=== PATIENT | female | born 1940 | race Caucasian/White ===

== ENCOUNTER 2021-03-08 08:20 | Outpatient (REF) | payer MEDICARE, SELFPAY ==
--- NOTE | ~2021-03-08 | MM_ITS ---
EXAMINATION: MM SCREENING DIGITAL BREAST TOMOSYNTHESIS, BILATERAL CLINICAL INFORMATION: Screening. Asymptomatic. The lifetime risk of breast cancer based on the Tyrer-Cuzick Model is 3%. COMPARISON: Mammography: 12/21/2019, 01/15/2017 TECHNIQUE: Digital breast tomosynthesis is performed in both the craniocaudal and mediolateral oblique views along with computer-aided detection (CAD). Synthesized 2D images are generated from the tomosynthesis. FINDINGS: There are scattered areas of fibroglandular density (ACR BI-RADS breast composition Category b). There are no significant masses, abnormal calcifications, or other abnormalities. Parenchymal pattern is similar to prior studies. Intramammary node posterior 3:00 left breast is similar to 2017. The axilla and skin contours are unremarkable. MM/MM tomosynthesis screening BI IMPRESSION: No mammographic evidence of malignancy. ASSESSMENT: BI-RADS 2: Benign RECOMMENDATION: Routine annual mammography screening. This patient's information was entered into a reminder system with a target due date for their next mammogram.
== END 2021-03-08 08:21 | disposition home or self-care (01) ==
LOC: HO.MAMMO 08:20
PROVIDERS: PCP Internal Medicine; Visit Provider Internal Medicine
DX: Z12.31 Encounter for screening mammogram for malignant neoplasm of breast (principal)
CPT/HCPCS: 77063; 77067

== ENCOUNTER 2021-03-23 10:23 | Outpatient (REF) | payer MEDICARE, SELFPAY ==
[2021-03-23 10:26] LABS: MANUAL DIFF FLAG NO
[2021-03-23 10:30] LABS: Basophils Percent Auto 0.5 % (0-2); Eosinophils Absolute Auto 0.2 X10*3/uL (0.0-0.4); Hematocrit 44.4 % (37-47); Hemoglobin 13.8 g/dl (12.0-16.0); Imm Gran Abs Auto 0.02 X10*3/uL (0.00-0.03); Imm Gran Pct Auto 0.2 % (0.0-0.4); Lymphocytes Absolute Auto 3.3 X10*3/uL (1.2-4.9); Lymphocytes Percent Auto 40.2 % (20-40); Mean Corpuscular HGB Conc 31.1 g/dl (31.0-35.0); Mean Corpuscular Hemoglobin 29.4 pg (27.0-33.0); Mean Corpuscular Volume 94.7 fL (80-98); Mean Platelet Volume 10.3 fL (9.4-12.3); Monocytes Absolute Auto 0.8 X10*3/uL (0.1-1.2); Monocytes Percent Auto 9.9 % (2-11); Neutrophils Absolute Auto 3.7 X10*3/uL (2.0-8.3); Neutrophils Percent Auto 46.2 % (45-73); Platelet Count 323 X10*3/uL (160-400); Red Blood Count 4.69 X10*6/uL (4.20-5.50); Red Cell Distribution Width 14.1 % (11.0-16.0); White Blood Count 8.1 X10*3/uL (4.8-10.8)
[2021-03-23 11:08] LABS: Glucose Urine UA NEG (NEG); Leukocyte Esterase Urine TRACE (NEG); Nitrite Urine NEG (NEG); Specific Gravity - Urine 1.015 (1.005-1.025); Urine Blood NEG (NEG); Urine Ketones NEG (NEG); Urine Protein NEG (NEG-TRACE)
[2021-03-23 11:12] LABS: Alanine Aminotransferase 13 U/L (0-31); Albumin Level 4.3 g/dL (3.5-5.0); Alkaline Phosphatase 90 U/L (39-117); Anion Gap 14 (12-20); Aspartate Amino Transferase 19 U/L (5-31); Bilirubin Total 0.5 mg/dL (0.0-1.0); Blood Urea Nitrogen 22 mg/dL (9-16); Calcium 10.2 mg/dL (8.4-10.2); Carbon Dioxide 28 mmol/L (22-29); Chloride 109 mmol/L (96-108); Cholesterol 238 mg/dL; Estimated Glomerular Filt Rate 51; Glucose Fasting 82 mg/dL (60-99); HDL Cholesterol 60 mg/dL; LDL Cholesterol Calculated 150 mg/dl; Potassium 4.4 mmol/L (3.3-5.1); Sodium 147 mmol/L (135-145); Total Protein 6.7 g/dL (6.5-8.0); Triglycerides 142 mg/dL
[2021-03-23 11:16] LABS: Appearance Urine TURBID; Color Urine YELLOW
[2021-03-23 11:36] LABS: Amorphous Sediment Urine 2+ /LPF; Bacteria Urine TRACE /LPF; RBC Urine 0 /HPF (0); Squamous Epithelial Cell Urine TRACE /LPF
== END 2021-03-23 10:24 | disposition home or self-care (01) ==
LOC: HO.LNP 10:23
PROVIDERS: Visit Provider Internal Medicine
DX: Z00.00 Encounter for general adult medical examination without abnormal findings (principal); E78.00 Pure hypercholesterolemia, unspecified
CPT/HCPCS: 80053; 80061; 81001; 81003; 85025

== ENCOUNTER 2021-08-23 11:39 | Outpatient (REF) | payer MEDICARE, SELFPAY ==
--- NOTE | ~2021-08-23 | XR_ITS ---
EXAMINATION: XR LUMBOSACRAL SPINE WITH OBLIQUES CLINICAL INFORMATION: Back pain COMPARISON: None TECHNIQUE: AP, both oblique, and lateral views of the lumbar spine. Lateral view of the lumbosacral junction. FINDINGS: Mineralization is normal. There is no fracture or dislocation. The posterior elements appear intact. There is normal vertebral alignment through L4, and above this level the disc spaces are preserved. At L4-L5 there is moderate to severe disc space narrowing and there is severe degenerative facet arthropathy with grade 1 to grade 2 anterolisthesis of L4. There is moderate disc space narrowing with endplate degenerative change and degenerative facet arthropathy at L5-S1. There are surgical clips in the left paraspinal region. 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
--- NOTE | ~2021-08-23 | XR_ITS ---
EXAMINATION: XR ABDOMEN COMPLETE CLINICAL INDICATION: Back pain; history of left nephrectomy COMPARISON: None TECHNIQUE: 2 views of the abdomen. FINDINGS: The bowel gas pattern is normal with no evidence of ileus or obstruction. There is moderate stool throughout the colon and gas in the rectum. There is no free air. No mass or organomegaly is evident. Surgical clips are noted in the left paraspinal region. No unusual soft tissue calcifications are noted. The bones are unremarkable. XR/XR abdomen min 2V IMPRESSION: Constipated colon. No acute abnormality is evident.
== END 2021-08-23 11:40 | disposition home or self-care (01) ==
LOC: HO.XRAY 11:39
PROVIDERS: PCP Internal Medicine; Visit Provider Internal Medicine
DX: M54.50 Low back pain, unspecified (principal)
CPT/HCPCS: 72110; 74019

== ENCOUNTER 2021-09-10 16:18 | Inpatient (IN) | payer MEDICARE, SELFPAY ==
--- NOTE | ~2021-09-10 | CT_ITS ---
EXAMINATION: CT ABDOMEN AND PELVIS WITHOUT CONTRAST CLINICAL INFORMATION: Bacteremia COMPARISON: None TECHNIQUE: Multidetector volumetric imaging was performed from the superior aspect of the liver through the pubic symphysis. Sagittal and coronal reformatted images were obtained on the technologist's workstation. This CT examination was performed using dose optimization techniques as appropriate, variously including the following: *Automated exposure control *Adjustment of mA and/or kV according to patient size (this includes techniques or standardized protocols for targeted exams where dose is matched to indication/reason for exam; i.e. extremities or head) *Use of iterative reconstruction technique DLP: 472 mGy-cm FINDINGS: LUNG BASES: Small bilateral pleural effusions are present. Bibasilar atelectasis is present. A tiny pericardial effusion is seen. LIVER, GALLBLADDER, AND BILIARY TREE: The liver is normal in size, shape, and attenuation. No focal hepatic lesion or biliary ductal dilatation is present. The gallbladder is unremarkable with no evidence of radiopaque gallstones, gallbladder wall thickening, or obvious pericholecystic inflammatory changes. PANCREAS: Unremarkable. SPLEEN: Unremarkable. ADRENAL GLANDS: Unremarkable. KIDNEYS AND URETERS: Status post left nephrectomy. The right kidney is normal in size, shape, and attenuation. No hydronephrosis, hydroureter, or calculi seen. No perinephric stranding. BLADDER: Empty and not adequately evaluated. No bladder calculi are present. GASTROINTESTINAL TRACT: The small and large bowel are unremarkable. The appendix is not seen. ABDOMINAL WALL: No significant hernia is appreciated. A tiny periumbilical hernia seen containing only fat. LYMPH NODES: No retroperitoneal lymphadenopathy seen. VASCULAR: Calcific plaque present in the aorta and iliofemoral vessels without aneurysm. PELVIC VISCERA: An anteverted uterus is present. An abnormal adnexal mass or free intraperitoneal fluid is not seen. OSSEOUS STRUCTURES: Marked degenerative change is present at L4-L5 disc space narrowing and grade 1 spondylolisthesis. Milder degenerative changes present at L5-S1. CT/CT abdomen pelvis wo con IMPRESSION: 1. A source for the patient's bacteremia is not found. 2. Incidental note made of small bilateral pleural effusions, nephrectomy and degenerative changes in spine L4-S1. Fleischner guidelines were followed.
--- NOTE | ~2021-09-10 | XR_ITS ---
EXAMINATION: PORTABLE CHEST 1 VIEW CLINICAL INFORMATION: leukocytosis . COMPARISON: No recent pertinent prior studies are available for comparison. TECHNIQUE: Portable frontal view of the chest was obtained. FINDINGS: The lungs are well expanded. Mild chronic reticular markings seen with a subtle retrocardiac infiltrate partially obscuring the right left hemidiaphragm. No significant effusion, edema, or pneumothorax. Cardiac and mediastinal silhouettes are within normal limits for technique. No acute bony abnormality seen. XR/XR chest 1V IMPRESSION: Chronic appearing reticular markings seen. There is obscuration of the medial aspect of the left hemidiaphragm and a subtle retrocardiac left lower lobe infiltrate cannot be excluded with this appearance. Clinical correlation and follow-up would be recommended.
[2021-09-10 16:44] VITALS: BP 104/57; PULSE 89; RESP 20; TEMP 36.6; O2SAT 95; BMI 21.9
[2021-09-10 17:10] LABS: Basophils Percent Auto 0.1 % (0-2); Eosinophils Percent Auto 0.1 % (0-4); Hematocrit 35.5 % (37.0-47.0); Hemoglobin 11.6 g/dl (12.0-16.0); Imm Gran Abs Auto 0.19 X10*3/uL (0.00-0.03); Lymphocytes Percent Auto 5.5 % (20-40); MANUAL DIFF FLAG SCAN; Mean Corpuscular HGB Conc 32.7 g/dl (31.0-35.0); Mean Corpuscular Hemoglobin 28.9 pg (27.0-33.0); Mean Corpuscular Volume 88.3 fL (80.0-98.0); Mean Platelet Volume 10.2 fL (9.4-12.3); Monocytes Absolute Auto 1.9 X10*3/uL (0.1-1.2); Neutrophils Absolute Auto 15.5 x10*3/uL (2.0-8.3); Neutrophils Percent Auto 83.3 % (45-73); Platelet Count 282 X10*3/uL (160-400); Red Blood Count 4.02 X10*6/uL (4.20-5.50); Red Cell Distribution Width 14.4 % (11.0-16.0); SCAN SMEAR FLAG 1; White Blood Count 18.6 X10*3/uL (4.8-10.8)
[2021-09-10 17:28] LABS: SLIDE REVIEW VERIFIED
[2021-09-10 17:35] LABS: Alanine Aminotransferase 26 U/L (0-31); Albumin Level 3.3 g/dL (3.5-5.0); Alkaline Phosphatase 117 U/L (39-117); Anion Gap 16 (12-20); Aspartate Amino Transferase 26 U/L (5-31); Bilirubin Total 0.4 mg/dL (0.0-1.0); Blood Urea Nitrogen 39 mg/dL (9-16); Carbon Dioxide 23 mmol/L (22-29); Chloride 101 mmol/L (96-108); Creatinine Clr Calc Pharmacy 16.3; Estimated Glomerular Filt Rate 20; Glucose Random 238 mg/dL (60-115); Potassium 5.1 mmol/L (3.3-5.1); Sodium 135 mmol/L (135-145); Total Protein 5.7 g/dL (6.5-8.0)
--- NOTE | 2021-09-10 21:54 | ECG_ITS ---
Test Reason : WEAKNESS Blood Pressure : / mmHG Vent. Rate : 079 BPM Atrial Rate : 079 BPM P-R Int : 152 ms QRS Dur : 130 ms QT Int : 402 ms P-R-T Axes : 065 -23 070 degrees QTc Int : 460 ms Normal sinus rhythm Possible Left atrial enlargement Left bundle branch block Abnormal ECG No previous ECGs available Referred By: Alvina Cordero Electronically Signed By:Estuardo Hussein
--- NOTE | 2021-09-10 22:07 | ED_ITS ---
HPI - General Adult General Chief complaint: General Medical Stated complaint: Body shakes Time Seen by Provider: 09/10/21 21:51 Source: patient Mode of arrival: ambulatory Limitations: no limitations History of Present Illness HPI narrative: Patient comes to the emergency room complaining of shaking sensation/chills, states that at home her blood pressure has just above 100 when she usually has a blood pressure around 120 systolic. Patient states that 2 days ago he had syncopal/near syncopal episode. Patient was walking down the stairs and started feeling very lightheaded. Patient was able to lower herself to the ground, did on the floor for 20 minutes, patient is unsure if she actually out. Patient also reports dysuria. Related Data Allergies Allergy/AdvReac Type Severity Reaction Status Date / Time Percocet Allergy Unknown Uncoded 05/29/12 00:00 Review of Systems Review of Systems: Constitutional : No Weight loss, complaining of fever and chills, fatigue, generalized malaise ENT/Mouth : No Hearing loss, No Ear Pain, No Nasal Congestion, No Sinus Pain, No Hoarseness, No sore throat, No Rhinorrhea, No Swallowing Difficulty Eyes: No Eye Pain, No Swelling, No Redness, No Foreign Body, No Discharge, No Vision Changes Cardiovascular : No Chest Pain, No SOB, No Dyspnea on Exertion, No Orthopnea, No Edema, No Palpitations Respiratory : No Cough, No Sputum, No Wheezing, No Smoke Exposure, No Dyspnea Gastrointestinal : No Nausea, No Vomiting, No Diarrhea, No Constipation, No abdominal Pain, No Hematochezia, No Melena Genitourinary : no irregular bleeding, complaining of intermittent Dysuria, No Urinary Frequency, No Hematuria, No Urinary Incontinence, No Urgency, No Flank Pain, No Urinary Flow Changes, No Hesitancy Musculoskeletal : No joint pain, No Myalgias, No Joint Swelling Skin : No Skin Lesions, No rash Neuro : No Weakness, No Numbness, No Paresthesias, complaining of syncopal/near syncopal episode, no headache, no head trauma Psych : No Anxiety/Panic, No Depression, No SI/HI/AH/VH, No Social Issues, Heme/Lymph: No Bruising, No Bleeding,No Lymphadenopathy Endocrine : No Polyuria, No Polydipsia, No Temperature Intolerance [facility] Past Medical History Medical History (Updated 09/11/21 @ 00:31 by Alvina Cordero MD) Kidney malignant neoplasm Surgical History (Updated 09/10/21 @ 22:10 by Alvina Cordero MD) History of nephrectomy Social History Social History Patient Tobacco Use Status: Never used Tobacco Use of substances other than those prescribed or required for medical reasons: No Advance Directives: No Advance Directives Information Provided: No Physical Exam Vital Signs: Vital Signs: Last Vital Signs Temp 101.4 F H 09/10/21 22:36 Pulse 89 09/10/21 23:09 Resp 20 09/10/21 16:44 BP 141/71 H 09/10/21 23:09 Pulse Ox 95 09/10/21 16:44 BMI result Body Mass Index 21.9 Const: Other: Appearance: Alert. Oriented X3. No acute distress. anxious Eyes: Pupils equal, round and reactive to light. ENT: Pharynx normal. Neck: Normal inspection. Neck supple. No lymph nodes noted. No crepitus CVS: Normal heart rate and rhythm. Pulses normal. Normal S1 and S2 Respiratory: No respiratory distress. Breath sounds normal. No Wheezing. No rales Abdomen: Soft and nontender. No rigidity. No distention. Skin: Skin warm and dry. Normal skin color. Normal skin turgor. Extremities: No lower extremity edema. No lower extremity edema. No Lacerations. No Rash Neuro: Oriented X 3. No motor deficit. No sensory deficit. Moving all extermities. No slurred speech. Course Course Course Narrative: I discussed the labs and imaging with the patient, patient will be admitted for UTI, fever, FRAN. Patient agrees with plan. I discussed the patient with Dr. Jin. Patient being admitted Medical Decision Making Lab Data Result diagrams: 09/10/21 17:05 09/10/21 17:05 Labs: Lab Results 09/10/21 09/10/21 09/10/21 Range/Units 17:05 17:05 22:31 WBC 18.6 H (4.8-10.8) X10*3/uL RBC 4.02 L (4.20-5.50) X10*6/uL Hgb 11.6 L (12.0-16.0) g/dl Hct 35.5 L (37.0-47.0) % MCV 88.3 (80.0-98.0) fL MCH 28.9 (27.0-33.0) pg MCHC 32.7 (31.0-35.0) g/dl RDW 14.4 (11.0-16.0) % Plt Count 282 (160-400) X10*3/uL MPV 10.2 (9.4-12.3) fL Immature Gran % (Auto) 1.0 H (0.0-0.4) % Neut % (Auto) 83.3 H (45-73) % Lymph % (Auto) 5.5 L (20-40) % [place] % (Auto) 10.0 (2-11) % Eos % (Auto) 0.1 (0-4) % Baso % (Auto) 0.1 (0-2) % Lymph # (Auto) 1.0 L (1.2-4.9) X10*3/uL [place] # (Auto) 1.9 H (0.1-1.2) X10*3/uL Eos # (Auto) 0.0 (0.0-0.4) X10*3/uL Baso # (Auto) 0.0 (0.0-0.2) X10*3/uL Abs Immat Gran (auto) 0.19 H (0.00-0.03) X10*3/uL Absolute Neuts (auto) 15.5 H (2.0-8.3) x10*3/uL Absolute Nucleated RBC 0.000 (0.0-0.012) X10*3/uL Nucleated RBC % (auto) 0.0 (0.0-0.2) /100WBC Smear Tech's Comments VERIFIED Sodium 135 (135-145) mmol/L Potassium 5.1 (3.3-5.1) mmol/L Chloride 101 (96-108) mmol/L Carbon Dioxide 23 (22-29) mmol/L Anion Gap 16 (12-20) BUN 39 H (9-16) mg/dL Creatinine 2.35 H (0.5-1.4) mg/dL Estim Creat Clear Calc 16.3 Estimated GFR 20 Random Glucose 238 H (60-115) mg/dL Lactic Acid (0.5-2.0) mmol/L Calcium 9.0 D (8.4-10.2) mg/dL Total Bilirubin 0.4 (0.0-1.0) mg/dL AST 26 (5-31) U/L ALT 26 (0-31) U/L Alkaline Phosphatase 117 D (39-117) U/L Troponin I High Sens (<3.5-17.0) ng/L Total Protein 5.7 L (6.5-8.0) g/dL Albumin 3.3 L D (3.5-5.0) g/dL Lipase 25 (8-78) U/L Urine Color Urine Appearance Urine pH (5.0-8.0) Ur Specific [place] (1.005-1.025) Urine Protein (NEG-TRACE) MG/DL Urine Glucose (UA) (NEG) MG/DL Urine Ketones (NEG) MG/DL Urine Blood (NEG) Urine Nitrite (NEG) Ur Leukocyte Esterase (NEG) Urine RBC (0) /HPF Urine WBC (0-4) /HPF Ur Squamous Epith Cells /LPF Urine Bacteria /LPF Urine Mucus /LPF Stool Occult Blood (NEGATIVE) COVID-19 (CELE) (Negative) COVID-19 Clin Com 09/10/21 09/10/21 09/10/21 Range/Units 22:32 22:32 22:32 WBC (4.8-10.8) X10*3/uL RBC (4.20-5.50) X10*6/uL Hgb (12.0-16.0) g/dl Hct (37.0-47.0) % MCV (80.0-98.0) fL MCH (27.0-33.0) pg MCHC (31.0-35.0) g/dl RDW (11.0-16.0) % Plt Count (160-400) X10*3/uL MPV (9.4-12.3) fL Immature Gran % (Auto) (0.0-0.4) % Neut % (Auto) (45-73) % Lymph % (Auto) (20-40) % [place] % (Auto) (2-11) % Eos % (Auto) (0-4) % Baso % (Auto) (0-2) % Lymph # (Auto) (1.2-4.9) X10*3/uL [place] # (Auto) (0.1-1.2) X10*3/uL Eos # (Auto) (0.0-0.4) X10*3/uL Baso # (Auto) (0.0-0.2) X10*3/uL Abs Immat Gran (auto) (0.00-0.03) X10*3/uL Absolute Neuts (auto) (2.0-8.3) x10*3/uL Absolute Nucleated RBC (0.0-0.012) X10*3/uL Nucleated RBC % (auto) (0.0-0.2) /100WBC Smear Tech's Comments Sodium (135-145) mmol/L Potassium (3.3-5.1) mmol/L Chloride (96-108) mmol/L Carbon Dioxide (22-29) mmol/L Anion Gap (12-20) BUN (9-16) mg/dL Creatinine (0.5-1.4) mg/dL Estim Creat Clear Calc Estimated GFR Random Glucose (60-115) mg/dL Lactic Acid 1.7 (0.5-2.0) mmol/L Calcium (8.4-10.2) mg/dL Total Bilirubin (0.0-1.0) mg/dL AST (5-31) U/L ALT (0-31) U/L Alkaline Phosphatase (39-117) U/L Troponin I High Sens 7.1 (<3.5-17.0) ng/L Total Protein (6.5-8.0) g/dL Albumin (3.5-5.0) g/dL Lipase (8-78) U/L Urine Color Urine Appearance Urine pH (5.0-8.0) Ur Specific [place] (1.005-1.025) Urine Protein (NEG-TRACE) MG/DL Urine Glucose (UA) (NEG) MG/DL Urine Ketones (NEG) MG/DL Urine Blood (NEG) Urine Nitrite (NEG) Ur Leukocyte Esterase (NEG) Urine RBC (0) /HPF Urine WBC (0-4) /HPF Ur Squamous Epith Cells /LPF Urine Bacteria /LPF Urine Mucus /LPF Stool Occult Blood (NEGATIVE) COVID-19 (CELE) Negative (Negative) COVID-19 Clin Com See Note 09/10/21 09/10/21 Range/Units 22:41 23:23 WBC (4.8-10.8) X10*3/uL RBC (4.20-5.50) X10*6/uL Hgb (12.0-16.0) g/dl Hct (37.0-47.0) % MCV (80.0-98.0) fL MCH (27.0-33.0) pg MCHC (31.0-35.0) g/dl RDW (11.0-16.0) % Plt Count (160-400) X10*3/uL MPV (9.4-12.3) fL Immature Gran % (Auto) (0.0-0.4) % Neut % (Auto) (45-73) % Lymph % (Auto) (20-40) % [place] % (Auto) (2-11) % Eos % (Auto) (0-4) % Baso % (Auto) (0-2) % Lymph # (Auto) (1.2-4.9) X10*3/uL [place] # (Auto) (0.1-1.2) X10*3/uL Eos # (Auto) (0.0-0.4) X10*3/uL Baso # (Auto) (0.0-0.2) X10*3/uL Abs Immat Gran (auto) (0.00-0.03) X10*3/uL Absolute Neuts (auto) (2.0-8.3) x10*3/uL Absolute Nucleated RBC (0.0-0.012) X10*3/uL Nucleated RBC % (auto) (0.0-0.2) /100WBC Smear Tech's Comments Sodium (135-145) mmol/L Potassium (3.3-5.1) mmol/L Chloride (96-108) mmol/L Carbon Dioxide (22-29) mmol/L Anion Gap (12-20) BUN (9-16) mg/dL Creatinine (0.5-1.4) mg/dL Estim Creat Clear Calc Estimated GFR Random Glucose (60-115) mg/dL Lactic Acid (0.5-2.0) mmol/L Calcium (8.4-10.2) mg/dL Total Bilirubin (0.0-1.0) mg/dL AST (5-31) U/L ALT (0-31) U/L Alkaline Phosphatase (39-117) U/L Troponin I High Sens (<3.5-17.0) ng/L Total Protein (6.5-8.0) g/dL Albumin (3.5-5.0) g/dL Lipase (8-78) U/L Urine Color YELLOW Urine Appearance CLEAR Urine pH 7.0 (5.0-8.0) Ur Specific [place] <= 1.005 (1.005-1.025) Urine Protein 1+ H (NEG-TRACE) MG/DL Urine Glucose (UA) NEG (NEG) MG/DL Urine Ketones NEG (NEG) MG/DL Urine Blood 1+ H (NEG) Urine Nitrite NEG (NEG) Ur Leukocyte Esterase 2+ H (NEG) Urine RBC 5-9 H (0) /HPF Urine WBC 15-29 H (0-4) /HPF Ur Squamous Epith Cells 1+ /LPF Urine Bacteria 3+ /LPF Urine Mucus 2+ /LPF Stool Occult Blood NEGATIVE (NEGATIVE) COVID-19 (CELE) (Negative) COVID-19 Clin Com Imaging Data Chest x-ray: Radiologist's impression: FINDINGS: The lungs are well expanded. Mild chronic reticular markings seen with a subtle retrocardiac infiltrate partially obscuring the right left hemidiaphragm. No significant effusion, edema, or pneumothorax. Cardiac and mediastinal silhouettes are within normal limits for technique. No acute bony abnormality seen. XR/XR chest 1V IMPRESSION: Chronic appearing reticular markings seen. There is obscuration of the medial aspect of the left hemidiaphragm and a subtle retrocardiac left lower lobe infiltrate cannot be excluded with this appearance. Clinical correlation and follow-up would be recommended. Discharge Plan Discharge Clinical Impression: UTI (urinary tract infection), Syncope, FRAN (acute kidney injury) Patient Disposition: Admitted As Inpatient
[2021-09-10 22:36] VITALS: TEMP 38.6
[2021-09-10] MEDS: 0.9 % Sodium Chloride 1,000 ML 999 ML IVCONT (22:43)
[2021-09-10 22:54] LABS: OBS Int Ctl Valid YES; OBS1 NEGATIVE (NEGATIVE)
[2021-09-10 23:04] LABS: Lactic Acid 1.7 mmol/L (0.5-2.0)
[2021-09-10 23:06] VITALS: BP 126/59; PULSE 83
[2021-09-10 23:07] VITALS: BP 120/58; PULSE 83
[2021-09-10 23:08] LABS: Lipase 25 U/L (8-78)
[2021-09-10 23:09] VITALS: BP 141/71; PULSE 89
[2021-09-10 23:14] LABS: COVID-19 Test Negative (Negative); IDNOW Serial# 9DD0AD1C; Troponin-I High Sensitivity 7.1 ng/L (<3.5-17.0)
[2021-09-10 23:29] LABS: Appearance Urine CLEAR; Color Urine YELLOW; Glucose Urine UA NEG (NEG); Leukocyte Esterase Urine 2+ (NEG); Nitrite Urine NEG (NEG); Specific Gravity - Urine <= 1.005 (1.005-1.025); UACC Culture Trigger YES; Urine Blood 1+ (NEG); Urine Ketones NEG (NEG); Urine Protein 1+ MG/DL (NEG-TRACE)
[2021-09-10 23:39] LABS: Bacteria Urine 3+ /LPF; Mucus Urine 2+ /LPF; Squamous Epithelial Cell Urine 1+ /LPF
--- NOTE | 2021-09-10 23:40 | P.HPHOSP_ITS ---
History of Present Illness Date of Service: 09/10/21 Chief Complaint: Syncope 80-year-old female with a past medical history RCC status post nephrectomy presented to the hospital today with a chief complaint of syncope. Patient reports that over the past few days she has been having fever chills. Denies any headaches numbness tingling. Denies any cough or sputum production. Patient does complain of urinary frequency and dysuria for the past few days. Today she went to her PCP who probably thought she had a viral syndrome. patient denies any nausea vomiting. but had couple episodes of diarrhea. Reports she has poor oral intake over 2-3 weeks Denies any numbness tingling. Patient reports that when she was walking down the said she felt lightheaded and dizzy and subsequently she lowered herself to the ground and no LOC, mentioned that she has felt like she is going to faint but did not; woke up of 20 minutes; denies any seizure-like activity. Subsequently came to the ER for further evaluation. Review of all other systems is negative except mentioned above ER course: per ER team patient's EKG was nonischemic; blood was on the soft side on presentation; started on fluids. Blood pressure improved. Her syncope is presumed to be secondary to volume depletion / Vasovagal. Ort hostatics were negative. All laboratory noted to have FRAN with creatinine at 2.3 from baseline 1.0. Urinalysis was abnormal consistent with UTI. Given ceftriaxone. Admitted for further management. [facility] Medical History (Updated 09/11/21 @ 02:35 by Ankush Jin MD) Kidney malignant neoplasm Pertinent family history: reviewed Surgical History (Updated 09/10/21 @ 22:10 by Alvina Cordero MD) History of nephrectomy Social History Patient Tobacco Use Status: Never used Tobacco Use of substances other than those prescribed or required for medical reasons: No Advance Directives: No Advance Directives Information Provided: No Meds Allergies Allergy/AdvReac Type Severity Reaction Status Date / Time Percocet Allergy Unknown Uncoded 05/29/12 00:00 Active Medications: Current Medications Ceftriaxone Sodium 1 gm/ (Sodium Chloride) 50 mls @ 100 mls/hr IV ONCE ONE Stop: 09/11/21 00:03 Physical Exam Vital Signs and Narrative: Vital Signs: Last Vital Signs Temp 101.4 F H 09/10/21 22:36 Pulse 89 09/10/21 23:09 Resp 20 09/10/21 16:44 BP 141/71 H 09/10/21 23:09 Pulse Ox 95 09/10/21 16:44 BMI result Body Mass Index 21.9 Results Labs CBC and Chem 7: 09/10/21 17:05 09/10/21 17:05 Labs: Laboratory Results - last 24 hr 09/10/21 09/10/21 09/10/21 17:05 17:05 22:31 MCV 88.3 MCH 28.9 MCHC 32.7 RDW 14.4 Plt Count 282 MPV 10.2 Immature Gran % (Auto) 1.0 H Neut % (Auto) 83.3 H Lymph % (Auto) 5.5 L [place] % (Auto) 10.0 Eos % (Auto) 0.1 Baso % (Auto) 0.1 Lymph # (Auto) 1.0 L [place] # (Auto) 1.9 H Eos # (Auto) 0.0 Baso # (Auto) 0.0 Abs Immat Gran (auto) 0.19 H Absolute Neuts (auto) 15.5 H Absolute Nucleated RBC 0.000 Nucleated RBC % (auto) 0.0 Smear Tech's Comments VERIFIED Anion Gap 16 Estim Creat Clear Calc 16.3 Estimated GFR 20 Random Glucose 238 H Lactic Acid Calcium 9.0 D Total Bilirubin 0.4 AST 26 ALT 26 Alkaline Phosphatase 117 D Troponin I High Sens Total Protein 5.7 L Albumin 3.3 L D Lipase 25 Urine Color Urine Appearance Urine pH Ur Specific [place] Urine Protein Urine Glucose (UA) Urine Ketones Urine Blood Urine Nitrite Ur Leukocyte Esterase Stool Occult Blood COVID-19 (CELE) COVID-19 Clin Com 09/10/21 09/10/21 09/10/21 22:32 22:32 22:32 MCV MCH MCHC RDW Plt Count MPV Immature Gran % (Auto) Neut % (Auto) Lymph % (Auto) [place] % (Auto) Eos % (Auto) Baso % (Auto) Lymph # (Auto) [place] # (Auto) Eos # (Auto) Baso # (Auto) Abs Immat Gran (auto) Absolute Neuts (auto) Absolute Nucleated RBC Nucleated RBC % (auto) Smear Tech's Comments Anion Gap Estim Creat Clear Calc Estimated GFR Random Glucose Lactic Acid 1.7 Calcium Total Bilirubin AST ALT Alkaline Phosphatase Troponin I High Sens 7.1 Total Protein Albumin Lipase Urine Color Urine Appearance Urine pH Ur Specific [place] Urine Protein Urine Glucose (UA) Urine Ketones Urine Blood Urine Nitrite Ur Leukocyte Esterase Stool Occult Blood COVID-19 (CELE) Negative COVID-19 [employer] Com See Note 09/10/21 09/10/21 22:41 23:23 MCV MCH MCHC RDW Plt Count MPV Immature Gran % (Auto) Neut % (Auto) Lymph % (Auto) [place] % (Auto) Eos % (Auto) Baso % (Auto) Lymph # (Auto) [place] # (Auto) Eos # (Auto) Baso # (Auto) Abs Immat Gran (auto) Absolute Neuts (auto) Absolute Nucleated RBC Nucleated RBC % (auto) Smear Tech's Comments Anion Gap Estim Creat Clear Calc Estimated GFR Random Glucose Lactic Acid Calcium Total Bilirubin AST ALT Alkaline Phosphatase Troponin I High Sens Total Protein Albumin Lipase Urine Color YELLOW Urine Appearance CLEAR Urine pH 7.0 Ur Specific [place] <= 1.005 Urine Protein 1+ H Urine Glucose (UA) NEG Urine Ketones NEG Urine Blood 1+ H Urine Nitrite NEG Ur Leukocyte Esterase 2+ H Stool Occult Blood NEGATIVE COVID-19 (CELE) COVID-19 Clin Com Imaging Radiologist's Impressions: Impressions Chest X-Ray 09/10/21 22:10 IMPRESSION: Chronic appearing reticular markings seen. There is obscuration of the medial aspect of the left hemidiaphragm and a subtle retrocardiac left lower lobe infiltrate cannot be excluded with this appearance. Clinical correlation and follow-up would be recommended. Assessment and Plan (1) UTI (urinary tract infection): Status: Acute (2) Near syncope: Status: Acute (3) FRAN (acute kidney injury): Status: Acute 80-year-old female with a past medical history RCC status post nephrectomy presented to the hospital today with a chief complaint of syncope/ Frequency/ dysuria. Noted to have UTI. Admitted for further management. Near Syncope: Likely secondary to volume depletion in the setting of infection/Poor intake. Gentle IV fluids. EKG nonischemic. Telemetry. Troponin 7.1-> repeat pending. UTI: Continue ceftriaxone. Follow up cultures. FRAN: Patient's baseline creatinine 1.0. On presentation creatinine is 2.3. Avoid nephrotoxins. Likely prerenal. IV fluids. Nephrology follow-up. Patient has history of renal cell carcinoma status post nephrectomy. DVT prophylaxis: SCD boots Code status: Full code Quality Stroke Does the patient have a stroke diagnosis?: No VTE Prior VTE?: No VTE Risk Level:: Medical - moderate - high VTE Device Contraindication: N/A - Device Ordered VTE Drug Contraindication: Treatment Not Indicated
[2021-09-11] VITALS (11 sets, daily range): BP systolic 95–122; BP diastolic 44–74; PULSE 57–97; RESP 14–18; TEMP 36.8–39.2; O2SAT 95–98
[2021-09-11] MEDS: cefTRIAXone sodium 1 GM in 0.9 % Sodium Chloride 50 ML IV ×2 (00:34→22:00)
[2021-09-11] MEDS: Dextrose 5 % and 0.45 % NaCl 1,000 ML 100 ML IVCONT ×3 (00:40→21:59)
[2021-09-11] MEDS: Acetaminophen 325 MG TABLET 650 MG PO (00:57)
[2021-09-11] MEDS: 0.9 % Sodium Chloride 500 ML 250 ML IV (02:44)
[2021-09-11 03:26] LABS: Estimated Average Glucose 134 mg/dL; Hemoglobin A1c % 6.3 %
[2021-09-11 07:39] LABS: Basophils Percent Auto 0.2 % (0-2); Eosinophils Absolute Auto 0.1 X10*3/uL (0.0-0.4); Eosinophils Percent Auto 0.7 % (0-4); Hematocrit 31.8 % (37.0-47.0); Hemoglobin 10.1 g/dl (12.0-16.0); Imm Gran Abs Auto 0.18 X10*3/uL (0.00-0.03); Imm Gran Pct Auto 1.1 % (0.0-0.4); Lymphocytes Absolute Auto 1.7 X10*3/uL (1.2-4.9); Lymphocytes Percent Auto 10.9 % (20-40); MANUAL DIFF FLAG SCAN; Mean Corpuscular HGB Conc 31.8 g/dl (31.0-35.0); Mean Corpuscular Hemoglobin 28.8 pg (27.0-33.0); Mean Corpuscular Volume 90.6 fL (80.0-98.0); Mean Platelet Volume 10.1 fL (9.4-12.3); Monocytes Absolute Auto 1.6 X10*3/uL (0.1-1.2); Monocytes Percent Auto 10.1 % (2-11); Neutrophils Absolute Auto 12.3 x10*3/uL (2.0-8.3); Platelet Count 264 X10*3/uL (160-400); Red Blood Count 3.51 X10*6/uL (4.20-5.50); Red Cell Distribution Width 14.6 % (11.0-16.0); SCAN SMEAR FLAG 1; White Blood Count 15.9 X10*3/uL (4.8-10.8)
[2021-09-11 07:59] LABS: SLIDE REVIEW VERIFIED
[2021-09-11 08:03] LABS: Anion Gap 14 (12-20); Blood Urea Nitrogen 35 mg/dL (9-16); Calcium 8.6 mg/dL (8.4-10.2); Carbon Dioxide 24 mmol/L (22-29); Chloride 108 mmol/L (96-108); Creatinine Clr Calc Pharmacy 17.9; Estimated Glomerular Filt Rate 22; Glucose Random 164 mg/dL (60-115); Potassium 4.6 mmol/L (3.3-5.1); Sodium 141 mmol/L (135-145)
--- NOTE | 2021-09-11 09:30 | CA_ITS ---
Transthoracic Echocardiogram Patient (Last, First, Middle): Mayte Cole M Gender: Female Date of : 1940 Age: 80 Procedure Date: 09/11/2021 Procedure Type: Transthoracic Echocardiogram Location: S3W Height: 160.02 cm Weight: 56.25 kg BSA: 1.58 m2 Heart Rate: bpm BP: 101 / 52 mmHg Doping Supervisor: Referring MD: Ankush Jin MD Symptoms: syncope Study Quality: Good ECG Rhythm: Sinus Conclusions: - Normal left ventricular size and systolic function. - There is moderately increased left ventricular wall thickness. - E/E prime ratio is between 8 and 15 consistent with indeterminate filling pressures. - Normal right ventricular cavity size and systolic function. - No signifciant valvular or pericardial pathology. Findings Left Ventricle Normal left ventricular size and systolic function. There is moderately increased left ventricular wall thickness. The visually estimated ejection fraction is between 55-60%. There is no evidence of regional wall motion abnormalities. Abnormal diastolic function is noted. Spectral Doppler is indicative of an impaired relaxation filling pattern. E/E prime ratio is between 8 and 15 consistent with indeterminate filling pressures. Right Ventricle Normal right ventricular cavity size and systolic function. Atria The left atrium is mildly dilated. Aortic Valve Normal aortic valve structure and function. There is no aortic valve stenosis. There is no aortic valve regurgitation. Mitral Valve Normal mitral valve structure and function. There is mild mitral valve regurgitation. There is no mitral valve stenosis. Pulmonic Valve The pulmonic valve is likely normal. Tricuspid Valve Normal tricuspid valve structure and function. There is trace tricuspid valve regurgitation. Normal right atrial pressure. There is no evidence of pulmonary hypertension. Great Vessels All visible segments of the aorta are normal in size. The visualized portions of the pulmonary artery and branches are normal. Venous The inferior vena cava is normal in size and collapses greater than 50% with inspiration. Pericardium/Pleural There is no evidence of pericardial effusion. Prior Study Comparison No prior study available for comparison. Measurements 2D Linear Measurements IVSd: 1.22 0.6-0.9/0.6-1.0 cm LVIDd: 4.44 3.9-5.3/4.2-5.9 cm LVIDd Index: 2.81 2.4-3.2/2.2-3.1 cm/m2 LVIDs: 3.06 2.0-3.6 cm LVPWd: 1.24 0.7-1.1 cm Ao Root: 2.50 2.1-3.5 cm LA Diam: 3.70 2.7-3.8/3.0-4.0 cm LAIDs Index: 2.34 1.5-2.3 cm/m2 LV Mass: 250.62 67-162/88-224 g LV Mass Index: 158.62 43-95/49-115 g/m2 LVOT Diam: 1.90 3.0+(-)1.3 cm 2D Systolic Function EF 4C: 46.40 >55% EF 2C: 55.90 >55% Mitral Valve MV Pk E: 0.97 MV PK A: 1.13 MV Decel Time: 146.00 E/A: 0.90 E'Lateral: 8.38 E'Medial: 8.38 E/E' Med: 11.60 E/E' Lat: 11.60 PHT: 43.00 MVA PHT: 5.12 Decel Hale: 6.64 Aortic Valve AoV Pk Micky: 1.48 AoV Mn Micky: 1.05 AoV VTI: 0.35 AoV Pk Grad: 9.00 Aov Mn Grad: 5.00 ASHLEY Cont.VTI: 1.72 LVOT LVOT Pk Micky: 0.95 LVOT Mn Micky: 0.69 LVOT VTI: 0.21 LVOT Pk Grad: 4.00 LVOT Mn Grad: 2.00 LVOT Diam: 1.90 LVOT Area: 2.84 Diastolic Function MV Pk E: 0.97 MV Pk A: 1.13 E/A: 0.90 E'Medial: 8.38 E/E' Med: 11.60 E' Laterial: 8.38 E/E' Lat: 11.60 Tricuspid Valve TR Pk Micky: 2.49 TR Pk Grad: 25.00 RVSP: 28.00 Great Vessels Aorta Ao Root-2D: 2.50 2.0-3.7 cm Ao Asc: 3.10 2.1-3.4 cm Pulmonary Valve PV Pk Micky: 1.05 Peak PV Grad: 4.00 Updated in Other Vendor System with Status of Final Estuardo Hussein MD electronically signed on 09/11/2021 8:07:01 PM with status of Final
--- NOTE | 2021-09-11 09:49 | MHC.CM.PN ---
Attempted to meet with patient in regards to discharge planning. Patient not in room. No family present. Will attempt to meet again. Continue to monitor for d/c needs.
--- NOTE | 2021-09-11 10:11 | MHC.CM.PN ---
Met with patient in regards to discharge planning. Patient lives alone, ambulates independently and had no services prior to coming to the hospital. PCP verified. Copy of HCP verified to be on file. Patient only received 1 dose of Moderna vaccine. IMM explained and signed. Patient's friend/2nd HCP, Nancy will transport patient when medically stable. Continue to monitor for d/c needs.
--- NOTE | 2021-09-11 10:23 | P.PNNP_ITS ---
Subjective Subjective Date of Service: 09/13/21 Interval history: Events noted Physical Exam Vital Signs: Vital Signs: Last Vital Signs Temp 98.2 F 09/11/21 02:38 Pulse 57 09/11/21 05:59 Resp 18 09/11/21 05:59 BP 101/52 L 09/11/21 05:59 Pulse Ox 95 09/11/21 05:59 BMI result Body Mass Index 21.9 Const: Other: Appearance: Alert. Oriented X3. No acute distress. anxious Eyes: Pupils equal, round and reactive to light. ENT: Pharynx normal. Neck: Normal inspection. Neck supple. No lymph nodes noted. No crepitus CVS: Normal heart rate and rhythm. Pulses normal. Normal S1 and S2 Respiratory: No respiratory distress. Breath sounds normal. No Wheezing. No rales Abdomen: Soft and nontender. No rigidity. No distention. Skin: Skin warm and dry. Normal skin color. Normal skin turgor. Extremities: No lower extremity edema. No lower extremity edema. No Lacerations. No Rash Neuro: Oriented X 3. No motor deficit. No sensory deficit. Moving all exter mities. No slurred speech. Objective Data Labs CBC & Chem 7: 09/13/21 05:28 09/13/21 05:28 Labs: Laboratory Results - last 24 hr 09/10/21 09/10/21 09/10/21 17:05 17:05 17:05 WBC 18.6 H RBC 4.02 L Hgb 11.6 L Hct 35.5 L MCV 88.3 MCH 28.9 MCHC 32.7 RDW 14.4 Plt Count 282 MPV 10.2 Immature Gran % (Auto) 1.0 H Neut % (Auto) 83.3 H Lymph % (Auto) 5.5 L [place] % (Auto) 10.0 Eos % (Auto) 0.1 Baso % (Auto) 0.1 Lymph # (Auto) 1.0 L [place] # (Auto) 1.9 H Eos # (Auto) 0.0 Baso # (Auto) 0.0 Abs Immat Gran (auto) 0.19 H Absolute Neuts (auto) 15.5 H Absolute Nucleated RBC 0.000 Nucleated RBC % (auto) 0.0 Smear Tech's Comments VERIFIED Sodium 135 Potassium 5.1 Chloride 101 Carbon Dioxide 23 Anion Gap 16 BUN 39 H Creatinine 2.35 H Estim Creat Clear Calc 16.3 Estimated GFR 20 Random Glucose 238 H Estimat Average Glucose 134 Hemoglobin A1c % 6.3 Lactic Acid Calcium 9.0 D Total Bilirubin 0.4 AST 26 ALT 26 Alkaline Phosphatase 117 D Total Creatine Kinase 121 Troponin I High Sens Total Protein 5.7 L Albumin 3.3 L D Lipase Urine Color Urine Appearance Urine pH Ur Specific [place] Urine Protein Urine Glucose (UA) Urine Ketones Urine Blood Urine Nitrite Ur Leukocyte Esterase Urine RBC Urine WBC Ur Squamous Epith Cells Urine Bacteria Urine Mucus Stool Occult Blood COVID-19 (CELE) COVID-19 Clin Com 09/10/21 09/10/21 09/10/21 22:31 22:32 22:32 WBC RBC Hgb Hct MCV MCH MCHC RDW Plt Count MPV Immature Gran % (Auto) Neut % (Auto) Lymph % (Auto) [place] % (Auto) Eos % (Auto) Baso % (Auto) Lymph # (Auto) [place] # (Auto) Eos # (Auto) Baso # (Auto) Abs Immat Gran (auto) Absolute Neuts (auto) Absolute Nucleated RBC Nucleated RBC % (auto) Smear Tech's Comments Sodium Potassium Chloride Carbon Dioxide Anion Gap BUN Creatinine Estim Creat Clear Calc Estimated GFR Random Glucose Estimat Average Glucose Hemoglobin A1c % Lactic Acid Calcium Total Bilirubin AST ALT Alkaline Phosphatase Total Creatine Kinase Troponin I High Sens 7.1 Total Protein Albumin Lipase 25 Urine Color Urine Appearance Urine pH Ur Specific [place] Urine Protein Urine Glucose (UA) Urine Ketones Urine Blood Urine Nitrite Ur Leukocyte Esterase Urine RBC Urine WBC Ur Squamous Epith Cells Urine Bacteria Urine Mucus Stool Occult Blood COVID-19 (CELE) Negative COVID-19 [employer] Com See Note 09/10/21 09/10/21 09/10/21 22:32 22:41 23:23 WBC RBC Hgb Hct MCV MCH MCHC RDW Plt Count MPV Immature Gran % (Auto) Neut % (Auto) Lymph % (Auto) [place] % (Auto) Eos % (Auto) Baso % (Auto) Lymph # (Auto) [place] # (Auto) Eos # (Auto) Baso # (Auto) Abs Immat Gran (auto) Absolute Neuts (auto) Absolute Nucleated RBC Nucleated RBC % (auto) Smear Tech's Comments Sodium Potassium Chloride Carbon Dioxide Anion Gap BUN Creatinine Estim Creat Clear Calc Estimated GFR Random Glucose Estimat Average Glucose Hemoglobin A1c % Lactic Acid 1.7 Calcium Total Bilirubin AST ALT Alkaline Phosphatase Total Creatine Kinase Troponin I High Sens Total Protein Albumin Lipase Urine Color YELLOW Urine Appearance CLEAR Urine pH 7.0 Ur Specific [place] <= 1.005 Urine Protein 1+ H Urine Glucose (UA) NEG Urine Ketones NEG Urine Blood 1+ H Urine Nitrite NEG Ur Leukocyte Esterase 2+ H Urine RBC 5-9 H Urine WBC 15-29 H Ur Squamous Epith Cells 1+ Urine Bacteria 3+ Urine Mucus 2+ Stool Occult Blood NEGATIVE COVID-19 (CELE) COVID-19 [employer] 09/11/21 09/11/21 09/11/21 02:31 07:18 07:18 WBC 15.9 H RBC 3.51 L Hgb 10.1 L Hct 31.8 L MCV 90.6 MCH 28.8 MCHC 31.8 RDW 14.6 Plt Count 264 MPV 10.1 Immature Gran % (Auto) 1.1 H Neut % (Auto) 77.0 H Lymph % (Auto) 10.9 L [place] % (Auto) 10.1 Eos % (Auto) 0.7 Baso % (Auto) 0.2 Lymph # (Auto) 1.7 [place] # (Auto) 1.6 H Eos # (Auto) 0.1 Baso # (Auto) 0.0 Abs Immat Gran (auto) 0.18 H Absolute Neuts (auto) 12.3 H Absolute Nucleated RBC 0.000 Nucleated RBC % (auto) 0.0 Smear Tech's Comments VERIFIED Sodium 141 Potassium 4.6 Chloride 108 Carbon Dioxide 24 Anion Gap 14 BUN 35 H Creatinine 2.13 H Estim Creat Clear Calc 17.9 Estimated GFR 22 Random Glucose 164 H Estimat Average Glucose Hemoglobin A1c % Lactic Acid Calcium 8.6 Total Bilirubin AST ALT Alkaline Phosphatase Total Creatine Kinase Troponin I High Sens 8.0 Total Protein Albumin Lipase Urine Color Urine Appearance Urine pH Ur Specific [place] Urine Protein Urine Glucose (UA) Urine Ketones Urine Blood Urine Nitrite Ur Leukocyte Esterase Urine RBC Urine WBC Ur Squamous Epith Cells Urine Bacteria Urine Mucus Stool Occult Blood COVID-19 (CELE) COVID-19 [employer] Procedures Date of Service Date of Service: 09/12/21 Assessment & Plan Assessment and plan (1) Bacteremia: Status: Acute (2) Near syncope: Status: Acute (3) UTI (urinary tract infection): Status: Acute (4) FRAN (acute kidney injury): Status: Acute Assessment and Plan: RFAN due to hypoperfusion Cr is slowly improving Keep I >O Expect recovery Chck renal ultrasound due to slow recovery in a solitary kidney- ? obstructio Time Spent With Patient Time with patient: 15 - 24 minutes Progress Note: Quality Stroke Does the patient have a stroke diagnosis?: No
--- NOTE | 2021-09-11 13:20 | HO.PM.IMPN ---
Subjective Subjective Date of Service: 09/11/21 Review of Systems Follow up syncope/uti Feeling better no dizziness Denied chest pain, shortness of breath, nausea or vomiting all other systems are reviewed and are negative Physical Exam Vital Signs: Vital Signs: Last Vital Signs Temp 98.6 F 09/11/21 11:32 Pulse 76 09/11/21 11:32 Resp 18 09/11/21 11:32 BP 118/74 09/11/21 11:32 Pulse Ox 98 09/11/21 11:32 BMI result Body Mass Index 21.9 Appearing in no acute distress lung sounds are clear to auscultation heart regular rate rhythm, clear S1, S2 positive bowel sounds, abdomen is soft, nontender neuro patient is alert x3, no focal deficits Objective Data Active Medications Acetaminophen (Acetaminophen 325 Mg Tablet) 650 mg PO Q6H PRN PRN Reason: Pain, Mild (Pain Scale 1-3) Last Admin: 09/11/21 00:57 Dose: 650 mg Documented by: OZZY Ceftriaxone Sodium 1 gm/ (Sodium Chloride) 50 mls @ 100 mls/hr IV Q24H [facility] Dextrose/Sodium Chloride (D51/2ns) 1,000 mls @ 100 mls/hr IVCONT .Q10H [facility] Last Admin: 09/11/21 11:10 Dose: 100 mls/hr Documented by: ADRIENNE Melatonin (Melatonin 3 Mg Tablet) 6 mg PO BEDTIME PRN PRN Reason: Insomnia Pharmacy Consult (Consult Rx Perform Med Rec) 1 each MISCELLANE ONCE PRN PRN Reason: Consult order Senna (Sennosides 8.6 Mg Tablet) 17.2 mg PO BEDTIME PRN PRN Reason: Constipation Sodium Chloride (0.9 % Sodium Chloride Flush 3 Ml Syringe) 3 ml IVFLUSH QSHIFT [facility] Last Admin: 09/11/21 08:28 Dose: Not Given Documented by: ADRIENNE Non-Admin Reason: IV Running Labs CBC & Chem 7: 09/11/21 07:18 09/11/21 07:18 Labs: Laboratory Results - last 24 hr 09/10/21 09/10/21 09/10/21 17:05 17:05 17:05 MCV 88.3 MCH 28.9 MCHC 32.7 RDW 14.4 Plt Count 282 MPV 10.2 Immature Gran % (Auto) 1.0 H Neut % (Auto) 83.3 H Lymph % (Auto) 5.5 L [place] % (Auto) 10.0 Eos % (Auto) 0.1 Baso % (Auto) 0.1 Lymph # (Auto) 1.0 L [place] # (Auto) 1.9 H Eos # (Auto) 0.0 Baso # (Auto) 0.0 Abs Immat Gran (auto) 0.19 H Absolute Neuts (auto) 15.5 H Absolute Nucleated RBC 0.000 Nucleated RBC % (auto) 0.0 Smear Tech's Comments VERIFIED Anion Gap 16 Estim Creat Clear Calc 16.3 Estimated GFR 20 Random Glucose 238 H Estimat Average Glucose 134 Hemoglobin A1c % 6.3 Lactic Acid Calcium 9.0 D Total Bilirubin 0.4 AST 26 ALT 26 Alkaline Phosphatase 117 D Total Creatine Kinase 121 Troponin I High Sens Total Protein 5.7 L Albumin 3.3 L D Lipase Urine Color Urine Appearance Urine pH Ur Specific [place] Urine Protein Urine Glucose (UA) Urine Ketones Urine Blood Urine Nitrite Ur Leukocyte Esterase Urine RBC Urine WBC Ur Squamous Epith Cells Urine Bacteria Urine Mucus Stool Occult Blood COVID-19 (CELE) [employer] 09/10/21 09/10/21 09/10/21 22:31 22:32 22:32 MCV MCH MCHC RDW Plt Count MPV Immature Gran % (Auto) Neut % (Auto) Lymph % (Auto) [place] % (Auto) Eos % (Auto) Baso % (Auto) Lymph # (Auto) [place] # (Auto) Eos # (Auto) Baso # (Auto) Abs Immat Gran (auto) Absolute Neuts (auto) Absolute Nucleated RBC Nucleated RBC % (auto) Smear Tech's Comments Anion Gap Estim Creat Clear Calc Estimated GFR Random Glucose Estimat Average Glucose Hemoglobin A1c % Lactic Acid Calcium Total Bilirubin AST ALT Alkaline Phosphatase Total Creatine Kinase Troponin I High Sens 7.1 Total Protein Albumin Lipase 25 Urine Color Urine Appearance Urine pH Ur Specific [place] Urine Protein Urine Glucose (UA) Urine Ketones Urine Blood Urine Nitrite Ur Leukocyte Esterase Urine RBC Urine WBC Ur Squamous Epith Cells Urine Bacteria Urine Mucus Stool Occult Blood COVID-19 (CELE) Negative COVID[employer]CommHub See Note 09/10/21 09/10/21 09/10/21 22:32 22:41 23:23 MCV MCH MCHC RDW Plt Count MPV Immature Gran % (Auto) Neut % (Auto) Lymph % (Auto) [place] % (Auto) Eos % (Auto) Baso % (Auto) Lymph # (Auto) [place] # (Auto) Eos # (Auto) Baso # (Auto) Abs Immat Gran (auto) Absolute Neuts (auto) Absolute Nucleated RBC Nucleated RBC % (auto) Smear Tech's Comments Anion Gap Estim Creat Clear Calc Estimated GFR Random Glucose Estimat Average Glucose Hemoglobin A1c % Lactic Acid 1.7 Calcium Total Bilirubin AST ALT Alkaline Phosphatase Total Creatine Kinase Troponin I High Sens Total Protein Albumin Lipase Urine Color YELLOW Urine Appearance CLEAR Urine pH 7.0 Ur Specific [place] <= 1.005 Urine Protein 1+ H Urine Glucose (UA) NEG Urine Ketones NEG Urine Blood 1+ H Urine Nitrite NEG Ur Leukocyte Esterase 2+ H Urine RBC 5-9 H Urine WBC 15-29 H Ur Squamous Epith Cells 1+ Urine Bacteria 3+ Urine Mucus 2+ Stool Occult Blood NEGATIVE COVID-19 (CELE) COVID-19 [employer] Com 09/11/21 09/11/21 09/11/21 02:31 07:18 07:18 MCV 90.6 MCH 28.8 MCHC 31.8 RDW 14.6 Plt Count 264 MPV 10.1 Immature Gran % (Auto) 1.1 H Neut % (Auto) 77.0 H Lymph % (Auto) 10.9 L [place] % (Auto) 10.1 Eos % (Auto) 0.7 Baso % (Auto) 0.2 Lymph # (Auto) 1.7 [place] # (Auto) 1.6 H Eos # (Auto) 0.1 Baso # (Auto) 0.0 Abs Immat Gran (auto) 0.18 H Absolute Neuts (auto) 12.3 H Absolute Nucleated RBC 0.000 Nucleated RBC % (auto) 0.0 Smear Tech's Comments VERIFIED Anion Gap 14 Estim Creat Clear Calc 17.9 Estimated GFR 22 Random Glucose 164 H Estimat Average Glucose Hemoglobin A1c % Lactic Acid Calcium 8.6 Total Bilirubin AST ALT Alkaline Phosphatase Total Creatine Kinase Troponin I High Sens 8.0 Total Protein Albumin Lipase Urine Color Urine Appearance Urine pH Ur Specific [place] Urine Protein Urine Glucose (UA) Urine Ketones Urine Blood Urine Nitrite Ur Leukocyte Esterase Urine RBC Urine WBC Ur Squamous Epith Cells Urine Bacteria Urine Mucus Stool Occult Blood COVID-19 (CELE) COVID-19 Clin Com Microbiology Microbiology Results: Microbiology 09/10/21 22:31 Blood Culture - Preliminary Blood - Venous Prelim: GNR Gram Stain only Assessment and Plan (1) Bacteremia: Status: Acute (2) Near syncope: Status: Acute (3) UTI (urinary tract infection): Status: Acute (4) FRAN (acute kidney injury): Status: Acute Assessment and Plan: 80-year-old female with a past medical history RCC status post nephrectomy presented to the hospital today with a chief complaint of syncope/? Frequency/ dysuria.? Noted to have UTI.? Admitted for further management.? Bacteremia blood cx 2/2 GNR Continue Rocephin follow final cx Near Syncope. Likely secondary to volume depletion in the setting of infection/Poor intake/UTI .? Gentle IV fluids.? EKG nonischemic.? Troponin no delta Orthostatic BP UTI Rocephin follow urine cx FRAN. Patient's baseline creatinine 1.0.? On presentation creatinine is 2.3.? Avoid nephrotoxins.? Likely prerenal.? IV fluids.? Nephrology follow-up. ? history of renal cell carcinoma status post nephrectomy.? DVT prophylaxis:? SCD boots Code status:? Full code Attending Dr. Hayes Quality Stroke Does the patient have a stroke diagnosis?: No VTE Prior VTE?: No VTE Risk Level:: Medical - moderate - high VTE Device Contraindication: N/A - Device Ordered VTE Drug Contraindication: Treatment Not Indicated
--- NOTE | 2021-09-11 15:42 | CONS_ITS ---
DATE OF SERVICE: 09/11/2021 REASON FOR CONSULTATION: I was called to see this patient to assist in the management of acute kidney injury. HISTORY OF PRESENT ILLNESS: To summarize, Mayte is a 80-year-old woman with a history of solitary right kidney. She underwent the left nephrectomy about 20 years ago. Over the last 3 weeks, she has been having some dysuria, increased urinary frequency, and she is increasingly thirsty. She is also feeling lightheaded and weak. She gets significant back pain, which has been going on for a while and she was also taking ibuprofen. She comes to the hospital with a syncopal episode and she was found to have acute kidney injury with a creatinine of more than 2 with baseline is less than 1.0 and hence this consultation. Since admission, she has received IV ceftriaxone, she is on IV hydration and this consult has been requested. 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 SOCIAL HISTORY: No history of smoking or alcohol abuse. MEDICATIONS: All home medications reviewed. ALLERGIES: SHE IS ALLERGIC TO PERCOCET. REVIEW OF SYSTEMS: Positive for increased urinary frequency and dysuria. No fevers. She had chills. No abdominal pain. She had back pain, which is rather chronic. No shortness of breath or cough. No edema. No rash. All other systems were reviewed. PHYSICAL EXAMINATION: GENERAL: Mayte is an elderly woman. She is comfortable, not in distress. HEENT: Mucosa dry. LUNGS: Air entry equal. No rales. HEART: S1, S2 heard. No gallop or rub. ABDOMEN: Soft, nontender. EXTREMITIES: No edema. No rash. No clubbing. VITAL SIGNS: Blood pressure was 101/52, pulse 57, she is afebrile. LABORATORY DATA: Sodium , potassium 5.1, CO2 of 23, BUN , creatinine 2.35, blood sugar 238. Serum albumin 3.3. Hemoglobin was 10.1. Baseline hemoglobin was around 13.8 few months ago. WBC of 15.9, platelets 264,000. Urinalysis on admission showed 1+ protein, 1+ blood with plenty of leukocytes and wbc's. She had no protein or blood in the past. Urine culture is pending. Chest x-ray was unremarkable. Lumbar spine x-ray done in August showed degenerative disk disease. PROBLEMS: 1. Acute kidney injury in the setting of solitary right kidney. 2. Acute kidney injury is most likely due to hypoperfusion from the combination of dehydration and from the intake of NSAIDs. RECOMMENDATIONS: My recommendation would be to hold the NSAIDs. Agree with IV hydration, keep intake more than the output. Maintain systolic blood pressure more than 100 mmHg. I will follow urine cultures and continue with the antibiotics. In the meantime, we will recheck the urinalysis for protein and blood and check urine protein-creatinine ratio and if renal function does not improve in the next 24 to 48 hours, I would proceed with further serological workup along with a renal ultrasonogram. We will follow along with the team. Tito Hawley MD BPA/MODL / [id number]
[2021-09-12] VITALS (8 sets, daily range): BP systolic 101–136; BP diastolic 41–77; PULSE 58–88; RESP 14–17; TEMP 36.4–38.1; O2SAT 94–98
[2021-09-12 08:59] LABS: Anion Gap 12 (12-20); Blood Urea Nitrogen 37 mg/dL (9-16); Calcium 8.6 mg/dL (8.4-10.2); Carbon Dioxide 22 mmol/L (22-29); Chloride 111 mmol/L (96-108); Creatinine Clr Calc Pharmacy 18.7; Estimated Glomerular Filt Rate 23; Glucose Random 141 mg/dL (60-115); Potassium 4.2 mmol/L (3.3-5.1); Sodium 141 mmol/L (135-145)
[2021-09-12] MEDS: Lactated Ringers 1,000 ML 100 ML IVCONT ×2 (09:53→19:23)
[2021-09-12] MEDS: 0.9 % Sodium Chloride Flush 3 ML SYRINGE IVFLUSH ×2 (09:53→22:30)
--- NOTE | 2021-09-12 12:12 | MHC.CM.PN ---
PER MULTIDISCIPLINARY ROUNDS PT WILL BE READY FOR D/C TOMORROW 09/13, HOSPITALIST WILL ORDER PT EVAL TO DETERMINE IF PT QUALIFIES FOR HOME PT, NO OTHER SERVICE NEEDED. CM TO CONT TO FOLLOW D/C NEEDS.
--- NOTE | 2021-09-12 12:56 | P.CDIC_ITS ---
CDI Concurrent Query Documentation Clarification: PHYSICIAN'S DOCUMENTATION REQUEST Date of Query: 09/12/21 1256 Patient Name: Mayte Cole Admit Date: 09/10/21 Dear Doctor, A review of the medical record indicates additional documentation may be needed. Please review below and update the documentation accordingly. Risk Factors/Clinical Indicators/Treatments Temp: 102.5 WBC 18.6 BP 104/57 95/44 L Near syncope likely volume depletion in the setting of infection/poor intake/UTI. Micro: 09/10 - GNR Urine + for UTI. Ceftriaxone Bacteremia /2 GNR Based on the above, could you clarify in the Progress Notes the appropriate diagnosis, if significant, that supports the above abnormalities and additional evaluation, monitoring, and/or treatment rendered: * Urinary Tract Infection * Gram negative Sepsis due to UTI * Labs indicate a diagnosis of (please specify) * Other (please specify) * Unable to determine Use of terms such as suspected, likely, concern for, or probable (associated with a specific diagnosis that is being evaluated, monitored, or treated as if it exists) are acceptable and can be coded in the inpatient setting, when documented at the time of discharge. Thank you, Radha Valverde [facility], CDIS Extension: [phone] Please use your independent medical judgment in providing your response. THIS QUERY IS PART OF THE PERMANENT MEDICAL RECORD Provider Response: Other Other Diagnosis: Sepsis (present on admission) secondary to UTI + Gram Negative Bacteremia.
--- NOTE | 2021-09-12 12:59 | MHC.CLN ---
NUTRITION PATIENT REPORTS THAT HAS LOST WEIGHT BUT DID NOT QUANTIFY. STATED THAT SHE HADN'T FELT WELL AND DID NOT WANT TO COOK. DISCUSSED MEALS ON WHEELS SERVICE AND CM AWARE. ATE 100% AT LUNCH AND REPORTS THAT CURRENT APPETITE IS GOOD.
--- NOTE | 2021-09-12 13:59 | P.PNIM_ITS ---
Subjective Subjective Date of Service: 09/12/21 Review of Systems Follow up bacteremia Feels much better today OOB and washing her hair Denies chest pain, sob All other systems are reviewed and are negative Physical Exam Vital Signs: Vital Signs: Last Vital Signs Temp 97.7 F 09/12/21 11:53 Pulse 65 09/12/21 11:53 Resp 16 09/12/21 11:53 BP 106/50 L 09/12/21 11:53 Pulse Ox 98 09/12/21 11:53 BMI result Body Mass Index 21.9 Objective Data Active Medications Acetaminophen (Acetaminophen 325 Mg Tablet) 650 mg PO Q6H PRN PRN Reason: Pain, Mild (Pain Scale 1-3) Last Admin: 09/11/21 00:57 Dose: 650 mg Documented by: OZZY Ceftriaxone Sodium 1 gm/ (Sodium Chloride) 50 mls @ 100 mls/hr IV Q24H [facility] Last Infusion: 09/11/21 23:15 Dose: 0 mls/hr Documented by: SWATI Lactated Ringer's (Lr) 1,000 mls @ 100 mls/hr IVCONT .Q10H [facility] Last Admin: 09/12/21 09:53 Dose: 100 mls/hr Documented by: SHINE Melatonin (Melatonin 3 Mg Tablet) 6 mg PO BEDTIME PRN PRN Reason: Insomnia Pharmacy Consult (Consult Rx Perform Med Rec) 1 each MISCELLANE ONCE PRN PRN Reason: Consult order Senna (Sennosides 8.6 Mg Tablet) 17.2 mg PO BEDTIME PRN PRN Reason: Constipation Sodium Chloride (0.9 % Sodium Chloride Flush 3 Ml Syringe) 3 ml IVFLUSH QSHIFT [facility] Last Admin: 09/12/21 09:53 Dose: 3 ml Documented by: SHINE Labs CBC & Chem 7: 09/11/21 07:18 09/12/21 08:13 Labs: Laboratory Results - last 24 hr 09/12/21 08:13 Anion Gap 12 Estim Creat Clear Calc 18.7 Estimated GFR 23 Random Glucose 141 H Calcium 8.6 Microbiology Microbiology Results: Microbiology 09/10/21 Unknown Urine Culture - Preliminary Urine clean catch - Urine richards top Gram negative alison 09/10/21 23:23 Blood Culture - Preliminary Blood - Venous Gram negative alison 09/10/21 22:31 Blood Culture - Preliminary Blood - Venous Gram negative alison Assessment and Plan (1) Near syncope: Status: Acute (2) Bacteremia: Status: Acute (3) FRAN (acute kidney injury): Status: Acute (4) UTI (urinary tract infection): Status: Acute Assessment and Plan: 80-year-old female with a past medical history RCC status post nephrectomy presented to the hospital today with a chief complaint of syncope/? Frequency/ dysuria.? Noted to have UTI.? Admitted for further management.? Sepsis on admission fever, WBC Resolved Bacteremia blood cx 2/2 GNR Continue Rocephin follow final cx Near Syncope. Likely secondary to volume depletion in the setting of infection/Poor intake/UTI .? Gentle IV fluids.? EKG nonischemic.? Troponin no delta Orthostatic BP UTI Rocephin follow urine cx FRAN. Patient's baseline creatinine 1.0.? On presentation creatinine is 2.3.? Avoid nephrotoxins.? Likely prerenal Possibly atn .? IV fluids.? Nephrology follow-up. ? history of renal cell carcinoma status post nephrectomy.? DVT prophylaxis:? SCD boots Code status:? Full code Attending Dr. Hayes Quality Stroke Does the patient have a stroke diagnosis?: No VTE Prior VTE?: No VTE Risk Level:: Medical - moderate - high VTE Device Contraindication: N/A - Device Ordered VTE Drug Contraindication: Treatment Not Indicated
[2021-09-12] MEDS: cefTRIAXone sodium 1 GM in 0.9 % Sodium Chloride 50 ML IV (22:30)
[2021-09-13] VITALS (13 sets, daily range): BP systolic 111–142; BP diastolic 50–71; PULSE 70–95; RESP 16–18; TEMP 36.2–37.1; O2SAT 94–98
[2021-09-13] MEDS: Acetaminophen 325 MG TABLET 650 MG PO ×3 (00:31→22:55)
[2021-09-13] MEDS: Lactated Ringers 1,000 ML 100 ML IVCONT ×2 (05:37→15:53)
[2021-09-13 05:42] LABS: Hematocrit 30.3 % (37.0-47.0); Hemoglobin 9.7 g/dl (12.0-16.0); Mean Corpuscular Hemoglobin 28.8 pg (27.0-33.0); Mean Corpuscular Volume 89.9 fL (80.0-98.0); Platelet Count 344 X10*3/uL (160-400); Red Blood Count 3.37 X10*6/uL (4.20-5.50); Red Cell Distribution Width 14.6 % (11.0-16.0); White Blood Count 13.3 X10*3/uL (4.8-10.8)
[2021-09-13 06:00] LABS: Anion Gap 12 (12-20); Blood Urea Nitrogen 33 mg/dL (9-16); Calcium 8.5 mg/dL (8.4-10.2); Carbon Dioxide 23 mmol/L (22-29); Chloride 112 mmol/L (96-108); Creatinine Clr Calc Pharmacy 21.8; Estimated Glomerular Filt Rate 28; Glucose Random 122 mg/dL (60-115); Potassium 4.1 mmol/L (3.3-5.1); Sodium 143 mmol/L (135-145)
--- NOTE | 2021-09-13 11:49 | PM.PNNEP ---
Subjective Subjective Date of Service: 09/14/21 Interval history: Events noted Feeling better Physical Exam Vital Signs: Vital Signs: Last Vital Signs Temp 98.6 F 09/13/21 11:27 Pulse 70 09/13/21 11:27 Resp 18 09/13/21 11:27 BP 111/50 L 09/13/21 11:27 Pulse Ox 98 09/13/21 11:27 BMI result Body Mass Index 21.9 Const: Other: Appearance: Alert. Oriented X3. No acute distress. anxious Eyes: Pupils equal, round and reactive to light. ENT: Pharynx normal. Neck: Normal inspection. Neck supple. No lymph nodes noted. No crepitus CVS: Normal heart rate and rhythm. Pulses normal. Normal S1 and S2 Respiratory: No respiratory distress. Breath sounds normal. No Wheezing. No rales Abdomen: Soft and nontender. No rigidity. No distention. Skin: Skin warm and dry. Normal skin color. Normal skin turgor. Extremities: No lower extremity edema. No lower extremity edema. No Lacerations. No Rash Neuro: Oriented X 3. No motor deficit. No sensory deficit. Moving all extermities. No slurred speech. Objective Data Labs CBC & Chem 7: 09/14/21 05:21 09/14/21 05:21 Labs: Laboratory Results - last 24 hr 09/13/21 09/13/21 05:28 05:28 WBC 13.3 H RBC 3.37 L Hgb 9.7 L Hct 30.3 L MCV 89.9 MCH 28.8 MCHC 32.0 RDW 14.6 Plt Count 344 D MPV 10.0 Absolute Nucleated RBC 0.000 Nucleated RBC % (auto) 0.0 Sodium 143 Potassium 4.1 Chloride 112 H Carbon Dioxide 23 Anion Gap 12 BUN 33 H Creatinine 1.76 H Estim Creat Clear Calc 21.8 Estimated GFR 28 Random Glucose 122 H Calcium 8.5 Microbiology Microbiology Results: Microbiology 09/10/21 Unknown Urine clean catch - Urine richards top Urine Culture - Final Escherichia coli 09/10/21 23:23 Blood - Venous Blood Culture - Final Escherichia coli 09/10/21 22:31 Blood - Venous Blood Culture - Final Escherichia coli Procedures Date of Service Date of Service: 09/13/21 Assessment & Plan Assessment and plan (1) Bacteremia: Status: Acute (2) Near syncope: Status: Acute (3) UTI (urinary tract infection): Status: Acute (4) FRAN (acute kidney injury): Status: Acute Assessment and Plan: FRAN due to hypoperfusion Cr is slowly improving Keep I >O Expect recovery Check Ultrasound Time Spent With Patient Time: Total time spent is greater than 50% in coordination of care (as documented) at patient's floor/unit and/or counseling patient: Time with patient: 15 - 24 minutes Progress Note: Quality Stroke Does the patient have a stroke diagnosis?: No
--- NOTE | 2021-09-13 15:22 | P.PNIM_ITS ---
Subjective Subjective Date of Service: 09/13/21 Interval History: improving no acute distress Review of Systems denies chest pain Denies shortness of breath Denies nausea vomiting diarrhea Physical Exam Vital Signs: Vital Signs: Last Vital Signs Temp 98.6 F 09/13/21 11:27 Pulse 70 09/13/21 11:27 Resp 18 09/13/21 11:27 BP 111/50 L 09/13/21 11:27 Pulse Ox 98 09/13/21 11:27 BMI result Body Mass Index 21.9 Const: Other: no acute distress Resp: Other: clear to auscultation bilaterally Cardio: Other: no S4; positive S1-S2; no S3 murmurs, rubs, gallops GI: Other: soft nontender nondistended normoactive bowel sounds x4 quadrants Extrem: Other: no edema bilaterally Objective Data Active Medications Acetaminophen (Acetaminophen 325 Mg Tablet) 650 mg PO Q6H PRN PRN Reason: Pain, Mild (Pain Scale 1-3) Last Admin: 09/13/21 00:31 Dose: 650 mg Documented by: SONIA Ceftriaxone Sodium 1 gm/ (Sodium Chloride) 50 mls @ 100 mls/hr IV Q24H [facility]PLACED BY [facility] Last Infusion: 09/12/21 23:06 Dose: 0 mls/hr Documented by: SONIA Lactated Ringer's (Lr) 1,000 mls @ 100 mls/hr IVCONT .Q10H REPLACED BY [facility] Last Admin: 09/13/21 05:37 Dose: 100 mls/hr Documented by: SONIA Melatonin (Melatonin 3 Mg Tablet) 6 mg PO BEDTIME PRN PRN Reason: Insomnia Pharmacy Consult (Consult Rx Perform Med Rec) 1 each MISCELLANE ONCE PRN PRN Reason: Consult order Senna (Sennosides 8.6 Mg Tablet) 17.2 mg PO BEDTIME PRN PRN Reason: Constipation Sodium Chloride (0.9 % Sodium Chloride Flush 3 Ml Syringe) 3 ml IVFLUSH QSHIFT REPLACED BY [facility] Last Admin: 09/13/21 07:04 Dose: Not Given Documented by: DEYVI Non-Admin Reason: IV Running Labs CBC & Chem 7: 09/13/21 05:28 09/13/21 05:28 Labs: Laboratory Results - last 24 hr 09/13/21 09/13/21 05:28 05:28 MCV 89.9 MCH 28.8 MCHC 32.0 RDW 14.6 Plt Count 344 D MPV 10.0 Absolute Nucleated RBC 0.000 Nucleated RBC % (auto) 0.0 Anion Gap 12 Estim Creat Clear Calc 21.8 Estimated GFR 28 Random Glucose 122 H Calcium 8.5 Microbiology Microbiology Results: Microbiology 09/10/21 Unknown Urine Culture - Final Urine clean catch - Urine richards top Escherichia coli 09/10/21 23:23 Blood Culture - Final Blood - Venous Escherichia coli 09/10/21 22:31 Blood Culture - Final Blood - Venous Escherichia coli Assessment and Plan (1) Bacteremia: Status: Acute (2) UTI (urinary tract infection): Status: Acute Assessment and Plan: 80-year-old female with a past medical history RCC status post nephrectomy presented with a chief complaint of syncope/Frequency/ dysuria.? urine with active sediment 1.Bacteremia... E coli sensitive to ceftriaxone CTX 1 g IV. . . Day 3 Complete 5 days IV CTX, follow-up WBC 2.Near Syncope. Likely secondary to volume depletion in the setting of infection/Poor intake/UTI .? Resolved 3.FRAN.... resolved Continue IVF's.Creat back to baseline Follow divalents and creatinine ? DVT prophylaxis:? SCD boots Code status:? Full code Quality Stroke Does the patient have a stroke diagnosis?: No VTE Prior VTE?: No VTE Risk Level:: Medical - moderate - high VTE Device Contraindication: N/A - Device Ordered VTE Drug Contraindication: Treatment Not Indicated
[2021-09-13] MEDS: 0.9 % Sodium Chloride Flush 3 ML SYRINGE IVFLUSH (22:50)
[2021-09-13] MEDS: cefTRIAXone sodium 1 GM in 0.9 % Sodium Chloride 50 ML IV (22:50)
[2021-09-14] VITALS (7 sets, daily range): BP systolic 112–145; BP diastolic 51–73; PULSE 66–80; RESP 16–18; TEMP 36.7–37.9; O2SAT 94–98
[2021-09-14] MEDS: Lactated Ringers 1,000 ML 100 ML IVCONT ×3 (01:48→21:49)
[2021-09-14 05:45] LABS: Hematocrit 30.3 % (37.0-47.0); Hemoglobin 9.9 g/dl (12.0-16.0); Mean Corpuscular HGB Conc 32.7 g/dl (31.0-35.0); Mean Corpuscular Hemoglobin 29.2 pg (27.0-33.0); Mean Corpuscular Volume 89.4 fL (80.0-98.0); Mean Platelet Volume 9.9 fL (9.4-12.3); Platelet Count 370 X10*3/uL (160-400); Red Blood Count 3.39 X10*6/uL (4.20-5.50); Red Cell Distribution Width 14.6 % (11.0-16.0); White Blood Count 16.4 X10*3/uL (4.8-10.8)
[2021-09-14 06:23] LABS: Band Neutrophils Percent 4 % (3-5); Basophils Abs Manual 0.2 X10*3/uL (0.0-0.2); Basophils Percent Manual 1 % (0-2); Eosinophils Absolute Manual 0.2 X10*3/uL (0.0-0.4); Eosinophils Percent Manual 1 % (0-4); Lymphocytes Absolute Manual 1.6 X10*3/uL (1.2-4.9); Lymphocytes Percent Manual 10 % (20-40); Metamyelocytes Absolute 0.3 X10*3/uL; Metamyelocytes Percent 2 %; Monocytes Absolute Manual 1.1 X10*3/uL (0.1-1.2); Monocytes Percent Manual 7 % (2-11); Neutrophils Percent Manual 75 % (45-73)
[2021-09-14 06:24] LABS: Platelet Estimate NORMAL (NORMAL); Platelet Morphology Comment NOTED; RBC Morphology NORMAL
[2021-09-14 06:25] LABS: Large Platelet PRESENT
[2021-09-14 06:31] LABS: Alanine Aminotransferase 30 U/L (0-31); Albumin Level 2.7 g/dL (3.5-5.0); Alkaline Phosphatase 108 U/L (39-117); Anion Gap 14 (12-20); Aspartate Amino Transferase 18 U/L (5-31); Bilirubin Total 0.4 mg/dL (0.0-1.0); Blood Urea Nitrogen 29 mg/dL (9-16); Calcium 8.7 mg/dL (8.4-10.2); Carbon Dioxide 23 mmol/L (22-29); Chloride 112 mmol/L (96-108); Creatinine Clr Calc Pharmacy 23.5; Estimated Glomerular Filt Rate 31; Glucose Fasting 121 mg/dL (60-99); Potassium 4.5 mmol/L (3.3-5.1); Sodium 144 mmol/L (135-145); Total Protein 5.1 g/dL (6.5-8.0)
--- NOTE | 2021-09-14 10:58 | PM.PNNEP ---
Subjective Subjective Date of Service: 10/06/21 Interval history: Events noted Persistent leukocytosis Cr is trending down Physical Exam Vital Signs: Vital Signs: Last Vital Signs Temp 98.8 F 09/14/21 07:48 Pulse 80 09/14/21 09:04 Resp 16 09/14/21 07:48 BP 123/60 09/14/21 09:04 Pulse Ox 96 09/14/21 07:48 BMI result Body Mass Index 21.9 Const: Other: Appearance: Alert. Oriented X3. No acute distress. anxious Eyes: Pupils equal, round and reactive to light. ENT: Pharynx normal. Neck: Normal inspection. Neck supple. No lymph nodes noted. No crepitus CVS: Normal heart rate and rhythm. Pulses normal. Normal S1 and S2 Respiratory: No respiratory distress. Breath sounds normal. No Wheezing. No rales Abdomen: Soft and nontender. No rigidity. No distention. Skin: Skin warm and dry. Normal skin color. Normal skin turgor. Extremities: No lower extremity edema. No lower extremity edema. No Lacerations. No Rash Neuro: Oriented X 3. No motor deficit. No sensory deficit. Moving all extermities. No slurred speech. Objective Data Labs CBC & Chem 7: 09/17/21 05:33 09/17/21 05:33 Labs: Laboratory Results - last 24 hr 09/14/21 09/14/21 05:21 05:21 WBC 16.4 H RBC 3.39 L Hgb 9.9 L Hct 30.3 L MCV 89.4 MCH 29.2 MCHC 32.7 RDW 14.6 Plt Count 370 MPV 9.9 Immature Gran % (Auto) Cancelled Neut % (Auto) Cancelled Lymph % (Auto) Cancelled [place] % (Auto) Cancelled Eos % (Auto) Cancelled Baso % (Auto) Cancelled Lymph # (Auto) Cancelled [place] # (Auto) Cancelled Eos # (Auto) Cancelled Baso # (Auto) Cancelled Abs Immat Gran (auto) Cancelled Absolute Neuts (auto) Cancelled Absolute Nucleated RBC 0.000 Nucleated RBC % (auto) 0.0 Neutrophils % (Manual) 75 H Band Neutrophils % 4 Lymphocytes % (Manual) 10 L Monocytes % (Manual) 7 Eosinophils % (Manual) 1 Basophils % (Manual) 1 Metamyelocytes % 2 Abs Neuts (Manual) 13.0 H Lymphocytes # (Manual) 1.6 Monocytes # (Manual) 1.1 Eosinophils # (Manual) 0.2 Basophils # (Manual) 0.2 Metamyelocytes # 0.3 Platelet Estimate NORMAL Large Platelets PRESENT Plt Morphology Comment NOTED RBC Morphology NORMAL Sodium 144 Potassium 4.5 Chloride 112 H Carbon Dioxide 23 Anion Gap 14 BUN 29 H Creatinine 1.63 H Estim Creat Clear Calc 23.5 Estimated GFR 31 Fasting Glucose 121 H Calcium 8.7 Total Bilirubin 0.4 AST 18 ALT 30 Alkaline Phosphatase 108 Total Protein 5.1 L Albumin 2.7 L Microbiology Microbiology Results: Microbiology 09/10/21 Unknown Urine clean catch - Urine richards top Urine Culture - Final Escherichia coli 09/10/21 23:23 Blood - Venous Blood Culture - Final Escherichia coli 09/10/21 22:31 Blood - Venous Blood Culture - Final Escherichia coli Procedures Date of Service Date of Service: 09/14/21 Assessment & Plan Assessment and plan (1) Bacteremia: Status: Resolved (2) Near syncope: Status: Resolved (3) UTI (urinary tract infection): Status: Resolved (4) FRAN (acute kidney injury): Status: Resolved Assessment and Plan: FRAN due to hypoperfusion Cr is slowly improving Keep I >O Expect recovery Check Ultrasound Time Spent With Patient Time: Total time spent is greater than 50% in coordination of care (as documented) at patient's floor/unit and/or counseling patient: Time with patient: 15 - 24 minutes Progress Note: Quality Stroke Does the patient have a stroke diagnosis?: No
[2021-09-14] MEDS: levoFLOXacin/D5W 500 MG/100 ML PIGGYBACK 100 MG IV (11:24)
--- NOTE | 2021-09-14 11:52 | MHC.CM.PN ---
EMR REVIEWED, PT REMAINS BACTEREMIC, ABX CHANGED TO [place], NO PLAN FOR D/C OVER W/E, CM WILL CONT TO FOLLOW D/C NEEDS.
--- NOTE | 2021-09-14 16:04 | W.PM.IDCN ---
History of Present Illness Data of Consult Service Date: 09/14/21 Requesting physician: Mohinder Bazan Primary Care Provider: Cezar Steinberg MD [facility] Reason for consult: bacteremia She presents to hospital with dysuria for three days She has acute shaking chills and E coli bacteremia. She has not had antibiotics before admission Review of Systems Review of Systems: Yes all other systems are reviewed and are negative PMFSH Past Medical History Medical History Kidney malignant neoplasm Surgical History Surgical History History of nephrectomy Social History Social History Household Members: None Housing: House Do you presently have visiting nurse or other home services: No Patient Tobacco Use Status: Never used Tobacco Use of substances other than those prescribed or required for medical reasons: No Currently Displaying Signs/Symptoms of Drug Intoxication Withdrawal: No Have you been hit, kicked, punched, or otherwise hurt by someone within the past year? If so, by whom?: No Do you feel safe in your current relationship?: No Current Relationship Is there a partner from a previous relationship who is making you feel unsafe now?: No Are you made to feel afraid or neglected: No Advance Directives: Yes Advance Directives Information Provided: No Advance Directives on File: Yes Advance Directives Date on File: 09/11/21 Do you have thoughts of harming others: None Do you have a plan to hurt others: No Plan Recently lost weight without trying: Yes How much weight loss: 2-13 pounds Eating poorly because of decreased appetite: Yes Nutrition screen score: 4 service: No Current occupational status: retired Meds Allergies Allergy/AdvReac Type Severity Reaction Status Date / Time Percocet Allergy Unknown Uncoded 05/29/12 00:00 Active Medications: Current Medications Acetaminophen (Acetaminophen 325 Mg Tablet) 650 mg PO Q6H PRN PRN Reason: Pain, Mild (Pain Scale 1-3) Last Admin: 09/13/21 22:55 Dose: 650 mg Documented by: Lactated Ringer's (Lr) 1,000 mls @ 100 mls/hr IVCONT .Q10H [facility] Last Admin: 09/14/21 11:24 Dose: 100 mls/hr Documented by: Melatonin (Melatonin 3 Mg Tablet) 6 mg PO BEDTIME PRN PRN Reason: Insomnia Pharmacy Consult (Consult Rx Perform Med Rec) 1 each MISCELLANE ONCE PRN PRN Reason: Consult order Senna (Sennosides 8.6 Mg Tablet) 17.2 mg PO BEDTIME PRN PRN Reason: Constipation Sodium Chloride (0.9 % Sodium Chloride Flush 3 Ml Syringe) 3 ml IVFLUSH QSHIFT [facility] Last Admin: 09/14/21 15:44 Dose: Not Given Documented by: Home Medications Medication Instructions Recorded Confirmed Last Taken Type No Known Home Meds 09/11/21 09/11/21 Unknown History Physical Exam Vital Signs: Vital Signs: Last Vital Signs Temp 100.2 F 09/14/21 15:54 Pulse 72 09/14/21 15:54 Resp 18 09/14/21 15:54 BP 138/55 L 09/14/21 15:54 Pulse Ox 98 09/14/21 15:54 BMI result Body Mass Index 21.9 Const: General: cooperative Eyes: General: appearance normal, both eyes and all related structures Resp: Effort & Inspection: normal respiratory effort Cardio: Rate: regular rate Rhythm: regular rhythm GI: Palpation (GI): Soft to palpation and nontender Extrem: General: Yes normal to inspection Results Labs CBC & Chem 7: 09/14/21 05:21 09/14/21 05:21 Labs: Short CBC 09/14/21 Range/Units 05:21 WBC 16.4 H (4.8-10.8) X10*3/uL Hgb 9.9 L (12.0-16.0) g/dl Hct 30.3 L (37.0-47.0) % Plt Count 370 (160-400) X10*3/uL BMP 09/14/21 05:21 Sodium 144 Potassium 4.5 Chloride 112 H Carbon Dioxide 23 BUN 29 H Creatinine 1.63 H Calcium 8.7 Liver Function 09/14/21 Range/Units 05:21 Total Bilirubin 0.4 (0.0-1.0) mg/dL AST 18 (5-31) U/L ALT 30 (0-31) U/L Alkaline Phosphatase 108 (39-117) U/L Albumin 2.7 L (3.5-5.0) g/dL Microbiology Microbiology Results: Microbiology 09/10/21 Unknown Urine clean catch - Urine richards top Urine Culture - Final Escherichia coli 09/10/21 23:23 Blood - Venous Blood Culture - Final Escherichia coli 09/10/21 22:31 Blood - Venous Blood Culture - Final Escherichia coli Assessment and Plan (1) Bacteremia: Status: Acute She has E coli UTI Likely pyelonephritis (2) FRAN (acute kidney injury): Status: Acute Continue Ceftriaxone Ceftin probable po for [address] abdomen evaluate any obstruction
--- NOTE | 2021-09-14 16:08 | HO.PM.IMPN ---
Subjective Subjective Date of Service: 09/14/21 Interval History: Feels better...back bothersome secondary to bed. Review of Systems Denies chest pain Denies SOB Denies N/V/D Physical Exam Vital Signs: Vital Signs: Last Vital Signs Temp 100.2 F 09/14/21 15:54 Pulse 72 09/14/21 15:54 Resp 18 09/14/21 15:54 BP 138/55 L 09/14/21 15:54 Pulse Ox 98 09/14/21 15:54 BMI result Body Mass Index 21.9 Const: Other: no acute distress Resp: Other: clear to auscultation bilaterally Cardio: Other: no S4; positive S1-S2; no S3 murmurs, rubs, gallops GI: Other: soft nontender nondistended normoactive bowel sounds x4 quadrants Extrem: Other: no edema bilaterally Objective Data Active Medications Acetaminophen (Acetaminophen 325 Mg Tablet) 650 mg PO Q6H PRN PRN Reason: Pain, Mild (Pain Scale 1-3) Last Admin: 09/13/21 22:55 Dose: 650 mg Documented by: SONIA Lactated Ringer's (Lr) 1,000 mls @ 100 mls/hr IVCONT .Q10H [facility] Last Admin: 09/14/21 11:24 Dose: 100 mls/hr Documented by: TOÑO Melatonin (Melatonin 3 Mg Tablet) 6 mg PO BEDTIME PRN PRN Reason: Insomnia Pharmacy Consult (Consult Rx Perform Med Rec) 1 each MISCELLANE ONCE PRN PRN Reason: Consult order Senna (Sennosides 8.6 Mg Tablet) 17.2 mg PO BEDTIME PRN PRN Reason: Constipation Sodium Chloride (0.9 % Sodium Chloride Flush 3 Ml Syringe) 3 ml IVFLUSH QSHIFT [facility] Last Admin: 09/14/21 15:44 Dose: Not Given Documented by: SANDRA Non-Admin Reason: IV Running Labs CBC & Chem 7: 09/14/21 05:21 09/14/21 05:21 Labs: Laboratory Results - last 24 hr 09/14/21 09/14/21 05:21 05:21 MCV 89.4 MCH 29.2 MCHC 32.7 RDW 14.6 Plt Count 370 MPV 9.9 Immature Gran % (Auto) Cancelled Neut % (Auto) Cancelled Lymph % (Auto) Cancelled [place] % (Auto) Cancelled Eos % (Auto) Cancelled Baso % (Auto) Cancelled Lymph # (Auto) Cancelled [place] # (Auto) Cancelled Eos # (Auto) Cancelled Baso # (Auto) Cancelled Abs Immat Gran (auto) Cancelled Absolute Neuts (auto) Cancelled Absolute Nucleated RBC 0.000 Nucleated RBC % (auto) 0.0 Neutrophils % (Manual) 75 H Band Neutrophils % 4 Lymphocytes % (Manual) 10 L Monocytes % (Manual) 7 Eosinophils % (Manual) 1 Basophils % (Manual) 1 Metamyelocytes % 2 Abs Neuts (Manual) 13.0 H Lymphocytes # (Manual) 1.6 Monocytes # (Manual) 1.1 Eosinophils # (Manual) 0.2 Basophils # (Manual) 0.2 Metamyelocytes # 0.3 Platelet Estimate NORMAL Large Platelets PRESENT Plt Morphology Comment NOTED RBC Morphology NORMAL Anion Gap 14 Estim Creat Clear Calc 23.5 Estimated GFR 31 Fasting Glucose 121 H Calcium 8.7 Total Bilirubin 0.4 AST 18 ALT 30 Alkaline Phosphatase 108 Total Protein 5.1 L Albumin 2.7 L Assessment and Plan (1) Pyelonephritis: Status: Acute (2) Bacteremia: Status: Acute Assessment and Plan: 80-year-old female with a past medical history RCC status post nephrectomy presented with a chief complaint of syncope/Frequency/ dysuria.? urine with active sediment.WBC minimally elevated. 1.Bacteremia... E coli sensitive to ceftriaxone CTX 1 g IV. . . Day 4 Complete [address] abd/pelvis to r/out obstruction 2.Near Syncope. Likely secondary to volume depletion in the setting of infection/Poor intake/UTI .? Resolved 3.FRAN.... resolved Continue IVF's.Creat back to baseline Follow divalents and creatinine ? DVT prophylaxis:? SCD boots Code status:? Full code Quality Stroke Does the patient have a stroke diagnosis?: No VTE Prior VTE?: No VTE Risk Level:: Medical - moderate - high VTE Device Contraindication: N/A - Device Ordered VTE Drug Contraindication: Treatment Not Indicated
[2021-09-14] MEDS: Acetaminophen 325 MG TABLET 650 MG PO (19:34)
[2021-09-14] MEDS: Melatonin 3 MG TABLET 6 MG PO (22:01)
[2021-09-15] VITALS (8 sets, daily range): BP systolic 110–148; BP diastolic 52–67; PULSE 60–78; RESP 17–18; TEMP 36–37.8; O2SAT 93–98
[2021-09-15 05:52] LABS: Hematocrit 29.3 % (37.0-47.0); Hemoglobin 9.3 g/dl (12.0-16.0); Mean Corpuscular HGB Conc 31.7 g/dl (31.0-35.0); Mean Corpuscular Hemoglobin 28.2 pg (27.0-33.0); Mean Corpuscular Volume 88.8 fL (80.0-98.0); Mean Platelet Volume 10.3 fL (9.4-12.3); Platelet Count 413 X10*3/uL (160-400); Red Cell Distribution Width 14.6 % (11.0-16.0); White Blood Count 13.7 X10*3/uL (4.8-10.8)
[2021-09-15 06:11] LABS: Alanine Aminotransferase 35 U/L (0-31); Albumin Level 2.6 g/dL (3.5-5.0); Alkaline Phosphatase 108 U/L (39-117); Anion Gap 12 (12-20); Aspartate Amino Transferase 23 U/L (5-31); Bilirubin Total < 0.2 mg/dL (0.0-1.0); Blood Urea Nitrogen 25 mg/dL (9-16); Calcium 8.4 mg/dL (8.4-10.2); Carbon Dioxide 24 mmol/L (22-29); Chloride 112 mmol/L (96-108); Creatinine Clr Calc Pharmacy 27.7; Estimated Glomerular Filt Rate 37; Glucose Fasting 124 mg/dL (60-99); Potassium 4.2 mmol/L (3.3-5.1); Sodium 144 mmol/L (135-145); Total Protein 4.9 g/dL (6.5-8.0)
[2021-09-15 06:24] LABS: Band Neutrophils Percent 2 % (3-5); Eosinophils Absolute Manual 0.3 X10*3/uL (0.0-0.4); Eosinophils Percent Manual 2 % (0-4); Lymphocytes Absolute Manual 1.6 X10*3/uL (1.2-4.9); Lymphocytes Percent Manual 12 % (20-40); Metamyelocytes Absolute 0.1 X10*3/uL; Metamyelocytes Percent 1 %; Monocytes Absolute Manual 1.2 X10*3/uL (0.1-1.2); Monocytes Percent Manual 9 % (2-11); Myelocytes Absolute 0.1 X10*/uL; Myelocytes Percent 1 %; Neutrophils Absolute Manual 10.3 X10*3/uL (2.0-8.3); Neutrophils Percent Manual 73 % (45-73); RBC Morphology NORMAL
[2021-09-15 06:25] LABS: Large Platelet PRESENT; Platelet Estimate NORMAL (NORMAL)
[2021-09-15 06:26] LABS: Platelet Morphology Comment NOTED
[2021-09-15] MEDS: Lactated Ringers 1,000 ML 100 ML IVCONT (08:45)
--- NOTE | 2021-09-15 10:51 | PM.PNNEP ---
Subjective Subjective Date of Service: 10/09/21 Interval history: Events noted CT noted Cr s down Physical Exam Vital Signs: Vital Signs: Last Vital Signs Temp 100.1 F 09/15/21 07:34 Pulse 60 09/15/21 08:00 Resp 18 09/15/21 07:34 BP 114/52 L 09/15/21 08:00 Pulse Ox 94 09/15/21 07:34 BMI result Body Mass Index 21.9 Const: Other: Appearance: Alert. Oriented X3. No acute distress. anxious Eyes: Pupils equal, round and reactive to light. ENT: Pharynx normal. Neck: Normal inspection. Neck supple. No lymph nodes noted. No crepitus CVS: Normal heart rate and rhythm. Pulses normal. Normal S1 and S2 Respiratory: No respiratory distress. Breath sounds normal. No Wheezing. No rales Abdomen: Soft and nontender. No rigidity. No distention. Skin: Skin warm and dry. Normal skin color. Normal skin turgor. Extremities: No lower extremity edema. No lower extremity edema. No Lacerations. No Rash Neuro: Oriented X 3. No motor deficit. No sensory deficit. Moving all extermities. No slurred speech. Objective Data Labs CBC & Chem 7: 09/17/21 05:33 09/17/21 05:33 Labs: Laboratory Results - last 24 hr 09/15/21 09/15/21 05:16 05:16 WBC 13.7 H RBC 3.30 L Hgb 9.3 L Hct 29.3 L MCV 88.8 MCH 28.2 MCHC 31.7 RDW 14.6 Plt Count 413 H MPV 10.3 Immature Gran % (Auto) Cancelled Neut % (Auto) Cancelled Lymph % (Auto) Cancelled [place] % (Auto) Cancelled Eos % (Auto) Cancelled Baso % (Auto) Cancelled Lymph # (Auto) Cancelled [place] # (Auto) Cancelled Eos # (Auto) Cancelled Baso # (Auto) Cancelled Abs Immat Gran (auto) Cancelled Absolute Neuts (auto) Cancelled Absolute Nucleated RBC 0.000 Nucleated RBC % (auto) 0.0 Neutrophils % (Manual) 73 Band Neutrophils % 2 L Lymphocytes % (Manual) 12 L Monocytes % (Manual) 9 Eosinophils % (Manual) 2 Metamyelocytes % 1 Myelocytes % 1 Abs Neuts (Manual) 10.3 H Lymphocytes # (Manual) 1.6 Monocytes # (Manual) 1.2 Eosinophils # (Manual) 0.3 Metamyelocytes # 0.1 Myelocytes # 0.1 Platelet Estimate NORMAL Large Platelets PRESENT Plt Morphology Comment NOTED RBC Morphology NORMAL Sodium 144 Potassium 4.2 Chloride 112 H Carbon Dioxide 24 Anion Gap 12 BUN 25 H Creatinine 1.38 Estim Creat Clear Calc 27.7 Estimated GFR 37 Fasting Glucose 124 H Calcium 8.4 Total Bilirubin < 0.2 AST 23 ALT 35 H Alkaline Phosphatase 108 Total Protein 4.9 L Albumin 2.6 L Microbiology Microbiology Results: Microbiology 09/10/21 Unknown Urine clean catch - Urine richards top Urine Culture - Final Escherichia coli 09/10/21 23:23 Blood - Venous Blood Culture - Final Escherichia coli 09/10/21 22:31 Blood - Venous Blood Culture - Final Escherichia coli Procedures Date of Service Date of Service: 09/15/21 Assessment & Plan Assessment and plan (1) Bacteremia: Status: Resolved (2) Near syncope: Status: Resolved (3) UTI (urinary tract infection): Status: Resolved (4) FRAN (acute kidney injury): Status: Resolved Assessment and Plan: FRAN due to hypoperfusion No obstruction by CT /Solitary kidney Cr is slowly improving Keep I >O Expect recovery Time Spent With Patient Time: Total time spent is greater than 50% in coordination of care (as documented) at patient's floor/unit and/or counseling patient: Time with patient: 15 - 24 minutes Progress Note: Quality Stroke Does the patient have a stroke diagnosis?: No
--- NOTE | 2021-09-15 12:04 | MHC.CM.PN ---
PER CONVERSATION WITH HOSPITALIST, NO PLAN FOR DISCHARGE TODAY. WBC IS STILL ELEVATED AND PATIENT IS FEBRILE.
--- NOTE | 2021-09-15 12:09 | HO.PM.IMPN ---
Subjective Subjective Date of Service: 09/15/21 Interval History: continues to feel well however still with low-grade temp and persistent white count Review of Systems denies chest pain Denies shortness of breath Denies nausea vomiting diarrhea Physical Exam Vital Signs: Vital Signs: Last Vital Signs Temp 98.4 F 09/15/21 11:56 Pulse 64 09/15/21 11:56 Resp 18 09/15/21 11:56 BP 110/53 L 09/15/21 11:56 Pulse Ox 97 09/15/21 11:56 BMI result Body Mass Index 21.9 Const: Other: no acute distress Resp: Other: clear to auscultation bilaterally Cardio: Other: no S4; positive S1-S2; no S3 murmurs, rubs, gallops GI: Other: soft nontender nondistended normoactive bowel sounds x4 quadrants Extrem: Other: no edema bilaterally Objective Data Active Medications Acetaminophen (Acetaminophen 325 Mg Tablet) 650 mg PO Q6H PRN PRN Reason: Pain, Mild (Pain Scale 1-3) Last Admin: 09/14/21 19:34 Dose: 650 mg Documented by: SANDRA Melatonin (Melatonin 3 Mg Tablet) 6 mg PO BEDTIME PRN PRN Reason: Insomnia Last Admin: 09/14/21 22:01 Dose: 3 mg Documented by: SANDRA Comments: patient requested 3 mg only Pharmacy Consult (Consult Rx Perform Med Rec) 1 each MISCELLANE ONCE PRN PRN Reason: Consult order Senna (Sennosides 8.6 Mg Tablet) 17.2 mg PO BEDTIME PRN PRN Reason: Constipation Sodium Chloride (0.9 % Sodium Chloride Flush 3 Ml Syringe) 3 ml IVFLUSH QSHIFT [facility] Last Admin: 09/15/21 08:46 Dose: Not Given Documented by: ISABEL Non-Admin Reason: IV Running Labs CBC & Chem 7: 09/15/21 05:16 09/15/21 05:16 Labs: Laboratory Results - last 24 hr 09/15/21 09/15/21 05:16 05:16 MCV 88.8 MCH 28.2 MCHC 31.7 RDW 14.6 Plt Count 413 H MPV 10.3 Immature Gran % (Auto) Cancelled Neut % (Auto) Cancelled Lymph % (Auto) Cancelled [place] % (Auto) Cancelled Eos % (Auto) Cancelled Baso % (Auto) Cancelled Lymph # (Auto) Cancelled [place] # (Auto) Cancelled Eos # (Auto) Cancelled Baso # (Auto) Cancelled Abs Immat Gran (auto) Cancelled Absolute Neuts (auto) Cancelled Absolute Nucleated RBC 0.000 Nucleated RBC % (auto) 0.0 Neutrophils % (Manual) 73 Band Neutrophils % 2 L Lymphocytes % (Manual) 12 L Monocytes % (Manual) 9 Eosinophils % (Manual) 2 Metamyelocytes % 1 Myelocytes % 1 Abs Neuts (Manual) 10.3 H Lymphocytes # (Manual) 1.6 Monocytes # (Manual) 1.2 Eosinophils # (Manual) 0.3 Metamyelocytes # 0.1 Myelocytes # 0.1 Platelet Estimate NORMAL Large Platelets PRESENT Plt Morphology Comment NOTED RBC Morphology NORMAL Anion Gap 12 Estim Creat Clear Calc 27.7 Estimated GFR 37 Fasting Glucose 124 H Calcium 8.4 Total Bilirubin < 0.2 AST 23 ALT 35 H Alkaline Phosphatase 108 Total Protein 4.9 L Albumin 2.6 L Assessment and Plan (1) Pyelonephritis: Status: Acute Assessment and Plan: 80-year-old female with a past medical history RCC status post nephrectomy presented with a chief complaint of syncope/Frequency/ dysuria.? urine with active sediment.WBC minimally elevated. 1.Bacteremia... E coli sensitive to ceftriaxone CTX 1 g IV. . . Day 5..still with persistant WBC/low grade tem. COntinue IV until afebrile/WBC normalizes. CT abd/pelvis to r/out obstruction 2.Near Syncope. Likely secondary to volume depletion in the setting of infection/Poor intake/UTI .? Resolved 3.FRAN.... resolved Continue IVF's.Creat back to baseline Follow divalents and creatinine ? DVT prophylaxis:? SCD boots Code status:? Full code Quality Stroke Does the patient have a stroke diagnosis?: No VTE Prior VTE?: No VTE Risk Level:: Medical - moderate - high VTE Device Contraindication: N/A - Device Ordered VTE Drug Contraindication: Treatment Not Indicated
[2021-09-15] MEDS: cefTRIAXone sodium 1 GM in 0.9 % Sodium Chloride 50 ML IV (13:03)
[2021-09-15] MEDS: Acetaminophen 325 MG TABLET 650 MG PO (19:51)
[2021-09-16] VITALS (8 sets, daily range): BP systolic 121–155; BP diastolic 56–72; PULSE 67–80; RESP 16–18; TEMP 36.3–36.6; O2SAT 94–98
[2021-09-16] MEDS: 0.9 % Sodium Chloride Flush 3 ML SYRINGE IVFLUSH ×4 (00:33→19:31)
[2021-09-16 05:07] LABS: MANUAL DIFF FLAG NO
[2021-09-16 05:17] LABS: Basophils Percent Auto 0.3 % (0-2); Eosinophils Absolute Auto 0.2 X10*3/uL (0.0-0.4); Hemoglobin 9.6 g/dl (12.0-16.0); Imm Gran Abs Auto 0.54 X10*3/uL (0.00-0.03); Imm Gran Pct Auto 4.9 % (0.0-0.4); Lymphocytes Absolute Auto 1.9 X10*3/uL (1.2-4.9); Lymphocytes Percent Auto 17.7 % (20-40); Mean Corpuscular Hemoglobin 28.5 pg (27.0-33.0); Monocytes Absolute Auto 0.8 X10*3/uL (0.1-1.2); Neutrophils Absolute Auto 7.4 x10*3/uL (2.0-8.3); Neutrophils Percent Auto 68.1 % (45-73); Platelet Count 482 X10*3/uL (160-400); Red Blood Count 3.37 X10*6/uL (4.20-5.50); Red Cell Distribution Width 14.6 % (11.0-16.0); White Blood Count 10.9 X10*3/uL (4.8-10.8)
[2021-09-16 05:49] LABS: Alanine Aminotransferase 51 U/L (0-31); Albumin Level 2.7 g/dL (3.5-5.0); Alkaline Phosphatase 112 U/L (39-117); Anion Gap 14 (12-20); Aspartate Amino Transferase 32 U/L (5-31); Bilirubin Total < 0.2 mg/dL (0.0-1.0); Blood Urea Nitrogen 24 mg/dL (9-16); Calcium 8.6 mg/dL (8.4-10.2); Carbon Dioxide 23 mmol/L (22-29); Chloride 113 mmol/L (96-108); Creatinine Clr Calc Pharmacy 28.4; Estimated Glomerular Filt Rate 38; Glucose Fasting 110 mg/dL (60-99); Potassium 4.3 mmol/L (3.3-5.1); Sodium 146 mmol/L (135-145); Total Protein 5.1 g/dL (6.5-8.0)
--- NOTE | 2021-09-16 10:50 | HO.PM.IMPN ---
Subjective Subjective Date of Service: 09/16/21 Interval History: feels better overall; fatigue but improved Review of Systems denies chest pain Denies shortness of breah Denies nausea vomiting diarrhea Physical Exam Vital Signs: Vital Signs: Last Vital Signs Temp 97.7 F 09/16/21 08:00 Pulse 80 09/16/21 08:27 Resp 18 09/16/21 08:00 BP 155/72 H 09/16/21 08:27 Pulse Ox 94 09/16/21 08:00 BMI result Body Mass Index 21.9 Const: Other: no acute distress Resp: Other: clear to auscultation bilaterally Cardio: Other: no S4; positive S1-S2; no S3 murmurs, rubs, gallops GI: Other: soft nontender nondistended normoactive bowel sounds x4 quadrants Extrem: Other: no edema bilaterally Objective Data Active Medications Acetaminophen (Acetaminophen 325 Mg Tablet) 650 mg PO Q6H PRN PRN Reason: Pain, Mild (Pain Scale 1-3) Last Admin: 09/15/21 19:51 Dose: 650 mg Documented by: LEESA Ceftriaxone Sodium 1 gm/ (Sodium Chloride) 50 mls @ 100 mls/hr IV Q24H [facility] Last Infusion: 09/15/21 14:32 Dose: 0 mls/hr Documented by: ISABEL Melatonin (Melatonin 3 Mg Tablet) 6 mg PO BEDTIME PRN PRN Reason: Insomnia Last Admin: 09/14/21 22:01 Dose: 3 mg Documented by: SANDRA Comments: patient requested 3 mg only Pharmacy Consult (Consult Rx Perform Med Rec) 1 each MISCELLANE ONCE PRN PRN Reason: Consult order Senna (Sennosides 8.6 Mg Tablet) 17.2 mg PO BEDTIME PRN PRN Reason: Constipation Sodium Chloride (0.9 % Sodium Chloride Flush 3 Ml Syringe) 3 ml IVFLUSH QSHIFT [facility] Last Admin: 09/16/21 08:17 Dose: 3 ml Documented by: ISABEL Labs CBC & Chem 7: 09/16/21 04:34 09/16/21 04:34 Labs: Laboratory Results - last 24 hr 09/16/21 09/16/21 04:34 04:34 MCV 89.0 MCH 28.5 MCHC 32.0 RDW 14.6 Plt Count 482 H MPV 10.0 Immature Gran % (Auto) 4.9 H Neut % (Auto) 68.1 Lymph % (Auto) 17.7 L [place] % (Auto) 7.0 Eos % (Auto) 2.0 Baso % (Auto) 0.3 Lymph # (Auto) 1.9 [place] # (Auto) 0.8 Eos # (Auto) 0.2 Baso # (Auto) 0.0 Abs Immat Gran (auto) 0.54 H Absolute Neuts (auto) 7.4 Absolute Nucleated RBC 0.000 Nucleated RBC % (auto) 0.0 Anion Gap 14 Estim Creat Clear Calc 28.4 Estimated GFR 38 Fasting Glucose 110 H Calcium 8.6 Total Bilirubin < 0.2 AST 32 H ALT 51 H Alkaline Phosphatase 112 Total Protein 5.1 L Albumin 2.7 L Assessment and Plan (1) Pyelonephritis: Status: Acute (2) Bacteremia: Status: Acute (3) UTI (urinary tract infection): Status: Acute Assessment and Plan: 80-year-old female with a past medical history RCC status post nephrectomy presented with a chief complaint of syncope/Frequency/ dysuria.? urine with active sediment.WBC minimally elevated. 1.Bacteremia... E coli sensitive to ceftriaxone CTX 1 g IV. . . Day 6. Afebrile x 24hrs. CT abd/pelvis without acute findings/obstruction If remains afebrile over next 24hrs...? D/C on orals in am. 2..FRAN.... resolved Continue IVF's.Creat back to baseline Follow divalents and creatinine ? DVT prophylaxis:? SCD boots Code status:? Full code Quality Stroke Does the patient have a stroke diagnosis?: No VTE Prior VTE?: No VTE Risk Level:: Medical - moderate - high VTE Device Contraindication: N/A - Device Ordered VTE Drug Contraindication: Treatment Not Indicated
--- NOTE | 2021-09-16 11:42 | PM.PNNEP ---
Subjective Subjective Date of Service: 10/09/21 Interval history: events noted Physical Exam Vital Signs: Vital Signs: Last Vital Signs Temp 97.7 F 09/16/21 08:00 Pulse 80 09/16/21 08:27 Resp 18 09/16/21 08:00 BP 155/72 H 09/16/21 08:27 Pulse Ox 94 09/16/21 08:00 BMI result Body Mass Index 21.9 Const: Other: Appearance: Alert. Oriented X3. No acute distress. anxious Eyes: Pupils equal, round and reactive to light. ENT: Pharynx normal. Neck: Normal inspection. Neck supple. No lymph nodes noted. No crepitus CVS: Normal heart rate and rhythm. Pulses normal. Normal S1 and S2 Respiratory: No respiratory distress. Breath sounds normal. No Wheezing. No rales Abdomen: Soft and nontender. No rigidity. No distention. Skin: Skin warm and dry. Normal skin color. Normal skin turgor. Extremities: No lower extremity edema. No lower extremity edema. No Lacerations. No Rash Neuro: Oriented X 3. No motor deficit. No sensory deficit. Moving all extermities. No slurred speech. Objective Data Labs CBC & Chem 7: 09/17/21 05:33 09/17/21 05:33 Labs: Laboratory Results - last 24 hr 09/16/21 09/16/21 04:34 04:34 WBC 10.9 H RBC 3.37 L Hgb 9.6 L Hct 30.0 L MCV 89.0 MCH 28.5 MCHC 32.0 RDW 14.6 Plt Count 482 H MPV 10.0 Immature Gran % (Auto) 4.9 H Neut % (Auto) 68.1 Lymph % (Auto) 17.7 L [place] % (Auto) 7.0 Eos % (Auto) 2.0 Baso % (Auto) 0.3 Lymph # (Auto) 1.9 [place] # (Auto) 0.8 Eos # (Auto) 0.2 Baso # (Auto) 0.0 Abs Immat Gran (auto) 0.54 H Absolute Neuts (auto) 7.4 Absolute Nucleated RBC 0.000 Nucleated RBC % (auto) 0.0 Sodium 146 H Potassium 4.3 Chloride 113 H Carbon Dioxide 23 Anion Gap 14 BUN 24 H Creatinine 1.35 Estim Creat Clear Calc 28.4 Estimated GFR 38 Fasting Glucose 110 H Calcium 8.6 Total Bilirubin < 0.2 AST 32 H ALT 51 H Alkaline Phosphatase 112 Total Protein 5.1 L Albumin 2.7 L Microbiology Microbiology Results: Microbiology 09/10/21 Unknown Urine clean catch - Urine richards top Urine Culture - Final Escherichia coli 09/10/21 23:23 Blood - Venous Blood Culture - Final Escherichia coli 09/10/21 22:31 Blood - Venous Blood Culture - Final Escherichia coli Procedures Date of Service Date of Service: 09/16/21 Assessment & Plan Assessment and plan (1) Bacteremia: Status: Resolved (2) Near syncope: Status: Resolved (3) UTI (urinary tract infection): Status: Resolved (4) FRAN (acute kidney injury): Status: Resolved Assessment and Plan: FRAN due to hypoperfusion No obstruction by CT /Solitary kidney Cr is slowly improving Keep I >O Expect recovery Time Spent With Patient Time: Total time spent is greater than 50% in coordination of care (as documented) at patient's floor/unit and/or counseling patient: Time with patient: 15 - 24 minutes Progress Note: Quality Stroke Does the patient have a stroke diagnosis?: No
[2021-09-16] MEDS: cefTRIAXone sodium 1 GM in 0.9 % Sodium Chloride 50 ML IV (12:33)
[2021-09-16] MEDS: Acetaminophen 325 MG TABLET 650 MG PO (19:37)
[2021-09-17] VITALS: BP 122/58; BP 126/58; PULSE 65; RESP 17; TEMP 36.1; O2SAT 94
[2021-09-17 03:29] VITALS: BP 121/58; PULSE 69; RESP 16; TEMP 36.6; O2SAT 96
[2021-09-17 05:40] LABS: MANUAL DIFF FLAG NO
[2021-09-17 05:45] LABS: Basophils Percent Auto 0.3 % (0-2); Eosinophils Absolute Auto 0.2 X10*3/uL (0.0-0.4); Imm Gran Abs Auto 0.46 X10*3/uL (0.00-0.03); Imm Gran Pct Auto 3.8 % (0.0-0.4); Lymphocytes Percent Auto 16.7 % (20-40); Mean Corpuscular HGB Conc 31.3 g/dl (31.0-35.0); Mean Corpuscular Hemoglobin 28.1 pg (27.0-33.0); Mean Corpuscular Volume 89.9 fL (80.0-98.0); Mean Platelet Volume 9.6 fL (9.4-12.3); Monocytes Absolute Auto 0.9 X10*3/uL (0.1-1.2); Monocytes Percent Auto 7.8 % (2-11); Neutrophils Absolute Auto 8.3 x10*3/uL (2.0-8.3); Neutrophils Percent Auto 69.4 % (45-73); Platelet Count 530 X10*3/uL (160-400); Red Blood Count 3.56 X10*6/uL (4.20-5.50); Red Cell Distribution Width 14.6 % (11.0-16.0)
[2021-09-17 06:02] LABS: Alanine Aminotransferase 54 U/L (0-31); Albumin Level 2.9 g/dL (3.5-5.0); Alkaline Phosphatase 117 U/L (39-117); Anion Gap 13 (12-20); Aspartate Amino Transferase 32 U/L (5-31); Bilirubin Total 0.3 mg/dL (0.0-1.0); Blood Urea Nitrogen 23 mg/dL (9-16); Calcium 9.2 mg/dL (8.4-10.2); Carbon Dioxide 26 mmol/L (22-29); Chloride 111 mmol/L (96-108); Creatinine Clr Calc Pharmacy 28.8; Estimated Glomerular Filt Rate 39; Glucose Fasting 103 mg/dL (60-99); Potassium 4.5 mmol/L (3.3-5.1); Sodium 145 mmol/L (135-145); Total Protein 5.4 g/dL (6.5-8.0)
[2021-09-17 07:27] VITALS: BP 126/60; PULSE 72; RESP 17; TEMP 36.9; O2SAT 97
[2021-09-17] MEDS: 0.9 % Sodium Chloride Flush 3 ML SYRINGE IVFLUSH (09:21)
[2021-09-17 11:36] VITALS: BP 111/58; PULSE 68; RESP 19; TEMP 36.1; O2SAT 98
[2021-09-17 11:43] VITALS: BP 136/63; PULSE 77
[2021-09-17] MEDS: cefTRIAXone sodium 1 GM in 0.9 % Sodium Chloride 50 ML IV (12:55)
--- NOTE | 2021-09-17 14:28 | MHC.CM.PN ---
IMM 09/17/21, PT DISCHARGING HOME TODAY, PT CONT'S TO DECLINE SERVICES, PT HAS CALLED [facility] FOR TRANSPORT AND RIDE WILL ARRIVE AT 3:30PM
--- NOTE | 2021-09-17 14:30 | P.DS_ITS ---
DS: Providers Provider Date of Service: 09/17/21 Date of admission: 09/10/21 23:38 Primary care physician: Cezar Steinberg MD Consults: 09/10/21 23:37 Consult to Nephrology Routine Consulting Provider: Theo Shen Reason for consultation: FRAN; hx Nephrectomy 09/14/21 08:50 Consult to Infectious Diseases Routine Consulting Provider: Daksha Smith Reason for consultation: bacteremia DS: Diagnosis Discharge Diagnosis (1) Bacteremia: Status: Acute (2) Near syncope: Status: Acute (3) UTI (urinary tract infection): Status: Acute (4) FRAN (acute kidney injury): Status: Acute DS: Summary Hospital Course Hospital Course: ?80-year-old female with a past medical history RCC status post nephrectomy presented to the hospital today with a chief complaint of syncope.? Patient reports that over the past few days she has been having fever chills.? Denies any headaches numbness tingling.? Denies any cough or sputum production.? Patient does complain of urinary frequency and dysuria for the past few days. Patient denies any nausea vomiting.? but had couple episodes of diarrhea.? Reports she has poor oral intake over 2-3 weeks Denies any numbness tingling.? Patient reports that when she was walking down the said she felt lightheaded and dizzy and subsequently she lowered herself to the ground and no LOC, mentioned that she has felt like she is going to faint but did not; woke up of 20 minutes; denies any seizure-like activity.? Subsequently came to the ER for further evaluation.? Hospital Course initial workup in the emergency room demonstrated essentially normal labs save creatinine that jonathan to 2.3 from 1.0 at baseline. Urine had active sediment was sent for culture and she was started on ceftriaxone. She was admitted to [facility] and continued on ceftriaxone along with IV fluids. Urine culture grew out E coli sensitive to ceftriaxone. She was seen in consultation by Infectious Disease recommend CT scan of the abdomen pelvis which failed to demonstrate any acute issues/ obstruction. She continued on a course of IV ceftriaxone on on the day of discharge she is afebrile ambulating in the hallway without issue. She will be discharged home to complete a 7 day course of Ceftin. She will follow-up with her PCP 2 weeks. Time Spent with Patient Time attestation: Total time spent providing and/or coordinating discharge services: Discharge coordination time: Greater than 30 minutes Quality: Stroke Does the patient have a stroke diagnosis?: No Physical Exam Vital Signs: Vital Signs: Last Vital Signs Temp 97.0 F 09/17/21 11:36 Pulse 77 09/17/21 11:43 Resp 19 09/17/21 11:36 BP 136/63 09/17/21 11:43 Pulse Ox 98 09/17/21 11:36 BMI result Body Mass Index 21.9 Const: Other: no acute distress Resp: Other: clear to auscultation bilaterally Cardio: Other: no S4; positive S1-S2; no S3 murmurs, rubs, gallops GI: Other: soft nontender nondistended normoactive bowel sounds x4 quadrants Extrem: Other: no edema bilaterally DS: Data Data Completed and Pending Labs on day of discharge: Laboratory Results - last 24 hr 09/17/21 09/17/21 05:33 05:33 WBC 12.0 H RBC 3.56 L Hgb 10.0 L Hct 32.0 L MCV 89.9 MCH 28.1 MCHC 31.3 RDW 14.6 Plt Count 530 H MPV 9.6 Immature Gran % (Auto) 3.8 H Neut % (Auto) 69.4 Lymph % (Auto) 16.7 L [place] % (Auto) 7.8 Eos % (Auto) 2.0 Baso % (Auto) 0.3 Lymph # (Auto) 2.0 [place] # (Auto) 0.9 Eos # (Auto) 0.2 Baso # (Auto) 0.0 Abs Immat Gran (auto) 0.46 H Absolute Neuts (auto) 8.3 Absolute Nucleated RBC 0.000 Nucleated RBC % (auto) 0.0 Sodium 145 Potassium 4.5 Chloride 111 H Carbon Dioxide 26 Anion Gap 13 BUN 23 H Creatinine 1.33 Estim Creat Clear Calc 28.8 Estimated GFR 39 Fasting Glucose 103 H Calcium 9.2 D Total Bilirubin 0.3 AST 32 H ALT 54 H Alkaline Phosphatase 117 Total Protein 5.4 L Albumin 2.9 L Discharge Plan Discharge Patient Disposition: Home, Self-Care Discharge Diagnosis: acute pyelonephritis; E coli bacteremia Referrals: Cezar Steinberg MD [Primary Care Provider] - 1 Week Discharge Medications: New cefuroxime axetil 250 mg tablet 250 mg PO BID 7 Days Qty: 14 RF: 0 Discharge Orders: Discharge Order (Routine); Ordered 09/17/21 Ordered By: Mohinder Bazan Diet: advance to usual diet Activity on Discharge: As tolerated Stand Alone Forms: Patient Portal Discharge page Care Plan Goals: complete course of antibiotics Health Concerns: return if fever chills Plan of Treatment: Ceftin 250 b.i.d. for 7 days Assessment: as above
--- NOTE | 2021-09-21 09:10 | P.CDIR_ITS ---
Documented by User: Radha Valverde CCS, CDIS 09/21/21 09:16 Retrospective Query PHYSICIAN'S DOCUMENTATION REQUEST Date of Query: 09/21/21909 Patient Name: Mayte Cole Admit Date: 09/10/21 Dear Doctor, A review of the medical record indicates additional documentation may be needed. Please review below and update the documentation accordingly. Clinical Indicators: Risk Factors/Clinical Indicators/Treatments Query response: 09/12/21 - Sepsis POA secondary to UTI + Gram Negative Bacteremia. Temp: 102.5 WBC 18.6 BP 104/57 95/44 L Near syncope likely volume depletion in the setting of infection/poor intake/UTI. Micro: 09/10 - GNR Urine positive for UTI. Ceftriaxone Bacteremia 2/2 GNR Based on the above, could you clarify in the Progress Notes the appropriate diagnosis, if significant, that supports the above abnormalities and additional evaluation, monitoring, and/or treatment rendered: * Sepsis secondary to UTI with Gram Negative Bacteremia POA * Gram negative Bacteremia * Other (please specify) * Unable to determine Use of terms such as suspected, likely, concern for, or probable (associated with a specific diagnosis that is being evaluated, monitored, or treated as if it exists) are acceptable and can be coded in the inpatient setting, when documented at the time of discharge. Thank you, Radha Valverde CCS, CDIS Extension: [phone] Please use your independent medical judgment in providing your response. THIS QUERY IS PART OF THE PERMANENT MEDICAL RECORD Documented by User: Mohinder Bazan DO 09/24/21 16:29 Retrospective Query Provider Response: Other ( sepsis secondary to UTI with Gram-negative bacteremia p.o. a)
== END 2021-09-17 15:12 | disposition home or self-care (01) | DRG 872 ==
LOC: HO.ED 22:08 → HO.EDOVER 09-11 00:08 → HO.S3 09-11 09:47
PROVIDERS: Nurse Practitioner Acute Care; Admitting Provider Hospitalist; Emergency Provider Emergency Medicine; PCP Internal Medicine; Visit Provider Hospitalist
DX: A41.51 Sepsis due to Escherichia coli [E. coli] (principal); N12 Tubulo-interstitial nephritis, not specified as acute or chronic; N10 Acute pyelonephritis; E86.0 Dehydration; B96.20 Unspecified Escherichia coli [E. coli] as the cause of diseases classified elsewhere; T39.395A Adverse effect of other nonsteroidal anti-inflammatory drugs [NSAID], initial encounter; R65.20 Severe sepsis without septic shock; Y92.9 Unspecified place or not applicable; E86.9 Volume depletion, unspecified; Z90.5 Acquired absence of kidney; Z20.822 Contact with and (suspected) exposure to COVID-19; Z85.528 Personal history of other malignant neoplasm of kidney; Z88.5 Allergy status to narcotic agent; Z79.899 Other long term (current) drug therapy
CPT/HCPCS: 36415; 71045; 74176; 80048; 80053; 81001; 82272; 82550; 83036; 83605; 83690; 84484; 85007; 85025; 85027; 87040; 87077; 87086; 87088; 87186; 87205; 87635; 93005; 93306; 96361; 96365; 97162; 99285; J0696; J1956

== ENCOUNTER 2021-09-23 15:15 | Inpatient (IN) | payer MEDICARE, SELFPAY ==
--- NOTE | ~2021-09-23 | CT_ITS ---
EXAMINATION: CT FACIAL BONES WITHOUT CONTRAST CLINICAL INFORMATION: Left temporomandibular joint swelling. History of gram-negative bacteremia. COMPARISON: None TECHNIQUE: Multidetector volumetric imaging of the maxillofacial bones is performed without IV contrast. Coronal and sagittal reformatted images are obtained and reviewed. This CT examination was performed using dose optimization techniques as appropriate, variously including the following: *Automated exposure control *Adjustment of mA and/or kV according to patient size (this includes techniques or standardized protocols for targeted exams where dose is matched to indication/reason for exam; i.e. extremities or head) *Use of iterative reconstruction technique DLP: 268 mGy-cm FINDINGS: There is asymmetric edema in the region of the left temporomandibular joint. This results in widening of the joint space. Degenerative changes are seen here. No definite osseous erosion. There is mild asymmetry of the overlying soft tissues as well, with some superficial edema seen. No fluid collection. There is no acute maxillofacial fracture. The pterygoid plates are intact. The zygomatic arches are intact. The lamina papyracea are intact. The orbital rims are intact. The paranasal sinuses are well-aerated. No air-fluid levels are seen. There is rightward deviation of the nasal septum. The ostiomeatal complexes are clear. The lamina papyracea are intact. The ethmoid roofs are symmetric. The carotid canals are normally covered by bone. No maxillary periapical disease is seen. The mastoid air cells and visualized middle ear cavities are well-aerated. The orbits are normal. The imaged portions of the brain demonstrate no acute abnormality. CT/CT facial bones wo con IMPRESSION: Edema surrounding the left temporomandibular joint with asymmetric widening of the joint space. This could be secondary to an effusion at the joint. No fluid collection seen. There are degenerative changes at the left temporomandibular joint. No mastoid air cell effusion.
[2021-09-23 18:40] VITALS: BP 158/76; PULSE 110; RESP 18; TEMP 37.2; O2SAT 95
[2021-09-23 21:08] VITALS: BP 164/87; PULSE 108; RESP 20; TEMP 36.6; O2SAT 96; BMI 21.9
--- NOTE | 2021-09-23 23:44 | ED_ITS ---
HPI - General Adult General Chief complaint: General Medical Stated complaint: Jaw pain/Earache Time Seen by Provider: 09/23/21 23:23 Source: patient Mode of arrival: ambulatory Limitations: no limitations History of Present Illness HPI narrative: Patient just had history of E coli bacteremia 09/10 from pyelonephritis treated with cefuroxime which she finished today complaining of left TMJ joint pain for last 3 days no fever never had any history of TMJ problems in the past pain gets worse when she chew or open her mouth no fever , had chills today, no toothache no significant headache she does have some mild earache Related Data Previous Rx's Medication Instructions Recorded cefuroxime axetil 250 mg tablet 250 mg PO BID 7 Days #14 tab 09/17/21 Allergies Allergy/AdvReac Type Severity Reaction Status Date / Time Percocet Allergy Unknown Uncoded 05/29/12 00:00 Review of Systems Review of Systems: Yes all other systems are reviewed and are negative PMFSH Past Medical History Medical History Kidney malignant neoplasm Surgical History History of nephrectomy Social History Social History Household Members: None Housing: House Do you presently have visiting nurse or other home services: No Alcohol intake: current Alcohol intake frequency: holidays/special occasions only Patient Tobacco Use Status: Never used Tobacco Use of substances other than those prescribed or required for medical reasons: No Advance Directives: Yes Advance Directives on File: Yes Advance Directives Date on File: 09/23/21 service: No Current occupational status: retired Physical Exam Vital Signs: Vital Signs: Last Vital Signs Temp 97.9 F 09/24/21 02:57 Pulse 79 09/24/21 04:55 Resp 16 09/24/21 04:55 BP 143/70 H 09/24/21 04:55 Pulse Ox 96 09/24/21 04:55 BMI result Body Mass Index 21.9 Appearance: Alert. Oriented X3. No acute distress. HEENT: Pharynx normal. Oral Mucosa moist normal dentition, tenderness at left TMJ joint with slight swelling , able to open the mouth with significant pain tympanic membrane normal on the right side left obscured by wax mastoid nontender Neck: Normal inspection. Neck supple. Diffuse paraspinal muscle tenderness no midline tenderness CVS: Normal heart rate and rhythm. Pulses normal. Respiratory: No respiratory distress. Clear bilateral Abdomen: Soft and nontender. Skin: Skin warm and dry. Normal skin color. Normal skin turgor. Extremities: No lower extremity edema. Neuro: Oriented X 3. 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 Result diagrams: 09/24/21 00:41 09/24/21 00:41 Labs: Lab Results 09/24/21 09/24/21 09/24/21 Range/Units 00:41 00:41 00:41 WBC 17.1 H (4.8-10.8) X10*3/uL RBC 3.67 L (4.20-5.50) X10*6/uL Hgb 10.5 L (12.0-16.0) g/dl Hct 32.5 L (37.0-47.0) % MCV 88.6 (80.0-98.0) fL MCH 28.6 (27.0-33.0) pg MCHC 32.3 (31.0-35.0) g/dl RDW 14.1 (11.0-16.0) % Plt Count 719 H D (160-400) X10*3/uL MPV 9.1 L (9.4-12.3) fL Immature Gran % (Auto) 0.7 H (0.0-0.4) % Neut % (Auto) 72.3 (45-73) % Lymph % (Auto) 17.2 L (20-40) % [place] % (Auto) 9.2 (2-11) % Eos % (Auto) 0.4 (0-4) % Baso % (Auto) 0.2 (0-2) % Lymph # (Auto) 2.9 (1.2-4.9) X10*3/uL [place] # (Auto) 1.6 H (0.1-1.2) X10*3/uL Eos # (Auto) 0.1 (0.0-0.4) X10*3/uL Baso # (Auto) 0.0 (0.0-0.2) X10*3/uL Abs Immat Gran (auto) 0.12 H (0.00-0.03) X10*3/uL Absolute Neuts (auto) 12.4 H (2.0-8.3) x10*3/uL Absolute Nucleated RBC 0.000 (0.0-0.012) X10*3/uL Nucleated RBC % (auto) 0.0 (0.0-0.2) /100WBC Smear Tech's Comments VERIFIED ESR 98 H (0-20) MM/HR Sodium 140 (135-145) mmol/L Potassium 4.4 (3.3-5.1) mmol/L Chloride 107 (96-108) mmol/L Carbon Dioxide 23 (22-29) mmol/L Anion Gap 14 (12-20) BUN 18 H (9-16) mg/dL Creatinine 1.11 (0.5-1.4) mg/dL Estim Creat Clear Calc 34.5 Estimated GFR 48 Random Glucose 144 H (60-115) mg/dL Lactic Acid (0.5-2.0) mmol/L Calcium 9.3 (8.4-10.2) mg/dL C-Reactive Protein 14.47 H (< or = 0.50) mg/dL Urine Color Urine Appearance Urine pH (5.0-8.0) Ur Specific [place] (1.005-1.025) Urine Protein (NEG-TRACE) MG/DL Urine Glucose (UA) (NEG) MG/DL Urine Ketones (NEG) MG/DL Urine Blood (NEG) Urine Nitrite (NEG) Ur Leukocyte Esterase (NEG) Urine RBC (0) /HPF Urine WBC (0-4) /HPF Ur Squamous Epith Cells /LPF Urine Bacteria /LPF 09/24/21 09/24/21 Range/Units 02:21 02:21 WBC (4.8-10.8) X10*3/uL RBC (4.20-5.50) X10*6/uL Hgb (12.0-16.0) g/dl Hct (37.0-47.0) % MCV (80.0-98.0) fL MCH (27.0-33.0) pg MCHC (31.0-35.0) g/dl RDW (11.0-16.0) % Plt Count (160-400) X10*3/uL MPV (9.4-12.3) fL Immature Gran % (Auto) (0.0-0.4) % Neut % (Auto) (45-73) % Lymph % (Auto) (20-40) % [place] % (Auto) (2-11) % Eos % (Auto) (0-4) % Baso % (Auto) (0-2) % Lymph # (Auto) (1.2-4.9) X10*3/uL [place] # (Auto) (0.1-1.2) X10*3/uL Eos # (Auto) (0.0-0.4) X10*3/uL Baso # (Auto) (0.0-0.2) X10*3/uL Abs Immat Gran (auto) (0.00-0.03) X10*3/uL Absolute Neuts (auto) (2.0-8.3) x10*3/uL Absolute Nucleated RBC (0.0-0.012) X10*3/uL Nucleated RBC % (auto) (0.0-0.2) /100WBC Smear Tech's Comments ESR (0-20) MM/HR Sodium (135-145) mmol/L Potassium (3.3-5.1) mmol/L Chloride (96-108) mmol/L Carbon Dioxide (22-29) mmol/L Anion Gap (12-20) BUN (9-16) mg/dL Creatinine (0.5-1.4) mg/dL Estim Creat Clear Calc Estimated GFR Random Glucose (60-115) mg/dL Lactic Acid 0.6 (0.5-2.0) mmol/L Calcium (8.4-10.2) mg/dL C-Reactive Protein (< or = 0.50) mg/dL Urine Color YELLOW Urine Appearance CLEAR Urine pH 7.5 (5.0-8.0) Ur Specific [place] 1.010 (1.005-1.025) Urine Protein NEG (NEG-TRACE) MG/DL Urine Glucose (UA) NEG (NEG) MG/DL Urine Ketones NEG (NEG) MG/DL Urine Blood NEG (NEG) Urine Nitrite NEG (NEG) Ur Leukocyte Esterase 1+ H (NEG) Urine RBC 1-4 (0) /HPF Urine WBC 5-9 H (0-4) /HPF Ur Squamous Epith Cells 1+ /LPF Urine Bacteria 1+ /LPF Imaging Data facial ct scan: Radiologist's impression: RDER #: [id number] CT/CT facial bones wo con IMPRESSION: Edema surrounding the left temporomandibular joint with asymmetric widening of the joint space. This could be secondary to an effusion at the joint. No fluid collection seen. There are degenerative changes at the left temporomandibular joint. No mastoid air cell effusion. 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
[2021-09-24] VITALS (8 sets, daily range): BP systolic 128–159; BP diastolic 59–74; PULSE 79–96; RESP 14–20; TEMP 35.8–36.6; O2SAT 94–98
[2021-09-24] MEDS: Ketorolac Tromethamine 30 MG/ML VIAL IM (00:23)
[2021-09-24 00:49] LABS: Basophils Percent Auto 0.2 % (0-2); Eosinophils Absolute Auto 0.1 X10*3/uL (0.0-0.4); Eosinophils Percent Auto 0.4 % (0-4); Hematocrit 32.5 % (37.0-47.0); Hemoglobin 10.5 g/dl (12.0-16.0); Imm Gran Abs Auto 0.12 X10*3/uL (0.00-0.03); Imm Gran Pct Auto 0.7 % (0.0-0.4); Lymphocytes Absolute Auto 2.9 X10*3/uL (1.2-4.9); Lymphocytes Percent Auto 17.2 % (20-40); Mean Corpuscular HGB Conc 32.3 g/dl (31.0-35.0); Mean Corpuscular Hemoglobin 28.6 pg (27.0-33.0); Mean Corpuscular Volume 88.6 fL (80.0-98.0); Mean Platelet Volume 9.1 fL (9.4-12.3); Monocytes Absolute Auto 1.6 X10*3/uL (0.1-1.2); Monocytes Percent Auto 9.2 % (2-11); Neutrophils Absolute Auto 12.4 x10*3/uL (2.0-8.3); Neutrophils Percent Auto 72.3 % (45-73); Platelet Count 719 X10*3/uL (160-400); Red Blood Count 3.67 X10*6/uL (4.20-5.50); Red Cell Distribution Width 14.1 % (11.0-16.0); SCAN SMEAR FLAG 1; White Blood Count 17.1 X10*3/uL (4.8-10.8)
[2021-09-24 01:03] LABS: MANUAL DIFF FLAG SCAN
[2021-09-24 01:05] LABS: SLIDE REVIEW VERIFIED
[2021-09-24 01:08] LABS: Anion Gap 14 (12-20); Blood Urea Nitrogen 18 mg/dL (9-16); C Reactive Protein 14.47 mg/dL (< or = 0.50); Calcium 9.3 mg/dL (8.4-10.2); Carbon Dioxide 23 mmol/L (22-29); Chloride 107 mmol/L (96-108); Creatinine Clr Calc Pharmacy 34.5; Estimated Glomerular Filt Rate 48; Glucose Random 144 mg/dL (60-115); Potassium 4.4 mmol/L (3.3-5.1); Sodium 140 mmol/L (135-145)
[2021-09-24 01:30] LABS: Erythrocyte Sedimentation Rate 98 MM/HR (0-20)
[2021-09-24 02:29] LABS: Appearance Urine CLEAR; Color Urine YELLOW; Glucose Urine UA NEG (NEG); Leukocyte Esterase Urine 1+ (NEG); Nitrite Urine NEG (NEG); PH 7.5 (5.0-8.0); UACC Culture Trigger YES; Urine Blood NEG (NEG); Urine Ketones NEG (NEG); Urine Protein NEG (NEG-TRACE)
[2021-09-24 02:38] LABS: Lactic Acid 0.6 mmol/L (0.5-2.0)
[2021-09-24 02:42] LABS: Bacteria Urine 1+ /LPF; Squamous Epithelial Cell Urine 1+ /LPF
[2021-09-24] MEDS: cefTRIAXone sodium 2 GM in 0.9 % Sodium Chloride 50 ML IV (02:53)
--- NOTE | 2021-09-24 03:01 | PC.NURSE ---
pt a&o, no sob or chest pain, pt able to speak in full sentence, pt oob to bathroom with a steady gait. labs collected and sent. Iv placed and pt medicated per Dec. Call xiong within reach. Will continue to monitor.
[2021-09-24] MEDS: 0.9 % Sodium Chloride 1,000 ML 999 ML IVCONT (04:10)
--- NOTE | 2021-09-24 04:11 | PC.NURSE ---
pt sleeping at this time, no sign of distress. Medicated per Mar. Will continue to monitor.l
[2021-09-24 05:26] LABS: COVID-19 Test Negative (Negative)
--- NOTE | 2021-09-24 05:34 | PC.NURSE ---
A complete bed change and peric care. pt repositioned for comfort . Urine out put was 300 for my shift.
--- NOTE | 2021-09-24 09:01 | P.HPHOSP_ITS ---
History of Present Illness Date of Service: 09/24/21 Chief Complaint: Left jaw pain 72-year-old female recently discharged from [facility] after treatment for pyelonephritis. She completed a course of oral Ceftin at home and was slowly returning to baseline. over the last 48 hours, she states she developed worsening left-sided jaw pain to the point where she could not open her mouth to even eat a banana. She denies trauma. She states she was feverish at home with subjective shaking. She presented to the emergency room where white count was elevated to 17.[address] demonstrated edema surrounding the left TMJ with asymmetrical joint effusion. She was giving Toradol in the ER with good affect. She was also given empiric ceftriaxone. This morning she notes improvement in; will admit recheck white count and consult ID. Review of Systems Review of Systems: Denies chest pain Denies shortness of breath Denies nausea vomiting diarrhea PMFSH Medical History Kidney malignant neoplasm Surgical History History of nephrectomy Social History Household Members: None Housing: House Do you presently have visiting nurse or other home services: No Alcohol intake: current Alcohol intake frequency: holidays/special occasions only Patient Tobacco Use Status: Never used Tobacco Use of substances other than those prescribed or required for medical reasons: No Advance Directives: Yes Advance Directives on File: Yes Advance Directives Date on File: 09/23/21 service: No Current occupational status: retired Meds Allergies Allergy/AdvReac Type Severity Reaction Status Date / Time Percocet Allergy Unknown Unknown Uncoded 09/24/21 05:37 Active Medications: Current Medications Acetaminophen (Acetaminophen 325 Mg Tablet) 650 mg PO Q6H PRN PRN Reason: Pain, Mild (Pain Scale 1-3) Enoxaparin Sodium (Enoxaparin Sodium 40 Mg/0.4 Ml Syringe) 40 mg SUBCUT Q24H GENESIS Ceftriaxone Sodium 1 gm/ (Sodium Chloride) 50 mls @ 100 mls/hr IV DAILY GENESIS Methylprednisolone Sodium Succinate (Methylprednisolone Sod Succ 125 Mg/2 Ml Vial) 60 mg IVPUSH RQ6H ONE Stop: 09/24/21 08:56 Sodium Chloride (0.9 % Sodium Chloride Flush 3 Ml Syringe) 3 ml IVFLUSH QSHIFT GENESIS Physical Exam Vital Signs and Narrative: Vital Signs: Last Vital Signs Temp 97.9 F 09/24/21 02:57 Pulse 81 09/24/21 07:47 Resp 16 09/24/21 07:47 BP 138/62 09/24/21 07:47 Pulse Ox 96 09/24/21 07:47 BMI result Body Mass Index 21.9 Const: Other: awake alert no acute distress HENMT: Other: mild tenderness to touch over left TMJ; able to speak normally without pain. Resp: Other: Clear to auscultation bilaterally. No rales rhonchi or wheezes Cardio: Other: no S4; positive S1-S2; no S3 murmurs rubs or gallops GI: Other: soft nontender nondistended with normoactive bowel sounds Neuro: Other: cranial nerves 2-12 grossly intact as tested. Motor is 5/5. Sensation intact cognition appropriate Extrem: Other: no edema bilateral Results Labs CBC and Chem 7: 09/24/21 00:41 09/24/21 00:41 Labs: Laboratory Results - last 24 hr 09/24/21 09/24/21 09/24/21 00:41 00:41 00:41 MCV 88.6 MCH 28.6 MCHC 32.3 RDW 14.1 Plt Count 719 H D MPV 9.1 L Immature Gran % (Auto) 0.7 H Neut % (Auto) 72.3 Lymph % (Auto) 17.2 L [place] % (Auto) 9.2 Eos % (Auto) 0.4 Baso % (Auto) 0.2 Lymph # (Auto) 2.9 [place] # (Auto) 1.6 H Eos # (Auto) 0.1 Baso # (Auto) 0.0 Abs Immat Gran (auto) 0.12 H Absolute Neuts (auto) 12.4 H Absolute Nucleated RBC 0.000 Nucleated RBC % (auto) 0.0 Smear Tech's Comments VERIFIED ESR 98 H Anion Gap 14 Estim Creat Clear Calc 34.5 Estimated GFR 48 Random Glucose 144 H Lactic Acid Calcium 9.3 C-Reactive Protein 14.47 H Urine Color Urine Appearance Urine pH Ur Specific [place] Urine Protein Urine Glucose (UA) Urine Ketones Urine Blood Urine Nitrite Ur Leukocyte Esterase Urine RBC Urine WBC Ur Squamous Epith Cells Urine Bacteria COVID-19 (CELE) COVID-19 Clin Com 09/24/21 09/24/21 09/24/21 02:21 02:21 04:52 MCV MCH MCHC RDW Plt Count MPV Immature Gran % (Auto) Neut % (Auto) Lymph % (Auto) [place] % (Auto) Eos % (Auto) Baso % (Auto) Lymph # (Auto) [place] # (Auto) Eos # (Auto) Baso # (Auto) Abs Immat Gran (auto) Absolute Neuts (auto) Absolute Nucleated RBC Nucleated RBC % (auto) Smear Tech's Comments ESR Anion Gap Estim Creat Clear Calc Estimated GFR Random Glucose Lactic Acid 0.6 Calcium C-Reactive Protein Urine Color YELLOW Urine Appearance CLEAR Urine pH 7.5 Ur Specific [place] 1.010 Urine Protein NEG Urine Glucose (UA) NEG Urine Ketones NEG Urine Blood NEG Urine Nitrite NEG Ur Leukocyte Esterase 1+ H Urine RBC 1-4 Urine WBC 5-9 H Ur Squamous Epith Cells 1+ Urine Bacteria 1+ COVID-19 (CELE) Negative COVID-19 Clin Com See Note Imaging Radiologist's Impressions: Impressions Face CT 09/24/21 03:25 IMPRESSION: Edema surrounding the left temporomandibular joint with asymmetric widening of the joint space. This could be secondary to an effusion at the joint. No fluid collection seen. There are degenerative changes at the left temporomandibular joint. No mastoid air cell effusion. 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 CT scan demonstrates asymmetrical widening of the TMJ on the left without fluid collection. She has responded well to IV Toradol. 1.? TMJ effusion Unclear significance of CT scan. At this point patient is improved with Toradol; will order IV Solu-Medrol x4 doses and follow clinical response. Will continue ceftriaxone and repeat white count Consult infectious disease DVT prophylaxis Lovenox Full code Quality Stroke Does the patient have a stroke diagnosis?: No VTE Prior VTE?: No VTE Risk Level:: Medical - moderate - high VTE Device Contraindication: Treatment Not Indicated VTE Drug Contraindication: N/A - Med Ordered
[2021-09-24 09:10] LABS: MANUAL DIFF FLAG NO
[2021-09-24 09:32] LABS: Alanine Aminotransferase 22 U/L (0-31); Albumin Level 3.1 g/dL (3.5-5.0); Alkaline Phosphatase 88 U/L (39-117); Anion Gap 13 (12-20); Aspartate Amino Transferase 12 U/L (5-31); Bilirubin Total 0.3 mg/dL (0.0-1.0); Blood Urea Nitrogen 17 mg/dL (9-16); Calcium 8.9 mg/dL (8.4-10.2); Carbon Dioxide 25 mmol/L (22-29); Chloride 111 mmol/L (96-108); Creatinine Clr Calc Pharmacy 35.4; Estimated Glomerular Filt Rate 49; Glucose Fasting 107 mg/dL (60-99); Potassium 4.5 mmol/L (3.3-5.1); Sodium 144 mmol/L (135-145); Total Protein 5.9 g/dL (6.5-8.0)
[2021-09-24 09:39] LABS: Basophils Percent Auto 0.4 % (0-2); Eosinophils Absolute Auto 0.1 X10*3/uL (0.0-0.4); Eosinophils Percent Auto 1.1 % (0-4); Hemoglobin 10.1 g/dl (12.0-16.0); Imm Gran Abs Auto 0.09 X10*3/uL (0.00-0.03); Imm Gran Pct Auto 0.8 % (0.0-0.4); Lymphocytes Absolute Auto 2.2 X10*3/uL (1.2-4.9); Lymphocytes Percent Auto 20.1 % (20-40); Mean Corpuscular HGB Conc 31.6 g/dl (31.0-35.0); Mean Corpuscular Hemoglobin 28.1 pg (27.0-33.0); Mean Corpuscular Volume 88.9 fL (80.0-98.0); Mean Platelet Volume 9.4 fL (9.4-12.3); Monocytes Absolute Auto 1.1 X10*3/uL (0.1-1.2); Monocytes Percent Auto 10.1 % (2-11); Neutrophils Absolute Auto 7.3 x10*3/uL (2.0-8.3); Neutrophils Percent Auto 67.5 % (45-73); Platelet Count 718 X10*3/uL (160-400); Red Cell Distribution Width 14.4 % (11.0-16.0); White Blood Count 10.9 X10*3/uL (4.8-10.8)
[2021-09-24] MEDS: methylPREDNISolone Sod Succ 125 MG/2 ML VIAL 60 MG IVPUSH ×3 (10:55→21:35)
[2021-09-24] MEDS: Enoxaparin Sodium 40 MG/0.4 ML SYRINGE SUBCUT (10:59)
--- NOTE | 2021-09-24 11:44 | PHA.MEDREC ---
Pharmacy Consult ? Medication Reconciliation Pharmacy has completed the medication reconciliation. Patient only takes OTC medications and supplements. She does not know the dose of each of the supplements. Mira Cortez, PharmD
--- NOTE | 2021-09-24 12:49 | PC.NURSE ---
Received pt from main ED, pt A&Ox3, LCA, minimal swelling to L TMJ at this time, pt states she is able to open and close mouth fully at this time. Results, specifically white count went over with patient. Pt offers no complaints at this time. Call xiong within reach, will continue to monitor.
--- NOTE | 2021-09-24 15:00 | PC.NURSE ---
Pt A&Ox3 when awake, sleeping at this time, Call xiong within reach, no signs of distress noted, awaiting bed assignment, will continue to monitor.
[2021-09-25] MEDS: 0.9 % Sodium Chloride Flush 3 ML SYRINGE IVFLUSH (02:32)
[2021-09-25] MEDS: cefTRIAXone sodium 1 GM in 0.9 % Sodium Chloride 50 ML IV (02:33)
[2021-09-25] MEDS: methylPREDNISolone Sod Succ 125 MG/2 ML VIAL 60 MG IVPUSH ×2 (03:06→10:00)
[2021-09-25 06:27] VITALS: BP 116/63; PULSE 96; RESP 18; TEMP 36.7; O2SAT 96
[2021-09-25 07:26] LABS: MANUAL DIFF FLAG NO
[2021-09-25 07:38] LABS: Basophils Percent Auto 0.1 % (0-2); Eosinophils Percent Auto 0.2 % (0-4); Hematocrit 32.4 % (37.0-47.0); Hemoglobin 10.1 g/dl (12.0-16.0); Imm Gran Abs Auto 0.17 X10*3/uL (0.00-0.03); Lymphocytes Absolute Auto 1.3 X10*3/uL (1.2-4.9); Lymphocytes Percent Auto 7.2 % (20-40); Mean Corpuscular HGB Conc 31.2 g/dl (31.0-35.0); Mean Corpuscular Hemoglobin 27.7 pg (27.0-33.0); Mean Corpuscular Volume 88.8 fL (80.0-98.0); Mean Platelet Volume 9.5 fL (9.4-12.3); Monocytes Absolute Auto 0.3 X10*3/uL (0.1-1.2); Monocytes Percent Auto 1.5 % (2-11); Neutrophils Absolute Auto 16.1 x10*3/uL (2.0-8.3); Platelet Count 764 X10*3/uL (160-400); Red Blood Count 3.65 X10*6/uL (4.20-5.50); Red Cell Distribution Width 14.3 % (11.0-16.0); White Blood Count 17.9 X10*3/uL (4.8-10.8)
[2021-09-25 08:11] LABS: Alanine Aminotransferase 25 U/L (0-31); Albumin Level 3.4 g/dL (3.5-5.0); Alkaline Phosphatase 98 U/L (39-117); Anion Gap 14 (12-20); Aspartate Amino Transferase 12 U/L (5-31); Bilirubin Total 0.2 mg/dL (0.0-1.0); Blood Urea Nitrogen 21 mg/dL (9-16); Calcium 9.5 mg/dL (8.4-10.2); Carbon Dioxide 22 mmol/L (22-29); Chloride 111 mmol/L (96-108); Creatinine Clr Calc Pharmacy 32.5; Estimated Glomerular Filt Rate 44; Glucose Fasting 282 mg/dL (60-99); Potassium 4.3 mmol/L (3.3-5.1); Sodium 143 mmol/L (135-145); Total Protein 6.3 g/dL (6.5-8.0)
--- NOTE | 2021-09-25 11:22 | MHC.CM.PN ---
Met with patient in regards to discharge planning. Patient lives alone, ambulates independently and had no services prior to coming to the hospital. PCP verified. Copy of HCP is invalid because it is not dated. New HCP completed, signed and witnessed. Original given to patient. Copy placed in chart. IMM explained and signed. Services not anticipated to be needed because patient is not home bound. Patient received 1 Moderna vaccine. Patient's friend will transport her home when medically stable. Continue to monitor for d/c needs.
--- NOTE | 2021-09-25 11:24 | P.DS_ITS ---
DS: Providers Provider Date of Service: 09/25/21 Date of admission: 09/24/21 08:53 Date of discharge: 09/25/21 Primary care physician: Cezar Steinberg MD Consults: 09/24/21 08:57 Consult to Infectious Diseases Routine Consulting Provider: Daksha Smith Reason for consultation: TMJ ?infected joint Has provider been notified: No DS: Diagnosis Discharge Diagnosis (1) TMJ arthritis: Status: Acute DS: Summary Hospital Course Hospital Course: 72-year-old female admitted with severe left jaw pain that was 24:48 hours in duration. She also complained of some subjective weakness. She arrived in the ER where CT face demonstrated an asymmetrical TMJ joint space. She was given 1 dose of Toradol with significant relief. She was empirically dosed with ceftriaxone. 24 hours blood cultures are negative and she is essentially symptom-free. She would discharge to home to complete a prednisone taper Time Spent with Patient Time attestation: Total time spent providing and/or coordinating discharge services: Discharge coordination time: Greater than 30 minutes Quality: Stroke Does the patient have a stroke diagnosis?: No Physical Exam Vital Signs: Vital Signs: Last Vital Signs Temp 98.0 F 09/25/21 06:27 Pulse 96 09/25/21 06:27 Resp 18 09/25/21 06:27 BP 116/63 09/25/21 06:27 Pulse Ox 96 09/25/21 06:27 BMI result Body Mass Index 21.9 Const: Other: awake alert no acute distress HENMT: Other: mild tenderness to touch over left TMJ; able to speak normally without pain. Resp: Other: Clear to auscultation bilaterally. No rales rhonchi or wheezes Cardio: Other: no S4; positive S1-S2; no S3 murmurs rubs or gallops GI: Other: soft nontender nondistended with normoactive bowel sounds Neuro: Other: cranial nerves 2-12 grossly intact as tested. Motor is 5/5. Sensation intact cognition appropriate Extrem: Other: no edema bilateral DS: Data Data Completed and Pending Labs on day of discharge: Laboratory Results - last 24 hr 09/25/21 09/25/21 07:04 07:04 WBC 17.9 H RBC 3.65 L Hgb 10.1 L Hct 32.4 L MCV 88.8 MCH 27.7 MCHC 31.2 RDW 14.3 Plt Count 764 H MPV 9.5 Immature Gran % (Auto) 1.0 H Neut % (Auto) 90.0 H Lymph % (Auto) 7.2 L [place] % (Auto) 1.5 L Eos % (Auto) 0.2 Baso % (Auto) 0.1 Lymph # (Auto) 1.3 [place] # (Auto) 0.3 Eos # (Auto) 0.0 Baso # (Auto) 0.0 Abs Immat Gran (auto) 0.17 H Absolute Neuts (auto) 16.1 H Absolute Nucleated RBC 0.000 Nucleated RBC % (auto) 0.0 Sodium 143 Potassium 4.3 Chloride 111 H Carbon Dioxide 22 Anion Gap 14 BUN 21 H Creatinine 1.18 Estim Creat Clear Calc 32.5 Estimated GFR 44 Fasting Glucose 282 H Calcium 9.5 D Total Bilirubin 0.2 AST 12 ALT 25 Alkaline Phosphatase 98 Total Protein 6.3 L Albumin 3.4 L Preliminary micro results at discharge 09/24/21 02:21 Blood Culture - Preliminary Blood - Venous No growth after 24 hours. 09/24/21 02:21 Blood Culture - Preliminary Blood - Venous No growth after 24 hours. Discharge Plan Discharge Patient Disposition: Home, Self-Care Discharge Diagnosis: TMJ arthritis Referrals: Cezar Steinberg MD [Primary Care Provider] - 1 Week Discharge Medications: New prednisone 20 mg tablet See Rx Instructions .ROUTE .COMPLEX Qty: 18 RF: 0 Continued acetaminophen [Tylenol] 325 mg Tablet 650 mg PO Q6H PRN (Reason: Pain) RF: 0 glucosamine sulfate [Glucosamine] 500 mg Tablet 500 mg PO DAILY RF: 0 bilberry Capsule 1 cap PO DAILY RF: 0 cholecalciferol (vitamin D3) [Vitamin D3] 25 mcg (1,000 unit) Tablet 25 mcg PO DAILY RF: 0 beta carotene 1 cap PO DAILY RF: 0 calcium 1 tab PO DAILY RF: 0 cranberry 1 tab PO DAILY RF: 0 potassium chloride 1 tab PO DAILY RF: 0 vitamin A 1 tab PO DAILY RF: 0 vitamin E 1 tab PO DAILY RF: 0 Discontinued ibuprofen 200 mg Capsule 400 mg PO Q6H PRN (Reason: Pain) RF: 0 Discharge Orders: Discharge Order (Routine); Ordered 09/25/21 Ordered By: Mohinder Bazan Diet: advance to usual diet Activity on Discharge: As tolerated Stand Alone Forms: Patient Portal Discharge page Care Plan Goals: follow-up with PCP as scheduled Health Concerns: complete prednisone taper; always take meds with full stomach Plan of Treatment: plan is ordered Assessment: see above
== END 2021-09-25 13:05 | disposition home or self-care (01) | DRG 159 ==
LOC: HO.ED 09-24 04:06 → HO.EDOVER 09-24 08:58
PROVIDERS: Admitting Provider Hospitalist; Emergency Provider Internal Medicine; PCP Internal Medicine; Visit Provider Hospitalist
DX: M26.642 Arthritis of left temporomandibular joint (principal); Z20.822 Contact with and (suspected) exposure to COVID-19; Z90.5 Acquired absence of kidney; Z85.528 Personal history of other malignant neoplasm of kidney; Z88.5 Allergy status to narcotic agent; Z79.899 Other long term (current) drug therapy
CPT/HCPCS: 36415; 70486; 80048; 80053; 81001; 83605; 85025; 85652; 86140; 87040; 87086; 87635; 96361; 96365; 96372; 99218; 99285; J0696; J1650; J1885; J2930

== ENCOUNTER 2021-10-09 09:50 | Outpatient (REF) | payer MEDICARE, SELFPAY ==
--- NOTE | ~2021-10-09 | XR_ITS ---
EXAMINATION: XR CHEST CLINICAL INFORMATION: Abnormal chest x-ray COMPARISON: Chest x-ray 09/10/2021 TECHNIQUE: 2 views of the chest were obtained. FINDINGS: Cardiac silhouette is normal in size. The lungs are well aerated. There is no lobar consolidation. No pleural effusion or pneumothorax. No acute osseous abnormality. Surgical clips project over the upper abdomen in the region of the GE junction. XR/XR chest 2V IMPRESSION: No acute pulmonary pathology.
== END 2021-10-09 09:51 | disposition home or self-care (01) ==
LOC: HO.XRAY 09:50
PROVIDERS: PCP Internal Medicine; Visit Provider Internal Medicine
DX: R93.89 Abnormal findings on diagnostic imaging of other specified body structures (principal)
CPT/HCPCS: 71046

== ENCOUNTER 2021-10-15 10:40 | Outpatient (REF) | payer MEDICARE, SELFPAY ==
[2021-10-15 10:42] LABS: MANUAL DIFF FLAG NO
[2021-10-15 11:17] LABS: Basophils Percent Auto 0.3 % (0-2); Eosinophils Absolute Auto 0.2 X10*3/uL (0.0-0.4); Eosinophils Percent Auto 2.2 % (0-4); Hematocrit 36.6 % (37.0-47.0); Hemoglobin 11.4 g/dl (12.0-16.0); Imm Gran Abs Auto 0.05 X10*3/uL (0.00-0.03); Imm Gran Pct Auto 0.5 % (0.0-0.4); Lymphocytes Absolute Auto 2.2 X10*3/uL (1.2-4.9); Lymphocytes Percent Auto 23.9 % (20-40); Mean Corpuscular HGB Conc 31.1 g/dl (31.0-35.0); Mean Corpuscular Hemoglobin 28.2 pg (27.0-33.0); Mean Corpuscular Volume 90.6 fL (80.0-98.0); Mean Platelet Volume 9.8 fL (9.4-12.3); Monocytes Absolute Auto 0.8 X10*3/uL (0.1-1.2); Monocytes Percent Auto 8.7 % (2-11); Neutrophils Percent Auto 64.4 % (45-73); Platelet Count 431 X10*3/uL (160-400); Red Blood Count 4.04 X10*6/uL (4.20-5.50); Red Cell Distribution Width 15.9 % (11.0-16.0); White Blood Count 9.3 X10*3/uL (4.8-10.8)
== END 2021-10-15 10:41 | disposition home or self-care (01) ==
LOC: HO.LNP 10:40
PROVIDERS: Visit Provider Internal Medicine
DX: D72.829 Elevated white blood cell count, unspecified (principal)
CPT/HCPCS: 85025

== ENCOUNTER 2021-10-18 15:00 | Outpatient (REF) | payer MEDICARE, SELFPAY | END 2021-10-18 15:01 | disposition home or self-care (01) | LOC: HO.LNP 15:00 | PROVIDERS: Visit Provider Internal Medicine | DX: N39.0 Urinary tract infection, site not specified (principal) | CPT/HCPCS: 87086 ==

== ENCOUNTER 2022-02-07 07:04 | Outpatient (REF) | payer MEDICARE, SELFPAY ==
[2022-02-07 07:47] LABS: Anion Gap 12 (12-20); Blood Urea Nitrogen 18 mg/dL (9-16); Calcium 9.7 mg/dL (8.4-10.2); Carbon Dioxide 27 mmol/L (22-29); Chloride 107 mmol/L (96-108); Estimated Glomerular Filt Rate 46; Glucose Random 87 mg/dL (60-115); Sodium 142 mmol/L (135-145)
[2022-02-07 09:02] LABS: Creatinine Urine 77.65 mg/dL; Microalbumin Urine < 5.0 mg/L
== END 2022-02-07 07:05 | disposition home or self-care (01) ==
LOC: HO.LAB 07:04
PROVIDERS: PCP Internal Medicine; Visit Provider Internal Medicine Hypertension Specialist
DX: N17.9 Acute kidney failure, unspecified (principal)
CPT/HCPCS: 36415; 80048; 82043

== ENCOUNTER 2022-03-12 08:08 | Outpatient (REF) | payer MEDICARE, SELFPAY ==
--- NOTE | ~2022-03-12 | MM_ITS ---
EXAMINATION: MM SCREENING DIGITAL BREAST TOMOSYNTHESIS, BILATERAL CLINICAL INFORMATION: Screening. Asymptomatic. The lifetime risk of breast cancer based on the Tyrer-Cuzick Model is 2%. COMPARISON: Mammography: March 08, 2021 and studies dating back to October 18, 2011 TECHNIQUE: Digital breast tomosynthesis is performed in both the craniocaudal and mediolateral oblique views along with computer-aided detection (CAD). Synthesized 2D images are generated from the tomosynthesis. FINDINGS: There are scattered areas of fibroglandular density (ACR BI-RADS breast composition Category b). There are no new significant masses, abnormal calcifications, or other abnormalities. About the right axilla there is a small lymph node which appears to contain calcifications and appears stable. The calcifications may be related to previous injections for rheumatoid arthritis or pigmented from tattoos. MM/MM tomosynthesis screening BI IMPRESSION: There are no significant changes from prior study. ASSESSMENT: BI-RADS 2: Benign RECOMMENDATION: Routine annual mammography screening. This patient's information was entered into a reminder system with a target due date for their next mammogram.
== END 2022-03-12 08:09 | disposition home or self-care (01) ==
LOC: HO.MAMMO 08:08
PROVIDERS: Visit Provider Internal Medicine
DX: Z12.31 Encounter for screening mammogram for malignant neoplasm of breast (principal)
CPT/HCPCS: 77063; 77067

== ENCOUNTER 2022-03-26 10:48 | Outpatient (REF) | payer MEDICARE, SELFPAY ==
[2022-03-26 10:51] LABS: MANUAL DIFF FLAG NO
[2022-03-26 11:28] LABS: Basophils Absolute Auto 0.1 X10*3/uL (0.0-0.2); Basophils Percent Auto 0.6 % (0-2); Eosinophils Absolute Auto 0.3 X10*3/uL (0.0-0.4); Eosinophils Percent Auto 3.5 % (0-4); Hematocrit 43.1 % (37.0-47.0); Hemoglobin 13.5 g/dl (12.0-16.0); Imm Gran Abs Auto 0.02 X10*3/uL (0.00-0.03); Imm Gran Pct Auto 0.3 % (0.0-0.4); Lymphocytes Absolute Auto 2.5 X10*3/uL (1.2-4.9); Lymphocytes Percent Auto 32.2 % (20-40); Mean Corpuscular HGB Conc 31.3 g/dl (31.0-35.0); Mean Corpuscular Hemoglobin 28.4 pg (27.0-33.0); Mean Corpuscular Volume 90.7 fL (80.0-98.0); Mean Platelet Volume 10.6 fL (9.4-12.3); Monocytes Absolute Auto 0.8 X10*3/uL (0.1-1.2); Monocytes Percent Auto 10.4 % (2-11); Neutrophils Absolute Auto 4.1 x10*3/uL (2.0-8.3); Platelet Count 327 X10*3/uL (160-400); Red Blood Count 4.75 X10*6/uL (4.20-5.50); Red Cell Distribution Width 16.2 % (11.0-16.0); White Blood Count 7.7 X10*3/uL (4.8-10.8)
[2022-03-26 11:39] LABS: Alanine Aminotransferase 18 U/L (0-31); Albumin Level 4.3 g/dL (3.5-5.0); Alkaline Phosphatase 83 U/L (39-117); Anion Gap 12 (12-20); Aspartate Amino Transferase 19 U/L (5-31); Bilirubin Total 0.5 mg/dL (0.0-1.0); Blood Urea Nitrogen 24 mg/dL (9-16); Calcium 9.4 mg/dL (8.4-10.2); Carbon Dioxide 27 mmol/L (22-29); Chloride 108 mmol/L (96-108); Cholesterol 204 mg/dL; Estimated Glomerular Filt Rate 41; Glucose Fasting 92 mg/dL (60-99); HDL Cholesterol 56 mg/dL; LDL Cholesterol Calculated 125 mg/dl; Potassium 4.3 mmol/L (3.3-5.1); Sodium 143 mmol/L (135-145); Total Protein 6.7 g/dL (6.5-8.0); Triglycerides 116 mg/dL
[2022-03-26 11:46] LABS: Appearance Urine CLEAR; Color Urine STRAW; Glucose Urine UA NEG (NEG); Leukocyte Esterase Urine 1+ (NEG); Nitrite Urine NEG (NEG); PH 7.5 (5.0-8.0); Urine Blood NEG (NEG); Urine Ketones NEG (NEG); Urine Protein NEG (NEG-TRACE)
[2022-03-26 12:15] LABS: RBC Urine 0-2 /HPF (0); Squamous Epithelial Cell Urine TRACE /LPF; WBC Urine 0-2 /HPF (0-4)
== END 2022-03-26 10:49 | disposition home or self-care (01) ==
LOC: HO.LNP 10:48
PROVIDERS: Visit Provider Internal Medicine
DX: Z00.00 Encounter for general adult medical examination without abnormal findings (principal); E78.2 Mixed hyperlipidemia; D72.829 Elevated white blood cell count, unspecified; Z85.528 Personal history of other malignant neoplasm of kidney
CPT/HCPCS: 80053; 80061; 81001; 85025

== ENCOUNTER 2022-07-23 07:05 | Outpatient (REF) | payer MEDICARE, SELFPAY ==
[2022-07-23 07:17] LABS: MANUAL DIFF FLAG NO
[2022-07-23 07:29] LABS: Basophils Percent Auto 0.5 % (0-2); Eosinophils Absolute Auto 0.4 X10*3/uL (0.0-0.4); Eosinophils Percent Auto 5.1 % (0-4); Hematocrit 41.1 % (37.0-47.0); Hemoglobin 13.3 g/dl (12.0-16.0); Imm Gran Abs Auto 0.02 X10*3/uL (0.00-0.03); Imm Gran Pct Auto 0.3 % (0.0-0.4); Lymphocytes Absolute Auto 2.6 X10*3/uL (1.2-4.9); Lymphocytes Percent Auto 35.2 % (20-40); Mean Corpuscular HGB Conc 32.4 g/dl (31.0-35.0); Mean Corpuscular Volume 89.5 fL (80.0-98.0); Mean Platelet Volume 9.6 fL (9.4-12.3); Monocytes Absolute Auto 0.7 X10*3/uL (0.1-1.2); Monocytes Percent Auto 8.9 % (2-11); Neutrophils Absolute Auto 3.7 x10*3/uL (2.0-8.3); Platelet Count 301 X10*3/uL (160-400); Red Blood Count 4.59 X10*6/uL (4.20-5.50); Red Cell Distribution Width 14.2 % (11.0-16.0); White Blood Count 7.5 X10*3/uL (4.8-10.8)
[2022-07-23 08:21] LABS: Alanine Aminotransferase 15 U/L (0-31); Albumin Level 4.1 g/dL (3.5-5.0); Alkaline Phosphatase 85 U/L (39-117); Anion Gap 15 (12-20); Aspartate Amino Transferase 21 U/L (5-31); Bilirubin Total 0.5 mg/dL (0.0-1.0); Blood Urea Nitrogen 19 mg/dL (9-16); Calcium 9.2 mg/dL (8.4-10.2); Carbon Dioxide 26 mmol/L (22-29); Chloride 108 mmol/L (96-108); Estimated Glomerular Filt Rate 49; Glucose Random 91 mg/dL (60-115); Potassium 4.2 mmol/L (3.3-5.1); Sodium 145 mmol/L (135-145); Total Protein 6.4 g/dL (6.5-8.0)
[2022-07-23 10:26] LABS: Total Protein Urine Random < 7 mg/dL (<12)
== END 2022-07-23 07:06 | disposition home or self-care (01) ==
LOC: HO.LAB 07:05
PROVIDERS: Absent Provider Internal Medicine Hypertension Specialist; PCP Internal Medicine; Visit Provider Nurse Practitioner Family
DX: N18.31 Chronic kidney disease, stage 3a (principal); Z85.528 Personal history of other malignant neoplasm of kidney
CPT/HCPCS: 36415; 80053; 84156; 85025

== ENCOUNTER 2023-03-21 07:18 | Outpatient (REF) | payer MEDICARE, SELFPAY ==
--- NOTE | ~2023-03-21 | MM_ITS ---
EXAMINATION: MM SCREENING DIGITAL BREAST TOMOSYNTHESIS, BILATERAL CLINICAL INFORMATION: Screening. Asymptomatic. The lifetime risk of breast cancer based on the Tyrer-Cuzick Model is under 3%. COMPARISON: Mammography: 03/12/2022, 03/08/2021, 12/21/2019 TECHNIQUE: Digital breast tomosynthesis is performed in both the craniocaudal and mediolateral oblique views along with computer-aided detection (CAD). Synthesized 2D images are generated from the tomosynthesis. FINDINGS: There are scattered areas of fibroglandular density (ACR BI-RADS breast composition Category b). There are no significant masses, abnormal calcifications, or other abnormalities. Parenchymal pattern is similar to prior studies and there is no developing density or architectural abnormality. Incidental low left axillary tail node is stable. The skin contours are smooth. MM/MM tomosynthesis screening BI IMPRESSION: No mammographic evidence of malignancy. ASSESSMENT: BI-RADS 2: Benign RECOMMENDATION: Routine annual mammography screening. This patient's information was entered into a reminder system with a target due date for their next mammogram.
== END 2023-03-21 07:19 | disposition home or self-care (01) ==
LOC: HO.MAMMO 07:18
PROVIDERS: PCP Internal Medicine; Visit Provider Internal Medicine
DX: Z12.31 Encounter for screening mammogram for malignant neoplasm of breast (principal)
CPT/HCPCS: 77063; 77067

== ENCOUNTER 2023-04-07 11:20 | Outpatient (REF) | payer MEDICARE, SELFPAY | END 2023-04-07 11:21 | disposition home or self-care (01) | LOC: HO.LNP 11:20 | PROVIDERS: Visit Provider Internal Medicine | DX: Z00.00 Encounter for general adult medical examination without abnormal findings (principal); E78.00 Pure hypercholesterolemia, unspecified; D72.829 Elevated white blood cell count, unspecified; R82.90 Unspecified abnormal findings in urine | CPT/HCPCS: 80053; 80061; 81001; 85025; 87086 ==

== ENCOUNTER 2023-05-13 10:49 | Outpatient (REF) | payer MEDICARE, SELFPAY ==
[2023-05-13 11:50] LABS: Blood Urea Nitrogen 25 mg/dL (9-16); Estimated Glomerular Filt Rate 52
== END 2023-05-13 10:50 | disposition home or self-care (01) ==
LOC: HO.LNP 10:49
PROVIDERS: Visit Provider Internal Medicine
DX: R79.9 Abnormal finding of blood chemistry, unspecified (principal)
CPT/HCPCS: 82565; 84520

== ENCOUNTER 2023-08-28 08:06 | Emergency (ER) | payer MEDICARE, SELFPAY ==
[2023-08-28 08:07] VITALS: BP 163/73; PULSE 77; RESP 18; TEMP 36; O2SAT 98; BMI 22.5
--- NOTE | 2023-08-28 08:21 | ED.GENADULT ---
HPI - General Adult General Chief complaint: Eye Problems Stated complaint: infected eye ? Time Seen by Provider: 08/28/23 08:09 Source: patient Mode of arrival: ambulatory Limitations: no limitations History of Present Illness HPI narrative: Patient is an 82 year old assigned female at with no reported medical history presenting to the emergency department today with left eye pain. Patient states that a few days ago she was working in her garden when a hasta leaf hit her in the left eye. Patient states that she was using salt water rinses in the eye but it was not getting better. Patient denies any dizziness, lightheadedness, abdominal pain, nausea, vomiting, fever, chills, blurry vision, double vision, loss of vision, chest pain, difficulty breathing, shortness of breath, back pain, night sweats, pain with urination, increased urinary frequency, increased urinary urgency, blood in her urine or stool, syncope or a near syncopal episode, recent trauma or falls, bowel incontinence, bladder incontinence, bowel retention, bladder retention, or any other complaints at this time. Onset (ago): day(s) Location: eyes and left Radiation: non-radiation Severity: mild Severity scale (1-10): 3 Quality: aching and dull Pain Consistency: constant Relieving factors: none Exacerbating factors: none Associated symptoms: denies other symptoms Treatments prior to arrival: other (salt water rinses) Related Data Home Medications Medication Instructions Recorded Confirmed acetaminophen 325 mg tablet 650 mg PO Q6H PRN Pain 09/24/21 09/24/21 (Tylenol) beta carotene 1 cap PO DAILY 09/24/21 09/24/21 bilberry 1 cap PO DAILY 09/24/21 09/24/21 calcium 1 tab PO DAILY 09/24/21 09/24/21 cholecalciferol (vitamin D3) 25 25 mcg PO DAILY 09/24/21 09/24/21 mcg (1,000 unit) tablet (Vitamin D3) cranberry 1 tab PO DAILY 09/24/21 09/24/21 glucosamine sulfate 500 mg tablet 500 mg PO DAILY 09/24/21 09/24/21 (Glucosamine) potassium chloride 1 tab PO DAILY 09/24/21 09/24/21 vitamin A 1 tab PO DAILY 09/24/21 09/24/21 vitamin E 1 tab PO DAILY 09/24/21 09/24/21 Previous Rx's Medication Instructions Recorded prednisone 20 mg tablet See Rx Instructions .Route 09/25/21 .COMPLEX #18 tabs erythromycin 5 mg/gram (0.5 %) eye 0.5 inch ophthalmic (eye) Q4H 5 08/28/23 ointment days #3.5 grams Allergies Allergy/AdvReac Type Severity Reaction Status Date / Time Percocet Allergy Unknown Unknown Uncoded 08/28/23 08:11 Review of Systems Constitutional: Constitutional: Reports no additional constitutional complaints, Denies chills, Denies fever(s) and Denies night sweats Eyes: Eyes: Reports no additional eye complaints, Denies blurry vision, Denies change in vision, Denies diplopia, Denies eye discharge, Denies loss of vision and Reports eye pain (left eye) ENT: Denies dizziness Cardiovascular: Cardiovascular: Reports no additional cardiovascular complaints, Denies chest pain, Denies lightheadedness, Denies Loss of Consciousness and Denies dyspnea Respiratory: Respiratory: Reports no additional respiratory complaints and Denies dyspnea Gastrointestinal: Gastrointestinal: Reports no additional gastrointestinal complaints, Denies abdominal pain, Denies melena, Denies hematochezia, Denies change in bowel habits and Denies change in stool character Genitourinary: Genitourinary: Denies hematuria, Denies urinary frequency, Denies dysuria, Denies urinary incontinence, Denies urinary hesitancy and Denies urinary urgency Musculoskeletal: Musculoskeletal: Reports no additional musculoskeletal complaints, Denies numbness and Denies tingling Neurologic: Denies dizziness, Denies loss of vision, Denies numbness and Denies tingling Psychiatric: Psychiatric: Reports no additional psychiatric complaints Endocrine: Endocrine: Reports no additional endocrine complaints Hematologic/Lymphatic: Hematologic/Lymphatic: Reports no additional hematologic/lymphatic complaints Allergic/Immunologic: Allergic/Immunologic: Reports no additional allergic/immunologic complaints PMFSH Past Medical History Attestation statement: The following information was validated with the patient. Source: old records reviewed and nursing notes reviewed Medical History Kidney malignant neoplasm Surgical History History of nephrectomy Social History Household Members: None Housing: House Do you presently have visiting nurse or other home services: No Alcohol intake: current Alcohol intake frequency: holidays/special occasions only Patient Tobacco Use Status: Never used Tobacco Advance Directives: Yes Advance Directives on File: Yes Advance Directives Date on File: 09/23/21 service: No Current occupational status: retired Physical Exam ED Vital Signs: Vital Signs - 24 hr 08/28/23 08:07 Temperature 96.8 F Pulse Rate 77 Respiratory Rate 18 Blood Pressure 163/73 H Pulse Oximetry 98 Oxygen Delivery Method Room Air BMI result Body Mass Index 22.5 Const General: cooperative, no acute distress, alert and awake Nutritional Appearance: well nourished Orientation/consciousness: patient oriented x3 Limitations: no limitations HENMT Head: Yes normal to inspection and Yes atraumatic Ears: hearing grossly normal bilaterally and external ears normal General nose exam: Normal external nose present, no nasal discharge noted and no epistaxis Face and sinus: Yes normal facial exam, No abrasion and No laceration Mouth: Normal oral and palatal mucosa present, no drooling and no muffled voice Eyes Periorbital: periorbital findings normal Eyelids: Yes eyelids normal Corneas: corneas abnormal on the left fluorescein used and abrasion linear Pupils: Equal, round and reactive pupils present EOM: EOMs intact bilaterally Neck Neck: Yes normal visual inspection, Yes full ROM and Yes no lymphadenopathy Chest Chest palpation & inspection: normal inspection of the chest Resp Effort & Inspection: normal respiratory effort and able to speak in complete sentences GI Inspection: Yes normal to inspection Neuro General: patient oriented x3 and moves all extremities Cranial nerves: Yes Equal, round and reactive pupils present Cognition (Neuro): normal cognition Motor exam (neuro): 5/5 motor strength present throughout Sensory Exam: Normal double simultaneous stimulation for sensation Coordination: [id number] test normal Extrem General: Yes normal to inspection, Yes full ROM and Yes capillary refill normal Psych Appearance: grossly normal Mental Status: mental status grossly normal Affect: normal affect Attitude: cooperative Thought process: Normal thought process present Thought content: Normal thought content present Insight: Good insight present (Psych) Medical Decision Making Medical Decision Making MDM Narrative: Patient is a 82 year old assigned female at with no reported medical history presenting to the emergency department today with left eye pain. Patient's physical exam showed a corneal abrasion of the left eye. I explained my physical exam findings to the patient. I answered all questions asked by the patient. I stressed the importance of the patient taking her medication as prescribed. I stressed the importance of the patient following up with her primary care provider and an contract administration specialist. I stressed the importance of the patient returning to the emergency department immediately if her symptoms were to worsen or if she were to develop any dizziness, shortness of breath, difficulty breathing, chest pain, blurry vision, loss of vision, nausea, vomiting, abdominal pain, fever, chills, back pain, or any other complaints. Patient verbalized agreement and understanding with this treatment plan and discharge. Differential Diagnosis Differential Diagnoses: The differential diagnosis associated with the presentation includes Corneal abrasion Eye irritation Prescription Management I considered prescription management with: Antibiotic (patient prescribed an antibiotic ointment for her left corneal abrasion) Discharge Plan Discharge Clinical Impression: Corneal abrasion Patient Disposition: Home, Self-Care Instructions: Corneal Abrasion (DC) Additional Instructions: Follow up with your primary care provider and an contract administration specialist. Return to the emergency department immediately if your symptoms worsen or if you develop any dizziness, shortness of breath, difficulty breathing, chest pain, blurry vision, loss of vision, nausea, vomiting, abdominal pain, fever, chills, back pain, or any other complaints. Prescriptions: New erythromycin 5 mg/gram (0.5 %) ointment 0.5 inch ophthalmic (eye) Q4H 5 Days Qty: 3.5 0RF No Action acetaminophen [Tylenol] 325 mg Tablet 650 mg PO Q6H PRN (Reason: Pain) glucosamine sulfate [Glucosamine] 500 mg Tablet 500 mg PO DAILY bilberry Capsule 1 cap PO DAILY cholecalciferol (vitamin D3) [Vitamin D3] 25 mcg (1,000 unit) Tablet 25 mcg PO DAILY beta carotene 1 cap PO DAILY calcium 1 tab PO DAILY cranberry 1 tab PO DAILY potassium chloride 1 tab PO DAILY vitamin A 1 tab PO DAILY vitamin E 1 tab PO DAILY prednisone 20 mg tablet See Rx Instructions .ROUTE .COMPLEX Qty: 18 0RF Rx Instructions: 20 mg orally: 3 tabs daily for 3 days, 2 tabs daily for 3 days, 1 tab daily for 3 days Referrals: [facility] [place] [facility] [place] Group] (Call to establish and follow up with a primary care provider. If you already have a primary care provider, please follow up with them.) [facility] [place] [facility] [[facility]] (Call to establish and follow up with a primary care provider. If you already have a primary care provider, please follow up with them.) [facility] [Provider Group] (Call to establish and follow up with a primary care provider. If you already have a primary care provider, please follow up with them.) Mohinder Dao [Physician] - (Call to establish and follow up with an contract administration specialist.) Print Language: Haitian
[2023-08-28] MEDS: Erythromycin Base 0.5% Oph Oin 1 GM TUBE 1 CM EYE-LEFT (08:42)
--- NOTE | 2023-08-28 08:47 | PC.NURSE ---
pt medicated per MAR.
== END 2023-08-28 08:52 | disposition home or self-care (01) ==
PROVIDERS: Emergency Provider Emergency Medicine; PCP Internal Medicine
DX: S05.02XA Injury of conjunctiva and corneal abrasion without foreign body, left eye, initial encounter (principal); W20.8XXA Other cause of strike by thrown, projected or falling object, initial encounter; Y93.H2 Activity, gardening and landscaping; Y92.017 Garden or yard in single-family (private) house as the place of occurrence of the external cause; Y99.9 Unspecified external cause status
CPT/HCPCS: 99282; 99283

== ENCOUNTER 2023-11-09 12:38 | Emergency (ER) | payer MEDICARE, SELFPAY ==
--- NOTE | ~2023-11-09 | CT_ITS ---
EXAMINATION: CT ABDOMEN AND PELVIS WITHOUT CONTRAST CLINICAL INFORMATION: periumbilical pain, hx of SBO. COMPARISON: 09/14/2021. TECHNIQUE: Multidetector volumetric imaging was performed from the superior aspect of the liver through the pubic symphysis without contrast per request. Sagittal and coronal reformatted images were obtained on the technologist workstation. This CT examination was performed using dose optimization techniques as appropriate, variously including the following: *Automated exposure control *Adjustment of mA and/or kV according to patient size (this includes techniques or standardized protocols for targeted exams where dose is matched to indication/reason for exam; i.e. extremities or head) *Use of iterative reconstruction technique DLP: 413 mGy-cm. FINDINGS: LUNG BASES: Linear scarring or atelectasis at the lateral left base. LIVER, GALLBLADDER, BILIARY TREE: The non-contrast liver is normal in size, shape, and attenuation. No focal hepatic lesion or biliary ductal dilatation is present. The gallbladder is unremarkable with no evidence of radiopaque gallstones, gallbladder wall thickening, or obvious pericholecystic inflammatory changes. PANCREAS: Unremarkable. SPLEEN: Unremarkable. ADRENAL GLANDS: Unremarkable. KIDNEYS AND URETERS: The left kidney is surgically absent. The contralateral right kidney is unremarkable with no obstructive changes or calculi. BLADDER: Unremarkable. GASTROINTESTINAL TRACT: Scattered colonic diverticulosis but no colonic wall thickening or pericolonic inflammatory change within the redundant colon to suggest acute diverticulitis. There are some scattered air-filled loops of small bowel seen no obvious discrete transition point. Stomach is distended with food. ABDOMINAL WALL: No significant hernia is appreciated. LYMPHOVASCULAR STRUCTURES: Vascular calcification within the aorta iliac system. PELVIC VISCERA: Unremarkable. OSSEUS STRUCTURES: Degenerative and chronic appearing changes in the spine CT/CT abdomen pelvis wo IV con IMPRESSION: Chronic appearing and postoperative changes as described. There are scattered air-filled loops of small bowel but no discrete transition point. No obstructive changes to the bowel. Stomach is distended with food.
[2023-11-09 12:41] VITALS: BP 162/62; PULSE 82; RESP 19; TEMP 36.3; O2SAT 98; BMI 23.7
--- NOTE | 2023-11-09 12:44 | ECG_ITS ---
Test Reason : abd pain Blood Pressure : / mmHG Vent. Rate : 076 BPM Atrial Rate : 076 BPM P-R Int : 168 ms QRS Dur : 124 ms QT Int : 428 ms P-R-T Axes : 063 -34 080 degrees QTc Int : 481 ms Normal sinus rhythm Possible Left atrial enlargement Left axis deviation Left bundle branch block Abnormal ECG When compared with ECG of 10-SEP-2021 22:25, No significant change was found Referred By: Brendan Bartholomew Electronically Signed By:JAMILA POE
--- NOTE | 2023-11-09 12:49 | ED.GENADULT ---
HPI - General Adult General Chief complaint: General Medical Stated complaint: Not Feeling Well Bloated Stomach Time Seen by Provider: 11/09/23 21:02 Source: patient Mode of arrival: ambulatory Limitations: no limitations History of Present Illness HPI narrative: 83 yo female with remote hx of renal cancer s/p nephrectomy in remission, remote SBO 20 years ago here with c/o not feeling well since yesterday - fatigue, near syncope, weakness, hot flashes and now today felt overwhelming fatigue, malaise, poor appetite and periumbilical pain. She denies CP/SOB. Her abdominal pain is persistent. She had a BM yesterday and thinks she passed gas today. MD complaint: fatigue, near syncope, abdominal pain Onset (ago): day(s) (1) Location: abdomen Radiation: non-radiation Severity: mild Quality: dull and constant Pain Consistency: constant Relieving factors: none Exacerbating factors: none Associated symptoms: loss of appetite, malaise and weakness Related Data Home Medications Medication Instructions Recorded Confirmed acetaminophen 325 mg tablet 650 mg PO Q6H PRN Pain 09/24/21 09/24/21 (Tylenol) beta carotene 1 cap PO DAILY 09/24/21 09/24/21 bilberry 1 cap PO DAILY 09/24/21 09/24/21 calcium 1 tab PO DAILY 09/24/21 09/24/21 cholecalciferol (vitamin D3) 25 25 mcg PO DAILY 09/24/21 09/24/21 mcg (1,000 unit) tablet (Vitamin D3) cranberry 1 tab PO DAILY 09/24/21 09/24/21 glucosamine sulfate 500 mg tablet 500 mg PO DAILY 09/24/21 09/24/21 (Glucosamine) potassium chloride 1 tab PO DAILY 09/24/21 09/24/21 vitamin A 1 tab PO DAILY 09/24/21 09/24/21 vitamin E 1 tab PO DAILY 09/24/21 09/24/21 Previous Rx's Medication Instructions Recorded prednisone 20 mg tablet See Rx Instructions .Route 09/25/21 .COMPLEX #18 tabs erythromycin 5 mg/gram (0.5 %) eye 0.5 inch ophthalmic (eye) Q4H 5 08/28/23 ointment days #3.5 grams ondansetron 4 mg disintegrating 4 mg PO Q8H PRN nausea and 11/09/23 tablet vomiting #20 tabs Allergies Allergy/AdvReac Type Severity Reaction Status Date / Time Percocet Allergy Unknown Unknown Uncoded 08/28/23 08:11 Review of Systems Review of Systems: Constitutional : No Fever, No Chills, No Fatigue ENT/Mouth : No sore throat, No Rhinorrhea Eyes: No Eye Pain, No Swelling, No Redness Cardiovascular : No Chest Pain, No SOB, No Dyspnea on Exertion Respiratory : No Cough, No Sputum Gastrointestinal : pos Nausea, No Vomiting, No Diarrhea, pos abdominal Pain Genitourinary : No Dysuria, No Urinary Frequency, No Hematuria, Musculoskeletal : No joint pain, No Myalgias, No Joint Swelling Skin : No Skin Lesions, No rash Neuro : pos Weakness, No Numbness, No Dizziness, no Headache Psych : No Anxiety/Panic, No Depression Heme/Lymph: No Bruising, No Bleeding,No Lymphadenopathy Endocrine : No Polyuria, No Polydipsia All other systems reviewed and are negative PMFSH Past Medical History Attestation statement: The following information was validated with the patient. Source: old records reviewed Medical History Kidney malignant neoplasm Surgical History History of nephrectomy Social History Social History Household Members: None Housing: House Do you presently have visiting nurse or other home services: No Alcohol intake: current Alcohol intake frequency: holidays/special occasions only Patient Tobacco Use Status: Never used Tobacco Smoked in Last 30 Days: No Use of substances other than those prescribed or required for medical reasons: No Advance Directives: Yes Advance Directives on File: Yes Advance Directives Date on File: 09/23/21 service: No Current occupational status: retired Physical Exam ED Vital Signs: Vital Signs - 24 hr 11/09/23 12:41 11/09/23 19:31 11/09/23 22:02 Temperature 97.3 F 97.7 F 99.2 F Pulse Rate 82 82 76 Respiratory Rate 19 17 18 Blood Pressure 162/62 H 167/78 H 155/70 H Pulse Oximetry 98 98 100 Oxygen Delivery Method Room Air Room Air Room Air BMI result Body Mass Index 23.7 Appearance: Alert. Oriented X3. No acute distress. Eyes: Pupils equal, round and reactive to light. ENT: Pharynx normal. Neck: Normal inspection. Neck supple. CVS: Normal heart rate and rhythm. Pulses normal. Respiratory: No respiratory distress. Breath sounds normal. Abdomen: Soft but with mild distention and ttp in periumbilical area no rebound Skin: Skin warm and dry. Normal skin color. Normal skin turgor. Extremities: No lower extremity edema. No calf ttp Neuro: Oriented X 3. No motor deficit. No sensory deficit. Course Course Course Narrative: RME: 83 yold female presents to the ED for abdominal pain, dizziness, lightneadedness, cold sweat that occurred yesterday. Labs and EKG ordered. last bowel movement yesterday afternoon Reevaluation(s) Reevaluation #1: due to one kidney patient does not want to use contrast Medications Administered Discontinued Medications Generic Name Dose Route Start Last Admin Trade Name Freq PRN Reason Stop Dose Admin Sodium Chloride 500 mls @ 500 mls/hr 11/09/23 21:15 11/09/23 21:53 Ns IV 11/09/23 22:14 500 mls/hr .Q1H GENESIS Administration Ondansetron HCl 4 mg 11/09/23 21:11 11/09/23 21:53 Ondansetron Hcl 4 Mg/2 Ml Vial IVPUSH 11/09/23 21:12 4 mg ONCE ONE Administration Medical Decision Making Medical Decision Making [facility] Narrative: 83 yo female with PMH of renal cancer s/p nephrectomy in remission, SBO here with c/o abdominal pain, fatigue, malaise general weakness and near syncope yesterday 4am no chest pain /sob at this time will obtain EKG, trop x 1, labs, UA, viral panel, CT scan for mass/SBO, hydrate and zofran ordered. SBO less likely as she is passing gas. Differential Diagnosis Differential Diagnoses: The differential diagnosis associated with the presentation includes SBO, viral syndrome, dehydration Admission/Observation Consideration of admission/observation: Escalation of care including admission/observation considered labs stable no SBO on CT scan - clinically passing gas labs reassuring EKG unchanged no UTI no need for IV pain medications Lab Data [facility] Lab Attestation statement: I reviewed the patient's lab results. 11/09/23 13:49 11/09/23 13:49 Labs: Lab Results 11/09/23 11/09/23 11/09/23 Range/Units 13:49 20:22 22:02 WBC 9.0 (4.8-10.8) X10*3/uL RBC 4.92 (4.20-5.50) X10*6/uL Hgb 14.4 (12.0-16.0) g/dl Hct 43.8 (37.0-47.0) % MCV 89.0 (80.0-98.0) fL MCH 29.3 (27.0-33.0) pg MCHC 32.9 (31.0-35.0) g/dl RDW 14.3 (11.0-16.0) % Plt Count 270 (160-400) X10*3/uL MPV 9.5 (9.4-12.3) fL Immature Gran % (Auto) 0.4 (0.0-0.4) % Neut % (Auto) 81.0 H (45-73) % Lymph % (Auto) 9.2 L (20-40) % Colbert % (Auto) 9.0 (2-11) % Eos % (Auto) 0.3 (0-4) % Baso % (Auto) 0.1 (0-2) % Lymph # (Auto) 0.8 L (1.2-4.9) X10*3/uL [place]bert # (Auto) 0.8 (0.1-1.2) X10*3/uL Eos # (Auto) 0.0 (0.0-0.4) X10*3/uL Baso # (Auto) 0.0 (0.0-0.2) X10*3/uL Abs Immat Gran (auto) 0.04 H (0.00-0.03) X10*3/uL Absolute Neuts (auto) 7.3 (2.0-8.3) x10*3/uL Absolute Nucleated RBC 0.000 (0.0-0.012) X10*3/uL Nucleated RBC % (auto) 0.0 (0.0-0.2) /100WBC PT 11.9 (11.1-13.3) SEC INR 1.0 (0.9-1.1) Sodium 140 (135-145) mmol/L Potassium 3.6 (3.3-5.1) mmol/L Chloride 105 (96-108) mmol/L Carbon Dioxide 26 (22-29) mmol/L Anion Gap 13 (12-20) BUN 21 H (9-16) mg/dL Creatinine 1.03 (0.5-1.4) mg/dL Estim Creat Clear Calc 35.4 Estimated GFR 51 Random Glucose 126 H (60-115) mg/dL Calcium 8.6 D (8.4-10.2) mg/dL Total Bilirubin 0.3 (0.0-1.0) mg/dL AST 23 (5-31) U/L ALT 24 (0-31) U/L Alkaline Phosphatase 72 (39-117) U/L Troponin I High Sens 3.8 (<3.5-17.0) ng/L Total Protein 6.5 (6.5-8.0) g/dL Albumin 3.8 (3.5-5.0) g/dL Lipase 13 (8-78) U/L Urine Color Yellow Urine Appearance Clear Urine pH 7.5 (5.0-9.0) Ur Specific [place] <= 1.005 (1.005-1.025) Urine Protein Negative (Neg-Trace) mg/dL Urine Glucose (UA) Negative (Negative) mg/dL Urine Ketones Negative (Negative) mg/dL Urine Blood Negative (Negative) Urine Nitrite Negative (Negative) Ur Leukocyte Esterase Small (1+) H (Negative) Urine RBC 0-2 (0-2) /HPF Urine WBC 0-5 (0-5) /HPF Ur Squamous Epith Cells 0-2 (0-2) /HPF Urine Bacteria None Seen (None Seen) Hyaline Casts 0-2 (0-2) /LPF COVID-19 (CELE) Negative (Negative) COVID-19 Clin Com See Note Influenza Type A (DAWIT) Negative (Negative) Influenza Type B (DAWIT) Negative (Negative) Influenza A & B Note See Note Independent Interpretation I performed an independent interpretation of an: EKG and CT Scan (no SBO) Interpretation: Rate: 76 Rhythm: NSR [place]: left Normal P waves. Normal SOHA. LBBB ST T wave : no JOSE qTC: 481 prior studies: old LBBB 2020 The study has been interpreted contemporaneously by me. . Radiology Impression Discussion of test interpretation with radiology: I have reviewed the radiologist's reading. External Record Review External record reviewed: Office record Discharge Plan Discharge Clinical Impression: Weakness, Abdominal pain Patient Disposition: Home, Self-Care Instructions: Weakness (ED), Abdominal Pain (ED) Additional Instructions: labs, electrocardiogram, covid and flu tests all reassuring. no small bowel obstruction on CT scan , urine shows no infection at this time would do a clear liquid diet for 24 hours then advance slowly for 48 hours. return for worsening pain, inability to pass gas or stool, dizziness or any other concerns. Prescriptions: New ondansetron 4 mg tablet,disintegrating 4 mg PO Q8H PRN (Reason: nausea and vomiting) Qty: 20 0RF No Action acetaminophen [Tylenol] 325 mg Tablet 650 mg PO Q6H PRN (Reason: Pain) glucosamine sulfate [Glucosamine] 500 mg Tablet 500 mg PO DAILY bilberry Capsule 1 cap PO DAILY cholecalciferol (vitamin D3) [Vitamin D3] 25 mcg (1,000 unit) Tablet 25 mcg PO DAILY beta carotene 1 cap PO DAILY calcium 1 tab PO DAILY cranberry 1 tab PO DAILY potassium chloride 1 tab PO DAILY vitamin A 1 tab PO DAILY vitamin E 1 tab PO DAILY prednisone 20 mg tablet See Rx Instructions .ROUTE .COMPLEX Qty: 18 0RF Rx Instructions: 20 mg orally: 3 tabs daily for 3 days, 2 tabs daily for 3 days, 1 tab daily for 3 days erythromycin 5 mg/gram (0.5 %) ointment 0.5 inch ophthalmic (eye) Q4H 5 Days Qty: 3.5 0RF Interventions: ED Discharge Assessment Last Done: 11/09/23 23:19 Discharge Date/Time: 11/09/23 23:20
[2023-11-09 13:56] LABS: MANUAL DIFF FLAG NO
[2023-11-09 13:57] LABS: Basophils Percent Auto 0.1 % (0-2); Eosinophils Percent Auto 0.3 % (0-4); Hematocrit 43.8 % (37.0-47.0); Hemoglobin 14.4 g/dl (12.0-16.0); Imm Gran Abs Auto 0.04 X10*3/uL (0.00-0.03); Imm Gran Pct Auto 0.4 % (0.0-0.4); Lymphocytes Absolute Auto 0.8 X10*3/uL (1.2-4.9); Lymphocytes Percent Auto 9.2 % (20-40); Mean Corpuscular HGB Conc 32.9 g/dl (31.0-35.0); Mean Corpuscular Hemoglobin 29.3 pg (27.0-33.0); Mean Platelet Volume 9.5 fL (9.4-12.3); Monocytes Absolute Auto 0.8 X10*3/uL (0.1-1.2); Neutrophils Absolute Auto 7.3 x10*3/uL (2.0-8.3); Platelet Count 270 X10*3/uL (160-400); Red Blood Count 4.92 X10*6/uL (4.20-5.50); Red Cell Distribution Width 14.3 % (11.0-16.0)
[2023-11-09 14:02] LABS: Prothrombin Time 11.9 SEC (11.1-13.3)
[2023-11-09 14:11] LABS: Alanine Aminotransferase 24 U/L (0-31); Albumin Level 3.8 g/dL (3.5-5.0); Alkaline Phosphatase 72 U/L (39-117); Anion Gap 13 (12-20); Aspartate Amino Transferase 23 U/L (5-31); Bilirubin Total 0.3 mg/dL (0.0-1.0); Blood Urea Nitrogen 21 mg/dL (9-16); Calcium 8.6 mg/dL (8.4-10.2); Carbon Dioxide 26 mmol/L (22-29); Chloride 105 mmol/L (96-108); Creatinine Clr Calc Pharmacy 35.4; Estimated Glomerular Filt Rate 51; Glucose Random 126 mg/dL (60-115); Lipase 13 U/L (8-78); Potassium 3.6 mmol/L (3.3-5.1); Sodium 140 mmol/L (135-145); Total Protein 6.5 g/dL (6.5-8.0)
[2023-11-09 14:19] LABS: Troponin-I High Sensitivity 3.8 ng/L (<3.5-17.0)
[2023-11-09 19:31] VITALS: BP 167/78; PULSE 82; RESP 17; TEMP 36.5; O2SAT 98
[2023-11-09 20:30] LABS: Appearance Urine Clear; Color Urine Yellow; Glucose Urine UA Negative (Negative); Leukocyte Esterase Urine Small (1+) (Negative); Nitrite Urine Negative (Negative); PH 7.5 (5.0-9.0); Specific Gravity - Urine <= 1.005 (1.005-1.025); UMIC TRIGGER UACC YES; Urine Blood Negative (Negative); Urine Ketones Negative (Negative); Urine Protein Negative (Neg-Trace)
[2023-11-09 20:45] LABS: Bacteria Urine None Seen (None Seen); Hyaline Casts Urine 0-2 /LPF (0-2); RBC Urine 0-2 /HPF (0-2); Squamous Epithelial Cell Urine 0-2 /HPF (0-2); UACC Culture Trigger YES; WBC Urine 0-5 /HPF (0-5)
[2023-11-09] MEDS: ondansetron HCL 4 MG/2 ML VIAL IVPUSH (21:53)
[2023-11-09] MEDS: 0.9 % Sodium Chloride 500 ML IV (21:53)
[2023-11-09 22:02] VITALS: BP 155/70; PULSE 76; RESP 18; TEMP 37.3; O2SAT 100
--- NOTE | 2023-11-09 22:06 | MHC.EDTECH ---
This tech took over care at this time, hourly rounds and vitals completed, Covid and Flu swabs obtained and sent to lab. family at bedside and call xiong in reach
[2023-11-09 22:35] LABS: IDNOW Serial# 152EDE1D; Influenza A Negative (Negative); Influenza B2 Negative (Negative)
[2023-11-09 22:36] LABS: COVID-19 Test Negative (Negative); IDNOW Serial# 08D9AD1C
== END 2023-11-09 23:20 | disposition home or self-care (01) ==
PROVIDERS: Physician Assistant; Emergency Provider Emergency Medicine; PCP Internal Medicine
DX: R53.1 Weakness (principal); R10.9 Unspecified abdominal pain; R14.0 Abdominal distension (gaseous); I44.7 Left bundle-branch block, unspecified; R94.31 Abnormal electrocardiogram [ECG] [EKG]; Z11.52 Encounter for screening for COVID-19; Z79.899 Other long term (current) drug therapy
CPT/HCPCS: 36415; 74176; 80053; 81001; 83690; 84484; 85025; 85610; 87086; 87502; 87635; 93005; 96374; 99284; 99285; J2405

== ENCOUNTER → 2023-11-09 12:44 | Outpatient (BNV) | payer MEDICARE, SELFPAY | PROVIDERS: Emergency Provider Emergency Medicine; PCP Internal Medicine; Visit Provider Internal Medicine | DX: R94.31 Abnormal electrocardiogram [ECG] [EKG] (principal) | CPT/HCPCS: 93010 ==

== ENCOUNTER 2024-01-12 09:09 | Day surgery (SDC) | payer MEDICARE, SELFPAY ==
[2024-01-06 11:19] VITALS: BMI 22.5
--- NOTE | 2024-01-08 14:03 | HO.ANESPROP2 ---
Documented by User: Sandra Roa NP 01/08/24 14:03 HPI - Anesthesia Eval Consult details Narrative: 83yo F for Right Cataract Extraction IOL Insertion Optimized per PCP No previous cataract on record PMFSH Active Problems Active Problems: All Active Problems TMJ arthritis (Acute) Past Medical History Medical History Hx of sinusitis Cataract Kidney malignant neoplasm Surgical History Surgical History History of nephrectomy Social History Social History Household Members: None Housing: House Do you presently have visiting nurse or other home services: No Alcohol intake: current Alcohol intake frequency: holidays/special occasions only Patient Tobacco Use Status: Never used Tobacco Advance Directives: No Advance Directives Information Provided: Yes Advance Directives Date on File: 09/23/21 service: No Current occupational status: retired Meds Allergies Allergy/AdvReac Type Severity Reaction Status Date / Time Percocet Allergy Unknown Unknown Uncoded 08/28/23 08:11 Home Medications ?Medication ?Instructions ?Recorded ?Confirmed ?Last Taken ?Type acetaminophen 325 mg tablet 650 mg PO Q6H PRN Pain 09/24/21 09/24/21 Unknown History (Tylenol) beta carotene 1 cap PO DAILY 09/24/21 09/24/21 09/23/21 History bilberry 1 cap PO DAILY 09/24/21 09/24/21 09/23/21 History calcium 1 tab PO DAILY 09/24/21 09/24/21 09/23/21 History cholecalciferol (vitamin D3) 25 25 mcg PO DAILY 09/24/21 09/24/21 09/23/21 History mcg (1,000 unit) tablet (Vitamin D3) cranberry 1 tab PO DAILY 09/24/21 09/24/21 09/23/21 History glucosamine sulfate 500 mg tablet 500 mg PO DAILY 09/24/21 09/24/21 09/23/21 History (Glucosamine) potassium chloride 1 tab PO DAILY 09/24/21 09/24/21 09/23/21 History vitamin A 1 tab PO DAILY 09/24/21 09/24/21 09/23/21 History vitamin E 1 tab PO DAILY 09/24/21 09/24/21 09/23/21 History Exam Height,Weight and Vital Signs: Height 5 ft 4 in Weight 59.421 kg Assessment and Plan Assessment Anesthesia Assessment: Chart Reviewed Documented by User: Amanda Gore MD 01/12/24 11:40 PMFSH Past Medical History Medical History Hx of sinusitis Cataract Kidney malignant neoplasm Family History Family history of problems with anesthesia: No Surgical History Surgical History History of nephrectomy History of Problems with Anesthesia: No Social History Social History Household Members: None Housing: House Do you presently have visiting nurse or other home services: No Alcohol intake: current Alcohol intake frequency: holidays/special occasions only Patient Tobacco Use Status: Never used Tobacco Advance Directives: No Advance Directives Information Provided: Yes Advance Directives Date on File: 09/23/21 service: No Current occupational status: retired Meds Allergies Allergy/AdvReac Type Severity Reaction Status Date / Time Percocet Allergy Unknown Unknown Uncoded 08/28/23 08:11 Home Medications ?Medication ?Instructions ?Recorded ?Confirmed ?Last Taken ?Type acetaminophen 325 mg tablet 650 mg PO Q6H PRN Pain 09/24/21 09/24/21 Unknown History (Tylenol) beta carotene 1 cap PO DAILY 09/24/21 09/24/21 09/23/21 History bilberry 1 cap PO DAILY 09/24/21 09/24/21 09/23/21 History calcium 1 tab PO DAILY 09/24/21 09/24/21 09/23/21 History cholecalciferol (vitamin D3) 25 25 mcg PO DAILY 09/24/21 09/24/21 09/23/21 History mcg (1,000 unit) tablet (Vitamin D3) cranberry 1 tab PO DAILY 09/24/21 09/24/21 09/23/21 History glucosamine sulfate 500 mg tablet 500 mg PO DAILY 09/24/21 09/24/21 09/23/21 History (Glucosamine) potassium chloride 1 tab PO DAILY 09/24/21 09/24/21 09/23/21 History vitamin A 1 tab PO DAILY 09/24/21 09/24/21 09/23/21 History vitamin E 1 tab PO DAILY 09/24/21 09/24/21 09/23/21 History Exam Airway Mallampati Class: II TM Dist: <=3cm Neck ROM: Full Heart: rrr Lungs: cta Assessment and Plan Assessment Anesthesia Assessment: Anesthesia Plan Discussed Final Anesthetic Review Family History of Problems with Anesthesia: No History of Problems with Anesthesia: No NPO: Yes ASA Class: III Final Preanesthetic Review: No Changes in Pt Med Stat, Meds/Allgs Chart Reviewed, Consent Obtained/Reviewed and Anes Risks/Benef Reviewed Patient Risk: Intermediate Procedure Risk: Low Anesthetic Plan Anesthetic Plan: MAC: Disposition: Standard PACU
[2024-01-12] MEDS: Lactated Ringers 500 ML 50 ML IV (12:58)
[2024-01-12] MEDS: Ketorolac Tromethamine 0.5% Op 5 ML DROPS 1 DROP EYE-RIGHT ×3 (12:59→13:08)
[2024-01-12] MEDS: Tropicamide 1 % Ophth Sol 3 ML BTL 1 DROP EYE-RIGHT ×3 (12:59→13:08)
[2024-01-12] MEDS: Phenylephrine HCL 2.5% Oph SoL 2 ML BOTTLE 1 DROP EYE-RIGHT ×3 (12:59→13:08)
[2024-01-12] MEDS: Tetracaine HCl/PF 0.5% Oph Sol 4 ML DROPS 1 DROP EYE-RIGHT (12:59)
[2024-01-12 13:14] VITALS: BMI 22.5
[2024-01-12 13:24] VITALS: BP 156/67; PULSE 67; RESP 18; TEMP 36.7; O2SAT 100
--- NOTE | 2024-01-12 14:12 | MHC.SHP ---
Pre-Procedural Eval Section A - 24 Hr Update-Section A only Date of Service: 01/12/24 The patient is an INPATIENT: No Changes since office visit: No Cold of Flu in the past 2 weeks, No New Medical Problems, No Changes in Medication and No Patient answered all questions The patient has been examined within 24 hours of the surgical procedure. The History & Physical has been completed within 30 days and I have reviewed it.: Yes Section B - Complete if H&P > 30 days Chief Complaint: Age-related nuclear cataract, right eye Allergies: Allergies Allergy/AdvReac Type Severity Reaction Status Date / Time Percocet Allergy Intermediate Vomiting Uncoded 01/12/24 13:25 Plan Diagnosis/Plan: Unchanged I have reviewed the history and physical and performed a pertinent physical examination on my patient. No changes have occurred unless specified. Time Spent With Patient Time: Total time managing care of this patient today ____ minutes.
--- NOTE | 2024-01-12 14:13 | P.PCNO_ITS ---
Ophthalmology Procedure Procedure Date of Service: 01/12/24 Ophthalmology Viscoelastic: Healon Duet Dual Pack Pro Ophthalmology Lenses: IOL Acrysof MP - MA60AC (17) Procedure Notes: PREOPERATIVE DIAGNOSIS: Decreased visual acuity right eye secondary to cataract POSTOPERATIVE DIAGNOSIS: Same PROCEDURE: Right cataract extraction with intraocular lens insertion SURGEON: Mohinder Dao M.D. ANESTHESIA: Topical/MAC ESTIMATED BLOOD LOSS: None COMPLICATIONS: None After obtaining informed consent, the patient was brought to the operating room suite and placed in the supine position. After adequate sedation per anesthesia, topical drops of Tetracaine were given to the right eye. The eye was then prepped and draped in the usual sterile fashion. The operating room microscope was then positioned over the operative eye and a lid speculum placed. A paracentesis was created. Viscoelastic was then instilled into the anterior chamber. A three plane incision was then created temporally, utilizing a 2.85 mm keratome. Capsulotomy forceps were then utilized to create a circular tear capsulotomy. Hydrodissection and hydrodelineation were carried out until adequate mobilization of the nucleus occurred. Phacoemulsification was then utilized to remove the dense central nucl eus followed by removal of the cortical material utilizing the automated aspiration irrigation unit. Viscoelastic was instilled into the posterior capsular bag followed by placement of a posterior chamber intraocular lens without difficulty. The residual Viscoelastic was then removed utilizing the automated IA machine. The wound was checked and found to be watertight. The patient tolerated the procedure well and the lid speculum was removed. Intracameral injection of Vigamox 0.1 mL followed by a subtenon injection of Kenalog-40 0.2 mL were administered. The patient will be seen in the a.m.
[2024-01-12 14:49] VITALS: BP 168/70; PULSE 68; RESP 17; TEMP 36.9; O2SAT 97
== END 2024-01-12 14:52 | disposition home or self-care (01) ==
PROVIDERS: PCP Internal Medicine; Visit Provider Ophthalmology
PROC: (CPT 66985; principal; 2024-01-12 15:40)
DX: H25.11 Age-related nuclear cataract, right eye (principal); H52.4 Presbyopia; H18.413 Arcus senilis, bilateral; Z90.5 Acquired absence of kidney; Z88.5 Allergy status to narcotic agent
CPT/HCPCS: 66984; J2250; J3010; J3301; V2630

== ENCOUNTER 2024-01-26 08:23 | Day surgery (SDC) | payer MEDICARE, SELFPAY ==
[2024-01-06 11:20] VITALS: BMI 22.5
[2024-01-26 10:15] VITALS: BP 154/63; PULSE 63; RESP 15; TEMP 36.2; O2SAT 99
--- NOTE | 2024-01-26 10:15 | HO.ANESPROP2 ---
HPI - Anesthesia Eval Consult details Narrative: 83 yo F presenting for Left Cataract Extraction IOL Insertion. Reported dizziness with sedation for right cataract surgery a few weeks ago. PMFSH Active Problems Active Problems: All Active Problems TMJ arthritis (Acute) Past Medical History Medical History Hx of sinusitis Cataract Kidney malignant neoplasm Family History Family history of problems with anesthesia: No Surgical History Surgical History Hx of right cataract extraction History of nephrectomy History of Problems with Anesthesia: No Social History Social History Household Members: None Housing: House Do you presently have visiting nurse or other home services: No Alcohol intake: current Alcohol intake frequency: holidays/special occasions only Patient Tobacco Use Status: Never used Tobacco Advance Directives: No Advance Directives Information Provided: Yes Advance Directives Date on File: 09/23/21 service: No Current occupational status: retired Meds Allergies Allergy/AdvReac Type Severity Reaction Status Date / Time Percocet Allergy Intermediate Vomiting Uncoded 01/26/24 10:01 Active Medications: Current Medications Povidone Iodine (Povidone Iodine 5 % Ophth Soln 30 Ml Bottle) 1 appl EYE-LEFT PREOP PRN PRN Reason: Pre-Op Surgical Implant Prophy Home Medications ?Medication ?Instructions ?Recorded ?Confirmed ?Last Taken ?Type acetaminophen 325 mg tablet 650 mg PO Q6H PRN Pain 09/24/21 09/24/21 Unknown History (Tylenol) beta carotene 1 cap PO DAILY 09/24/21 09/24/21 09/23/21 History bilberry 1 cap PO DAILY 09/24/21 09/24/21 09/23/21 History calcium 1 tab PO DAILY 09/24/21 09/24/21 09/23/21 History cholecalciferol (vitamin D3) 25 25 mcg PO DAILY 09/24/21 09/24/21 09/23/21 History mcg (1,000 unit) tablet (Vitamin D3) cranberry 1 tab PO DAILY 09/24/21 09/24/21 09/23/21 History glucosamine sulfate 500 mg tablet 500 mg PO DAILY 09/24/21 09/24/21 09/23/21 History (Glucosamine) potassium chloride 1 tab PO DAILY 09/24/21 09/24/21 09/23/21 History vitamin A 1 tab PO DAILY 09/24/21 09/24/21 09/23/21 History vitamin E 1 tab PO DAILY 09/24/21 09/24/21 09/23/21 History Exam Exam Date and Time: January 26, 2024 1015 Height,Weight and Vital Signs: Height 5 ft 4 in Weight 59.421 kg Airway Mallampati Class: II TM Dist: >3cm Neck ROM: Full Loose/Missing/Broken Teeth: No (patient denies any loose or broken teeth) Heart: S1S2 Lungs: CTAB Assessment and Plan Assessment Anesthesia Assessment: Anesthesia Plan Discussed and Chart Reviewed Final Anesthetic Review Family History of Problems with Anesthesia: No History of Problems with Anesthesia: No NPO: Yes ASA Class: II Final Preanesthetic Review: No Changes in Pt Med Stat, Meds/Allgs Chart Reviewed, Consent Obtained/Reviewed and Anes Risks/Benef Reviewed Patient Risk: Low Procedure Risk: Low Anesthetic Plan Anesthetic Plan: MAC: and Agree w/ Assess. and Plan Disposition: Standard PACU
[2024-01-26] MEDS: Tetracaine HCl/PF 0.5% Oph Sol 4 ML DROPS 1 DROP EYE-LEFT (10:16)
[2024-01-26] MEDS: Tropicamide 1 % Ophth Sol 3 ML BTL 1 DROP EYE-LEFT ×3 (10:19→10:31)
[2024-01-26] MEDS: Ketorolac Tromethamine 0.5% Op 5 ML DROPS 1 DROP EYE-LEFT ×3 (10:21→10:32)
[2024-01-26] MEDS: Phenylephrine HCL 2.5% Oph SoL 2 ML BOTTLE 1 DROP EYE-LEFT ×3 (10:22→10:33)
--- NOTE | 2024-01-26 10:46 | MHC.SHP ---
Pre-Procedural Eval Section A - 24 Hr Update-Section A only Date of Service: 01/26/24 The patient is an INPATIENT: No Changes since office visit: No Cold of Flu in the past 2 weeks, No New Medical Problems, No Changes in Medication and No Patient answered all questions The patient has been examined within 24 hours of the surgical procedure. The History & Physical has been completed within 30 days and I have reviewed it.: Yes Section B - Complete if H&P > 30 days Chief Complaint: Age-related nuclear cataract, left eye Allergies: Allergies Allergy/AdvReac Type Severity Reaction Status Date / Time Percocet Allergy Intermediate Vomiting Uncoded 01/26/24 10:01 Plan Diagnosis/Plan: Unchanged I have reviewed the history and physical and performed a pertinent physical examination on my patient. No changes have occurred unless specified. Time Spent With Patient Time: Total time managing care of this patient today ____ minutes.
--- NOTE | 2024-01-26 10:47 | HO.PNOPHT ---
Ophthalmology Procedure Procedure Date of Service: 01/26/24 Ophthalmology Viscoelastic: Healon Duet Dual Pack Pro Ophthalmology Lenses: IOL Acrysof MP - MA60AC (17.5) Procedure Notes: PREOPERATIVE DIAGNOSIS: Decreased visual acuity left eye secondary to cataract POSTOPERATIVE DIAGNOSIS: Same PROCEDURE: Left cataract extraction with intraocular lens insertion SURGEON: Mohinder Dao M.D. ANESTHESIA: Topical/MAC ESTIMATED BLOOD LOSS: None COMPLICATIONS: None After obtaining informed consent, the patient was brought to the operation room suite and placed in the supine position. After adequate sedation per anesthesia, topical drops of Tetracaine were given to the left eye. The eye was then prepped and draped in the usual sterile fashion. The operating room microscope was then positioned over the operative eye and a lid speculum placed. A paracentesis was created. Viscoelastic was then instilled into the anterior chamber. A three plane incision was then created temporally, utilizing a 2.85 mm keratome. Capsulotomy forceps were then utilized to create a circular tear capsulotomy. Hydrodissection and hydrodelineation were carried out until adequate mobilization of the nucleus occurred. Phacoemulsification was then utilized to remove the dense central nucleus followed by removal of the cortical material utilizing the automated aspiration irrigation unit. Viscoat elastic was instilled into the posterior capsular bag followed by placement of a posterior chamber intraocular lens without difficulty. The residual Viscoat elastic was then removed utilizing the automated IA machine. The wound was check and found to be watertight. The patient tolerated the procedure well and the lid speculum was removed. Intracameral injection of Vigamox 0.1 mL followed by a subtenon injection of Kenalog-40 0.2 mL were administered. The patient will be seen in the a.m.
[2024-01-26 11:16] VITALS: BP 170/72; PULSE 73; RESP 16; TEMP 36.6; O2SAT 99
== END 2024-01-26 11:28 | disposition home or self-care (01) ==
PROVIDERS: PCP Internal Medicine; Visit Provider Ophthalmology
PROC: (CPT 66985; principal; 2024-01-26 10:00)
DX: H25.12 Age-related nuclear cataract, left eye (principal); H52.4 Presbyopia; H18.413 Arcus senilis, bilateral; L98.9 Disorder of the skin and subcutaneous tissue, unspecified; Z90.5 Acquired absence of kidney; Z88.5 Allergy status to narcotic agent; Z79.899 Other long term (current) drug therapy
CPT/HCPCS: 66984; J3301; V2630

== ENCOUNTER 2024-03-23 08:02 | Outpatient (REF) | payer MEDICARE, SELFPAY | END 2024-03-23 08:03 | disposition home or self-care (01) | LOC: HO.MAMMO 08:02 | PROVIDERS: PCP Internal Medicine; Visit Provider Internal Medicine | DX: Z12.31 Encounter for screening mammogram for malignant neoplasm of breast (principal) | CPT/HCPCS: 77063; 77067 ==

== ENCOUNTER → 2024-03-23 08:15 | Outpatient (BNV) | payer MEDICARE, SELFPAY | PROVIDERS: PCP Internal Medicine; Visit Provider Radiology Diagnostic Radiology | DX: Z12.31 Encounter for screening mammogram for malignant neoplasm of breast (principal) | CPT/HCPCS: 77063; 77067 ==

== ENCOUNTER 2024-04-12 11:29 | Outpatient (REF) | payer MEDICARE, SELFPAY ==
[2024-04-12 11:31] LABS: MANUAL DIFF FLAG NO
[2024-04-12 11:55] LABS: Basophils Absolute Auto 0.1 X10*3/uL (0.0-0.2); Basophils Percent Auto 0.9 % (0-2); Eosinophils Absolute Auto 0.2 X10*3/uL (0.0-0.4); Eosinophils Percent Auto 2.7 % (0-4); Hematocrit 43.9 % (37.0-47.0); Hemoglobin 13.8 g/dl (12.0-16.0); Imm Gran Abs Auto 0.02 X10*3/uL (0.00-0.03); Imm Gran Pct Auto 0.2 % (0.0-0.4); Lymphocytes Absolute Auto 2.7 X10*3/uL (1.2-4.9); Lymphocytes Percent Auto 33.6 % (20-40); Mean Corpuscular HGB Conc 31.4 g/dl (31.0-35.0); Mean Corpuscular Hemoglobin 29.2 pg (27.0-33.0); Mean Corpuscular Volume 92.8 fL (80.0-98.0); Mean Platelet Volume 10.1 fL (9.4-12.3); Monocytes Absolute Auto 0.9 X10*3/uL (0.1-1.2); Monocytes Percent Auto 10.9 % (2-11); Neutrophils Absolute Auto 4.2 x10*3/uL (2.0-8.3); Neutrophils Percent Auto 51.7 % (45-73); Platelet Count 361 X10*3/uL (160-400); Red Blood Count 4.73 X10*6/uL (4.20-5.50); Red Cell Distribution Width 14.3 % (11.0-16.0); White Blood Count 8.1 X10*3/uL (4.8-10.8)
[2024-04-12 11:56] LABS: Appearance Urine Clear; Color Urine Yellow; Glucose Urine UA Negative (Negative); Leukocyte Esterase Urine Small (1+) (Negative); Nitrite Urine Negative (Negative); UMIC TRIGGER UACC YES; Urine Blood Negative (Negative); Urine Ketones Negative (Negative); Urine Protein Negative (Neg-Trace)
[2024-04-12 12:15] LABS: Alanine Aminotransferase 19 U/L (0-31); Albumin Level 4.2 g/dL (3.5-5.0); Alkaline Phosphatase 80 U/L (39-117); Anion Gap 16 (12-20); Aspartate Amino Transferase 24 U/L (5-31); Bilirubin Total 0.4 mg/dL (0.0-1.0); Blood Urea Nitrogen 25 mg/dL (9-16); Calcium 9.7 mg/dL (8.4-10.2); Carbon Dioxide 23 mmol/L (22-29); Chloride 109 mmol/L (96-108); Cholesterol 222 mg/dL (<200); Estimated Glomerular Filt Rate 48; Glucose Fasting 87 mg/dL (60-99); HDL Cholesterol 53 mg/dL (>40); LDL Cholesterol Calculated 143 mg/dL (<100); Potassium 4.1 mmol/L (3.3-5.1); Sodium 144 mmol/L (135-145); Total Protein 7.1 g/dL (6.5-8.0); Triglycerides 131 mg/dL (<150)
[2024-04-12 12:21] LABS: Bacteria Urine None Seen (None Seen); Hyaline Casts Urine 0-2 /LPF (0-2); RBC Urine 0-2 /HPF (0-2); Squamous Epithelial Cell Urine 0-2 /HPF (0-2); UACC Culture Trigger YES; WBC Urine 0-5 /HPF (0-5)
== END 2024-04-12 11:30 | disposition home or self-care (01) ==
LOC: HO.LNP 11:29
PROVIDERS: Visit Provider Internal Medicine
DX: Z00.00 Encounter for general adult medical examination without abnormal findings (principal); E78.00 Pure hypercholesterolemia, unspecified; R82.90 Unspecified abnormal findings in urine
CPT/HCPCS: 80053; 80061; 81001; 85025; 87086

== ENCOUNTER 2024-05-17 10:30 | Outpatient (REF) | payer MEDICARE, SELFPAY ==
[2024-05-17 11:00] LABS: Blood Urea Nitrogen 25 mg/dL (9-16)
== END 2024-05-17 10:31 | disposition home or self-care (01) ==
LOC: HO.LNP 10:30
PROVIDERS: Visit Provider Internal Medicine
DX: R79.9 Abnormal finding of blood chemistry, unspecified (principal)
CPT/HCPCS: 84520

== ENCOUNTER 2025-04-11 07:35 | Outpatient (REF) | payer MEDICARE, SELFPAY ==
--- OUTSIDE RECORDS SUMMARY | 2024-04-19 05:30 | XMS_ITS ---
Author Organization Cezar Steinberg MD Address [address] [place], [place] [phone] Care Team Providers Care Ladies Underwear Operator Name Role Phone Cezar Steinberg Primary Care [...] Problem Status W/U Status Risk Notes Problem [id number] Skin cancer (C44.90) Active confirmed Vital Signs Blood pressure systolic 118 mm Hg 04/19/20 24 Blood pressure diastolic 64 mm Hg 024 Height 64 in 04/19/2024 Weight 129 lbs 04/19/2024 BMI 22.14 kg/m2 04/19/2024 weight is down 2 pounds critical [facility] 7[facility]24 Encounters Encounter Location Date Provider Diagnosis Cezar Steinberg MD [address] [place] [address] [place] [phone] 04/19/2024 Cezar Steinberg Elevated BUN R79.9 ; [...] to mildred/DOLLY BRYANMAKE HER OWN APPT WITH [facility], ALL INFO GIVEN TO MAYTE AND [...] to mildred/JOHNNY BROOKE HER OWN APPT WITH [facility], ALL INFO GIVEN TO MAYTE AND SHE WILL CALL US WITH APPT DATE/ patient has an appt with [facility] 10-22-24 at 10:15am Colon cancer screening guaiac negatve Encounter for screening for depression n egative screen Next Appt Details Follow Up: 6 Months, Reason: Provider Name:Cezar tariq, 04/14/2025 07:15:00 AM, [address] [place] [address], Suite [facility], [place], [place], [phone], Provider Name:Cezar tariq, 04/21/2025 09:30:00 AM, [address] [place] [address], Suite [facility], [place], [place], [phone], Progress Notes * Mayte MAIER MDOB:[birth year] (83 yo F)Acc No.[id number]:04/19/2024 Progress Notes Patient: Mayte Menjivar Provider: Selvin Steinberg MD :1940 A ge:83 Y S ex:Female Date:04/19/2024 Address:[address] [place] [address] Subjective: * Chief Complaints: * A nnual [...] after slipping on water at store. [employer]. * ROS: G eneral/Constitutional: Patient denies f [...] 1 cat. no Travel outside of the [place]. * Medications: N ot-Taking/PRNCyclobenzaprine HCl 5 [...] Auto 0.000 0.0-0.012 - X10*3/uL L ab:Comprehensive [place]. Panel Fast (Order Date - 04/12/2024) (Collection [...] to derm/SHE WILLMAKE HER OWN APPT WITH ALDEN MILDRED, ALL INFO GIVEN TO MAYTE AND SHE WILL CALL US WITH APPT DATE/ patient has an appt with SUNI Olivares 10-22-24 at 10:15am. 4. C olon cancer screening L AB: Occult Blood, Stool, Guaiac N egative Value Reference Range O ccult Blood, Stool, Guaiac Neg Notes: guaiac negatve.??5.?Encounter for screening for depression? Notes: negative screen.?? * Procedure Codes: 8 2270 TEST FOR BLOOD, FECES * Follow Up: 6 Months * * Sign off status: Completed true * Provider: Selvin Steinberg MD Date: 04/19/2024 Generated for Selina petersen/Candelario/Rabia on: 04/11/2025 07:37 AM EDT History and Physical Notes * HPI (History of Present Illness) Category Sub-Category Detail Notes Category Not es Symptom(s) patient is a 83 yo female here for annual visit with review of recent labs and here for follow up of chronic issues/ and complete. had a fall and is all better since started swimming. fell after slipping on water at store. [employer]. Depression Screening PHQ-9 Little inte rest or [...]
--- NOTE | ~2025-04-11 | MM_ITS ---
EXAMINATION: MM SCREENING DIGITAL BREAST TOMOSYNTHESIS, BILATERAL CLINICAL INFORMATION: Screening. Asymptomatic. COMPARISON: Mammography: Comparison is made with available priors TECHNIQUE: Digital breast mammography with tomosynthesis is performed in both the craniocaudal and mediolateral oblique views along with computer-aided detection (CAD). FINDINGS: There are scattered areas of fibroglandular density (ACR BI-RADS breast composition Category b). There are no significant masses, abnormal calcifications, or other abnormalities. MM/MM tomosynthesis screening BI IMPRESSION: No mammographic evidence of malignancy. ASSESSMENT: BI-RADS BI-RADS 1 - Negative RECOMMENDATION: Routine annual mammography screening. 1 year F/U This examination should not preclude the clinical evaluation of a suspicious palpable abnormality. This patient's information was entered into a reminder system with a target due date for their next mammogram. Electronically signed by: Gardenia Agustin DO 04/19/2025 05:03 PM EDT
--- OUTSIDE RECORDS SUMMARY | 2025-04-11 07:37 | XMS_ITS | Clinical Summary ---
Author Organization [facility] Address [address] [facility] [place] [address] Phone Care Team Providers Care Green Energy Marketing Analyst Name Role Phone Cezar Steinberg MD Primary Care Provider [phone] Allergies Active Allergy Reactions Criticality Noted Date Comments Oxycodone-Acetaminophen 10/15/2021 Medications No known medications Active Problems Problem Noted Date Diagnosed Date S/P nephrectomy 02/25/2022 History of malignant neoplasm of kidney 10/15/19 22 Acute nontraumatic kidney injury 10/15/2021 Family History Medical History Relation Comments Diabetes Father Heart disease Father Heart disease Mother Relation Status Comments Father Mother Social History Tobacco Use Types Packs/Day Years Used Date Smoking Tobacco: Never Smokeless Tobacco: Never Tobacco Cessation:Counseling Given: Not Answered Alcohol Use Standard Drinks/Week Comments Never 0 (1 standard drink = 0.6 oz pur e alcohol) Comments Unknown Sex and Gender Information Value Date Recorded Sex Assigned at Not on file Legal Sex Female 8:40 AM EST Gender Identity Not on file Sexual Orientation Not on file Last Filed Vital Signs Vital Sign Reading Time Taken Comments Blood Pressure 122/60 08/12/2022 1:03 PM EST Pulse 79 08/12/2022 1:03 PM EST Temperature - - Respiratory Rate - - Oxygen Saturation 95% 08/12/2022 1:03 PM EST Inhaled Oxygen Concentration - - Weight 59 kg (130 lb) 08/12/2022 1:03 PM EST Height - - Body Mass Index - - Plan of Treatment Health Maintenance Due Date Last Done Comments Influenza Vaccine (#1) 2025 Pneumococcal Vaccine: 50+ Years Completed 09/07/2018, 09/07/2018, 07/25/2014, Additional history exists Hepatitis B Vaccine Aged Out No longe r eligible based on patient's age to complete this topic Insurance [facility] Care Teams Green Energy Marketing Analyst Relationship Specialty Start Date End Date Cezar Steinberg MD [address] [place] [address] [id number] [place], [place] PCP - General Internal Medicine 09/12/21
--- OUTSIDE RECORDS SUMMARY | 2025-04-11 07:37 | XMS_ITS | Patient Health Record ---
Author Organization [facility] Address [address] [place] [address] Care Team Providers Care Coverage Specialist Name Role Phone Cezar Steinberg MD Primary Care Provider Isma Allison Unavailable [phone] Allergies Allergen (clinical drug ingredient) Drug/Non Drug Allergy documented on EMR Reaction Allergy Type Onset Date Status acetaminophen / oxycodone Percocet Unknown Drug Allergy Active Reason For Referral No Information Social History Tobacco use other than smoking: Question Answer Notes Are you an other tobacco user? No Problems Problem Type SNOMED Code ICD Code Onset Dates Problem Status W/U Status Risk Notes Problem Tinea unguium (B35.1) Active confirmed Problem Plantar wart (63817304) Plantar wart (B07.0) Active confirmed Plan Of Treatment Pending Test Test Name Order Date X ray : Foot, left 3V 07/26/2013 [id number] NAIL, 6 OR MORE 11/09/2019 [id number] Destruction, 1-14 11/09/2019 Next Appt Details Provider Name:Isma Ceron , 05/17/2025 09:30:00 AM, [address] [facility], [place], [phone], Insurance Providers Payer Name Payer Address Payer Phone Subscriber Number Group Number Insured Name Patient Relationship to Insured Coverage Start Date Coverage End Date [facility] [address] [place] [id number] Mayte Cole Self - patient is the insured Medical (General) History Medical History History ICD Code kidney cancer Surgical History Surgery Date(Month/Year) Kidney removal 2000
== END 2025-04-11 07:36 | disposition home or self-care (01) ==
LOC: HO.MAMMO 07:35
PROVIDERS: PCP Internal Medicine; Visit Provider Internal Medicine
DX: Z12.31 Encounter for screening mammogram for malignant neoplasm of breast (principal)
CPT/HCPCS: 77063; 77067

== ENCOUNTER → 2025-04-11 07:45 | Outpatient (BNV) | payer MEDICARE, SELFPAY | PROVIDERS: PCP Internal Medicine; Visit Provider Internal Medicine | DX: Z12.31 Encounter for screening mammogram for malignant neoplasm of breast (principal) | CPT/HCPCS: 77063; 77067 ==

== ENCOUNTER 2025-04-14 07:15 | Outpatient (REF) | payer MEDICARE, SELFPAY ==
--- OUTSIDE RECORDS SUMMARY | 2024-10-21 06:00 | XMS_ITS ---
Author Organization Cezar Steinberg MD Address [address] [place] [phone] Care Team Providers Care Bobbin Drier Name Role Phone Cezar Steinberg Primary Care [...] Date Provider Diagnosis Cezar Steinberg MD [address] [place] [phone] 10/21/2024 Cezar Steinberg Skin cancer C44.90 and [...] monitor Next Appt Details Provider Name:Cezar tariq, 04/21/2025 09:30:00 AM, [address], [address], [place], [place], [phone], Progress Notes * Mayte MAIER MDOB:[birth year] (84 yo F)Acc No.[id number]:10/21/2024 Progress Notes Patient: Mayte MCNULTY Provider: Selvin Steinberg MD :1940 A ge:84 Y S ex:Female Date:10/21/2024 Address:[address] [place], [place] [phone] Subjective: * Chief Complaints: * 6 MO [...] 0 10/21/2024 Generated for Selina petersen/Candelario/eTransmitting on: 0 04/14/2025 11:20 AM EDT History and Physical Notes * [...]
[2025-04-14 10:44] LABS: MANUAL DIFF FLAG NO
--- OUTSIDE RECORDS SUMMARY | 2025-04-14 11:21 | XMS_ITS | Clinical Summary ---
Author Organization [facility] Address [address] [place] [phone] Phone Care Team Providers Care Government Documents Librarian Name Role Phone Cezar Steinberg MD Primary Care Provider Allergies Active Allergy Reactions Criticality Noted Date [...] patient's age to complete this topic Insurance [facility] Care Teams Government Documents Librarian Relationship Specialty Start Date End Date Cezar Steinberg MD [address] [place] [address] [address] [place], [place] PCP - General Internal Medicine 09/12/21
--- OUTSIDE RECORDS SUMMARY | 2025-04-14 11:21 | XMS_ITS | Patient Health Record ---
Author Organization [facility] Address [address] [place] [address] Care Team Providers Care Corporate Account Executive Name Role Phone Cezar Steinberg MD Primary Care Provider Isma Allison Unavailable [phone] Allergies Allergen (clinical drug ingredient) Drug/Non Drug [...] W/U Status Risk Notes Problem Tinea unguium (019582413) Tinea unguium (B35.1) Active confirmed Problem Plantar wart (70029766) Plantar wart (B07.0) Active confirmed Plan Of Treatment Pending Test Test Name Order Date X ray : Foot, left 3V 07/26/2013 [id number] NAIL, 6 OR MORE 11/09/2019 [id number] Destruction, 1-14 11/09/2019 Next Appt Details Provider Name:Isma Ceron , 05/17/2025 09:30:00 AM, [address] [facility], [place], [phone], Insurance Providers Payer Name Payer Address Payer Phone Subscriber Number Group Number Insured Name Patient Relationship to Insured Coverage Start Date Coverage End Date [facility] [address] [id number] Mayte Cole Self - patient is the insured Medical (General) History Medical History History ICD Code kidney cancer Surgical History Surgery Date(Month/Year) Kidney removal 2000
[2025-04-14 11:33] LABS: Hematocrit 42.9 % (37.0-47.0); Hemoglobin 13.8 g/dl (12.0-16.0); Imm Gran Abs Auto 0.04 X10*3/uL (0.00-0.03); Imm Gran Pct Auto 0.5 % (0.0-0.4); Lymphocytes Absolute Auto 3.3 X10*3/uL (1.2-4.9); Mean Corpuscular HGB Conc 32.2 g/dl (31.0-35.0); Mean Corpuscular Hemoglobin 29.4 pg (27.0-33.0); Mean Corpuscular Volume 91.3 fL (80.0-98.0); NRBC Abs Auto 0.000 X10*3/uL (0.0-0.012); NRBC Pct Auto 0.0 /100WBC (0.0-0.2); Platelet Count 326 X10*3/uL (160-400); Red Blood Count 4.70 X10*6/uL (4.20-5.50); White Blood Count 8.8 X10*3/uL (4.8-10.8)
[2025-04-14 11:34] LABS: Appearance Urine Clear; Glucose Urine UA Negative (Negative); PH 8.0 (5.0-9.0); Specific Gravity - Urine 1.010 (1.005-1.025)
[2025-04-14 11:46] LABS: Alanine Aminotransferase 19 U/L (0-31); Albumin Level 4.3 g/dL (3.5-5.0); Alkaline Phosphatase 86 U/L (39-117); Anion Gap 11 (12-20); Aspartate Amino Transferase 25 U/L (5-31); Blood Urea Nitrogen 30 mg/dL (9-16); Calcium 10.2 mg/dL (8.4-10.2); Carbon Dioxide 24 mmol/L (22-29); Chloride 111 mmol/L (96-108); Cholesterol 203 mg/dL (<200); Estimated Glomerular Filt Rate 40; HDL Cholesterol 57 mg/dL (>40); Potassium 4.3 mmol/L (3.3-5.1); Sodium 142 mmol/L (135-145); Total Protein 6.8 g/dL (6.5-8.0); Triglycerides 126 mg/dL (<150)
== END 2025-04-14 07:16 | disposition home or self-care (01) ==
LOC: HO.LNP 07:15
PROVIDERS: Visit Provider Internal Medicine
DX: Z00.00 Encounter for general adult medical examination without abnormal findings (principal); E78.00 Pure hypercholesterolemia, unspecified
CPT/HCPCS: 80053; 80061; 81001; 85025

== ENCOUNTER 2025-05-16 15:02 | Outpatient (AMB) | payer MEDICARE, SELFPAY ==
--- OUTSIDE RECORDS SUMMARY | 2025-04-21 05:30 | XMS_ITS ---
Author Organization Cezar Steinberg MD Address [address] [place] [phone] Care Team Providers Care Mechanical Planner Name Role Phone Cezar Steinberg Primary Care [...] Cezar Steinberg MD [address] [place] [address] [phone] 04/21/2025 Cezar Steinberg Annual physical exam Z00.00 [...] Reason: Provider Name:Cezar tariq, 10/18/2025 10:00:00 AM, [address] [place] [address], [phone], Provider Name:Cezar tariq, 04/18/2026 07:00:00 AM, [address] [place] [address], [phone], Provider Name:Cezar tariq, 04/25/2026 10:30:00 AM, [address] [place] [address], [phone], Progress Notes * Mayte MAIER MDOB:[birth year] (84 yo F)Acc No.[id number]:04/21/2025 Progress Notes Patient: Mayte MCNULTY Provider: Selvin Steinberg MD :1940 A ge:84 Y S ex:Female Date:04/21/2025 Address:[address] [place], [place] [phone] Subjective: * Chief Complaints: * A NNUAL [...] Auto 0.000 0.0-0.012 - X10*3/uL L ab:Comprehensive [place]. Panel Fast (Order Date - 04/14/2025) (Collection [...] mg/dL Urine Blood Negative Negative - Specific [place] - Urine 1.010 1.005-1.025 - Urine Protein [...] masses palpable. RECTAL EXAM: d one by bricklayer sewer. FEMALE GENITOURINARY: d one by bricklayer sewer. EXTREMITIES: n o clubbing, cyanosis, or edema, [...] MD Date: 0 04/21/2025 Generated for Selina petersen/Candelario/Raiba on: 0 05/16/2025 03:23 PM EDT History and Physical Notes * [...] mass, no lump RECTAL EXAM: done by bricklayer sewer FEMALE GENITOURINARY: done by bricklayer sewer ORAL CAVITY: mucosa moist
--- NOTE | 2025-05-16 15:07 | HO.NEPHOV ---
Vital Signs 05/16/25 15:09 Height 5 ft 3 in Weight 135 lb BMI 23.9 BP 124/60 Blood Pressure Location Lt brachial Position Sitting Pulse 75 Pulse Source Pulse Oximeter Pulse Oximetry (%) 96 Oxygen Delivery Method Room Air Intake Visit Reasons: ENP: History Kidney Cancer-Conf Crime Investigator Special Agent Required: No Accompanied by: Self / Same As Patient Allergies Percocet Allergy (Intermediate, Uncoded 01/26/24 10:01) Vomiting HPI Comments Details: The patient is an 84-year-old female presenting with chronic kidney disease. Her kidney function has decreased from 50% to 40% over the past year, prompting concern from her PCP. 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 Subsequently she had intestinal obstruction, which required emergency surgery. Baseline serum creatinine is around 1.2 mg/dL. Recently creatinine bumped up to 1.29 with a EGFR of 43 mL/minute. She admits to not drinking adequate fluids. She had not on any significant prescription medications. She does not take any NSAIDs. Additionally, she reports a toenail fungus and has been seeing a icu staff nurse for treatment. She engages in regular swimming exercises, which she plans to replace with walking once the pool closes. [facility] Medical History (Updated 05/16/25 @ 15:28 by Tito Hawley MD) Hx of sinusitis Cataract Kidney malignant neoplasm Surgical History Hx of right cataract extraction History of nephrectomy Social History Household Members: None Housing: House Do you presently have visiting nurse or other home services: No Alcohol intake: current Alcohol intake frequency: holidays/special occasions only Patient Tobacco Use Status: Never used Tobacco Advance Directives Date on File: 09/23/21 service: No Current occupational status: retired Review of Systems Const Denies anorexia, Denies fever(s) and Denies weakness Eyes Denies blurry vision Card Denies no additional complaints and Denies dyspnea Resp Reports no additional complaints, Reports cough and Denies dyspnea GI Denies melena and Denies diarrhea Denies hematuria Musc Denies tingling Skin/Breast Denies rash Neuro Denies focal weakness, Denies tingling, Denies tremor(s) and Denies weakness Physical Exam Vital Signs: Last Vital Signs Pulse 75 05/16/25 15:09 BP 124/60 05/16/25 15:09 Pulse Ox 96 05/16/25 15:09 Oxygen Delivery Method Room Air 05/16/25 15:09 BMI result Body Mass Index 23.9 Const General: comfortable Nutritional Appearance: well nourished Orientation/consciousness: patient oriented x3 HEENT Head: No normal to inspection Mouth: moist mucous membranes Neck Neck: Yes supple and Yes no JVD Resp Auscultation: clear to auscultation bilaterally and no rales Cardio Jugular venous distension: no JVD Palpation: no palpable S3 and no palpable S4 Heart sounds: no rubs GI Palpation (GI): Soft to palpation and nontender Percussion: No Fluid wave present General: Yes no CVA tenderness Back/Spine/Pelvis Back: no CVA tenderness Skin General skin exam: no rashes or lesions noted Neuro General: patient oriented x3 Extrem General: Yes no pedal edema and No clubbing Results Reviewed Results Reviewed: CT Scan: Kidney AND URETERS: The left kidney is surgically absent. The contralateral right kidney is unremarkable with no obstructive changes or calculi. Nephrology Results: Hgb, (12.0-16.0) 13.8 g/dl 04/14/25 WBC, (4.8-10.8) 8.8 X10*3/uL 04/14/25 Plt Count, (160-400) 326 X10*3/uL 04/14/25 Sodium, (135-145) 142 mmol/L 04/14/25 Potassium, (3.3-5.1) 4.3 mmol/L 04/14/25 Chloride, (96-108) 111 mmol/L H 04/14/25 Carbon Dioxide, (22-29) 24 mmol/L 04/14/25 BUN, (9-16) 30 mg/dL H 04/14/25 Creatinine, (0.5-1.4) 1.29 mg/dL 04/14/25 Calcium, (8.4-10.2) 10.2 mg/dL 04/14/25 Urine Protein, (Neg-Trace) Negative mg/dL 04/14/25 Assessment & Plan Assessment & Plan (1) CKD (chronic kidney disease): Code(s): N18.9 - Chronic kidney disease, unspecified Category: Medical Plan 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 Baseline serum creatinine is around 1.0-1.1 mg/dL. She probably has age-related decline in EGFR in the setting of solitary kidney. The recent bump in serum creatinine up to 1.2 9 May be related to hypoperfusion per off from poor p.o. intake. Based on recent imaging and urine studies I do not believe she has any active glomerulo nephritis or obstruction. Plan Basic workup ordered as outlined. Increase p.o. fluid intake. Check BMP after a week. Further workup will be based on the outcome of the baseline investigations. All her questions were answered and reassured her. Orders: Orders Vitamin D 25-OH Total 1 Week N18.9 - Chronic kidney disease, unspecified Complete Blood Count no Diff 1 Week N18.9 - Chronic kidney disease, unspecified Comprehensive Met. Panel 1 Week N18.9 - Chronic kidney disease, unspecified UA and rflx microscopic 1 Week N18.9 - Chronic kidney disease, unspecified Parathyroid Hormone Intact 1 Week N18.9 - Chronic kidney disease, unspecified Medications: Discontinued prednisone Discontinued Reason: Patient no longer taking 20 mg orally: 3 tabs daily for 3 days, 2 tabs daily for 3 days, 1 tab daily for 3 days 18 tabs 0RF ondansetron Discontinued Reason: Patient no longer taking 4 mg PO Q8H PRN 20 tabs 0RF nausea and vomiting erythromycin Discontinued Reason: Patient no longer taking 0.5 inches ophthalmic (eye) Q4H 5 days 3.5 grams 0RF Coding Level of Care Code New Pt Level 4 (61213) Diagnoses CKD (chronic kidney disease) N18.9
[2025-05-16 15:09] VITALS: BP 124/60; PULSE 75; O2SAT 96; BMI 23.9
--- OUTSIDE RECORDS SUMMARY | 2025-05-16 15:24 | XMS_ITS | Patient Health Record ---
Author Organization [facility] [place] Address [address] [place] [address] Care Team Providers Care Fur Matcher Name Role Phone Cezar Steinberg MD Primary Care Provider Isma Allison Unavailable [phone] Sarah Beth Hong Unavailable [phone] Allergies Allergen (clinical drug ingredient) Drug/Non Drug Allergy documented on EMR Reaction Allergy Type Onset Date Status acetaminophen / oxycodone Percocet Unknown Drug Allergy Active Reason For Referral No Information Social History Tobacco use other than smoking: Question Answer Notes Are you an other tobacco user? No AUDIT-C (Standard) Question Answer Notes Did you have a drink containing alcohol in the p ast year? No Points 0 Interpretation Negative Problems Problem Type SNOMED Code ICD Code Onset Dates Problem Status W/U Status Risk Notes Problem Tinea unguium (951563177) Tinea unguium (B35.1) Active confirmed Problem Plantar wart (B07.0) Active confirmed Vital Signs Blood pressure diastolic 65 mm Hg 04/27/2025 Height 5 ft 3 in in 04/27/2025 Blood pressure systolic 128 mm Hg 04/27/2025 Weight 126 lbs 04/27/2025 BMI 22.32 kg/m2 04/27/2025 Procedures Procedure Date Ordered Date Performed Result Body Sit e 00172-Uflg Destruction, 1-14 04/27/2025 N/A Encounters Encounter Location Date Provider Diagnosis [facility] [address] [place] [address] 04/27/2025 Sarah Beth Hong Left foot pain M79.672 and Plantar wart B07.0 [facility] [address] [place] [address] 04/25/2025 Isma Ceron Assessments Encounter Date Diagnosis (ICD Code) Assessment Notes Treatment Notes Treatment Clinical Notes Section Notes 04/27/2025 Left foot pain (ICD-10 - M79.672) 04/27/2025 Plantar wart (ICD-10 - B07.0) Plan Of Treatment Pending Test Test Name Order Date X ray : Foot, left 3V 07/26/2013 79615-[id number] NAIL, 6 OR MORE 11/09/2019 44676-Zrjt Destruction, 1-14 11/09/2019 71017-Lssn Destruction, 1-14 04/27/2025 Next Appt Details Provider Name:Sarah Beth Love clay, 05/26/2025 09:30:00 AM, [address] [place], [address], Insurance Providers Payer Name Payer Address Payer Phone Subscriber Number Group Number Insured Name Patient Relationship to Insured Coverage Start Date Coverage End Date [employer] [place] [employer] Advantage [facility] [address] [place] [address] [id number] Mayte Cole Self - patient is the insured 4 Medical (General) History Medical History History ICD Code kidney cancer cataracts Surgical History Surgery Date(Month/Year) Kidney removal 2000
--- OUTSIDE RECORDS SUMMARY | 2025-05-16 15:24 | XMS_ITS | Clinical Summary ---
Author Organization [facility] Address [address] [place] [address] Phone Care Team Providers Care Buttonhole Facer Name Role Phone Cezar Steinberg MD Primary Care Provider [phone] Allergies Active Allergy Reactions Criticality Noted Date [...] Health Maintenance Due Date Last Done Comments Pneumococcal Vaccine: 50+ Ye ars (1 of 2 - PCV) 1961 Influenza Vaccine (#1) 2025 Hepatitis B Vaccine Aged Out No longe r eligible based on patient's age to complete this topic Insurance [facility] Care Teams Buttonhole Facer Relationship Specialty Start Date End Date Cezar Steinberg MD [address] [place] [address] [id number] [place], [place] PCP - General Internal Medicine 09/12/21
== END 2025-05-16 15:34 | disposition home or self-care (01) ==
LOC: HO.HKA 15:03
PROVIDERS: PCP Internal Medicine; Referring Provider Internal Medicine; Visit Provider Internal Medicine Hypertension Specialist
DX: N18.9 Chronic kidney disease, unspecified (principal)
CPT/HCPCS: 99204

== ENCOUNTER → 2025-05-16 15:02 | Outpatient (BNVA) | payer MEDICARE, SELFPAY | PROVIDERS: PCP Internal Medicine; Referring Provider Internal Medicine; Visit Provider Internal Medicine Hypertension Specialist | DX: N18.32 Chronic kidney disease, stage 3b (principal) | CPT/HCPCS: 99202 ==

== ENCOUNTER 2025-05-23 06:45 | Outpatient (REF) | payer MEDICARE, SELFPAY ==
[2025-05-23 07:18] LABS: Hematocrit 42.0 % (37.0-47.0); Hemoglobin 13.5 g/dl (12.0-16.0); Mean Corpuscular HGB Conc 32.1 g/dl (31.0-35.0); Mean Corpuscular Hemoglobin 29.3 pg (27.0-33.0); Mean Corpuscular Volume 91.1 fL (80.0-98.0); NRBC Abs Auto 0.000 X10*3/uL (0.0-0.012); NRBC Pct Auto 0.0 /100WBC (0.0-0.2); Platelet Count 283 X10*3/uL (160-400); Red Blood Count 4.61 X10*6/uL (4.20-5.50); White Blood Count 7.8 X10*3/uL (4.8-10.8)
[2025-05-23 07:40] LABS: Appearance Urine Clear; Glucose Urine UA Negative (Negative); PH >= 9.0 (5.0-9.0); Specific Gravity - Urine 1.010 (1.005-1.025); UMIC TRIGGER UA YES
[2025-05-23 08:02] LABS: Parathyroid Hormone Intact 70.3 pg/mL (8.7-77.1)
[2025-05-23 08:10] LABS: Alanine Aminotransferase 21 U/L (0-31); Albumin Level 4.3 g/dL (3.5-5.0); Alkaline Phosphatase 84 U/L (39-117); Anion Gap 11 (12-20); Aspartate Amino Transferase 25 U/L (5-31); Blood Urea Nitrogen 24 mg/dL (9-16); Calcium 9.4 mg/dL (8.4-10.2); Carbon Dioxide 27 mmol/L (22-29); Chloride 110 mmol/L (96-108); Estimated Glomerular Filt Rate 45; Potassium 4.1 mmol/L (3.3-5.1); Sodium 144 mmol/L (135-145); Total Protein 6.6 g/dL (6.5-8.0)
== END 2025-05-23 06:46 | disposition home or self-care (01) ==
LOC: HO.LAB 06:45
PROVIDERS: PCP Internal Medicine; Visit Provider Internal Medicine Hypertension Specialist
DX: N18.9 Chronic kidney disease, unspecified (principal)
CPT/HCPCS: 36415; 80053; 81001; 82306; 83970; 85027

== ENCOUNTER 2025-06-20 11:37 | Outpatient (AMB) | payer MEDICARE, SELFPAY ==
--- OUTSIDE RECORDS SUMMARY | 2024-05-17 03:45 | XMS_ITS ---
Author Organization Cezar Steinberg MD Address 10 [facility] [address] [place] [phone] Care Team Providers Care Speeder Frame Tender Name Role Phone Cezar Steinberg Primary Care Provider Results Component Value Reference Range Notes Blood Urea Nitrogen Reviewed date:05/17/2024 12:40:36 PM Interpretation: Performing Lab:[facility] [place], [address] [place] [phone] Notes/Report: Blood Urea Nitrogen 25 9-16 mg/dL REASON FOR VISIT BUN Encounters Encounter Location Date Provider Diagnosis Cezar Steinberg MD [address] [place] [address] [place] [phone] 05/17/2024 Cezar Steinberg Elevated BUN R79.9 Assessments Encounter Date Diagnosis (ICD Code) Assessment Notes Treatment Notes Treatment Clinical Notes Section Notes 05/17/2024 Elevated BUN (ICD-10 - R79.9) Plan Of Treatment Next Appt Details Provider Name:Cezar tariq, 10/18/2025 10:00:00 AM, [address] [place] [address], [address], [phone], Provider Name:Cezar tariq, 04/18/2026 07:00:00 AM, [address] [place] [address], [address], [phone], Provider Name:Cezar tariq, 04/25/2026 10:30:00 AM, [address] [place] [address], [address], [phone], Progress Notes * Mayte MAIER MDOB:[birth year] (84 yo F)Acc No.[id number]:05/17/2024 Progress Note Patient: Mayte MCNULTY Provider: Selvin Steinberg MD :1940 A ge:83 Y S ex:Female Date:05/17/2024 Address:[address] [place] [address] Subjective: * Chief Complaints: * 1 . [...] 0 05/17/2024 Generated for Selina petersen/Candelario/Pebblesitting on: 0 06/20/2025 04:01 PM EDT
--- OUTSIDE RECORDS SUMMARY | 2024-10-21 06:00 | XMS_ITS ---
Author Organization Cezar Steinberg MD Address [address] [facility] [address] [place] [phone] Care Team Providers Care Solar Development Engineer Name Role Phone Cezar Steinberg Primary Care Provider [phone] Allergies Allergen (clinical drug ingredient) Drug/Non Drug [...] Date Provider Diagnosis Cezar Steinberg MD [address] [facility] [place] [phone] 10/21/2024 Cezar Steinberg Skin cancer C44.90 and [...] to monitor Next Appt Details Provider Name:Cezar tariq, 10/18/2025 10:00:00 AM, [address] [facility], [address], [place], [place], [phone], Provider Name:Cezar Love ier, 04/18/2026 07:00:00 AM, [address] [facility], Suite [facility], [place], [place], [phone], Provider Name:Cezar Love ier, 04/25/2026 10:30:00 AM, [address] [facility], Suite [facility], [place], [place], [phone], Progress Notes * Mayte MAIER MDOB:[birth year] (84 yo F)Acc No.[id number]:10/21/2024 Progress Notes Patient: Ainsley MAURO Mayte Alessandro Provider: Selvin Steinberg MD :1940 A ge:84 Y S ex:Female Date:10/21/2024 Address:[address] [place], [place] [phone] Subjective: * Chief Complaints: * 6 MO [...] true * Provider: Selvin Steinberg MD Date: 10/21/2024 Generated for Selina petersen/Candelario/Rabia on: 0 06/20/2025 04:00 PM EDT History and Physical Notes * HPI [...]
--- OUTSIDE RECORDS SUMMARY | 2025-04-14 03:15 | XMS_ITS ---
Author Organization Cezar Steinberg MD Address [address] [place], [place] [phone] Care Team Providers Care Retirement Village Manager Name Role Phone Cezar Steinberg Primary Care Provider Results Component Value Reference Range Notes Complete Blood Count Auto Di ff Reviewed date:04/14/2025 05:14:46 PM Interpretation: Performing Lab:[facility], [address] [place] [phone] Notes/Report: White Blood Count 8.8 4.8-10.8 X10*3/uL [...] NRBC Abs Auto 0.000 0.0-0.012 X10*3/uL Comprehensive [place]. Panel Fa st Reviewed date:04/14/2025 05:19:06 PM Interpretation: Performing Lab:[facility], [address] [place] [phone] Notes/Report: Sodium 142 135-145 mmol/L Potassium 4.3 [...] Panel Reviewed date:04/14/2025 04:16:43 PM Interpretation: Performing Lab:[facility], [address] [place] [phone] Notes/Report: Triglycerides 126 <150 mg/dL Desirable Triglyceride: [...] t Reviewed date:04/14/2025 05:19:46 PM Interpretation: Performing Lab:[facility], [address] [place] [phone] Notes/Report: Urine, Clean Catch Color Urine Yellow Appearance Urine Clear PH 8.0 5.0-9.0 Glucose Urine UA Negative Negative mg/dL Urine Blood Negative Negative Specific [place] - Urine 1.010 1.005-1.025 Urine Protein Negative [...] Location Date Provider Diagnosis Cezar Steinberg MD [address] [place] [address] [address] [place], [place] [phone] 04/14/2025 Cezar Steinberg Blood tests for rout ine general physical examination Z00.00 and Pure hypercholesterolemia E78.00 Assessments Encounter Date Diagnosis (ICD Code) Assessment Notes Treatment Notes Treatment Clinical Notes Section Notes 04/14/2025 Blood tests for rout ine general physical examination (ICD-10 - Z00.00) 04/14/2025 Pure hypercholesterolemia (ICD-10 - E78.00) Plan Of Treatment Next Appt Details Provider Name:Cezar tariq, 10/18/2025 10:00:00 AM, [address] [place] [address], [address], [place], [place], [phone], Provider Name:Cezar tariq, 04/18/2026 07:00:00 AM, [address] [place] [address], [address], [place], [place], [phone], Provider Name:Cezar Love ier, 04/25/2026 10:30:00 AM, [address] [facility], [address], [place], [place], [phone], Progress Notes * Mayte MAIER MDOB:[birth year] (84 yo F)Acc No.[id number]:04/14/2025 Progress Note Patient: Mayte MCNULTY Provider: Selvin Steinberg MD :1940 A ge:84 Y S ex:Female Date:04/14/2025 Address:[address] [place], [place] [phone] Subjective: * Chief Complaints: * 1 . FASTING LABS. * Medical History: Objective: * Vitals: Assessment: * Assessment: 1. B lood tests for routine general physical examination - Z00.00 (Primary) 2 .?Pure hypercholesterolemia - E78.00 Plan: * Treatment: 2. P ure hypercholesterolemia L AB: Complete Blood Count Auto Diff (Collection Date & Time - 04/14/2025 07:15 AM) L AB: Comprehensive [place]. Panel Fast (Collection Date & Time - [...] Pending * Provider: Selvin Steinberg MD Date: 04/14/2025 Generated for Selina petersen/Candelario/eTransmitting on: 06/20/2025 04:00 PM EDT
--- OUTSIDE RECORDS SUMMARY | 2025-04-21 05:30 | XMS_ITS ---
Author Organization Cezar Steinberg MD Address [address] [place] [phone] Care Team Providers Care Aircraft Machinist Helper Name Role Phone Cezar Steinberg Primary Care Provider [phone] Allergies Allergen (clinical drug ingredient) Drug/Non Drug [...] Cezar Steinberg MD [address] [place] [address] [phone] 04/21/2025 Cezar Steinberg Annual physical exam Z00.00 [...] Up: 6 Months, Reason: Provider Name:Cezar tariq, 10/18/2025 10:00:00 AM, [address] [place] [address], [phone], Provider Name:Cezar tariq, 04/18/2026 07:00:00 AM, [address] [place] [address], [phone], Provider Name:Cezar tariq, 04/25/2026 10:30:00 AM, [address] [place] [address], [phone], Progress Notes * Mayte MAIER MDOB:[birth year] (84 yo F)Acc No.[id number]:04/21/2025 Progress Notes Patient: Mayte MCNULTY Provider: Selvin Steinberg MD :1940 A ge:84 Y S ex:Female Date:04/21/2025 Address:[address] [place], [place] [phone] Subjective: * Chief Complaints: * A NNUAL [...] Auto 0.000 0.0-0.012 - X10*3/uL L ab:Comprehensive [place]. Panel Fast (Order Date - 04/14/2025) (Collection [...] mg/dL Urine Blood Negative Negative - Specific [place] - Urine 1.010 1.005-1.025 - Urine Protein [...] masses palpable. RECTAL EXAM: d one by insurance verifier. FEMALE GENITOURINARY: d one by insurance verifier. EXTREMITIES: n o clubbing, cyanosis, or edema, [...] MD Date: 0 04/21/2025 Generated for Selina petersen/Candelario/Pebblesitting on: 0 06/20/2025 03:59 PM EDT History and Physical Notes * [...] mass, no lump RECTAL EXAM: done by insurance verifier FEMALE GENITOURINARY: done by insurance verifier ORAL CAVITY: mucosa moist
--- OUTSIDE RECORDS SUMMARY | 2025-04-21 06:20 | XMS_ITS ---
Author Organization Cezar Steinberg MD Address 10 [facility] [address] [place] [address] [phone] Care Team Providers Care Devil Tender Name Role Phone Cezar Steinberg Primary Care Provider Reason For Referral Reason history of kidney [...] Location Date Provider Diagnosis Cezar Steinberg MD [address] [place] [address] [place] [address] [phone] 04/21/2025 Cezar Steinberg Plan Of Treatment Referrals Referral Date Details 04/21/2025 04/21/2025, history of kidney cancer, Tito Hawley Next Appt Details Provider Name:Cezar tariq, 10/18/2025 10:00:00 AM, [address] [place] [address], [address] [place] [address], [phone], Provider Name:Cezar tariq, 04/18/2026 07:00:00 AM, [address] [place] [address], [address] [place] [address], [phone], Provider Name:Cezar tariq, 04/25/2026 10:30:00 AM, [address] [facility], [address], [place], [place], [phone], Progress Notes * Mayte MAIER MDOB:[birth year] (84 yo F)Acc No.[id number]:04/21/2025 Patient: Mayte MCNULTY :1940 A ge:84 Y S ex:Female Address:[address] [place] [address] Subjective: * Chief Complaints: * F UKRAINIAN Dr. Hawley note * Medical History: * Surgical History: * Hospitalization/Major Diagno stic Procedure: * Medications: Objective: * Vitals: * Physical Examination: Assessment: Plan: * Treatment: * Procedure Codes: * true * Date: Generated for Printi ng/Faallag/eTransmitting on: 0 06/20/2025 04:01 PM EDT Consultation Request Notes Referral Date Referring Provider Referred Provider Not ismael 04/21/2025 Cezar Steinberg Balaji history of kidney cancer
--- OUTSIDE RECORDS SUMMARY | 2025-05-17 05:30 | XMS_ITS ---
Author Organization [facility] Address [address] [place] [address] Care Team Providers Care Labor Commissioner Name Role Phone Idris GRIGGS, Cezar Primary Care Provider Isma Allison Unavailable [phone] REASON FOR VISIT r/s for sooner apt Encounters Encounter Location Date Provider Diagnosis [facility] [address] [place] [address] 05/17/2025 Isma Ceron Plan Of Treatment No Information Progress Notes * Mayte COLE MDOB:[birth year] (84 yo F)Acc No.[id number]:05/17/2025 Progress Notes Patient: Ainsley Mayte MAURO Provider: Estefania Ceron DPM :1940 A ge:84 Y S ex:Female Date:05/17/2025 Address: [address] [id number] Pcp:Cezar Steinberg MD Subjective: * Chief Complaints: [...] Pending * Provider: Estefania Ceron DPM Date: 05/17/2025 Generated for Printi ng/Faxing/eTransmitting on: 06/20/2025 04:01 PM EDT
--- NOTE | 2025-06-20 11:41 | HO.NEPHOV ---
Vital Signs 06/20/25 11:42 Height 5 ft 3 in Weight 134 lb BMI 23.7 BP 112/62 Blood Pressure Location Lt brachial Position Sitting Pulse 81 Pulse Source Pulse Oximeter Pulse Oximetry (%) 97 Oxygen Delivery Method Room Air Intake Visit Reasons: 6wk f/u-Conf Motorcoach Driver Required: No Accompanied by: Self / Same As Patient Allergies Percocet Allergy (Intermediate, Uncoded 01/26/24 10:01) Vomiting Medication List - Last Reconciled 06/20/25 by Tito Hawley MD acetaminophen (Tylenol) 650 mg PO Q6H PRN [calcium 1 tab PO DAILY] cholecalciferol (vitamin D3) (Vitamin D3) 25 mcg PO DAILY [cranberry 1 tab PO DAILY] glucosamine sulfate (Glucosamine) 500 mg PO DAILY [potassium chloride 1 tab PO DAILY] HPI Comments Details: The patient is an 84-year-old female presenting with chronic kidney disease. Her kidney function has decreased from 50% to 40% over the past year, prompting concern from her PCP. 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 Subsequently she had intestinal obstruction, which required emergency surgery. Baseline serum creatinine is around 1.2 mg/dL. Recently creatinine bumped up to 1.29 with a EGFR of 43 mL/minute. She admits to not drinking adequate fluids. She had not on any significant prescription medications. She does not take any NSAIDs. Additionally, she reports a toenail fungus and has been seeing a indirect fire infantryman for treatment. She engages in regular swimming exercises, which she plans to replace with walking once the pool closes. 06/20/25 The patient is an 84-year-old female presenting with a follow-up for Chronic Kidney Disease management. Her creatinine level is stable at 1.15 mg/dL, returning to baseline after a previous increase to 1.29 mg/dL. Fluid intake adjustment has improved her kidney function to 45%, consistent with her baseline. She reports an allergic reaction affecting her kidneys and recent diarrhea after drinking water before bed. The patient engages in regular walking and maintains a diet rich in vegetables and fruits, avoiding junk food. She has a history of sinus infections from swimming, which she has stopped. Medical History: - Chronic Kidney Disease - Allergic reaction affecting kidneys - Sinus infections related to swimming Social History: - Exercise: Regular walking - Diet: Consumes vegetables and fruits, avoids junk food Diagnostic Results: - Labs: Creatinine level at 1.15 mg/dL, kidney function at 45% [facility] Medical History (Updated 05/16/25 @ 15:28 by Tito Hawley MD) Hx of sinusitis Cataract Kidney malignant neoplasm Surgical History Hx of right cataract extraction History of nephrectomy Social History Household Members: None Housing: House Do you presently have visiting nurse or other home services: No Alcohol intake: current Alcohol intake frequency: holidays/special occasions only Patient Tobacco Use Status: Never used Tobacco Advance Directives Date on File: 09/23/21 service: No Current occupational status: retired Physical Exam Const General: comfortable Nutritional Appearance: well nourished Orientation/consciousness: patient oriented x3 HEENT Head: No normal to inspection Mouth: moist mucous membranes Neck Neck: Yes supple and Yes no JVD Resp Auscultation: clear to auscultation bilaterally and no rales Cardio Jugular venous distension: no JVD Palpation: no palpable S3 and no palpable S4 Heart sounds: no rubs GI Palpation (GI): Soft to palpation and nontender Percussion: No Fluid wave present General: Yes no CVA tenderness Back/Spine/Pelvis Back: no CVA tenderness Skin General skin exam: no rashes or lesions noted Neuro General: patient oriented x3 Extrem General: Yes no pedal edema and No clubbing Results Reviewed Nephrology Results: Hgb, (12.0-16.0) 13.5 g/dl 05/23/25 WBC, (4.8-10.8) 7.8 X10*3/uL 05/23/25 Plt Count, (160-400) 283 X10*3/uL 05/23/25 Sodium, (135-145) 144 mmol/L 05/23/25 Potassium, (3.3-5.1) 4.1 mmol/L 05/23/25 Chloride, (96-108) 110 mmol/L H 05/23/25 Carbon Dioxide, (22-29) 27 mmol/L 05/23/25 BUN, (9-16) 24 mg/dL H 05/23/25 Creatinine, (0.5-1.4) 1.15 mg/dL 05/23/25 Calcium, (8.4-10.2) 9.4 mg/dL Δ 05/23/25 PTH Intact, (8.7-77.1) 70.3 pg/mL 05/23/25 Urine Protein, (Neg-Trace) Negative mg/dL 05/23/25 Assessment & Plan Assessment & Plan (1) CKD (chronic kidney disease): Code(s): N18.9 - Chronic kidney disease, unspecified Category: Medical Plan 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 Baseline serum creatinine is around 1.0-1.1 mg/dL. She probably has age-related decline in EGFR in the setting of solitary kidney. The recent bump in serum creatinine up to 1.29 - most likely from hypoperfusion per off from poor p.o. intake. Cr is back to baseline of 1.1 with hydration Based on recent imaging and urine studies I do not believe she has any active glomerulo nephritis or obstruction. No further work up is needed at this time Encouraged to increase po fluid intake Monitor serum creatinine twice a year Follow up in 1 yr She will call if needed Orders: Orders Basic Metabolic Panel 6 Months N18.9 - Chronic kidney disease, unspecified Basic Metabolic Panel 12 Months N18.9 - Chronic kidney disease, unspecified Coding Level of Care Code Est Pt Level 4 (31554) Diagnoses CKD (chronic kidney disease) N18.9
[2025-06-20 11:42] VITALS: BP 112/62; PULSE 81; O2SAT 97; BMI 23.7
--- OUTSIDE RECORDS SUMMARY | 2025-06-20 16:00 | XMS_ITS | Patient Health Record ---
Author Organization [facility] Address [address] [place] [address] Care Team Providers Care Secretary Name Role Phone Cezar Steinberg MD Primary Care Provider Isma Allison Unavailable [phone] Sarah Beth Hong Unavailable [phone] Allergies Allergen (clinical drug ingredient) Drug/Non Drug Allergy documented on EMR Reaction Allergy Type Onset Date Status acetaminophen / oxycodone Percocet Unknown Drug Allergy Active Reason For Referral No Information Social History Tobacco Use: Social History Observation Description Date Details (start date - stop date) Never Smoker NA - NA Tobacco use other than smoking: Question Answer Notes Are you an other tobacco user? No Tobacco Control (Standard) Question Answer Notes Tobacco use: Nonsmoker AUDIT-C (Standard) Question Answer Notes Did you have a drink containing alcohol in the p ast year? No Points 0 Interpretation Negative Problems Problem Type SNOMED Code ICD Code Onset Dates Problem Status W/U Status Risk Notes Problem Tinea unguium (368944592) Tinea unguium (B35.1) Active confirmed Problem Plantar wart (20660316) Plantar wart (B07.0) Active confirmed Vital Signs Blood pressure diastolic 65 mm Hg 05/26/2025 Height 5 ft 3 in in 05/26/2025 Blood pressure systolic 128 mm Hg 05/26/2025 Weight 126 lbs 05/26/2025 BMI 22.32 kg/m2 05/26/2025 Procedures Procedure Date Ordered Date Performed Result Body Sit e 25461-Wber Destruction, 1-04/27/2025 N/A 68210-Qite Destruction, -05/26/2025 N/A Encounters Encounter Location Date Provider Diagnosis [facility] [address] [place] [address] 04/27/2025 Sarah Beth Hong Left foot pain M79.672 and Plantar wart B07.[address] [address] 05/26/2025 Sarah Beth Hong Left foot pain M79.672 and Plantar wart B07.[address] [address] 04/25/2025 Isma Ceron Assessments Encounter Date Diagnosis (ICD Code) Assessment Notes Treatment Notes Treatment Clinical Notes Section Notes 04/27/2025 Left foot pain (ICD-10 - M79.672) 05/26/2025 Left foot pain (ICD-10 - M79.672) 04/27/2025 Plantar wart (ICD-10 - B07.0) 05/26/2025 Plantar wart (ICD-10 - B07.0) Plan Of Treatment Pending Test Test Name Order Date X ray : Foot, left 3V 07/26/2013 [id number] NAIL, 6 OR MORE 11/09/2019 44221-Ihxo Destruction, 1-14 11/09/2019 32082-Zrth Destruction, 1-14 04/27/2025 87324-Tfri Destruction, 1-14 05/26/2025 Insurance Providers Payer Name Payer Address Payer Phone Subscriber Number Group Number Insured Name Patient Relationship to Insured Coverage Start Date Coverage End Date [employer] [place] [employer]age One [facility] [address] [place] [address] [id number] Mayte Cole Self - patient is the insured 4 Medical (General) History Medical History History ICD Code kidney cancer cataracts Surgical History Surgery Date(Month/Year) Kidney removal 2000
--- OUTSIDE RECORDS SUMMARY | 2025-06-20 16:01 | XMS_ITS | Patient Health Record ---
Author Organization Cezar Steinberg MD Address [address] [place], [place] [id number] Care Team Providers Care In Flight Refueling Craftsman Name Role Phone Cezar Steinberg Primary Care Provider Allergies Allergen (clinical drug ingredient) Drug/Non Drug Allergy documented on EMR Reaction Allergy Type Onset Date Status Information temporarily unavailable Percocet nauseau vomiting Drug Allergy Active Results Component Value Reference Range Notes Complete Blood Count Auto Di ff Reviewed date:04/14/2025 05:14:46 PM Interpretation: Performing Lab:[facility], [address] [place] [phone] Notes/Report: White Blood Count 8.8 4.8-10.8 X10*3/uL [...] 0.0-0.2 /100WBC Neutrophils Absolute Auto 4.2 2.0-8.3 x10*3/uL Imm Gran Abs Auto 0.04 0.00-0.03 X10*3/uL Lymphocytes Absolute Auto 3.3 1.2-4.9 X10*3/uL Monocytes Absolute Auto 0.8 0.1-1.2 X10*3/uL Eosinophils Absolute Auto 0.3 0.0-0.4 X10*3/uL Basophils Absolute Auto 0.1 0.0-0.2 X10*3/uL NRBC Abs Auto 0.000 0.0-0.012 X10*3/uL Comprehensive [place]. Panel Fa st Reviewed date:04/14/2025 05:19:06 PM Interpretation: Performing Lab:[address] [phone] Notes/Report: Sodium 142 135-145 mmol/L Potassium 4.3 [...] Panel Reviewed date:04/14/2025 04:16:43 PM Interpretation: Performing Lab:[address] [phone] Notes/Report: Triglycerides 126 <150 mg/dL Desirable Triglyceride: [...] t Reviewed date:04/14/2025 05:19:46 PM Interpretation: Performing Lab:[facility], [address] [place] [phone] Notes/Report: Urine, Clean Catch Color Urine Yellow Appearance Urine Clear PH 8.0 5.0-9.0 Glucose Urine UA Negative Negative mg/dL Urine Blood Negative Negative Specific [place] - Urine 1.010 1.005-1.025 Urine Protein Negative Neg-Trace mg/dL Urine Ketones Negative Negative mg/dL Nitrite Urine Negative Negative Leukocyte Esterase Urine Negative Negative RBC Urine 0-2 0-2 /HPF WBC Urine 0-5 0-5 /HPF Squamous Epithelial Cell Urine 0-2 0-2 /HPF Bacteria Urine Trace None Seen Hyaline Casts Urine 0-2 0-2 /LPF MM tomosynthesis screening B I Reviewed date:04/19/2025 05:18:11 PM Interpretation: Performing Lab: Notes/Report: [facility]'s [address] [place] [address] Mammography Report Signed Patient: Mayte Cole MR#: [id number] 651 : 1940 Acct:[id number] Age/Sex: 84 / F ADM Date: 04/11/25 Loc: CLARICE Attending Dr: Cezar Steinberg MD Ordering Physician: Cezar Steinberg MD Results: 1Ne gative Date of Service: 04/11/25 Follow Up: 1 Year From Orig inal Mammogram Procedure(s): MM tomosynthesis screening BI Accession Number(s): [id number] cc: Cezar Steinberg MD EXAMINATION: MM SCREENING DIGITAL BREAST TOMOSYNTHESIS, BILATERAL CLINICAL INFORMATION: Screening. Asymptomatic. COMPARISON: Mammography: Comparison is made with available priors TECHNIQUE: Digital breast mammography with tomosynthesis is performed in both the craniocaudal and mediolateral oblique views along with computer-aided detection (CAD). FINDINGS: There are scattered areas of fibroglandular density (ACR BI-RADS breast composition Category b). There are no significant masses, abnormal calcifications, or other abnormalities. MM/MM tomosynthesis screening BI IMPRESSION: No mammographic evidence of malignancy. ASSESSMENT: BI-RADS BI-RADS 1 - Negative RECOMMENDATION: Routine annual mammography screening. 1 year F/U This examination should not preclude the clinical evaluation of a suspicious palpable abnormality. This patient's information was entered into a reminder system with a target due date for their next mammogram. Electronically signed by: Gardenia Agustin DO 04/19/2025 05:03 PM EDT Dictated By: Gardenia Agustin DO Signed By: <Electronically signed by Gardenia Agustin DO in OV> 04/19/25 1703 DD/ 0745 TD/TT: 04/11/25 0800 Dock Clerk: [facility] [address] [place] [address] Mammography Report Signed Patient: Heidi Cole MR#: [id number] 651 : 1940 Acct:[id number] Age/Sex: 84 / F ADM Date: 04/11/25 Loc: HO.MAMMO Attending Dr: Cezar Steinberg MD Ordering Physician: Cezar Steinberg MD Results: 1Ne gative Date of Service: 04/11/25 Follow Up: 1 Year From Orig inal Mammogram Procedure(s): MM tomosynthesis screening BI Accession Number(s): [id number] cc: Cezar Steinberg MD EXAMINATION: MM SCREENING DIGITAL BREAST TOMOSYNTHESIS, BILATERAL CLINICAL INFORMATION: Screening. Asymptomatic. COMPARISON: Mammography: Comparison is made with available priors TECHNIQUE: Digital breast mammography with tomosynthesis is performed in both the craniocaudal and mediolateral oblique views along with computer-aided detection (CAD). FINDINGS: There are scattered areas of fibroglandular density (ACR BI-RADS breast composition Category b). There are no significant masses, abnormal calcifications, or other abnormalities. MM/MM tomosynthesis screening BI IMPRESSION: No mammographic evidence of malignancy. ASSESSMENT: BI-RADS BI-RADS 1 - Negative RECOMMENDATION: Routine annual mammography screening. 1 year F/U This examination should not preclude the clinical evaluation of a suspicious palpable abnormality. This patient's information was entered into a reminder system with a target due date for their next mammogram. Electronically prieto d by: Gardenia Agustin DO 04/19/2025 05:03 PM EDT Dictated By: Gardenia Agustin DO Signed By: <Electronically signed by Gardenia Agustin DO in OV> 04/19/25 1703 DD/ 0745 TD/TT: 04/11/25 0800 Dock Clerk: Sacha Olivas Reviewed date:04/14/2025 05:07:37 PM Interpretation: Performing Lab:[facility], [address] [place] [phone] Notes/Report: Sacha Olivas See Note Specimen held untested for 24 hours; Call to request Chemistry testing. Complete Blood Count no Diff Reviewed date:05/23/2025 04:40:28 PM Interpretation: Performing Lab:[facility], [address] [place] [phone] Notes/Report: White Blood Count 7.8 4.8-10.8 X10*3/uL Red Blood Count 4.61 4.20-5.50 X10*6/uL Hemoglobin 13.5 12.0-16.0 g/dl Hematocrit 42.0 37.0-47.0 % Mean Corpuscular Volume 91.1 80.0-98.0 fL Mean Corpuscular Hemoglobin 29.3 27.0-33.0 pg Mean Corpuscular HGB Conc 32.1 31.0-35.0 g/dl Red Cell Distribution Width 14.6 11.0-16.0 % Platelet Count 283 160-400 X10*3/uL Mean Platelet Volume 9.5 9.4-12.3 fL NRBC Pct Auto 0.0 0.0-0.2 /100WBC NRBC Abs Auto 0.000 0.0-0.012 X10*3/uL Urinalysis and Microscopic Reviewed date:05/23/2025 04:42:39 PM Interpretation: Performing Lab:[facility], [address] [place] [phone] Notes/Report: Color Urine Yellow Appearance Urine Clear PH >= 9.0 5.0-9.0 Glucose Urine UA Negative Negative mg/dL Urine Blood Negative Negative Specific [place] - Urine 1.010 1.005-1.025 Urine Protein Negative Neg-Trace mg/dL Urine Ketones Negative Negative mg/dL Nitrite Urine Negative Negative Leukocyte Esterase Urine Small (1+) Negative RBC Urine 0-2 0-2 /HPF WBC Urine 6-10 0-5 /HPF Squamous Epithelial Cell Urine 0-2 0-2 /HPF Bacteria Urine None Seen None Seen Hyaline Casts Urine 0-2 0-2 /LPF Comprehensive Met. Panel Reviewed date:05/23/2025 12:38:05 PM Interpretation: Performing Lab:[facility], [address] [place] [phone] Notes/Report: Sodium 144 135-145 mmol/L Potassium 4.1 3.3-5.1 mmol/L Chloride 110 96-108 mmol/L Carbon Dioxide 27 22-29 mmol/L Anion Gap 11 12-20 Blood Urea Nitrogen 24 9-16 mg/dL Creatinine 1.15 0.5-1.4 mg/dL Estimated Glomerular Filt Rate 45 Chronic Kidney Disease: Estimated GFR < 60 mL/min/1.73m2 Severe Kidney Disease: Estimated GFR < 15 mL/min/1.73m2 Glucose Random 93 60-115 mg/dL Calcium 9.4 8.4-10.2 mg/dL Bilirubin Total 0.5 0.0-1.0 mg/dL Aspartate Amino Transferase 25 5-31 U/L Alanine Aminotransferase 21 0-31 U/L Total Protein 6.6 6.5-8.0 g/dL Albumin Level 4.3 3.5-5.0 g/dL Alkaline Phosphatase 84 39-117 U/L Vitamin D 25-OH Total Reviewed date:05/23/2025 12:22:58 PM Interpretation: Performing Lab:[facility], [address] [place] [phone] Notes/Report: Vitamin D 25-OH Total 62.5 >30 ng/mL Health Based Reference Values* < 20 ng/mL Deficient 20-30 ng/mL Insufficient > 30 ng/mL Sufficient *Ivory FERRELL. N Engl J Med. 2007;357:266-280 There is no well-established upper level of normal vitamin D levels. Some laboratories use 50 ng/mL as an upper limit of normal. However, toxicity is patient-dependent and may occur at any level. Careful correlation with the patient's presentation is necessary and, if there is concern for vitamin D toxicity, treatment should be considered irrespective of the serum level. Care must be taken in interpreting Vitamin D results from different laboratories and methodologies. Published data demonstrated that results from patients undergoing hemodialysis may show a negative bias when tested with various automated 25-OH vitamin D assays when compared to LC-MS/MS. When testing samples from patients whose predominant form of Vitamin D is Vitamin D2, such as patients receiving Vitamin D2 supplementation, results that are subtherapeutic should be confirmed with another method such as LC-MS/MS. Parathyroid Hormone Intact Reviewed date:05/23/2025 12:24:17 PM Interpretation: Performing Lab:[facility], [address] [place] [phone] Notes/Report: Parathyroid Hormone Intact 70.3 8.7-77.1 pg/mL Reason For Referral Reason history of kidney ca ncer Diagnosis 1 History of kidney ca ncer (Z85.528) Referral Organization Cezar Steinberg MD Referring Provider First Name Cezar Referring Provider Last Name Idris Referring Provider Speciality Internal M edicine Referred Provider Tito Marte Referred Provider Specialty Nephrology General Notes Sheila Farley 0 04/21/2025 12:26:14 PM >info faxedMiguelito Annette 05/09/2025 08:39:09 AM >called patient with info and mailed Referral Priority Routine Referral Appointment Date 05/16/2025 Medications Medication SIG (Take, Route, Frequency, Duration) Notes Start Date End Date Status Cyclobenzaprine HCl 5 MG 1 tablet at bed time as needed Orally Once a day for 10 days 04/05/2024 Not-Taking Immunizations Vaccine Route Administration Date Status Comme nts PPSV23 (Pnemovax) IM Intramuscular 03/05/2013 Administered DECLINED, FLU Unknown 06/14/2013 Administered Prevnar 13 IM Intramuscular 07/25/2014 Administered PPSV23 (Pnemovax) IM Intramuscular 09/07/2018 Administered SARS-COV-2 Moderna Unknown 07/03/2021 Administered [facility] SARS-COV-2 Moderna Unknown 07/03/2021 Administered DECLINED, FLU Unknown 07/25/2014 Refused Fluarix Quadrivalent Unknown 09/01/2017 Refused Fluarix Quadrivalent Unknown 07/06/2018 Refused Shingrix Unknown 09/14/2018 Refused TDaP Unknown 09/14/2018 Refused Fluarix Quadrivalent Unknown 09/13/2019 Refused Fluarix Quadrivalent Unknown 07/27/2020 Refused Covid Vaccine Unknown 03/30/2021 Refused Fluarix Quadrivalent Unknown 08/23/2021 Refused Social History Tobacco Use: Social History Observation [...] Problem Status W/U Status Risk Notes Problem Sinusitis (90784363) Sinusitis (J32.9) Active confirmed Problem 079551016 Mixed hyperlipid emia (E78.2) Active confirmed Problem 648730579 Chronic sinusiti s, unspecified (J32.9) Active confirmed Problem 51253685 Slow transit constipation (K59.01) Active confirmed Problem Anosmia (88535786) Anosmia (R43.0) Active confirmed Problem 921414640 History of kidne y cancer (Z85.528) Active confirmed Problem 21777900 Dysthymia (F34.1) Active confirmed Problem 17753473 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) Active confirmed Problem 075610001 Skin cancer (C44.90) Active confirmed Problem 578132694 Pure hypercholesterolemia (E78.00) Active confirmed Problem Leukocytosis (099003752) Elevated white blood cell count (D72.829) Active confirmed Problem Plain X-ray of chest abnormal (finding) (9702010023) Abnormal chest xray (R93.89) Active confirmed Vital Signs Blood pressure diastolic 64 mm Hg 04/21/2025 stanley ght is up 3 pounds since 10-21-24 Height 64 in 04/21/2025 weight is up 3 pounds since 10-21-24 Blood pressure systolic 126 mm Hg 04/21/2025 weig ht is up 3 pounds since 10-21-24 Weight 134 lbs 04/21/2025 weight is up 3 pounds since 10-21-24 BMI 23 kg/m2 04/21/2025 weight is up 3 pounds since 10-21-24 Encounters Encounter Location Date Provider Diagnosis Cezar Steinberg MD [address] [place] [address] Drive [address] [place] [id number] 04/14/2025 Cezar Steinberg Blood tests for rout ine general physical examination Z00.00 and Pure hypercholesterolemia E78.00 Cezar Steinberg MD [address] [place] [address] Drive [address] [place] [id number] 10/21/2024 Cezar Steinberg Skin cancer C44.90 a nd Elevated BUN R79.9 Cezar Steinberg MD [address] [place] [address] Drive [address] [place] [id number] 04/21/2025 Cezar Steinberg Annual physical exam Z00.00 ; Elevated BUN R79.9 ; Fungal infection B49 ; Pure hypercholesterolemia E78.00 and Depression screening Z13.31 Cezar Steinberg MD [address] [place] [address] [place] [id number] 04/21/2025 Cezar Steinberg Assessments Encounter Date Diagnosis (ICD Code) Assessment Notes Treatment Notes Treatment Clinical Notes Section Notes 04/14/2025 Blood tests for rout ine general physical examination (ICD-10 - Z00.00) 10/21/2024 Skin cancer (ICD-10 - C44.90) going for [facility] 10/21/2024 Elevated BUN (ICD-10 - R79.9) is stable, will continue to monitor 04/21/2025 Annual physical exam (ICD-10 - Z00.00) labs reviewed and discussed with patient 04/21/2025 Elevated BUN (ICD-10 - R79.9) need notes from dr marte from this year 04/14/2025 Pure hypercholesterolemia (ICD-10 - E78.00) 04/21/2025 Fungal infection (ICD-10 - B49) to try lamisil, patient verbalized understanding of medication and directions for use 04/21/2025 Pure hypercholesterolemia (ICD-10 - E78.00) stable, will continue current regiment 04/21/2025 Depression screening (ICD-10 - Z13.31) negative screen Plan Of Treatment Pending Test Test Name Order Date Electrocardiogram (EKG) 09/04/2017 XR CHEST 2 VIEW PA & LAT 10/02/2021 Urinalysis 03/23/2021 Next Appt Details Provider Name:Cezar Love ier, 10/18/2025 10:00:00 AM, [address] [place] [address], [place] [address], [place], [place], [phone], Provider Name:Cezar Love ier, 04/18/2026 07:00:00 AM, [address] [place] [address], [address], [phone], Provider Name:Cezar Love ier, 04/25/2026 10:30:00 AM, [address] [place] [address], [address], [phone], Insurance Providers Payer Name Payer Address Payer Phone Subscriber Number Group Number Insured Name Patient Relationship to Insured Coverage Start Date Coverage End Date [employer] [facility] [address] [place] [phone] [id number] Mayte Cole Self - patient is the insured [employer] [facility] [address] [place] [phone] [id number] Mayte Cole Self - patient is the insured Medical (General) History Medical History History ICD Code refuses colonoscopy 2011 and 2012 (don't ask again) Surgical History Surgery Date(Month/Year) kidney cancer 2000
--- OUTSIDE RECORDS SUMMARY | 2025-06-20 16:01 | XMS_ITS | Clinical Summary ---
Author Organization [facility] Address [address] [place] [address] Phone Care Team Providers Care Microfiche Camera Operator Name Role Phone Cezar Steinberg MD Primary [...] patient's age to complete this topic Insurance [facility] Care Teams Microfiche Camera Operator Relationship Specialty Start Date End Date Cezar Steinberg MD [address] [place] [address] [id number] [place], [place] PCP - General Internal Medicine 09/12/21
== END 2025-06-20 11:59 | disposition home or self-care (01) ==
PROVIDERS: PCP Internal Medicine; Visit Provider Internal Medicine Hypertension Specialist
DX: N18.9 Chronic kidney disease, unspecified (principal)
CPT/HCPCS: 99214

== ENCOUNTER → 2025-06-20 11:37 | Outpatient (BNVA) | payer MEDICARE, SELFPAY | PROVIDERS: PCP Internal Medicine; Visit Provider Internal Medicine Hypertension Specialist | DX: Z90.5 Acquired absence of kidney (principal); N18.9 Chronic kidney disease, unspecified | CPT/HCPCS: 99212 ==

== ENCOUNTER 2025-06-27 11:02 | Outpatient (REF) | payer MEDICARE, SELFPAY ==
--- OUTSIDE RECORDS SUMMARY | 2024-05-17 03:45 | XMS_ITS ---
Author Organization Cezar Steinberg MD Address 10 [facility] [address] [place] [phone] Care Team Providers Care Cisco Certified Network Associate Name Role Phone Cezar Steinberg Primary Care Provider [phone] Results Component Value Reference Range Notes Blood Urea Nitrogen Reviewed date:05/17/2024 12:40:36 PM Interpretation: Performing Lab:[facility], [address] [place] [phone] Notes/Report: Blood Urea Nitrogen 25 9-16 mg/dL REASON FOR VISIT BUN Encounters Encounter Location Date Provider Diagnosis Cezar Steinberg MD [address] [place] [address] [place] [phone] 05/17/2024 Cezar Steinberg Elevated BUN R79.9 Assessments Encounter Date Diagnosis (ICD Code) Assessment Notes Treatment Notes Treatment Clinical Notes Section Notes 05/17/2024 Elevated BUN (ICD-10 - R79.9) Plan Of Treatment Next Appt Details Provider Name:Cezar tariq, 10/18/2025 10:00:00 AM, [address] [place] [address], [address], [phone], Provider Name:Cezar tariq, 04/18/2026 07:00:00 AM, [address] [place] [address], [address], [phone], Provider Name:Cezar tariq, 04/25/2026 10:30:00 AM, [address] [place] [address], [address], [phone], Progress Notes * Mayte MAIER MDOB:[birth year] (84 yo F)Acc No.[id number]:05/17/2024 Progress Note Patient: Mayte MCNULTY Provider: Selvin Steinberg MD :1940 A ge:83 Y S ex:Female Date:05/17/2024 Address:[address] [place] [address] Subjective: * Chief Complaints: * 1 . [...] MD Date: 0 05/17/2024 Generated for Selina petersen/Candelario/Toriesmitting on: 0 06/27/2025 01:42 PM EDT
--- OUTSIDE RECORDS SUMMARY | 2024-10-21 06:00 | XMS_ITS ---
Author Organization Cezar Steinberg MD Address [address] [facility] [address] [facility] [address] [place] [phone] Care Team Providers Care Sheet Metal Duct Installer Helper Name Role Phone Cezar Steinberg Primary Care [...] Date Provider Diagnosis Cezar Steinberg MD [address] [place] [phone] 10/21/2024 Cezar Steinberg Skin cancer C44.90 and [...] Provider Name:Cezar tariq, 10/18/2025 10:00:00 AM, [address] [facility], [address], [place], [place], [phone], Provider Name:Cezar Love ier, 04/18/2026 07:00:00 AM, [address] [facility], Suite [facility], [place], [place], [phone], Provider Name:Cezar Love ier, 04/25/2026 10:30:00 AM, [address] [facility], [address] [facility], [place], [place], [phone], Progress Notes * Mayte MAIER MDOB:[birth year] (84 yo F)Acc No.[id number]:10/21/2024 Progress Notes Patient: Ainsley MAURO Mayte Alessandro Provider: Selvin Steinberg MD :1940 A ge:84 Y S ex:Female Date:10/21/2024 Address:[address] [place], [place] [phone] Subjective: * Chief Complaints: * 6 MO [...] MD Date: 0 10/21/2024 Generated for Selina petersen/Candelario/Rabia on: 0 06/27/2025 01:42 PM EDT History and Physical Notes * [...]
--- OUTSIDE RECORDS SUMMARY | 2025-04-14 03:15 | XMS_ITS ---
Author Organization Cezar Steinberg MD Address [address] [place], [place] [phone] Care Team Providers Care Addiction Specialist Name Role Phone Cezar Steinberg Primary Care Provider [phone] Results Component Value Reference Range Notes Complete Blood Count Auto Di ff Reviewed date:04/14/2025 05:14:46 PM Interpretation: Performing Lab:[facility], [address] [place] [phone] Notes/Report: White Blood Count 8.8 4.8-10.8 X10*3/uL [...] NRBC Abs Auto 0.000 0.0-0.012 X10*3/uL Comprehensive [place]. Panel Fa st Reviewed date:04/14/2025 05:19:06 PM Interpretation: Performing Lab:[facility], [address] [place] [phone] Notes/Report: Sodium 142 135-145 mmol/L Potassium 4.3 [...] Panel Reviewed date:04/14/2025 04:16:43 PM Interpretation: Performing Lab:[facility], [address] [place] [phone] Notes/Report: Triglycerides 126 <150 mg/dL Desirable Triglyceride: [...] t Reviewed date:04/14/2025 05:19:46 PM Interpretation: Performing Lab:[facility], [address] [place] [phone] Notes/Report: Urine, Clean Catch Color Urine Yellow Appearance Urine Clear PH 8.0 5.0-9.0 Glucose Urine UA Negative Negative mg/dL Urine Blood Negative Negative Specific [place] - Urine 1.010 1.005-1.025 Urine Protein Negative [...] Location Date Provider Diagnosis Cezar Steinberg MD [address] [place] [address] [address] [place], [place] [phone] 04/14/2025 Cezar Steinberg Blood tests for rout ine general physical examination Z00.00 and Pure hypercholesterolemia E78.00 Assessments Encounter Date Diagnosis (ICD Code) Assessment Notes Treatment Notes Treatment Clinical Notes Section Notes 04/14/2025 Blood tests for rout ine general physical examination (ICD-10 - Z00.00) 04/14/2025 Pure hypercholesterolemia (ICD-10 - E78.00) Plan Of Treatment Next Appt Details Provider Name:Cezar tariq, 10/18/2025 10:00:00 AM, [address] [place] [address], [address], [place], [place], [phone], Provider Name:Cezar tariq, 04/18/2026 07:00:00 AM, [address] [place] [address], [address], [place], [place], [phone], Provider Name:Cezar Love ier, 04/25/2026 10:30:00 AM, [address] [facility], [address], [place], [place], [phone], Progress Notes * Mayte MAIER MDOB:[birth year] (84 yo F)Acc No.[id number]:04/14/2025 Progress Note Patient: Mayte MCNULTY Provider: Selvin Steinberg MD :1940 A ge:84 Y S ex:Female Date:04/14/2025 Address:[address] [place], [place] [phone] Subjective: * Chief Complaints: * 1 . FASTING LABS. * Medical History: Objective: * Vitals: Assessment: * Assessment: 1. B lood tests for routine general physical examination - Z00.00 (Primary) 2 .?Pure hypercholesterolemia - E78.00 Plan: * Treatment: 2. P ure hypercholesterolemia L AB: Complete Blood Count Auto Diff (Collection Date & Time - 04/14/2025 07:15 AM) L AB: Comprehensive [place]. Panel Fast (Collection Date & Time - [...] 0 04/14/2025 Generated for Selina petersen/Candelario/eTrainersmitting on: 06/27/2025 01:42 PM EDT
--- OUTSIDE RECORDS SUMMARY | 2025-04-21 05:30 | XMS_ITS ---
Author Organization Cezar Steinberg MD Address [address] [place] [phone] Care Team Providers Care Molder Hand Name Role Phone Cezar Steinberg Primary Care [...] Cezar Steinberg MD [address] [place] [phone] 04/21/2025 Cezar Steinberg Annual physical exam Z00.00 [...] Details Follow Up: 6 Months, Reason: Provider Name:Ceazr tariq, 10/18/2025 10:00:00 AM, [address] [place] [address], [phone], Provider Name:Cezar tariq, 04/18/2026 07:00:00 AM, [address] [place] [address], [phone], Provider Name:Cezar tariq, 04/25/2026 10:30:00 AM, [address] [place] [address], [phone], Progress Notes * Mayte MAIER MDOB:[birth year] (84 yo F)Acc No.[id number]:04/21/2025 Progress Notes Patient: Mayte MCNULTY Provider: Selvin Steinberg MD :1940 A ge:84 Y S ex:Female Date:04/21/2025 Address:[address] [place], [place] [phone] Subjective: * Chief Complaints: * A NNUAL [...] Auto 0.000 0.0-0.012 - X10*3/uL L ab:Comprehensive [place]. Panel Fast (Order Date - 04/14/2025) (Collection [...] mg/dL Urine Blood Negative Negative - Specific [place] - Urine 1.010 1.005-1.025 - Urine Protein [...] masses palpable. RECTAL EXAM: d one by ob/gyn physician. FEMALE GENITOURINARY: d one by ob/gyn physician. EXTREMITIES: n o clubbing, cyanosis, or edema, [...] 0 04/21/2025 Generated for Selina petersen/Candelario/Rabia on: 0 06/27/2025 01:41 PM EDT History and Physical Notes * [...] had two or more falls in the st year?: No Communication Needs Communication Needs Does [...] mass, no lump RECTAL EXAM: done by ob/gyn physician FEMALE GENITOURINARY: done by ob/gyn physician ORAL CAVITY: mucosa moist
--- OUTSIDE RECORDS SUMMARY | 2025-04-21 06:20 | XMS_ITS ---
Author Organization Cezar Steinberg MD Address [address] [facility] [address] [place] [phone] Care Team Providers Care Street Cleaning Equipment Operator Name Role Phone Cezar Steinberg Primary Care Provider [phone] Reason For Referral Reason history of kidney [...] Location Date Provider Diagnosis Cezar Steinberg MD [address] [place] [address] [address] [place] [address] [phone] 04/21/2025 Cezar Steinberg Plan Of Treatment Referrals Referral Date Details 04/21/2025 04/21/2025, history of kidney cancer, Tito Hawley Next Appt Details Provider Name:Cezar tariq, 10/18/2025 10:00:00 AM, [address] [place] [address], [address] [place] [address], [phone], Provider Name:Cezar tariq, 04/18/2026 07:00:00 AM, [address] [place] [address], [address] [place] [address], [phone], Provider Name:Cezar tariq, 04/25/2026 10:30:00 AM, [address] [facility], [address], [place], [place], [phone], Progress Notes * Mayte MAIER MDOB:[birth year] (84 yo F)Acc No.[id number]:04/21/2025 Patient: Mayte MCNULTY :1940 A ge:84 Y S ex:Female Address:[address] [place] [phone] Subjective: * Chief Complaints: * F LUXEMBOURGISH Dr. Hawley note * Medical History: * Surgical History: * Hospitalization/Major Diagno stic Procedure: * Medications: Objective: * Vitals: * Physical Examination: Assessment: Plan: * Treatment: * Procedure Codes: * true * Date: Generated for Printi ng/Faallag/eTransmitting on: 0 06/27/2025 01:43 PM EDT Consultation Request Notes Referral Date Referring Provider Referred Provider Not ismael 04/21/2025 Cezar Steinberg Balaji history of kidney cancer
--- OUTSIDE RECORDS SUMMARY | 2025-05-17 05:30 | XMS_ITS ---
Author Organization [facility] Address [address] [place] [address] Care Team Providers Care Compositor Apprentice Name Role Phone Idris GRIGGS, Cezar Primary Care Provider Isma Allison Unavailable [phone] REASON FOR VISIT r/s for sooner apt Encounters Encounter Location Date Provider Diagnosis [facility] [address] [place] [address] 05/17/2025 Isma Ceron Plan Of Treatment No Information Progress Notes * Mayte COLE MDOB:[birth year] (84 yo F)Acc No.[id number]:05/17/2025 Progress Notes Patient: Ainsley Mayte MAURO Provider: Estefania Ceron DPM :1940 A ge:84 Y S ex:Female Date:05/17/2025 Address: [address] [id number] Pcp:Cezar Steinberg MD Subjective: * Chief Complaints: [...] Date: 05/17/2025 Generated for Printi ng/Faxing/eTransmitting on: 06/27/2025 01:42 PM EDT
[2025-06-27 11:14] VITALS: BP 140/63; PULSE 75; RESP 18; O2SAT 98; BMI 22.5
--- OUTSIDE RECORDS SUMMARY | 2025-06-27 13:42 | XMS_ITS | Patient Health Record ---
Author Organization Cezar Steinberg MD Address [address] [place], [place] [id number] Care Team Providers Care Conservation Technician Name Role Phone Cezar Steinberg Primary Care Provider [phone] Allergies Allergen (clinical drug ingredient) Drug/Non Drug Allergy documented on EMR Reaction Allergy Type Onset Date Status Information temporarily unavailable Percocet nauseau vomiting Drug Allergy Active Results Component Value Reference Range Notes Complete Blood Count Auto Di ff Reviewed date:04/14/2025 05:14:46 PM Interpretation: Performing Lab:[facility], [address] [place] [phone] Notes/Report: White Blood Count 8.8 4.8-10.8 X10*3/uL [...] NRBC Abs Auto 0.000 0.0-0.012 X10*3/uL Comprehensive [place]. Panel Fa st Reviewed date:04/14/2025 05:19:06 PM Interpretation: Performing Lab:[address] [phone] Notes/Report: Sodium 142 135-145 mmol/L Potassium 4.3 [...] Panel Reviewed date:04/14/2025 04:16:43 PM Interpretation: Performing Lab:[address] [phone] Notes/Report: Triglycerides 126 <150 mg/dL Desirable Triglyceride: [...] t Reviewed date:04/14/2025 05:19:46 PM Interpretation: Performing Lab:[facility], [address] [place] [phone] Notes/Report: Urine, Clean Catch Color Urine Yellow Appearance Urine Clear PH 8.0 5.0-9.0 Glucose Urine UA Negative Negative mg/dL Urine Blood Negative Negative Specific [place] - Urine 1.010 1.005-1.025 Urine Protein Negative [...] date:04/19/2025 05:18:11 PM Interpretation: Performing Lab: Notes/Report: [facility] [address] [place] [address] Mammography Report Signed Patient: Mayte Cole MR#: [id number] 651 : 1940 Acct:[id number] Age/Sex: 84 / F ADM Date: 04/11/25 Loc: CLARICE Attending Dr: Cezar Steinberg MD Ordering Physician: Cezar Steinberg MD Results: 1Ne gative Date of Service: 04/11/25 Follow Up: 1 Year From Orig inal Mammogram Procedure(s): MM tomosynthesis screening BI Accession Number(s): [id number] cc: Cezar Steinberg MD EXAMINATION: MM SCREENING [...] 04/19/25 1703 DD/ 0745 TD/TT: 04/11/25 0800 Resawyer: [facility] [address] [place] [address] Mammography Report Signed Patient: Heidi Cole MR#: [id number] 651 : 1940 Acct:[id number] Age/Sex: 84 / F ADM Date: 04/11/25 Loc: HO.MAMMO Attending Dr: Cezar Steinberg MD Ordering Physician: Cezar Steinberg MD Results: 1Ne gative Date of Service: 04/11/25 Follow Up: 1 Year From Orig inal Mammogram Procedure(s): MM tomosynthesis screening BI Accession Number(s): [id number] cc: Cezar Steinberg MD EXAMINATION: MM SCREENING [...] 04/19/25 1703 DD/ 0745 TD/TT: 04/11/25 0800 Resawyer: Sacha Olivas Reviewed date:04/14/2025 05:07:37 PM Interpretation: Performing Lab:[facility], [address] [place] [phone] Notes/Report: Sacha Olivas See Note Specimen held untested for 24 hours; Call to request Chemistry testing. Complete Blood Count no Diff Reviewed date:05/23/2025 04:40:28 PM Interpretation: Performing Lab:[facility], [address] [place] [phone] Notes/Report: White Blood Count 7.8 4.8-10.8 X10*3/uL [...] Microscopic Reviewed date:05/23/2025 04:42:39 PM Interpretation: Performing Lab:[facility], [address] [place] [phone] Notes/Report: Color Urine Yellow Appearance Urine Clear PH >= 9.0 5.0-9.0 Glucose Urine UA Negative Negative mg/dL Urine Blood Negative Negative Specific [place] - Urine 1.010 1.005-1.025 Urine Protein Negative Neg-Trace mg/dL Urine Ketones Negative Negative mg/dL Nitrite Urine Negative Negative Leukocyte Esterase Urine Small (1+) Negative RBC Urine 0-2 0-2 /HPF WBC Urine 6-10 0-5 /HPF Squamous Epithelial Cell Urine 0-2 0-2 /HPF Bacteria Urine None Seen None Seen Hyaline Casts Urine 0-2 0-2 /LPF Comprehensive Met. Panel Reviewed date:05/23/2025 12:38:05 PM Interpretation: Performing Lab:[facility], [address] [place] [phone] Notes/Report: Sodium 144 135-145 mmol/L Potassium 4.1 [...] Total Reviewed date:05/23/2025 12:22:58 PM Interpretation: Performing Lab:[facility], [address] [place] [phone] Notes/Report: Vitamin D 25-OH Total 62.5 >30 [...] Intact Reviewed date:05/23/2025 12:24:17 PM Interpretation: Performing Lab:[facility], [address] [place] [phone] Notes/Report: Parathyroid Hormone Intact 70.3 8.7-77.1 pg/mL [...] Status W/U Status Risk Notes Problem Sinusitis (49423109) Sinusitis (J32.9) Active confirmed Problem 947439102 Mixed hyperlipid emia (E78.2) Active confirmed Problem 912522976 Chronic sinusiti s, unspecified (J32.9) Active confirmed Problem 51699118 Slow transit constipation (K59.01) Active confirmed Problem Anosmia (21217117) Anosmia (R43.0) Active confirmed Problem 182395651 History of kidne y cancer (Z85.528) Active confirmed Problem 68311265 Dysthymia (F34.1) Active confirmed Problem 61043125 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) Active confirmed Problem 873875009 Skin cancer (C44.90) Active confirmed Problem 243668784 Pure hypercholesterolemia (E78.00) Active confirmed Problem Leukocytosis (167017671) Elevated white blood cell count (D72.829) Active confirmed Problem Plain X-ray of chest abnormal (finding) (3431426894) Abnormal chest xray (R93.89) Active confirmed Vital [...] Date Provider Diagnosis Cezar Steinberg MD [address] [place] [address] Drive [address] [place] [id number] 04/14/2025 Cezar Steinberg Blood tests for rout ine general physical examination Z00.00 and Pure hypercholesterolemia E78.00 Cezar Steinberg MD [address] [place] [address] Drive [address] [place] [id number] 10/21/2024 Cezar Steinberg Skin cancer C44.90 a nd Elevated BUN R79.9 Cezar Steinberg MD [address] [place] [address] Drive [address] [place] [id number] 04/21/2025 Cezar Steinberg Annual physical exam Z00.00 ; Elevated BUN R79.9 ; Fungal infection B49 ; Pure hypercholesterolemia E78.00 and Depression screening Z13.31 Cezar Steinberg MD [address] [place] [address] [place] [id number] 04/21/2025 Cezar Steinberg Assessments Encounter Date Diagnosis (ICD Code) Assessment Notes Treatment Notes Treatment Clinical Notes Section Notes 04/14/2025 [address] tests for [address] ine general physical examination (ICD-10 - Z00.00) 10/21/2024 Skin cancer (ICD-10 - C44.90) going for [facility] 10/21/2024 Elevated BUN (ICD-10 - R79.9) [...] Provider Name:Cezar Love ier, 10/18/2025 10:00:00 AM, [address] [place] [address], [place] [address], [place], [place], [phone], Provider Name:Cezar Love ier, 04/18/2026 07:00:00 AM, [address] [place] [address], [address], [phone], Provider Name:Cezar Love ier, 04/25/2026 10:30:00 AM, [address] [place] [address], [address], [phone], Insurance Providers Payer Name Payer Address Payer Phone Subscriber Number Group Number Insured Name Patient Relationship to Insured Coverage Start Date Coverage End Date [employer] [facility] [address] [place] [phone] [id number] Mayte Cole Self - patient is the insured [employer] [facility] [address] [place] [phone] [id number] Mayte Cole Self - patient is the insured Medical (General) History Medical History History ICD Code refuses colonoscopy 2011 and 2012 (don't ask again) Surgical History Surgery Date(Month/Year) kidney cancer 2000
--- OUTSIDE RECORDS SUMMARY | 2025-06-27 13:42 | XMS_ITS | Patient Health Record ---
Author Organization [facility]ri [facility] Address [address] [place] [address] Care Team Providers Care Refrigerated Cargo Clerk Name Role Phone Cezar Steinberg MD Primary Care Provider Isma Allison Unavailable [phone] Sarah Beth Hong Unavailable [phone] Allergies Allergen (clinical drug ingredient) Drug/Non Drug [...] W/U Status Risk Notes Problem Tinea unguium (599739478) Tinea unguium (B35.1) Active confirmed Problem Plantar wart (33751706) Plantar wart (B07.0) Active confirmed Vital Signs Blood pressure diastolic 65 mm Hg 05/26/2025 Height 5 ft 3 in in 05/26/2025 Blood pressure systolic 128 mm Hg 05/26/2025 Weight 126 lbs 05/26/2025 BMI 22.32 kg/m2 05/26/2025 Procedures Procedure Date Ordered Date Performed Result Body Sit e 79452-Honq Destruction, 1-04/27/2025 N/A 17120-Afrd Destruction, -05/26/2025 N/A Encounters Encounter Location Date Provider Diagnosis [facility] [address] [place] [address] 04/27/2025 Sarah Beth Hong Left foot pain M79.672 and Plantar wart B07.[address] [address] 05/26/2025 Sarah Beth Hong Left foot pain M79.672 and Plantar wart B07.[address] [address] 04/25/2025 Isma Ceron Assessments Encounter Date Diagnosis (ICD Code) Assessment Notes Treatment Notes Treatment Clinical Notes Section Notes 04/27/2025 Left foot pain (ICD-10 - M79.672) 05/26/2025 Left foot pain (ICD-10 - M79.672) 04/27/2025 Plantar wart (ICD-10 - B07.0) 05/26/2025 Plantar wart (ICD-10 - B07.0) Plan Of Treatment Pending Test Test Name Order Date X ray : Foot, left 3V 07/26/2013 85457-[id number] NAIL, 6 OR MORE 11/09/2019 91100-Qsse Destruction, 1-14 11/09/2019 58806-Monc Destruction, 1-14 04/27/2025 09047-Gitx Destruction, 1-14 05/26/2025 Insurance Providers Payer Name Payer Address Payer Phone Subscriber Number Group Number Insured Name Patient Relationship to Insured Coverage Start Date Coverage End Date [employer] [place] [employer] Advantage [facility] [address] [place] [address] [id number] Mayte Cole Self - patient is the insured 4 Medical (General) History Medical History History ICD Code kidney cancer cataracts Surgical History Surgery Date(Month/Year) Kidney removal 2000
--- OUTSIDE RECORDS SUMMARY | 2025-06-27 13:43 | XMS_ITS | Clinical Summary ---
Author Organization [facility] Address [address] [place] [address] Phone Care Team Providers Care Interventional Nurse Name Role Phone Cezar Steinberg MD Primary [...] patient's age to complete this topic Insurance [facility] Care Teams Interventional Nurse Relationship Specialty Start Date End Date Cezar Steinberg MD [address] [place] [address] [address] [place], [place] PCP - General Internal Medicine 09/12/21
== END 2025-06-27 11:03 | disposition home or self-care (01) ==
LOC: HO.MS 11:02
PROVIDERS: PCP Internal Medicine; Visit Provider Ophthalmology
PROC: (CPT 66821; principal; 2025-06-27 13:30)
DX: H26.491 Other secondary cataract, right eye (principal)
CPT/HCPCS: 66821

== ENCOUNTER 2025-08-18 11:21 | Outpatient (REF) | payer MEDICARE, SELFPAY ==
--- OUTSIDE RECORDS SUMMARY | 2024-04-05 09:15 | XMS_ITS ---
Author Organization Cezar Steinberg MD Address [address] [place] [phone] Care Team Providers Care Property Utilization Officer Name Role Phone Cezar Steinberg Primary Care Provider [phone] Allergies Allergen (clinical drug ingredient) Drug/Non Drug Allergy documented on EMR Reaction Allergy Type Onset Date Status Information temporarily unavailable Percocet nauseau vomiting Drug Allergy Active REASON FOR VISIT FELL AND HURT LEFT LEG at [facility] 2 12:30 today slipped on water at the self check out Medications Medication SIG (Take, Route, Frequency, Duration) Notes Start Date End Date Status Cyclobenzaprine HCl 5 MG 1 tablet at bed time as needed Orally Once a day for 10 days 04/05/2024 Active Vital Signs Blood pressure systolic 132 mm Hg 04/05/20 24 Blood pressure diastolic 70 mm Hg 024 Height 64 in 04/05/2024 Weight 131 lbs 04/05/2024 BMI 22.48 kg/m2 04/05/2024 Encounters Encounter Location Date Provider Diagnosis Cezar Steinberg MD [address] [place] [address] [phone] 04/05/2024 Cezar Steinberg Status post fall Z91.81 and Pulled muscle T14.8XXA Assessments Encounter Date Diagnosis (ICD Code) Assessment Notes Treatment Notes Treatment Clinical Notes Section Notes 04/05/2024 Status post fall (ICD-10 - Z91.81) patient verbalized understanding of medicationand directions for use, at this point no need for any further evaluation. will observe and recheck in 2 weeks. 04/05/2024 Pulled muscle (ICD-10 - T14.8XXA) Plan Of Treatment Medication Medication Name Sig Start Date Stop Date Notes Cyclobenzaprine HCl 5 MG 1 tablet at bed time as needed Orally Once a day for 10 days 04/05/2024 Treatment Notes Assessment Notes Status post fall patient verbalized u nderstanding of medicationand directions for use, at this point no need for any further evaluation. will observe and recheck in 2 weeks. Next Appt Details Provider Name:Cezar Monroy Ivan tariq, 08/30/2025 11:30:00 AM, [address] [place] [address], [address], [phone], Provider Name:Cezar P Ivan tariq, 10/18/2025 10:00:00 AM, [address] [place] [address], [address], [phone], Provider Name:Cezar P Ivan tariq, 04/18/2026 07:00:00 AM, [address] [place] [address], [address], [phone], Provider Name:Cezar Eliana Ivan tariq, 04/25/2026 10:30:00 AM, [address] [place] [address], [address], [phone], Progress Notes * Mayte MAIER MDOB:[birth year] (84 yo F)Acc No.[id number]:04/05/2024 Progress Notes Patient: Mayte MCNULTY Provider: Selvin Steinberg MD :1940 A ge:83 Y S ex:Female Date:04/05/2024 Address:[address] [place], [place] [id number] Subjective: * Chief Complaints: * 1 . FELL AND HURT LEFT LEG at [facility] 2 12:30 today slipped on water at the self check out. * HPI: F all Risk: History H ave you had any falls with injury in the past year? Y es at [facility] 12;30PM today slipped on water at the self check out fell on her left knee, feels pain in her left thigh. Did not go to the ER. S ymptom(s): patient is a 83 yo female twisted her leg when she fell on water at the self check out at [facility] today. pulled from knee up her thigh. someone helped her up and back was sore. * ROS: G eneral/Constitutional: Denies C hills. D enies F atigue. D enies F ever. D enies H eadache. E NT: Patient denies d ecreased sense of smell , any loss of taste , sore throat. R espiratory: Denies C ough. D enies S hortness of breath at rest. D enies S hortness of breath with exertion. G astrointestinal: Denies D iarrhea. D enies N ausea. M usculoskeletal: Patient denies m uscle aches. P atient complaining of?pain in the rt knee and up the thigh. P eripheral Vascular: Patient denies r ed and blue toes. * Medical History: R efuses colonoscopy 2011 and 2012 2013 2016 2018 (don't ask again). * Medications: N one * Allergies: P ercocet: nauseau vomiting. Objective: * Vitals: H t: 64, Wt:131, BMI:22.48, BP:132/70. * Examination: G eneral Examination: GENERAL APPEARANCE: alert, well hydrated, in no distress . HEAD: normocephalic. MUSCULOSKELETAL: abnormal with area from knee to groin but no pain to palpation. normal dtr's and normal strength. . Assessment: * Assessment: 1. S tatus post fall - Z91.81 (Primary) 2 . P ulled muscle - T14.8XXA ? Plan: * Treatment: * * The named appointment provid er may or may not be the originator of this progress note, and it is not deemed complete until electronically signed by the appointment provider. Sign off status: Pending * Provider: Selvin Steinberg MD Date: 0 04/05/2024 Generated for Selina petersen/Candelario/Rabia on: 10/18/2024 02:32 PM EST History and Physical Notes * HPI (History of Present Illness) Category Sub-Category Detail Notes Category Not es Symptom(s) patient is a 83 yo female twisted her leg when she fell on water at the self check out at [facility] today. pulled from knee up her thigh. someone helped her up and back was sore. Fall Risk History Have you had any falls with injury in the past year?: Yes at [facility] 12;30PM today slipped on water at the self check out fell on her left knee, feels pain in her left thigh. Did not go to the ER Examination Category Sub-Category Detail Notes Category Not es General Examination GENERAL APPEARANCE: alert, w ell hydrated, in no distress HEAD: normocephalic MUSCULOSKELETAL: abnormal with area f rom knee to groin but no pain to palpation. normal dtr's and normal strength.
--- OUTSIDE RECORDS SUMMARY | 2024-04-05 09:26 | XMS_ITS ---
Author Organization Cezar Steinberg MD Address [address] [facility] [address] [place] [phone] Care Team Providers Care Licensing Representative Name Role Phone Cezar Steinberg Primary Care Provider REASON FOR VISIT W/C issue Encounters Encounter Location Date Provider Diagnosis Cezar Steinberg MD [address] [facility] [address] [place] [phone] 04/05/2024 Cezar Steinberg Plan Of Treatment Next Appt Details Provider Name:Cezar tariq, 08/30/2025 11:30:00 AM, [address] [place] [address], [address] [place] [address], [phone], Provider Name:Cezar tariq, 10/18/2025 10:00:00 AM, [address] [place] [address], [address], [phone], Provider Name:Cezar tariq, 04/18/2026 07:00:00 AM, [address] [place] [address], [address], [phone], Provider Name:Cezar tariq, 04/25/2026 10:30:00 AM, [address] [place] [address], [address], [phone], Progress Notes * Mayte MAIER MDOB:[birth year] (83 yo F)Acc No.[id number]:04/05/2024 Patient: Mayte Menjivar :1940 A ge:83 Y S ex:Female Address:[address] [place] [id number] * true * Date: Generated for Selina petersen/Candelario/Rabia on: 10/18/2024 02:32 PM EST
--- OUTSIDE RECORDS SUMMARY | 2024-04-12 02:45 | XMS_ITS ---
Author Organization Cezar Steinberg MD Address [address] [place], [place] [id number] Care Team Providers Care Manager Paper Name Role Phone Cezar Steinberg Primary Care Provider Results Component Value Reference Range Notes Complete Blood Count Auto Di ff Reviewed date:04/12/2024 12:31:31 PM Interpretation: Performing Lab:[facility], [address] [place] [phone] Notes/Report: White Blood Count 8.1 4.8-10.8 X10*3/uL Red Blood Count 4.73 4.20-5.50 X10*6/uL Hemoglobin 13.8 12.0-16.0 g/dl Hematocrit 43.9 37.0-47.0 % Mean Corpuscular Volume 92.8 80.0-98.0 fL Mean Corpuscular Hemoglobin 29.2 27.0-33.0 pg Mean Corpuscular HGB Conc 31.4 31.0-35.0 g/dl Red Cell Distribution Width 14.3 11.0-16.0 % Platelet Count 361 160-400 X10*3/uL Mean Platelet Volume 10.1 9.4-12.3 fL Neutrophils Percent Auto 51.7 45-73 % Imm Gran Pct Auto 0.2 0.0-0.4 % Lymphocytes Percent Auto 33.6 20-40 % Monocytes Percent Auto 10.9 2-11 % Eosinophils Percent Auto 2.7 0-4 % Basophils Percent Auto 0.9 0-2 % NRBC Pct Auto 0.0 0.0-0.2 /100WBC Neutrophils Absolute Auto 4.2 2.0-8.3 x10*3/u L Imm Gran Abs Auto 0.02 0.00-0.03 X10*3/uL Lymphocytes Absolute Auto 2.7 1.2-4.9 X10*3/u L Monocytes Absolute Auto 0.9 0.1-1.2 X10*3/uL Eosinophils Absolute Auto 0.2 0.0-0.4 X10*3/u L Basophils Absolute Auto 0.1 0.0-0.2 X10*3/uL NRBC Abs Auto 0.000 0.0-0.012 X10*3/uL Comprehensive [place]. Panel Fa Reviewed date:04/12/2024 12:32:07 PM Interpretation: Performing Lab:[facility], [address] [place] [phone] Notes/Report: Sodium 144 135-145 mmol/L Potassium 4.1 3.3-5.1 mmol/L Chloride 109 96-108 mmol/L Carbon Dioxide 23 22-29 mmol/L Anion Gap 16 12-20 Blood Urea Nitrogen 25 9-16 mg/dL Creatinine 1.10 0.5-1.4 mg/dL Estimated Glomerular Filt Rate 48 NOTE: For -[place] individuals, multiply the result by 1.210. Chronic Kidney Disease: Estimated GFR < 60 mL/min/1.73m2 Severe Kidney Disease: Estimated GFR < 15 mL/min/1.73m2 Glucose Fasting 87 60-99 mg/dL Calcium 9.7 8.4-10.2 mg/dL Bilirubin Total 0.4 0.0-1.0 mg/dL Aspartate Amino Transferase 24 5-31 U/L Alanine Aminotransferase 19 0-31 U/L Total Protein 7.1 6.5-8.0 g/dL Albumin Level 4.2 3.5-5.0 g/dL Alkaline Phosphatase 80 39-117 U/L Lipid Panel Reviewed date:04/12/2024 12:22:25 PM Interpretation: Performing Lab:[facility], [address] [place] [phone] Notes/Report: Triglycerides 131 <150 mg/dL Desirable Triglyceride: less than 150 mg/dL Borderline High Triglyceride 150-199 mg/dL High Triglyceride: 200-499 mg/dL Very High Triglyceride: greater than or equal to 5OO mg/dL Cholesterol 222 <200 mg/dL Desirable Cholesterol: less than 200 mg/dL Borderline High Cholesterol: 200-239 mg/dL High Cholesterol: greater than 239 mg/dL LDL Cholesterol Calculated 143 <100 mg/dL Desirable LDL: less than 100 mg/dL Near Optimal/Above Optimal LDL: 110-129 mg/dL Borderline High LDL: 130-159 mg/dL High LDL: 160-189 mg/dL Very High LDL: greater than or equal to 190 mg/dL HDL Cholesterol 53 >40 mg/dL Desirable HDL: greater than 40 mg/dL Note: This HDL assay may give artificially low results in patients with liver disease. UA ClnCatch+Micro w/rflx Cul t Reviewed date:04/12/2024 04:52:06 PM Interpretation: Performing Lab:[facility], [address] [place] [phone] Notes/Report: Urine, Clean Catch Color Urine Yellow Appearance Urine Clear PH 6.0 5.0-9.0 Glucose Urine UA Negative Negative mg/dL Urine Blood Negative Negative Specific [place] - Urine 1.010 1.005-1.025 Urine Protein Negative Neg-Trace mg/dL Urine Ketones Negative Negative mg/dL Nitrite Urine Negative Negative Leukocyte Esterase Urine Small (1+) Negative RBC Urine 0-2 0-2 /HPF WBC Urine 0-5 0-5 /HPF Squamous Epithelial Cell Urine 0-2 0-2 /HPF Bacteria Urine None Seen None Seen Hyaline Casts Urine 0-2 0-2 /LPF REASON FOR VISIT yearly labs Encounters Encounter Location Date Provider Diagnosis Cezar Steinberg MD [address] [place], [place] [id number] 04/12/2024 Cezar Steinberg Blood tests for rout ine general physical examination Z00.00 and Pure hypercholesterolemia E78.00 Assessments Encounter Date Diagnosis (ICD Code) Assessment Notes Treatment Notes Treatment Clinical Notes Section Notes 04/12/2024 Blood tests for rout ine general physical examination (ICD-10 - Z00.00) 04/12/2024 Pure hypercholesterolemia (ICD-10 - E78.00) Plan Of Treatment Next Appt Details Provider Name:Cezar tariq, 08/30/2025 11:30:00 AM, [address], [address], [place], [place], [phone], Provider Name:Cezar tariq, 10/18/2025 10:00:00 AM, [address] [facility], [address], [place], [place], [phone], Provider Name:Cezar Love ier, 04/18/2026 07:00:00 AM, [address] [facility], Suite [facility], [place], [place], [phone], Provider Name:Cezar Love ier, 04/25/2026 10:30:00 AM, [address] [facility], Suite [facility], [place], [place], [phone], Progress Notes * Mayte MAIER MDOB:[birth year] (84 yo F)Acc No.[id number]:04/12/2024 Progress Note Patient: Mayte MCNULTY Provider: Selvin Steinberg MD :1940 A ge:83 Y S ex:Female Date:04/12/2024 Address:[address] [place], [place] [phone] Subjective: * Chief Complaints: * 1 . Yearly labs. * Medical History: Objective: * Vitals: Assessment: * Assessment: 1. B lood tests for routine general physical examination - Z00.00 (Primary) 2 .?Pure hypercholesterolemia - E78.00 Plan: * Treatment: 2. P ure hypercholesterolemia L AB: Complete Blood Count Auto Diff (Collection Date & Time - 04/12/2024 07:45 AM) L AB: Comprehensive [place]. Panel Fast (Collection Date & Time - 04/12/2024 07:45 AM) L AB: Lipid Panel (Collection Date & Time - 04/12/2024 07:45 AM) L AB: UA ClnCatch+Micro w/rflx Cult (Collection Date & Time - 04/12/2024 07:45 AM) * Procedure Codes: 3 6415 VENIPUNCT, ROUTINE* * * The named appointment provid er may or may not be the originator of this progress note, and it is not deemed complete until electronically signed by the appointment provider. Sign off status: Pending * Provider: Selvin Steinberg MD Date: 0 04/12/2024 Generated for Selina petersen/Candelario/eTrainersmitting on: 1 10/18/2024 02:33 PM EST
--- OUTSIDE RECORDS SUMMARY | 2024-04-19 04:30 | XMS_ITS ---
Author Organization Cezar Steinberg MD Address [address] [place], [place] [phone] Care Team Providers Care Clinical Project Coordinator Name Role Phone Cezar Steinberg Primary Care Provider Allergies Allergen (clinical drug ingredient) Drug/Non Drug Allergy documented on EMR Reaction Allergy Type Onset Date Status Information temporarily unavailable Percocet nauseau vomiting Drug Allergy Active Results Component Value Reference Range Notes Occult Blood, Stool, Guaiac Reviewed date:04/19/2024 03:15:31 PM Interpretation:Negative Performing Lab: Notes/Report: Negative Occult Blood, Stool, Guaiac Neg REASON FOR VISIT annual visit Medications Medication SIG (Take, Route, Frequency, Duration) Notes Start Date End Date Status Cyclobenzaprine HCl 5 MG 1 tablet at bed time as needed Orally Once a day for 10 days 04/05/2024 Not-Taking Social History Tobacco Use: Social History Observation Description Date Details (start date - stop date) Never Smoker NA - NA Tobacco Use/Smoking Question Answer Notes Patient is a nonsmoker Additional Findings: Tobacco Non-User Cu rrent non-smoker, currently using no form of tobacco Alcohol Screen Question Answer Notes Did you have a drink containing alcohol in the p ast year? No Points 0 Interpretation Negative Problems Problem Type SNOMED Code ICD Code Onset Dates Problem Status W/U Status Risk Notes Problem 528857121 Skin cancer (C44.90) Active confirmed Vital Signs Blood pressure systolic 118 mm Hg 04/19/20 24 Blood pressure diastolic 64 mm Hg 024 Height 64 in 04/19/2024 Weight 129 lbs 04/19/2024 BMI 22.14 kg/m2 04/19/2024 weight is down 2 pounds [facility] 7-1-24 Encounters Encounter Location Date Provider Diagnosis Cezar Steinberg MD [address] [place] [address] [place] [phone] 04/19/2024 Cezar Steinberg Elevated BUN R79.9 ; Mixed hyperlipidemia E78.2 ; Skin cancer C44.90 ; Colon cancer screening Z12.11 and Encounter for screening for depression Z13.31 Assessments Encounter Date Diagnosis (ICD Code) Assessment Notes Treatment Notes Treatment Clinical Notes Section Notes 04/19/2024 Elevated BUN (ICD-10 - R79.9) has been high in past, pending labs, will continue to monitor 04/19/2024 Mixed hyperlipidemia (ICD-10 - E78.2) doing well/ not high enough to treat, will contiue to monitor 04/19/2024 Skin cancer (ICD-10 - C44.90) will send to mildred/DOLLY BRYANMAKE HER OWN APPT WITH [facility], ALL INFO GIVEN TO MAYTE AND SHE WILL CALL US WITH APPT DATE/ patient has an appt with [facility] 10-22-24 at 10:15am 04/19/2024 Colon cancer screening (ICD-10 - Z12.11) guaiac negatve 04/19/2024 Encounter for screening for depression (ICD-10 - Z13.31) negative screen Plan Of Treatment Treatment Notes Assessment Notes Elevated BUN has been high in pas t, pending labs, will continue to monitor Mixed hyperlipidemia doing well/ not hig h enough to treat, will contiue to monitor Skin cancer will send to mildred/JOHNNY BROOKE [facility], ALL INFO GIVEN TO MAYTE AND SHE WILL CALL US WITH APPT DATE/ patient has an appt with [facility] 10-22-24 at 10:15am Colon cancer screening guaiac negatve Encounter for screening for depression n egative screen Next Appt Details Follow Up: 6 Months, Reason: Provider Name:Cezar tariq, 08/30/2025 11:30:00 AM, [address] [place] [address], Suite [facility], [place], [place], [phone], Provider Name:Cezar tariq, 10/18/2025 10:00:00 AM, [address] [place] [address], Suite [facility], [place], [place], [phone], Provider Name:Cezar Love ier, 04/18/2026 07:00:00 AM, [address], [address], [place], [place], [phone], Provider Name:Cezar Love ier, 04/25/2026 10:30:00 AM, [address], [address], [place], [place], [phone], Progress Notes * Mayte MAIER MDOB:[birth year] (83 yo F)Acc No.[id number]:04/19/2024 Progress Notes Patient: Mayte Menjivar Provider: Selvin Steinberg MD :1940 A ge:83 Y S ex:Female Date:04/19/2024 Address:[address] [place], [place] [phone] Subjective: * Chief Complaints: * A nnual visit * HPI: D epression Screening: PHQ-9 L ittle interest or pleasure in doing things N ot at all, F eeling down, depressed, or hopeless N ot at all, T rouble falling or staying asleep, or sleeping too much N ot at all, F eeling tired or having little energy N ot at all, P oor appetite or overeating N ot at all, F eeling bad about yourself or that you are a failure, or have let yourself or your family down N ot at all, T rouble concentrating on things, such as reading the newspaper or watching television N ot at all, M oving or speaking so slowly that other people could have noticed; or the opposite, being so fidgety or restless that you have been moving around a lot more than usual N ot at all, T houghts that you would be better off or of hurting yourself in some way N ot at all, T otal Score 0 . I nterpretation and Intervention D epression Screening Findings N egative, F ollow-Up for Depression : review of PHQ-9 found negative result, no follow-up needed. C ommunication Needs: Communication Needs D oes the patient have a hearing impairment N o, D oes the patient have a vision impairment? Y es, I f yes, what is the vision impairment? G lasses, D oes the patient have a cognition impairment? N o. F all Risk: History H ave you had any falls with injury in the past year? Y es 04-05-24 slipped on water at [employer] fell onto right knee and hit her lower back . Did not go to the Er came here the next day., H ave you had two or more falls in the past year? N o. S [place] Questions: SDOH Questions I n the past year have you been worried about losing housing? N o, I n the past year have you or any family members you live with been unable to get any of the following when it was really needed? Check all that apply: N one. S ymptom(s): patient is a 83 yo female here for annual visit with review of recent labs and here for follow up of chronic issues/ and complete. had a fall and is all better since started swimming. fell after slipping on water at [facility]. * ROS: G eneral/Constitutional: Patient denies f atigue , headache. C hange in appetite?denies. C hills d enies. F ever d enies. O phthalmologic: Blurred vision d enies. D ischarge d enies. P ain d enies. E NT: Patient denies d ecreased sense of smell , any loss of taste , sore throat. D ecreased hearing d enies. S ore throat d enies. S wollen glands d enies. E ndocrine: Cold intolerance d enies. E xcessive thirst d enies. H eat intolerance d enies. W eight loss d enies. R espiratory: Cough d enies. S hortness of breath at rest d enies. S hortness of breath with exertion d enies. W heezing d enies. C ardiovascular: Chest pain at rest d enies. C hest pain with exertion?denies. I rregular heartbeat d enies. S hortness of breath d enies. ? G astrointestinal: Abdominal pain d enies. C hange in bowel habits d enies. D iarrhea d enies. N ausea d enies. R ectal bleeding d enies. V omiting d enies . G enitourinary: Blood in urine d enies. D ifficulty urinating d enies. F requent urination d enies. U rinary incontinence D enies. M usculoskeletal: Patient denies m uscle aches. P ainful joints d enies. W eakness d enies. P eripheral Vascular: Patient denies r ed and blue toes. S kin: Dry skin d enies. I tching d enies. D enies?Mole(s), changes in moles, new moles or any lesions of concern. D enies P hotosensitivity. R jovanna d enies. N eurologic: Dizziness d enies. F ainting d enies. H eadache?denies. * Medical History: * Surgical History: * Hospitalization/Major Diagno stic Procedure: * Family History: F ather: 83 yrs. M other: 82 yrs. 2 sister(s) . . Fathr- Cardiac Mother -CHF, No pertinent family medical history, Denies mental health/substance abuse family history, Denies mental health/substance abuse family history. * Social History: T obacco Use: T obacco Use/Smoking P atient is a n onsmoker, A dditional Findings: Tobacco Non-User C urrent non-smoker, currently using no form of tobacco. D rugs/Alcohol: A lcohol Screen D id you have a drink containing alcohol in the past year? N o, P oints 0 , I nterpretation N egative. M iscellaneous: C affeine: 1-2 cups per day. Exercise: yes, walks 40 minutes 3 times a week swims in the summer. Home smoke detector use: yes. Housing: owning. Living with: alone. Marital status: single. Occupation: retired. Pets: none, 1 cat. no Travel outside of the [place]. * Medications: N ot-Taking/PRNCyclobenzaprine HCl 5 MG Tablet 1 tablet at bedtime as needed Orally Once a dayMedication List reviewed and reconciled with the patientNot-Taking/PRN Cyclobenzaprine HCl 5 MG Tablet 1 tablet at bedtime as needed Orally Once a dayMedication List reviewed and reconciled with the patient * Allergies: P ercocet: nauseau vomitingyes[Allergies Verified] Objective: * Vitals: H t: 64, Wt:129, BMI:22.14, BP:118/64 weight is down 2 pounds since 04-05-24. * P ast Orders: L ab:Lipid Panel (Order Date - 04/12/2024) (Collection Date - 04/12/2024) Value Reference Range Triglycerides 131 <150 - mg/dL Cholesterol 222 H <200 - mg/dL LDL Cholesterol Calculated 143 H <100 - mg/dL HDL Cholesterol 53 >40 - mg/dL L ab:Complete Blood Count Auto Diff (Order Date - 04/12/2024) (Collection Date - 04/12/2024) Value Reference Range White Blood Count 8.1 4.8-10.8 - X10*3/uL Red Blood Count 4.73 4.20-5.50 - X10*6/uL Hemoglobin 13.8 12.0-16.0 - g/dl Hematocrit 43.9 37.0-47.0 - % Mean Corpuscular Volume 92.8 80.0-98.0 - fL Mean Corpuscular Hemoglobin 29.2 27.0-33.0 - pg Mean Corpuscular HGB Conc 31.4 31.0-35.0 - g/ dl Red Cell Distribution Width 14.3 11.0-16.0 - % Platelet Count 361 160-400 - X10*3/uL Mean Platelet Volume 10.1 9.4-12.3 - fL Neutrophils Percent Auto 51.7 45-73 - % Imm Gran Pct Auto 0.2 0.0-0.4 - % Lymphocytes Percent Auto 33.6 20-40 - % Monocytes Percent Auto 10.9 2-11 - % Eosinophils Percent Auto 2.7 0-4 - % Basophils Percent Auto 0.9 0-2 - % NRBC Pct Auto 0.0 0.0-0.2 - /100WBC Neutrophils Absolute Auto 4.2 2.0-8.3 - x10* 3/uL Imm Gran Abs Auto 0.02 0.00-0.03 - X10*3/uL Lymphocytes Absolute Auto 2.7 1.2-4.9 - X10* 3/uL Monocytes Absolute Auto 0.9 0.1-1.2 - X10*3/ uL Eosinophils Absolute Auto 0.2 0.0-0.4 - X10* 3/uL Basophils Absolute Auto 0.1 0.0-0.2 - X10*3/ uL NRBC Abs Auto 0.000 0.0-0.012 - X10*3/uL L ab:Comprehensive [place]. Panel Fast (Order Date - 04/12/2024) (Collection Date - 04/12/2024) Value Reference Range Sodium 144 135-145 - mmol/L Bilirubin Total 0.4 0.0-1.0 - mg/dL Aspartate Amino Transferase 24 5-31 - U/L Alanine Aminotransferase 19 0-31 - U/L Total Protein 7.1 6.5-8.0 - g/dL Albumin Level 4.2 3.5-5.0 - g/dL Alkaline Phosphatase 80 39-117 - U/L Potassium 4.1 3.3-5.1 - mmol/L Chloride 109 H 96-108 - mmol/L Carbon Dioxide 23 22-29 - mmol/L Anion Gap 16 12-20 - Blood Urea Nitrogen 25 H 9-16 - mg/dL Creatinine 1.10 0.5-1.4 - mg/dL Estimated Glomerular Filt Rate 48 - Glucose Fasting 87 60-99 - mg/dL Calcium 9.7 8.4-10.2 - mg/dL * Examination: G eneral Examination: GENERAL APPEARANCE: w ell developed, well nourished, in no acute distress. HEAD: n ormocephalic, atraumatic. EYES: p upils equal, round, reactive to light and accommodation, sclera non-icteric. EARS: n ormal. ORAL CAVITY: m ucosa moist. THROAT: c lear. NECK/THYROID: n syed supple, full range of motion, no cervical lymphadenopathy, no bruits. 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 HEART: r egular rate and rhythm, S1, S2 normal, no murmurs.? LUNGS: c lear to auscultation bilaterally. BREASTS: N o mass, no lump. ABDOMEN: s oft, nontender, nondistended, bowel sounds present, normal, no organomegaly , no masses palpable. RECTAL EXAM: n o masses palpable stool guaiac negative.? FEMALE GENITOURINARY: n ot done. EXTREMITIES: n o clubbing, cyanosis, or edema. NEUROLOGIC: n onfocal, motor strength normal upper and lower extremities, sensory exam intact. Assessment: * Assessment: 1. E levated BUN - R79.9 (Primary) 2 . M ixed hyperlipidemia - E78.2 3 . S kin cancer - C44.90 4 . C olon cancer screening - Z12.11 5 . E ncounter for screening for depression - Z13.31 Plan: * Treatment: 2. M ixed hyperlipidemia Notes: doing well/ not high enough to treat, will contiue to monitor. 3. S kin cancer Notes: will send to derm/SHE WILLMAKE HER OWN [facility], ALL INFO GIVEN TO MAYTE AND SHE WILL CALL US WITH APPT DATE/ patient has an appt with [facility] 10-22-24 at 10:15am. 4. C olon cancer screening L AB: Occult Blood, Stool, Guaiac N egative Value Reference Range O ccult Blood, Stool, Guaiac Neg Notes: guaiac negatve.??5.?Encounter for screening for depression? Notes: negative screen.?? * Procedure Codes: 8 2270 TEST FOR BLOOD, FECES * Follow Up: 6 Months * * Sign off status: Completed true * Provider: Selvin Steinberg MD Date: 0 04/19/2024 Generated for Naylai trinity/Candelario/Pebblesitting on: 1 10/18/2024 02:32 PM EST History and Physical Notes * HPI (History of Present Illness) Category Sub-Category Detail Notes Category Not es Symptom(s) patient is a 83 yo female here for annual visit with review of recent labs and here for follow up of chronic issues/ and complete. had a fall and is all better since started swimming. fell after slipping on water at store. [employer]. Depression Screening PHQ-9 Little inte rest or pleasure in doing things: Not at all Feeling down, depressed, or hopeless: No t at all Trouble falling or staying asleep, or sl eeping too much: Not at all Feeling tired or having little energy: N ot at all Poor appetite or overeating: Not at all Feeling bad about yourself o r that you are a failure, or have let yourself or your family down: Not at all Trouble concentrating on thi ngs, such as reading the newspaper or watching television: Not at all Moving or speaking so slowly that other people could have noticed; or the opposite, being so fidgety or restless that you have been moving around a lot more than usual: Not at all Thoughts that you would be b krzysztof off or of hurting yourself in some way: Not at all Total Score: 0 Interpretation and Intervention Depression Yovanny fernandez Findings: Negative Follow-Up for Depression: : review of PH Q-9 found negative result, no follow-up needed SDOH Questions SDOH Questions In the past year have you been worried about losing housing?: No In the past year have you or any family members you live with been unable to get any of the following when it was really needed? Check all that apply:: None Fall Risk History Have you had any falls with injury in the past year?: Yes 04-05-24 slipped on water at [employer] fell onto right knee and hit her lower back . Did not go to the Er came here the next day. Have you had two or more falls in the ?: No Communication Needs Communication Needs Does the patient have a hearing impairment: No Does the patient have a vision impairmen t?: Yes If yes, what is the vision impairment?: Glasses Does the patient have a cognition impair ment?: No Examination Category Sub-Category Detail Notes Category Not es General Examination GENERAL APPEARANCE: well dev eloped, well nourished, in no acute distress HEAD: normocephalic, atrau matic EYES: pupils equal, round, reactive to light and accommodation, sclera non-icteric EARS: normal THROAT: clear NECK/THYROID: neck supple, full ra nge of motion, no cervical lymphadenopathy, no bruits HEART: regular rate and rhy thm, S1, S2 normal, no murmurs LUNGS: clear to auscultatio n bilaterally ABDOMEN: soft, nontender, non distended, bowel sounds present, normal, no organomegaly , no masses palpable NEUROLOGIC: nonfocal, motor stre ngth normal upper and lower extremities, sensory exam intact SKIN: warm and dry, abnorm al with lesion on side of nose consistant with basal cell EXTREMITIES: no clubbing, cyanosi s, or edema BREASTS: No mass, no lump RECTAL EXAM: no masses palpable s tool guaiac negative FEMALE GENITOURINARY: not done ORAL CAVITY: mucosa moist
--- OUTSIDE RECORDS SUMMARY | 2024-05-17 02:45 | XMS_ITS ---
Author Organization Cezar Steinberg MD Address 10 [facility] [address] [place] [phone] Care Team Providers Care Underwater Hunter Name Role Phone Cezar Steinberg Primary Care Provider Results Component Value Reference Range Notes Blood Urea Nitrogen Reviewed date:05/17/2024 12:40:36 PM Interpretation: Performing Lab:[facility], [address] [place] [phone] Notes/Report: Blood Urea Nitrogen 25 9-16 mg/dL REASON FOR VISIT BUN Encounters Encounter Location Date Provider Diagnosis Cezar Steinberg MD [address] [place] [address] [place] [phone] 05/17/2024 Cezar Steinberg Elevated BUN R79.9 Assessments Encounter Date Diagnosis (ICD Code) Assessment Notes Treatment Notes Treatment Clinical Notes Section Notes 05/17/2024 Elevated BUN (ICD-10 - R79.9) Plan Of Treatment Next Appt Details Provider Name:Cezar tariq, 08/30/2025 11:30:00 AM, [address] [place] [address], [address], [phone], Provider Name:Cezar tariq, 10/18/2025 10:00:00 AM, [address] [place] [address], [address], [phone], Provider Name:Cezar tariq, 04/18/2026 07:00:00 AM, [address] [place] [address], [address], [phone], Provider Name:Cezar tariq, 04/25/2026 10:30:00 AM, [address] [place] [address], [address], [place], [place], [phone], Progress Notes * Mayte MAIER MDOB:[birth year] (84 yo F)Acc No.[id number]:05/17/2024 Progress Note Patient: Mayte MCNULTY Provider: Selvin Steinberg MD :1940 A ge:83 Y S ex:Female Date:05/17/2024 Address:[address] [place], [place] [phone] Subjective: * Chief Complaints: * 1 . BUN. * Medical History: Objective: * Vitals: Assessment: * Assessment: 1. E levated BUN - R79.9 (Primary) Plan: * Treatment: * Procedure Codes: 3 6415 VENIPUNCT, ROUTINE* * * The named appointment provid er may or may not be the originator of this progress note, and it is not deemed complete until electronically signed by the appointment provider. Sign off status: Pending * Provider: Selvin Steinberg MD Date: 0 05/17/2024 Generated for Selina petersen/Candelario/Pebblesitting on: 10/18/2024 02:33 PM EST
--- OUTSIDE RECORDS SUMMARY | 2024-10-21 05:00 | XMS_ITS ---
Author Organization Cezar Steinberg MD Address [address] [facility] [address] [place] [phone] Care Team Providers Care Environmental Services Technician Name Role Phone Cezar Steinberg Primary Care Provider Allergies Allergen (clinical drug ingredient) Drug/Non Drug Allergy documented on EMR Reaction Allergy Type Onset Date Status Information temporarily unavailable Percocet nauseau vomiting Drug Allergy Active REASON FOR VISIT 6 MO F/U Medications Medication SIG (Take, Route, Frequency, Duration) Notes Start Date End Date Status Cyclobenzaprine HCl 5 MG 1 tablet at bed time as needed Orally Once a day for 10 days 04/05/2024 Not-Taking Vital Signs Blood pressure systolic 132 mm Hg 10/21/19 25 Blood pressure diastolic 66 mm Hg 025 Height 64 in 10/21/2024 Weight 131 lbs 10/21/2024 BMI 22.48 kg/m2 10/21/2024 weight is up 2 pounds since 04-19-24 Encounters Encounter Location Date Provider Diagnosis Cezar Steinberg MD [address] [place] [phone] 10/21/2024 Cezar Steinberg Skin cancer C44.90 and Elevated BUN R79.9 Assessments Encounter Date Diagnosis (ICD Code) Assessment Notes Treatment Notes Treatment Clinical Notes Section Notes 10/21/2024 Skin cancer (ICD-10 - C44.90) going for moh s 10/21/2024 Elevated BUN (ICD-10 - R79.9) is stable, will continue to monitor Plan Of Treatment Treatment Notes Assessment Notes Skin cancer going for moh s Elevated BUN is stable, will cont inue to monitor Next Appt Details Provider Name:Cezar Love iecassandra, 08/30/2025 11:30:00 AM, [address], [address], [place], [place], [phone], Provider Name:Cezar Love ier, 10/18/2025 10:00:00 AM, [address] [facility], Suite [facility], [place], [place], [phone], Provider Name:Cezar Love ier, 04/18/2026 07:00:00 AM, [address], Suite [facility], [place], [place], [phone], Provider Name:Cezar Love ier, 04/25/2026 10:30:00 AM, [address] [place] [address], Suite [facility], [place], [place], [phone], Progress Notes * Mayte MAIER MDOB:[birth year] (84 yo F)Acc No.[id number]:10/21/2024 Progress Notes Patient: Ainsley Mayte MAURO Provider: Selvin Steinberg MD :1940 A ge:84 Y S ex:Female Date:10/21/2024 Address:[address] [place], [place] [phone] Subjective: * Chief Complaints: * 6 MO F/U * HPI: S ymptom(s): jeni is a 84 yo female here for 6 month follow up visit/ back is good. occasionally gets a pulling/ feels tired in morning. cat wakes her up early. saw derm and was a basal cell. * ROS: G eneral/Constitutional: Denies C hills. D enies F atigue. D enies F ever. D enies H eadache. E NT: Patient denies d ecreased sense of smell , any loss of taste , sore throat. D enies S ore throat. R espiratory: Denies C ough. D enies S hortness of breath at rest. D enies S hortness of breath with exertion. G astrointestinal: Denies D iarrhea. D enies N ausea. M usculoskeletal: Patient denies m uscle aches. P eripheral Vascular: Patient denies r ed and blue toes. * Medical History: * Surgical History: * Hospitalization/Major Diagno stic Procedure: * Medications: N ot-Taking/PRNCyclobenzaprine HCl 5 MG Tablet 1 tablet at bedtime as needed Orally Once a day Medication List reviewed and reconciled with the patientNot- Taking/PRN Cyclobenzaprine HCl 5 MG Tablet 1 tablet at bedtime as needed Orally Once a day Medication List reviewed and reconciled with the patient * Allergies: P ercocet: nauseau vomitingyes[Allergies Verified] Objective: * Vitals: H t: 64, Wt: 131, BMI:22.48, BP:132/66, Wt-k.42. weight is up 2 pounds since 04-19-24. * Examination: G eneral Examination: GENERAL APPEARANCE: a lert, well hydrated, in no distress.? SKIN: h as a basal cell removed from her face and getting Moh s. HEART: r egular rate and rhythm , no murmurs, rubs, gallops. LUNGS: n o wheezes, rales, rhonchi , good air movement , clear to auscultation bilaterally. Assessment: * Assessment: 1. S kin cancer - C44.90 (Primary) 2 . E levated BUN - R79.9 ? Plan: * Treatment: 2. E levated BUN Notes: is stable, will continue to monitor * Procedure Codes: * * Sign off status: Completed true * Provider: Selvin Steinberg MD Date: 0 10/21/2024 Generated for Selina petersen/Candelario/eTransmitting on: 10/18/2024 02:32 PM EST History and Physical Notes * HPI (History of Present Illness) Category Sub-Category Detail Notes Category Not es Symptom(s) jeni is a 84 yo female here for 6 month follow up visit/ back is good. occasionally gets a pulling/ feels tired in morning. cat wakes her up early. 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
--- OUTSIDE RECORDS SUMMARY | 2025-04-14 02:15 | XMS_ITS ---
Author Organization Cezar Steinberg MD Address [address] [place], [place] [phone] Care Team Providers Care Business Reporter Name Role Phone Cezar Steinberg Primary Care Provider Results Component Value Reference Range Notes Complete Blood Count Auto Di ff Reviewed date:04/14/2025 05:14:46 PM Interpretation: Performing Lab:[facility], [address] [place] [phone] Notes/Report: White Blood Count 8.8 4.8-10.8 X10*3/uL Red Blood Count 4.70 4.20-5.50 X10*6/uL Hemoglobin 13.8 12.0-16.0 g/dl Hematocrit 42.9 37.0-47.0 % Mean Corpuscular Volume 91.3 80.0-98.0 fL Mean Corpuscular Hemoglobin 29.4 27.0-33.0 pg Mean Corpuscular HGB Conc 32.2 31.0-35.0 g/dl Red Cell Distribution Width 14.5 11.0-16.0 % Platelet Count 326 160-400 X10*3/uL Mean Platelet Volume 10.0 9.4-12.3 fL Neutrophils Percent Auto 48.3 45-73 % Imm Gran Pct Auto 0.5 0.0-0.4 % Lymphocytes Percent Auto 37.7 20-40 % Monocytes Percent Auto 9.0 2-11 % Eosinophils Percent Auto 3.9 0-4 % Basophils Percent Auto 0.6 0-2 % NRBC Pct Auto 0.0 0.0-0.2 /100WBC Neutrophils Absolute Auto 4.2 2.0-8.3 x10*3/u L Imm Gran Abs Auto 0.04 0.00-0.03 X10*3/uL Lymphocytes Absolute Auto 3.3 1.2-4.9 X10*3/u L Monocytes Absolute Auto 0.8 0.1-1.2 X10*3/uL Eosinophils Absolute Auto 0.3 0.0-0.4 X10*3/u L Basophils Absolute Auto 0.1 0.0-0.2 X10*3/uL NRBC Abs Auto 0.000 0.0-0.012 X10*3/uL Comprehensive [place]. Panel Fa st Reviewed date:04/14/2025 05:19:06 PM Interpretation: Performing Lab:[facility], [address] [place] [phone] Notes/Report: Sodium 142 135-145 mmol/L Potassium 4.3 3.3-5.1 mmol/L Chloride 111 96-108 mmol/L Carbon Dioxide 24 22-29 mmol/L Anion Gap 11 12-20 Blood Urea Nitrogen 30 9-16 mg/dL Creatinine 1.29 0.5-1.4 mg/dL Estimated Glomerular Filt Rate 40 Chronic Kidney Disease: Estimated GFR < 60 mL/min/1.73m2 Severe Kidney Disease: Estimated GFR < 15 mL/min/1.73m2 Glucose Fasting 101 60-99 mg/dL A fasting glucose from 100-125 mg/dl is considered impaired (pre-diabetes). Calcium 10.2 8.4-10.2 mg/dL Bilirubin Total 0.6 0.0-1.0 mg/dL Aspartate Amino Transferase 25 5-31 U/L Alanine Aminotransferase 19 0-31 U/L Total Protein 6.8 6.5-8.0 g/dL Albumin Level 4.3 3.5-5.0 g/dL Alkaline Phosphatase 86 39-117 U/L Lipid Panel Reviewed date:04/14/2025 04:16:43 PM Interpretation: Performing Lab:[facility], [address] [place] [phone] Notes/Report: Triglycerides 126 <150 mg/dL Desirable Triglyceride: less than 150 mg/dL Borderline High Triglyceride 150-199 mg/dL High Triglyceride: 200-499 mg/dL Very High Triglyceride: greater than or equal to 5OO mg/dL Cholesterol 203 <200 mg/dL Desirable Cholesterol: less than 200 mg/dL Borderline High Cholesterol: 200-239 mg/dL High Cholesterol: greater than 239 mg/dL LDL Cholesterol Calculated 121 <100 mg/dL Desirable LDL: less than 100 mg/dL Near Optimal/Above Optimal LDL: 110-129 mg/dL Borderline High LDL: 130-159 mg/dL High LDL: 160-189 mg/dL Very High LDL: greater than or equal to 190 mg/dL HDL Cholesterol 57 >40 mg/dL Desirable HDL: greater than 40 mg/dL Note: This HDL assay may give artificially low results in patients with liver disease. UA ClnCatch+Micro w/rflx Cul t Reviewed date:04/14/2025 05:19:46 PM Interpretation: Performing Lab:[facility], [address] [place] [phone] Notes/Report: Urine, Clean Catch Color Urine Yellow Appearance Urine Clear PH 8.0 5.0-9.0 Glucose Urine UA Negative Negative mg/dL Urine Blood Negative Negative Specific [place] - Urine 1.010 1.005-1.025 Urine Protein Negative Neg-Trace mg/dL Urine Ketones Negative Negative mg/dL Nitrite Urine Negative Negative Leukocyte Esterase Urine Negative Negative RBC Urine 0-2 0-2 /HPF WBC Urine 0-5 0-5 /HPF Squamous Epithelial Cell Urine 0-2 0-2 /HPF Bacteria Urine Trace None Seen Hyaline Casts Urine 0-2 0-2 /LPF REASON FOR VISIT FASTING LABS Encounters Encounter Location Date Provider Diagnosis Cezar Steinberg MD [address] [place] [address] [address] [place], [place] [phone] 04/14/2025 Cezar Steinberg Blood tests for rout ine general physical examination Z00.00 and Pure hypercholesterolemia E78.00 Assessments Encounter Date Diagnosis (ICD Code) Assessment Notes Treatment Notes Treatment Clinical Notes Section Notes 04/14/2025 Blood tests for rout ine general physical examination (ICD-10 - Z00.00) 04/14/2025 Pure hypercholesterolemia (ICD-10 - E78.00) Plan Of Treatment Next Appt Details Provider Name:Cezar tariq, 08/30/2025 11:30:00 AM, [address] [place] [address], [address], [place], [place], [phone], Provider Name:Cezar tariq, 10/18/2025 10:00:00 AM, [address] [place] [address], Suite [facility], [place], [place], [phone], Provider Name:Cezar Love renor, 04/18/2026 07:00:00 AM, [address] [facility], Suite [facility], [place], [place], [phone], Provider Name:Cezar Love ier, 04/25/2026 10:30:00 AM, [address] [facility], Suite [facility], [place], [place], [phone], Progress Notes * Mayte MAIER MDOB:[birth year] (84 yo F)Acc No.[id number]:04/14/2025 Progress Note Patient: Mayte MCNULTY Provider: Selvin Steinberg MD :1940 A ge:84 Y S ex:Female Date:04/14/2025 Address:[address] [place], [place] [phone] Subjective: * Chief Complaints: * 1 . FASTING LABS. * Medical History: Objective: * Vitals: Assessment: * Assessment: 1. B lood tests for routine general physical examination - Z00.00 (Primary) 2 .?Pure hypercholesterolemia - E78.00 Plan: * Treatment: 2. P ure hypercholesterolemia L AB: Complete Blood Count Auto Diff (Collection Date & Time - 04/14/2025 07:15 AM) L AB: Comprehensive [place]. Panel Fast (Collection Date & Time - 04/14/2025 07:15 AM) L AB: Lipid Panel (Collection Date & Time - 04/14/2025 07:15 AM) L AB: UA ClnCatch+Micro w/rflx Cult (Collection Date & Time - 04/14/2025 07:15 AM) * Procedure Codes: 3 6415 VENIPUNCT, ROUTINE* * * The named appointment provid er may or may not be the originator of this progress note, and it is not deemed complete until electronically signed by the appointment provider. Sign off status: Pending * Provider: Selvin Steinberg MD Date: 0 04/14/2025 Generated for Selina petersen/Candelario/eTrainersmitting on: 1 10/18/2024 02:33 PM EST
--- OUTSIDE RECORDS SUMMARY | 2025-04-21 04:30 | XMS_ITS ---
Author Organization Cezar Steinberg MD Address [address] [place] [address] [phone] Care Team Providers Care Steel Rigger Name Role Phone Cezar Steinberg Primary Care Provider Allergies Allergen (clinical drug ingredient) Drug/Non Drug Allergy documented on EMR Reaction Allergy Type Onset Date Status Information temporarily unavailable Percocet nauseau vomiting Drug Allergy Active REASON FOR VISIT ANNUAL EXAM, sometimes has burning sensations in her toes x 6 months Medications Medication SIG (Take, Route, Frequency, Duration) [...] ast year? No Points 0 Interpretation Negative Vital Signs Blood pressure systolic 126 mm Hg 04/21/20 25 Blood pressure diastolic 64 mm Hg 025 Height 64 in 04/21/2025 Weight 134 lbs 04/21/2025 BMI 23 kg/m2 04/21/2025 weight is up 3 pounds since 10-21-24 Encounters Encounter Location Date Provider Diagnosis Cezar Steinberg MD [address] [place] [address] [phone] 04/21/2025 Cezar Steinberg Annual physical exam Z00.00 ; Elevated BUN R79.9 ; Fungal infection B49 ; Pure hypercholesterolemia E78.00 and Depression screening Z13.31 Assessments Encounter Date Diagnosis (ICD Code) Assessment Notes Treatment Notes Treatment Clinical Notes Section Notes 04/21/2025 Annual physical exam (ICD-10 - Z00.00) labs reviewed and discussed with patient 04/21/2025 Elevated BUN (ICD-10 - R79.9) need notes from dr marte from this year 04/21/2025 Fungal infection (ICD-10 - B49) to try lamisil, patient verbalized understanding of medication and directions for use 04/21/2025 Pure hypercholesterolemia (ICD-10 - E78.00) stable, will continue current regiment 04/21/2025 Depression screening (ICD-10 - Z13.31) negative screen Plan Of Treatment Treatment Notes Assessment Notes Annual physical exam labs reviewed and d iscussed with patient Elevated BUN need notes from dr alex miranda from this year Fungal infection to try lamisil, kelli ent verbalized understanding of medication and directions for use Pure hypercholesterolemia stable, will c ontinue current regiment Depression screening negative screen Next Appt Details Follow Up: 6 Months, Reason: Provider Name:Cezar tariq, 08/30/2025 11:30:00 AM, [address] [place] [address], [phone], Provider Name:Cezar tariq, 10/18/2025 10:00:00 AM, [address] [place] [address], [phone], Provider Name:Cezar tariq, 04/18/2026 07:00:00 AM, [address] [place] [address], [phone], Provider Name:Cezar tariq, 04/25/2026 10:30:00 AM, [address] [place] [address], [phone], Progress Notes * Mayte MAIER MDOB:[birth year] (84 yo F)Acc No.[id number]:04/21/2025 Progress Notes Patient: Ainsley HERNANDEZKANE Mayte Franocis Provider: Selvin Steinberg MD :1940 A ge:84 Y S ex:Female Date:04/21/2025 Address:[address] [place], [place] [phone] Subjective: * Chief Complaints: * A NNUAL EXAMSometimes has burning sensations in her toes x 6 months * HPI: D epression Screening: PHQ-9 L [...] falls with injury in the past year? N o, H ave you had two or more falls in the past year? N o. S CAMRON Questions: SDOH Questions I n the past year have you been worried about losing housing? Y es, I n the past year have you or any family members you live with been unable to get any of the following when it was really needed? Check all that apply: N one. S ymptom(s): patient is a 84 yo female here with review of recent labs and follow up of chronic issues has burning toes at times. gets better with elevation of feet. * ROS: G eneral/Constitutional: Change in appetite d enies. C hills d enies. F ever d enies. O phthalmologic: Blurred vision d enies. D ischarge d enies. P ain d enies. E NT: Decreased hearing d enies. S ore throat d enies.?Swollen glands d enies. E ndocrine: Cold intolerance [...] U rinary incontinence D enies. M usculoskeletal: Painful joints d enies. W eakness d enies. ? S kin: Dry skin d enies. I [...] obacco Use/Smoking P atient is a n onsAlex cook dditional Findings: Tobacco Non-User C urrent non-smoker, [...] single. Occupation: retired. Pets: none, 1 cat. Travel outside of the [place]: no. * Medications: N ot-Taking/PRNCyclobenzaprine HCl 5 MG [...] Objective: * Vitals: H t: 64, Wt: 134, BMI:23, BP:126/64, Wt-k.78. weight is up 3 pounds since 10-21-24. * P ast Orders: L ab:Complete Blood Count Auto Diff (Order Date - 04/14/2025) (Collection Date & Time - 04/14/2025 07:15 AM) Value Reference Range White Blood Count 8.8 4.8-10.8 - X10*3/uL Red Blood Count 4.70 4.20-5.50 - X10*6/uL Hemoglobin 13.8 12.0-16.0 - g/dl Hematocrit 42.9 37.0-47.0 - % Mean Corpuscular Volume 91.3 80.0-98.0 - fL Mean Corpuscular Hemoglobin 29.4 27.0-33.0 - pg Mean Corpuscular HGB Conc 32.2 31.0-35.0 - g/ dl Red Cell Distribution Width 14.5 11.0-16.0 - % Platelet Count 326 160-400 - X10*3/uL Mean Platelet Volume 10.0 9.4-12.3 - fL Neutrophils Percent Auto 48.3 45-73 - % Imm Gran Pct Auto 0.5 H 0.0-0.4 - % Lymphocytes Percent Auto 37.7 20-40 - % Monocytes Percent Auto 9.0 2-11 - % Eosinophils Percent Auto 3.9 0-4 - % Basophils Percent Auto 0.6 0-2 - % NRBC Pct Auto 0.0 0.0-0.2 - /100WBC Neutrophils Absolute Auto 4.2 2.0-8.3 - x10* 3/uL Imm Gran Abs Auto 0.04 H 0.00-0.03 - X10*3/uL Lymphocytes Absolute Auto 3.3 1.2-4.9 - X10* 3/uL Monocytes Absolute Auto 0.8 0.1-1.2 - X10*3/ uL Eosinophils Absolute Auto 0.3 0.0-0.4 - X10* 3/uL Basophils Absolute Auto 0.1 0.0-0.2 - X10*3/ uL NRBC Abs Auto 0.000 0.0-0.012 - X10*3/uL L ab:Comprehensive [place]. Panel Fast (Order Date - 04/14/2025) (Collection Date & Time - 04/14/2025 07:15 AM) Value Reference Range Sodium 142 135-145 - mmol/L Bilirubin Total 0.6 0.0-1.0 - mg/dL Aspartate Amino Transferase 25 5-31 - U/L Alanine Aminotransferase 19 0-31 - U/L Total Protein 6.8 6.5-8.0 - g/dL Albumin Level 4.3 3.5-5.0 - g/dL Alkaline Phosphatase 86 39-117 - U/L Potassium 4.3 3.3-5.1 - mmol/L Chloride 111 H 96-108 - mmol/L Carbon Dioxide 24 22-29 - mmol/L Anion Gap 11 L 12-20 - Blood Urea Nitrogen 30 H 9-16 - mg/dL Creatinine 1.29 0.5-1.4 - mg/dL Estimated Glomerular Filt Rate 40 - Glucose Fasting 101 H 60-99 - mg/dL Calcium 10.2 8.4-10.2 - mg/dL L ab:Lipid Panel (Order Date - 04/14/2025) (Collection Date & Time - 04/14/2025 07:15 AM) Value Reference Range Triglycerides 126 <150 - mg/dL Cholesterol 203 H <200 - mg/dL LDL Cholesterol Calculated 121 H <100 - mg/dL HDL Cholesterol 57 >40 - mg/dL L ab:UA ClnCatch+Micro w/rflx Cult (Order Date - 04/14/2025) (Collection Date & Time - 04/14/2025 07:15 AM) Value Reference Range Color Urine Yellow - Appearance Urine Clear - PH 8.0 5.0-9.0 - Glucose Urine UA Negative Negative - mg/dL Urine Blood Negative Negative - Specific [place] - Urine 1.010 1.005-1.025 - Urine Protein Negative Neg-Trace - mg/dL Urine Ketones Negative Negative - mg/dL Nitrite Urine Negative Negative - Leukocyte Esterase Urine Negative Negative - RBC Urine 0-2 0-2 - /HPF WBC Urine 0-5 0-5 - /HPF Squamous Epithelial Cell Urine 0-2 0-2 - /HP F Bacteria Urine Trace None Seen - Hyaline Casts Urine 0-2 0-2 - /LPF * Examination: G eneral Examination: GENERAL APPEARANCE: w ell developed, well nourished, in no acute distress. HEAD: n ormocephalic, atraumatic. EYES: p upils equal, round, reactive to light and accommodation, sclera non-icteric. EARS: n ormal. ORAL CAVITY: m ucosa moist. THROAT: c lear. NECK/THYROID: n syed supple, full range of motion, no cervical lymphadenopathy, no bruits. SKIN: w arm and dry, no suspicious lesions. HEART: r egular rate and rhythm, S1, S2 normal, no murmurs.? LUNGS: c lear to auscultation bilaterally. BREASTS: N o mass, no lump. ABDOMEN: s oft, nontender, nondistended, bowel sounds present, normal, no organomegaly , no masses palpable. RECTAL EXAM: d one by electrotherapist. FEMALE GENITOURINARY: d one by electrotherapist. EXTREMITIES: n o clubbing, cyanosis, or edema, abnormal has some fungal disease between first and second toed. NEUROLOGIC: n onfocal, motor strength normal upper and lower extremities, sensory exam intact. Assessment: * Assessment: 1. A nnual physical exam - Z00.00 (Primary) 2 . E levated BUN - R79.9 ? 3 . F ungal infection - B49 4 . P ure hypercholesterolemia - E78.00 5 . D epression screening - Z13.31 Plan: * Treatment: 2. E levated BUN Notes: need notes from dr marte from this year 3. F ungal infection Notes: to try lamisil, patient verbalized understanding of medication and directions for use ? 4. P ure hypercholesterolemia Notes: stable, will continue current regiment 5. D epression screening Notes: negative screen * Procedure Codes: * Follow Up: 6 Months * * Sign off status: Completed true * Provider: Selvin Steinberg MD Date: 0 04/21/2025 Generated for Selina petersen/Candelario/Rabia on: 1 10/18/2024 02:32 PM EST History and Physical Notes * HPI (History of Present Illness) Category Sub-Category Detail Notes Category Not es Symptom(s) patient is a 84 yo female here with review of recent labs and follow up of chronic issues has burning toes at times. gets better with elevation of feet Depression Screening PHQ-9 Little inte rest or [...] have you been worried about losing housing?: Yes In the past year have you or any family members you live with been unable to get any of the following when it was really needed? Check all that apply:: None Fall Risk History Have you had any falls with injury i n the past year?: No Have you had two or more falls in the year?: No Communication Needs Communication Needs Does the [...] sensory exam intact SKIN: warm and dry, no eben picious lesions EXTREMITIES: no clubbing, cyanosi s, or edema, abnormal has some fungal disease between first and second toed BREASTS: No mass, no lump RECTAL EXAM: done by electrotherapist FEMALE GENITOURINARY: done by electrotherapist ORAL CAVITY: mucosa moist
--- OUTSIDE RECORDS SUMMARY | 2025-04-21 05:20 | XMS_ITS ---
Author Organization Cezar Steinberg MD Address [address] [facility] [address] [place] [address] [phone] Care Team Providers Care Insulation Nozzleman Name Role Phone Cezar Steinberg Primary Care Provider [phone] Reason For Referral Reason history of kidney ca ncer Diagnosis 1 History of kidney ca ncer (Z85.528) Referral Organization Cezar Steinberg MD Referring Provider First Name Cezar Referring Provider Last Name Idris Referring Provider Speciality Internal M edicine Referred Provider Tito Hawley Referred Provider Specialty Nephrology General Notes Sheila Farley 0 04/21/2025 12:26:14 PM >info faxed, Sheila Farley 05/09/2025 08:39:09 AM >called patient with info and mailed Referral Priority Routine Referral Appointment Date 05/16/[address] RE[address] FY[address] Hawley note Encounters Encounter Location Date Provider Diagnosis Cezar Steinberg MD [address] [place] [address] [place] [address] [phone] 04/21/2025 Cezar Steinberg Plan Of Treatment Referrals Referral Date Details 04/21/2025 04/21/2025, history of kidney cancer, Tito Hawley Next Appt Details Provider Name:Cezar tariq, 08/30/2025 11:30:00 AM, [address] [place] [address], [address] [place] [address], [phone], Provider Name:Cezar tariq, 10/18/2025 10:00:00 AM, [address] [place] [address], [address] [place] [address], [phone], Provider Name:Cezar tariq, 04/18/2026 07:00:00 AM, [address], [address], [place], [place], [phone], Provider Name:Cezar Love ier, 04/25/2026 10:30:00 AM, [address], [address], [place], [place], [phone], Progress Notes * Mayte MAIER MDOB:[birth year] (84 yo F)Acc No.[id number]:04/21/2025 Patient: Ainsley Mayte MAURO :1940 A ge:84 Y S ex:Female Address:[address] [place] [id number] Subjective: * Chief Complaints: * F ROMANIAN Dr. Hawley note * Medical History: * Surgical History: * Hospitalization/Major Diagno stic Procedure: * Medications: Objective: * Vitals: * Physical Examination: Assessment: Plan: * Treatment: * Procedure Codes: * true * Date: Generated for Selina petersen/Candelario/eTrainersmitting on: 10/18/2024 02:34 PM EST Consultation Request Notes Referral Date Referring Provider Referred Provider Not es 04/21/2025 Cezar Steinberg Balaji history of kidney cancer
--- OUTSIDE RECORDS SUMMARY | 2025-05-17 04:30 | XMS_ITS ---
Author Organization [facility] Address [address] [place] [address] Care Team Providers Care Docketing Specialist Name Role Phone Idris GRIGGS, Cezar Primary Care Provider Isma Allison Unavailable [phone] REASON FOR VISIT r/s for sooner apt Encounters Encounter Location Date Provider Diagnosis [facility] [address] [place] [address] 05/17/2025 Isma Ceron Plan Of Treatment No Information Progress Notes * Mayet COLE MDOB:[birth year] (84 yo F)Acc No.[id number]:05/17/2025 Progress Notes Patient: Ainsley Mayte MAURO Provider: Estefania Ceron DPM :1940 A ge:84 Y S ex:Female Date:05/17/2025 Address: [address] [id number] Pcp:Cezar Steinberg MD Subjective: * Chief Complaints: * 1 . R/s for sooner apt. * Medical History: Objective: * Vitals: Assessment: Plan: * Treatment: * Images: * The named appointment provid er may or may not be the originator of this progress note, and it is not deemed complete until electronically signed by the appointment provider. Sign off status: Pending * Provider: Estefania Ceron DPM Date: 0 05/17/2025 Generated for Printi ng/Faallag/eTransmitting on: 1 10/18/2024 10:55 AM EST
--- NOTE | ~2025-08-18 | XR_ITS ---
EXAMINATION: XR LUMBOSACRAL SPINE CLINICAL INFORMATION: COMPRESSION FRACTURE COMPARISON: August 23, 2021 TECHNIQUE: AP and lateral views FINDINGS: Grade 1 anterolisthesis L4-5 likely degenerative in nature. Facet joint hypertrophy at L4-5 and L5-S1. S-shaped curvature of the lumbar spine. Multilevel small marginal osteophyte formation and endplate sclerosis. Decreased intervertebral disc height at L4-5 and L5-S1. No acute cortical disruption. Vascular calcifications, aorta. Abundant stool. Multiple vascular clips in the left hemiabdomen/retroperitoneum. XR/XR lumbar spine 2-3V IMPRESSION: Multilevel spondylosis pronounced at L4-5 and L5-S1 resulting in grade 1 anterolisthesis L4-5. No gross change. Electronically signed by: Ryan Alvarez MD 08/18/2025 12:06 PM [facility]
--- OUTSIDE RECORDS SUMMARY | 2025-08-18 06:00 | XMS_ITS ---
Author Organization Cezar Steinberg MD Address [address] [place], [place] [phone] Care Team Providers Care Non Categorical Preschool Teacher Name Role Phone Cezar Steinberg Primary Care Provider [phone] Allergies Allergen (clinical drug ingredient) Drug/Non Drug Allergy documented on EMR Reaction Allergy Type Onset Date Status Information temporarily unavailable Percocet nauseau vomiting Drug Allergy Active Results Component Value Reference Range Notes XR lumbar spine 2-3V (Not ye t reviewed by provider) Interpretation: Performing Lab: Notes/Report: [address] [address] XRay Report Signed Patient: Matye Maier MR#: [id number] [id number] : 1940 Acct:[id number] Age/Sex: 84 / F ADM Date: 08/18/25 Loc: HO.XRAY Attending Dr: Cezar Steniberg MD Ordering Physician: Cezar Steinberg MD Date of Service: 08/18/25 Procedure(s): XR lumbar spine 2-3V Accession Number(s): [id number] cc: Cezar Steinberg MD Reason for Exam: COMPRESSION FRACTURE EXAMINATION: XR LUMBOSACRAL SPINE CLINICAL INFORMATION: COMPRESSION FRACTURE COMPARISON: August 23, 2021 TECHNIQUE: AP and lateral views FINDINGS: Grade 1 anterolisthesis L4-5 likely degenerative in nature. Facet joint hypertrophy at L4-5 and L5-S1. S-shaped curvature of the lumbar spine. Multilevel small marginal osteophyte formation and endplate sclerosis. Decreased intervertebral disc height at L4-5 and L5-S1. No acute cortical disruption. Vascular calcifications, aorta. Abundant stool. Multiple vascular clips in the left hemiabdomen/retroperitoneum. XR/XR lumbar spine 2-3V IMPRESSION: Multilevel spondylosis pronounced at L4-5 and L5-S1 resulting in grade 1 anterolisthesis L4-5. No gross change. Electronically signed by: Ryan Alvarez MD 08/18/2025 12:06 PM EST RP Dictated By: Ryan Devlin MD Signed By: <Electronically signed by Ryan Mcfadden MD in OV> 08/18/25 1206 DD/ 1140 TD/TT: 08/18/25 1151 Checker Product Design: [place] [address] XRay Report Signed Patient: Heidi Maier MR#: [id number] : 1940 Acct:[id number] Age/Sex: 84 / F ADM Date: 08/18/25 Loc: HO.XRAY Attending Dr: Cezar Steinberg MD Ordering Physician: Cezar Steinberg MD Date of Service: 08/18/25 Procedure(s): XR lum bar spine 2-3V Accession Number(s): [id number] cc: Cezar Steinberg MD Reason for Exam: COM PRESSION FRACTURE EXAMINATION: XR LUMBOSACRAL SPINE CLINICAL INFORMATION: COMPRESSION FRACTURE COMPARISON: August 23, 2021 TECHNIQUE: AP and lateral views FINDINGS: Grade 1 anterolisthe sis L4-5 likely degenerative in nature. Facet joint hypertrophy at L4-5 and L5-S1. S-shaped curvature o f the lumbar spine. Multilevel small mar ginal osteophyte formation and endplate sclerosis. Decreased interverte bral disc height at L4-5 and L5-S1. No acute cortical disruption. Vascular calcifications, aorta. Abundant stool. Multiple vascular cl ips in the left hemiabdomen/retroperitoneum. X R/XR lumbar spine 2-3V IMPRESSION: Multilevel spondylos is pronounced at L4-5 and L5-S1 resulting in grade 1 anterolisthesis L4-5. No gross change. Electronically prieto d by: Ryan Alvarez MD 08/18/2025 12:06 PM EST RP Dictated By: Ryan Serrano MD Signed By: <Manoj osorio signed by Ryan Mcfadden MD in OV> 08/18/25 1206 DD/ 1140 TD/TT: 08/18/25 1151 Checker Product Design: REASON FOR VISIT lower back pain x 5 weeks end of June was carrying beach chair and 2 heavy bags Medications Medication SIG (Take, Route, Frequency, Duration) Notes Start Date End Date Status Baclofen 10 MG 1 tablet as needed Orally Twice a day for 15 days 08/18/2025 Active Cyclobenzaprine HCl 5 MG 1 tablet at bed time as needed Orally Once a day for 10 days 04/05/2024 Not-Taking Immunizations Vaccine Route Administration Date Status Comme nts Influenza High Dose Unknown 08/18/2025 Refused Vital Signs Blood pressure systolic 142 mm Hg 08/18/20 25 Blood pressure diastolic 80 mm Hg 025 Height 64 in 08/18/2025 Weight 134 lbs 08/18/2025 BMI 23 kg/m2 08/18/2025 Encounters Encounter Location Date Provider Diagnosis Cezar Steinberg MD [address] [place] [phone] 08/18/2025 Cezar Steinberg Compression fracture of lumbar vertebra with routine healing, unspecified lumbar vertebral level, subsequent encounter S32.000D and Back spasm M62.830 Assessments Encounter Date Diagnosis (ICD Code) Assessment Notes Treatment Notes Treatment Clinical Notes Section Notes 08/18/2025 Compression fracture of lumbar vertebra with routine healing, unspecified lumbar vertebral level, subsequent encounter (ICD-10 - S32.000D) 08/18/2025 Back spasm (ICD-10 - M62.830) patient verbalized understandng of medication and directions for use Plan Of Treatment Medication Medication Name Sig Start Date Stop Date Notes Baclofen 10 MG 1 tablet as needed O rally Twice a day for 15 days 08/18/2025 Treatment Notes Assessment Notes Back spasm patient verbalized u nderstandng of medication and directions for use Pending Test Test Name Order Date XR lumbar spine 2-3V 08/18/2025 Next Appt Details Follow Up: 2 Weeks, Reason: Provider Name:Cezar tariq, 08/30/2025 11:30:00 AM, [address], [address], [place], [place], [phone], Provider Name:Cezar Love ier, 10/18/2025 10:00:00 AM, [address] [facility], [address], [place], [place], [phone], Provider Name:Cezar Love ier, 04/18/2026 07:00:00 AM, [address] [facility], [address] [facility], [place], [place], [phone], Provider Name:Cezar Love ier, 04/25/2026 10:30:00 AM, [address] [facility], [address] [facility], [place], [place], [phone], Progress Notes * Mayte MAIER MDOB:[birth year] (84 yo F)Acc No.[id number]:08/18/2025 Progress Notes Patient: Mayte MCNULTY Provider: Selvin Steinberg MD :1940 A ge:84 Y S ex:Female Date:08/18/2025 Address:[address] [place], [place] [phone] Subjective: * Chief Complaints: * 1 . lower back pain x 5 weeks end of June was carrying beach chair and 2 heavy bags. * HPI: S ymptom(s): patient is a 84 yo female here with complaint of hurt back after carrying stuff to the beach. pain in both buttocks. and upper legs. had a cat scratch and went to urgent care. is using diclofenac cream. has been going to the [employer] and swimming and stretching. * ROS: G eneral/Constitutional: Denies C hills. D enies F atigue. D enies F ever. D enies H eadache. E NT: Denies S ore throat. R espiratory: Denies C ough. D enies S hortness of breath at rest. D enies S hortness of breath with exertion. G astrointestinal: Denies D iarrhea. D enies N ausea. * Medical History: R efuses colonoscopy 2011 and 2012 2013 2017 2018 (don't ask again). * Medications: N ot-Taking/PRN Cyclobenzaprine HCl 5 MG Tablet 1 tablet at bedtime as needed Orally Once a day * Allergies: P ercocet: nauseau vomiting. Objective: * Vitals: H t: 64, Wt: 134, BMI:23, BP:142/80, Wt-k.78. * Examination: G eneral Examination: GENERAL APPEARANCE: a lert, well hydrated, in no distress.? HEAD: n ormocephalic. SKIN: g ood turgor. HEART: n o murmurs, rubs, gallops, regular rate and rhythm.? LUNGS: n o wheezes, rales, rhonchi, good air movement, clear to auscultation bilaterally. MUSCULOSKELETAL: t enderness in lower spine.. ? Assessment: * Assessment: 1. C ompression fracture of lumbar vertebra with routine healing, unspecified lumbar vertebral level, subsequent encounter - S32.000D (Primary) 2 . B ack spasm - M62.830 ? Plan: * Treatment: 2. B ack spasm Start Baclofen Tablet, 10 MG, 1 tablet as needed, Orally, Twice a day, 15 days, 30 Tablet, Refills 1. Notes: patient verbalized understandng of medication and directions for use * Immunizations: Influenza High Dose (Not administered - Refused: Patient decision) * Follow Up: 2 Weeks * * The named appointment provid er may or may not be the originator of this progress note, and it is not deemed complete until electronically signed by the appointment provider. Sign off status: Pending * Provider: Selvin Steinberg MD Date: 10/18/2024 Generated for Selina petersen/Candelario/Pebblesitting on: 10/18/2024 02:33 PM EST History and Physical Notes * Examination Category Sub-Category Detail Notes Category Not es General Examination GENERAL APPEARANCE: alert, w ell hydrated, in no distress HEAD: normocephalic HEART: no murmurs, rubs, ga llops, regular rate and rhythm LUNGS: no wheezes, rales, r honchi, good air movement, clear to auscultation bilaterally SKIN: good turgor MUSCULOSKELETAL: tenderness in lower spine.
--- OUTSIDE RECORDS SUMMARY | 2025-08-18 14:33 | XMS_ITS | Patient Health Record ---
Author Organization [facility]ri [place] Address [address] [place] [address] Care Team Providers Care Charge Rn Name Role Phone Cezar Steinberg MD Primary Care Provider Isma Allison Unavailable [phone] Sarah Beth Hong Unavailable [phone] Allergies Allergen (clinical drug ingredient) Drug/Non Drug [...] W/U Status Risk Notes Problem Tinea unguium (108880307) Tinea unguium (B35.1) Active confirmed Problem Plantar wart (01534525) Plantar wart (B07.0) Active confirmed Vital Signs Blood pressure diastolic 65 mm Hg 05/26/2025 Height 5 ft 3 in in 05/26/2025 Blood pressure systolic 128 mm Hg 05/26/2025 Weight 126 lbs 05/26/2025 BMI 22.32 kg/m2 05/26/2025 Procedures Procedure Date Ordered Date Performed Result Body Sit e 36598-Ffyt Destruction, 1-04/27/2025 N/A 40848-Wvvg Destruction, -05/26/2025 N/A Encounters Encounter Location Date Provider Diagnosis [facility] [address] [place] [address] 04/27/2025 Sarah Beth Hong Left foot pain M79.672 and Plantar wart B07.[address] [address] 05/26/2025 Sarah Beth Hong Left foot pain M79.672 and Plantar wart B07.[address] [address] 04/25/2025 Isma Ceron Assessments Encounter Date Diagnosis (ICD Code) Assessment Notes Treatment Notes Treatment Clinical Notes Section Notes 04/27/2025 Left foot pain (ICD-10 - M79.672) 05/26/2025 Left foot pain (ICD-10 - M79.672) 04/27/2025 Plantar wart (ICD-10 - B07.0) 05/26/2025 Plantar wart (ICD-10 - B07.0) Plan Of Treatment Pending Test Test Name Order Date X ray : Foot, left 3V 07/26/2013 26145-[id number] NAIL, 6 OR MORE 11/09/2019 03115-Ahms Destruction, 1-14 11/09/2019 13301-Uuxn Destruction, 1-14 04/27/2025 79690-Mkng Destruction, 1-14 05/26/2025 Insurance Providers Payer Name Payer Address Payer Phone Subscriber Number Group Number Insured Name Patient Relationship to Insured Coverage Start Date Coverage End Date [employer] [place] [employer] [facility] [address] [place] [address] [id number] Mayte Cole Self - patient is the insured 4 Medical (General) History Medical History History ICD Code kidney cancer cataracts Surgical History Surgery Date(Month/Year) Kidney removal 2000
--- OUTSIDE RECORDS SUMMARY | 2025-08-18 14:33 | XMS_ITS | Patient Health Record ---
Author Organization Cezar Steinberg MD Address [address] [place], [place] [id number] Care Team Providers Care Diagnostics Sales Developer Name Role Phone Cezar Steinberg Primary Care Provider Allergies Allergen (clinical drug ingredient) Drug/Non Drug Allergy documented on EMR Reaction Allergy Type Onset Date Status Information temporarily unavailable Percocet nauseau vomiting Drug Allergy Active Results Component Value Reference Range Notes Complete Blood Count Auto Di ff Reviewed date:04/14/2025 05:14:46 PM Interpretation: Performing Lab:[facility], [address] [place] [phone] Notes/Report: White Blood Count 8.8 4.8-10.8 X10*3/uL [...] NRBC Abs Auto 0.000 0.0-0.012 X10*3/uL Comprehensive [place]. Panel Fa st Reviewed date:04/14/2025 05:19:06 PM Interpretation: Performing Lab:[address] [phone] Notes/Report: Sodium 142 135-145 mmol/L Potassium 4.3 [...] Panel Reviewed date:04/14/2025 04:16:43 PM Interpretation: Performing Lab:[address] [phone] Notes/Report: Triglycerides 126 <150 mg/dL Desirable Triglyceride: [...] Interpretation: Performing Lab:[facility], [address] [place] [phone] Notes/Report: Urine, Clean Catch Color Urine Yellow Appearance Urine Clear PH 8.0 5.0-9.0 Glucose Urine UA Negative Negative mg/dL Urine Blood Negative Negative Specific [place] - Urine 1.010 1.005-1.025 Urine Protein Negative Neg-Trace mg/dL Urine Ketones Negative Negative mg/dL Nitrite Urine Negative Negative Leukocyte Esterase Urine Negative Negative RBC Urine 0-2 0-2 /HPF WBC Urine 0-5 0-5 /HPF Squamous Epithelial Cell Urine 0-2 0-2 /HPF Bacteria Urine Trace None Seen Hyaline Casts Urine 0-2 0-2 /LPF XR lumbar spine 2-3V (Not ye t reviewed by provider) Interpretation: Performing Lab: Notes/Report: [address] [address] XRay Report Signed Patient: Mayte Cole MR#: [id number] 651 : 1940 Acct:[id number] Age/Sex: 84 / F ADM Date: 08/18/25 Loc: [facility] Attending Dr: Cezar Steinberg MD Ordering Physician: Cezar Steinberg MD Date of Service: 08/18/25 Procedure(s): XR lumbar spine 2-3V Accession Number(s): [id number] cc: Cezar Steinberg MD Reason for Exam: [...] by: Ryan Alvarez MD 08/18/2025 12:06 PM [facility] Dictated By: Ryan Devlin MD Signed By: <Electronically signed by Ryan Mcfadden MD in OV> 08/18/25 1206 DD/ 1140 TD/TT: 08/18/25 1151 Side Boss: [place] [address] XRay Report Signed Patient: Heidi Cole MR#: [id number] 651 : 1940 Acct:[id number] Age/Sex: 84 / F ADM Date: 08/18/25 Loc: HO.XRAY Attending Dr: Cezar Steinberg MD Ordering Physician: Cezar Steinberg MD Date of Service: 08/18/25 Procedure(s): XR lum bar spine 2-3V Accession Number(s): [id number] cc: Cezar Steinberg MD Reason for Exam: COMPRESSION FRACTURE EXAMINATION: XR LUMBOSACRAL SPINE CLINICAL INFORMATION: COMPRESSION FRACTURE COMPARISON: August 23, 2021 TECHNIQUE: AP and lateral views FINDINGS: Grade 1 anterolisthe sis L4-5 likely degenerative in nature. Facet joint hypertrophy at L4-5 and L5-S1. S-shaped curvature o f the lumbar spine. Multilevel small marginal osteophyte formation and endplate sclerosis. Decreased intervertebral disc height at L4-5 and L5-S1. No acute cortical disruption. Vascular calcifications, aorta. Abundant stool. Multiple vascular cl ips in the left hemiabdomen/retroperito neum. 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 No gross change. Electronically prieto d by: Ryan Alvarez MD 08/18/2025 12:06 PM EST Dictated By: Ryan Serrano MD Signed By: <Electronically signed by Ryan Mcfadden MD in OV> 08/18/25 1206 DD/ 1140 TD/TT: 08/18/25 1151 Side Boss: MM tomosynthesis screening B I Reviewed date:04/19/2025 05:18:11 PM Interpretation: Performing Lab: Notes/Report: [address] [place] [address] Mammography Report Signed Patient: Mayte Cole MR#: [id number] 651 : 1940 Acct:[id number] Age/Sex: 84 / F ADM Date: 04/11/25 Loc: HO.MAMMO Attending Dr: Cezar Steinberg MD Ordering Physician: Cezar Steinberg MD Results: 1Ne gative Date of Service: 04/11/25 Follow Up: 1 Year From [facility] Mammogram Procedure(s): MM tomosynthesis screening BI Accession Number(s): [id number] cc: Cezar Steinberg MD EXAMINATION: MM SCREENING [...] Gardenia Agustin DO 04/19/2025 05:03 PM EDT RP Dictated By: Gardenia Agustin DO Signed By: <Electronically signed by Gardenia Agustin DO in OV> 04/19/25 1703 DD/ 0745 TD/TT: 04/11/25 0800 Side Boss: Asiya [facility] [address] [place] [address] Mammography Report Signed Patient: Heidi Cole MR#: [id number] 651 : 1940 Acct:[id number] Age/Sex: 84 / F ADM Date: 04/11/25 Loc: HO.MAMMO Attending Dr: Cezar Steinberg MD Ordering Physician: Cezar Steinberg MD Results: 1Ne gative Date of Service: 04/11/25 Follow Up: 1 Year From [facility] Mammogram Procedure(s): MM tomosynthesis screening BI Accession Number(s): [id number] cc: Cezar Steinberg MD EXAMINATION: MM SCREENING DIGITAL BREAST TOMOSYNTHESIS, BILATERAL CLINICAL INFORMATION: Screening. Asymptomatic. COMPARISON: Mammography: Compari son is made with available priors TECHNIQUE: Digital [...] mammography screening. 1 year F/U This examination herb uld not preclude the clinical evaluation of a suspicious palpable abnormality. This patient's information was entered into a reminder system with a target due date for their next mammogram. Electronically prieto d by: Gardenia Agustin DO 04/19/2025 05:03 PM EDT Dictated By: Gardenia Agustin DO Signed By: <Electronically signed by Gardenia Agustin DO in OV> 04/19/25 1703 DD/ 0745 TD/TT: 04/11/25 0800 Side Boss: Sacha Olivas Reviewed date:04/14/2025 05:07:37 PM Interpretation: Performing Lab:[address] [phone] Notes/Report: Sacha Olivas See Note Specimen held untested for 24 hours; Call to request Chemistry testing. Complete Blood Count no Diff Reviewed date:05/23/2025 04:40:28 PM Interpretation: Performing Lab:[facility], [address] [place] [phone] Notes/Report: White Blood Count 7.8 4.8-10.8 X10*3/uL [...] Microscopic Reviewed date:05/23/2025 04:42:39 PM Interpretation: Performing Lab:[address] [address] Notes/Report: Color Urine Yellow Appearance Urine Clear PH >= 9.0 5.0-9.0 Glucose Urine UA Negative Negative mg/dL Urine Blood Negative Negative Specific [place] - Urine 1.010 1.005-1.025 Urine Protein Negative Neg-Trace mg/dL Urine Ketones Negative Negative mg/dL Nitrite Urine Negative Negative Leukocyte Esterase Urine Small (1+) Negative RBC Urine 0-2 0-2 /HPF WBC Urine 6-10 0-5 /HPF Squamous Epithelial Cell Urine 0-2 0-2 /HPF Bacteria Urine None Seen None Seen Hyaline Casts Urine 0-2 0-2 /LPF Comprehensive Met. Panel Reviewed date:05/23/2025 12:38:05 PM Interpretation: Performing Lab:[address] [address] Notes/Report: Sodium 144 135-145 mmol/L Potassium 4.1 [...] Total Reviewed date:05/23/2025 12:22:58 PM Interpretation: Performing Lab:[address] [address] Notes/Report: Vitamin D 25-OH Total 62.5 >30 [...] Interpretation: Performing Lab:[facility], [address] [place] [phone] Notes/Report: Parathyroid Hormone Intact 70.3 8.7-77.1 pg/mL [...] 03/30/2021 Refused Fluarix Quadrivalent Unknown 08/23/2021 Refused Influenza High Dose Unknown 08/18/2025 Refused Social History Tobacco Use: Social History [...] Status W/U Status Risk Notes Problem Sinusitis (97133953) Sinusitis (J32.9) Active confirmed Problem 559739631 Mixed hyperlipid emia (E78.2) Active confirmed Problem 748369006 Chronic sinusiti s, unspecified (J32.9) Active confirmed Problem 24752806 Slow transit constipation (K59.01) Active confirmed Problem Anosmia (09398349) Anosmia (R43.0) Active confirmed Problem 681806189 History of kidne y cancer (Z85.528) Active confirmed Problem 82767135 Dysthymia (F34.1) Active confirmed Problem 86516466 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) Active confirmed Problem 998773963 Skin cancer (C44.90) Active confirmed Problem 059614398 Pure hypercholesterolemia (E78.00) Active confirmed Problem Leukocytosis (993233036) Elevated white blood cell count (D72.829) Active confirmed Problem Plain X-ray of chest abnormal (finding) (3284186359) Abnormal chest xray (R93.89) Active confirmed Vital Signs Blood pressure diastolic 80 mm Hg 08/18/2025 Height 64 in 08/18/2025 Blood pressure systolic 142 mm Hg 08/18/2025 Weight 134 lbs 08/18/2025 BMI 23 kg/m2 08/18/2025 Encounters Encounter Location Date Provider Diagnosis Cezar Steinberg MD [address] [place] [id number] 04/14/2025 Cezar Steinberg Blood tests for rout ine general physical examination Z00.00 and Pure hypercholesterolemia E78.00 Cezar Steinberg MD [address] [place] [id number] 08/18/2025 Cezar Steinberg Compression fracture of lumbar vertebra with routine healing, unspecified lumbar vertebral level, subsequent encounter S32.000D and Back spasm M62.830 Cezar Steinberg MD [address] [place] [id number] 10/21/2024 Cezar Steinberg Skin cancer C44.90 a nd Elevated BUN R79.9 Cezar Steinberg MD [address] [place] [id number] 04/21/2025 Cezar Steinberg Annual physical exam Z00.00 ; Elevated BUN R79.9 ; Fungal infection B49 ; Pure hypercholesterolemia E78.00 and Depression screening Z13.31 Cezar Steinberg MD [address] [place] [id number] 04/21/2025 Cezar Steinberg Assessments Encounter Date Diagnosis (ICD Code) Assessment Notes Treatment Notes Treatment Clinical Notes Section Notes 04/14/[address] ine general physical examination (ICD-10 - Z00.00) 08/18/2025 Compression fracture of lumbar vertebra with routine healing, unspecified lumbar vertebral level, subsequent encounter (ICD-10 - S32.000D) 08/18/2025 Back spasm (ICD-10 - M62.830) patient verbalized understandng of medication and directions for use 10/21/2024 Skin cancer (ICD-10 - C44.90) going [...] VIEW PA & LAT 10/02/2021 Urinalysis 03/23/2021 XR lumbar spine 2-3V 08/18/2025 Next Appt Details Provider Name:Cezar Love ier, 08/30/2025 11:30:00 AM, [address] [place] [address], [address], [phone], Provider Name:Cezar Sainireinaldo ier, 10/18/2025 10:00:00 AM, [address] [place] [address], [place] [address], [place], [place], [phone], Provider Name:Cezar Love ier, 04/18/2026 07:00:00 AM, [address] [place] [address], [address], [phone], Provider Name:Cezar Love ier, 04/25/2026 10:30:00 AM, [address] [place] [address], [address], [phone], Insurance Providers Payer Name Payer Address Payer Phone Subscriber Number Group Number Insured Name Patient Relationship to Insured Coverage Start Date Coverage End Date [employer]VANTAGE MERGED WITH [facility] [address] [place] [phone] [id number] Mayte Cole Self - patient is the insured [employer] MED[employer] ADVANTAGE [facility] [address] [place] [phone] [id number] Mayte Cole Self - patient is the insured Medical (General) History Medical History History ICD Code refuses colonoscopy 2011 and 2012 (don't ask again) Surgical History Surgery Date(Month/Year) kidney cancer 2000
--- OUTSIDE RECORDS SUMMARY | 2025-08-18 14:34 | XMS_ITS | Clinical Summary ---
Author Organization [facility] Address [address] [place] [address] Phone Care Team Providers Care It Quality Analyst Name Role Phone Cezar Steinberg MD [...] [facility] Care Teams It Quality Analyst Relationship Specialty Start Date End Date Cezar Steinberg MD [address] [place] [address] [id number] [place], [place] PCP - General Internal Medicine 09/12/21
== END 2025-08-18 11:22 | disposition home or self-care (01) ==
LOC: HO.XRAY 11:21
PROVIDERS: PCP Internal Medicine; Visit Provider Internal Medicine
DX: S32.000D Wedge compression fracture of unspecified lumbar vertebra, subsequent encounter for fracture with routine healing (principal)
CPT/HCPCS: 72100

== ENCOUNTER → 2025-08-18 11:40 | Outpatient (BNV) | payer MEDICARE, SELFPAY | PROVIDERS: PCP Internal Medicine; Visit Provider Radiology Diagnostic Radiology | DX: S32.000A Wedge compression fracture of unspecified lumbar vertebra, initial encounter for closed fracture (principal) | CPT/HCPCS: 72100 ==